=== PATIENT | female | born 1955 | race Caucasian/White ===

== ENCOUNTER 2020-02-14 17:59 | Emergency (ER) | payer OTHER, SELFPAY ==
[2020-02-14] VITALS (7 sets, daily range): BP systolic 170–199; BP diastolic 70–96; PULSE 60–77; RESP 12–18; TEMP 35.7; O2SAT 95–100; BMI 27.4
--- NOTE | 2020-02-14 18:49 | ECG_ITS ---
Test Reason : HIGH POTASSIUM Blood Pressure : / mmHG Vent. Rate : 070 BPM Atrial Rate : 070 BPM P-R Int : 146 ms QRS Dur : 086 ms QT Int : 434 ms P-R-T Axes : 053 008 047 degrees QTc Int : 468 ms Normal sinus rhythm Normal ECG when compared 05/09/19 no significant change Referred By: Alex Ramires Electronically Signed By:RIYA HOLCOMB MD
--- NOTE | 2020-02-14 18:49 | XR_ITS ---
EXAMINATION: XR CHEST CLINICAL INFORMATION: Chest pain COMPARISON: Chest x-ray 05/09/2019 TECHNIQUE: Frontal portable view of the chest was obtained. 6:55 PM FINDINGS: Vascular stent in the left subclavian region again noted. No change of the cardiomediastinal contours. The heart size is normal. There is no pulmonary vascular congestion. The lungs are clear. There is no pleural effusion or pneumothorax. Stable coarse calcified granuloma in the right midlung. XR/XR chest 1V IMPRESSION: No acute abnormality of the chest.
--- NOTE | 2020-02-14 18:50 | ED.GENADULT ---
HPI - General Adult General Chief complaint: General Medical Stated complaint: High blood pressure Time Seen by Provider: 02/14/20 18:41 Source: patient Mode of arrival: ambulatory Limitations: no limitations History of Present Illness HPI narrative: 64 years old female with history of end-stage renal failure on dialysis, hypertension, patient was recently hospitalized at [facility] for pulmonary edema require dialysis x2 patient was discharged from [facility] yesterday, patient felt fine all day today took a nap in the afternoon when she woke up felt foggy with lightheadedness and dizziness, felt also light chest pain patient checked her blood pressure found it to be 194 systolic. Patient decided to come to the emergency department, symptoms started 3 hours before arrival, described symptoms as mild, constant, this chest pain was not radiating to any other location, patient declined any relieving factor or worsening factor. Related Data Allergies Allergy/AdvReac Type Severity Reaction Status Date / Time ROXI Inhibitors Allergy Unknown UNKNOWN Unverified 12/23/19 17:19 [ROXI INHIBITORS] Review of Systems Review of Systems: ALL OTHER SYSTEMS ARE REVIEWED AND ARE NEGATIVE CONSTITUTIONAL: REPORTS PER HPI AND REPORTS NO ADDITIONAL CONSTITUTIONAL COMPLAINTS EYES: REPORTS PER HPI AND REPORTS NO ADDITIONAL EYE COMPLAINTS REPORTS SYSTEM REVIEWED AND NO ADDITIONAL COMPLAINTS, EXCEPT DOCUMENTED CARDIOVASCULAR: REPORTS PER HPI AND REPORTS NO ADDITIONAL CARDIOVASCULAR COMPLAINTS RESPIRATORY: REPORTS PER HPI AND REPORTS NO ADDITIONAL RESPIRATORY COMPLAINTS GASTROINTESTINAL: REPORTS PER HPI AND REPORTS NO ADDITIONAL GASTROINTESTINAL COMPLAINTS GENITOURINARY: REPORTS NO ADDITIONAL FEMALE GENITOURINARY COMPLAINTS MUSCULOSKELETAL: REPORTS NO ADDITIONAL MUSCULOSKELETAL COMPLAINTS SKIN/BREAST: REPORTS SYSTEM REVIEWED AND NO ADDITIONAL COMPLAINTS, EXCEPT DOCU PSYCHIATRIC: REPORTS NO ADDITIONAL PSYCHIATRIC COMPLAINTS ENDOCRINE: REPORTS NO ADDITIONAL ENDOCRINE COMPLAINTS HEMATOLOGIC/LYMPHATIC: REPORTS NO ADDITIONAL HEMATOLOGIC/LYMPHATIC COMPLAINTS ALLERGIC/IMMUNOLOGIC: REPORTS NO ADDITIONAL ALLERGIC/IMMUNOLOGIC COMPLAINTS REPORTS SYSTEM REVIEWED AND NO ADDITIONAL COMPLAINTS, EXCEPT DOCUMENTED AND REPORTS ABNORMAL SPEECH PRESENT [facility] Past Medical History Medical History Diabetes Hypertension Renal failure Sinus, maxillary, carcinoma Social History Social History Alcohol intake: never Smoked in Last 30 Days: No Use of substances other than those prescribed or required for medical reasons: No Advance Directives: No Advance Directives Information Provided: Yes Physical Exam Vital Signs: Vital Signs: Last Vital Signs Temp 96.3 F L 02/14/20 18:20 Pulse 67 02/14/20 21:02 Resp 16 02/14/20 21:02 BP 174/78 H 02/14/20 21:02 Pulse Ox 95 02/14/20 21:02 Body Mass Index 27.4 VITAL SIGNS HAVE BEEN REVIEWED NORMAL AND APPEARED TO BE CORRECT. BLOOD PRESSURE on high range. HEART RATE NORMAL. RESPIRATION RATE NORMAL. TEMPERATURE NORMAL. OXYGEN SATURATION NORMAL. Appearance: Alert. Oriented X3. No acute distress. Head: Normal external exam. Normocephalic. Atraumatic. No Buchanan signs noted. No raccoon eyes noted Eyes: PERRLA. EOMI. Conjunctiva and sclera normal. Eyelids normal. ENT: EAC normal. TM's Normal. Pharynx normal. Uvula midline. Moist mucous membranes. No trismus noted. No drooling noted. No muffled voice noted. Neck: Normal inspection. Neck supple. FROM. No adenopathy. Thyroid Normal. No meningeal signs. No neck mass noted. CVS: Normal heart rate and rhythm. Heart sound normal. No murmurs noted. Pulses normal throughout. Respiratory: No respiratory distress. Painless inspiration. Breath sounds normal. No wheezes/rales/rhonchi noted. Chest nontender. No accessory muscle usage noted or decreased air movement noted. Abdomen: Soft and nontender. Bowel sounds normal in all 4 quadrants. No distention noted. No organomegaly noted. No visible injury noted. Back: No CVA tenderness. Full range of motion noted. Skin: Skin warm and dry. Normal skin color. Normal skin turgor. No rashes/lesions/lacerations noted. Extremities: No lower extremity edema. Extremities exhibit normal range of motion. Extremities nontender. Neuro: Oriented X 3. No motor deficit. No sensory deficit. Reflexes normal. Medical Decision Making MDM Narrative Medical decision making narrative: Assessment and plan. 64-year-old female in stage renal disease on dialysis, also with history of hypertension, just had a recent hospitalization at [facility] required urgent dialysis as an inpatient, patient also scheduled for dialysis tomorrow at 06:00 patient is planning to keep that appointment for her dialysis, patient just had a recent change of her hypertension medication patient only taking spironolactone for blood pressure/diuresis. Patient complained of headache which improved shortly after. Unremarkable workup no indication for emergent dialysis at this point, patient had reasonably within normal labs for patient past medical history. Patient was urged to discuss with her assistant media buyer to add another antihypertensive medication tomorrow. At discharge patient feeling better blood pressure in the high range. Lab Data Result diagrams: 02/14/20 19:08 02/14/20 19:08 Labs: Lab Results 02/14/20 02/14/20 02/14/20 Range/Units 19:08 19:08 19:08 WBC 5.6 (4.8-10.8) X10*3/uL RBC 3.71 L (4.20-5.50) X10*6/uL Hgb 11.7 L (12.0-16.0) g/dl Hct 37.2 (37-47) % MCV 100.3 H (80-98) fL MCH 31.5 (27.0-33.0) pg MCHC 31.5 (31.0-35.0) g/dl RDW 15.4 (11.0-16.0) % Plt Count 157 L (160-400) X10*3/uL MPV 10.0 (9.4-12.3) fL Immature Gran % (Auto) 0.2 (0.0-0.4) % Neut % (Auto) 50.7 (45-73) % Lymph % (Auto) 23.3 (20-40) % [place] % (Auto) 13.7 H (2-11) % Eos % (Auto) 11.4 H (0-4) % Baso % (Auto) 0.7 (0-2) % Lymph # (Auto) 1.3 (1.2-4.9) X10*3/uL [place] # (Auto) 0.8 (0.1-1.2) X10*3/uL Eos # (Auto) 0.6 H (0.0-0.4) X10*3/uL Baso # (Auto) 0.0 (0.0-0.2) X10*3/uL Abs Immat Gran (auto) 0.01 (0.00-0.03) X10*3/uL Absolute Neuts (auto) 2.9 (2.0-8.3) X10*3/uL Absolute Nucleated RBC 0.000 (0.0-0.012) X10*3/uL Nucleated RBC % (auto) 0.0 (0.0-0.2) /100WBC Sodium 133 L (135-145) mmol/L Potassium 5.7 H (3.3-5.1) mmol/l Chloride 95 L (96-108) mmol/L Carbon Dioxide 22 (22-29) mmol/L Anion Gap 22 H (12-20) BUN 56 H (9-16) mg/dL Creatinine 9.42 H* (0.5-1.4) mg/dL Estim Creat Clear Calc 6.0 Estimated GFR 4 Random Glucose 168 H (60-115) mg/dL Calcium 8.3 L (8.4-10.2) mg/dL Total Bilirubin 0.5 (0.0-1.0) mg/dL Direct Bilirubin 0.2 (0.0-0.5) mg/dL AST 22 (5-31) U/L ALT 17 (0-31) U/L Alkaline Phosphatase 103 (39-117) U/L Troponin I High Sens 6.8 (<3.5-17.0) ng/L B-Natriuretic Peptide 402 H (<100) pg/mL Total Protein 7.2 (6.5-8.0) g/dL Albumin 3.8 (3.5-5.0) g/dL Lipase 153 H (8-78) U/L Imaging Data Chest x-ray: Radiologist's impression: No acute pathology ECG Data Interpretation: Normal sinus rhythm at 70 beats per minutes, normal intervals, no ST-T changes. Discharge Plan Discharge Clinical Impression: End stage kidney disease, Hyperkalemia Hypertension Qualifiers: Hypertension type: essential hypertension Qualified Code(s): I10 - Essential (primary) hypertension Patient Disposition: Home, Self-Care Instructions: Chronic Hypertension (ED) Additional Instructions: Keep your appointment for tomorrow dialysis tomorrow. Discuss with your assistant media buyer to add a new medicine for your hypertension. Referrals: Shelia Jung MD [Primary Care Provider] - 2 days
[2020-02-14 19:13] LABS: MANUAL DIFF FLAG NO
[2020-02-14 19:14] LABS: Basophils Percent Auto 0.7 % (0-2); Eosinophils Absolute Auto 0.6 X10*3/uL (0.0-0.4); Eosinophils Percent Auto 11.4 % (0-4); Hematocrit 37.2 % (37-47); Hemoglobin 11.7 g/dl (12.0-16.0); Imm Gran Abs Auto 0.01 X10*3/uL (0.00-0.03); Imm Gran Pct Auto 0.2 % (0.0-0.4); Lymphocytes Absolute Auto 1.3 X10*3/uL (1.2-4.9); Lymphocytes Percent Auto 23.3 % (20-40); Mean Corpuscular HGB Conc 31.5 g/dl (31.0-35.0); Mean Corpuscular Hemoglobin 31.5 pg (27.0-33.0); Mean Corpuscular Volume 100.3 fL (80-98); Monocytes Absolute Auto 0.8 X10*3/uL (0.1-1.2); Monocytes Percent Auto 13.7 % (2-11); Neutrophils Absolute Auto 2.9 X10*3/uL (2.0-8.3); Neutrophils Percent Auto 50.7 % (45-73); Platelet Count 157 X10*3/uL (160-400); Red Blood Count 3.71 X10*6/uL (4.20-5.50); Red Cell Distribution Width 15.4 % (11.0-16.0); White Blood Count 5.6 X10*3/uL (4.8-10.8)
[2020-02-14] MEDS: amLODIPine Besylate 5 MG TABLET PO (19:34)
--- NOTE | 2020-02-14 19:35 | PC.NURSE ---
[facility] HAD CP AROUND 5PM WITH DIZZINESS AT HOME. WAS HTN AND INSTRUCTED TO COME TO ED. PT RECENETLY TREATED FOR CHF. ARRIVED AT HOME YESTERDAY. NO PEDAL EDEMA. LS CTA. UNLABORED RESP. RECIEVED DIALYSIS SCHEDULED, LAST WAS FRIDAY.
[2020-02-14 19:38] LABS: B Type Natriuretic Peptide 402 pg/mL (<100); Troponin-I High Sensitivity 6.8 ng/L (<3.5-17.0)
[2020-02-14 19:42] LABS: Alanine Aminotransferase 17 U/L (0-31); Albumin Level 3.8 g/dL (3.5-5.0); Alkaline Phosphatase 103 U/L (39-117); Anion Gap 22 (12-20); Aspartate Amino Transferase 22 U/L (5-31); Bilirubin Direct 0.2 mg/dL (0.0-0.5); Bilirubin Total 0.5 mg/dL (0.0-1.0); Blood Urea Nitrogen 56 mg/dL (9-16); Calcium 8.3 mg/dL (8.4-10.2); Carbon Dioxide 22 mmol/L (22-29); Chloride 95 mmol/L (96-108); Estimated Glomerular Filt Rate 4; Glucose Random 168 mg/dL (60-115); Potassium 5.7 mmol/l (3.3-5.1); Sodium 133 mmol/L (135-145); Total Protein 7.2 g/dL (6.5-8.0)
[2020-02-14 19:56] LABS: Lipase 153 U/L (8-78)
--- NOTE | 2020-02-14 20:05 | PC.NURSE ---
bp improving. pt reports feeling better. skin pwd. nad. snr on monitor.
--- NOTE | 2020-02-14 20:31 | PC.NURSE ---
pt reporting a headache and nausea. then starts to doze off. easily aroused. made aware.
--- NOTE | 2020-02-14 21:02 | PC.NURSE ---
pt sleeping soundly. skin pwd.
== END 2020-02-14 22:13 | disposition home or self-care (01) ==
PROVIDERS: Emergency Provider Emergency Medicine; PCP Pediatrics
DX: I12.0 Hypertensive chronic kidney disease with stage 5 chronic kidney disease or end stage renal disease (principal); J81.1 Chronic pulmonary edema; E87.5 Hyperkalemia; Z79.899 Other long term (current) drug therapy
CPT/HCPCS: 36415; 71045; 80048; 80076; 83690; 83880; 84484; 85025; 93005; 99283; 99284

== ENCOUNTER 2020-04-11 11:23 | Outpatient (REF) | payer OTHER, SELFPAY ==
--- NOTE | 2020-04-11 11:30 | XR_ITS ---
EXAMINATION: XR LUMBOSACRAL SPINE CLINICAL INFORMATION: Low back pain COMPARISON: None TECHNIQUE: Three views of the lumbosacral spine. FINDINGS: There may be a transitional vertebral body segment or 6 lumbar-type vertebral bodies. For the purposes of this dictation, L1 is designated as the first nonrib-bearing vertebral body with the top of the iliac crest at the L4-L5 disc space level and the transitional segment designated inferiorly. There is rotatory scoliosis of the lower lumbar spine convex to the left and lumbar sacral region convex to the right. There is 1 cm anterior subluxation of L5 with the transitional segment. Bone alignment is otherwise normal. No fracture or dislocation is seen. There is degenerative disc disease at the L5 transitional segment and transitional segment and sacrum levels. There is lower lumbar spine facet arthritis. There is evidence of atherosclerotic disease. XR/XR lumbar spine 2-3V IMPRESSION: Probable transitional vertebral body segment. Rotatory scoliosis. Lower lumbar sacral spine degenerative disc disease and facet arthritis 1 cm anterior subluxation of L5 with respect to the transitional vertebral body segment.
== END 2020-04-11 11:24 | disposition home or self-care (01) ==
LOC: HO.XRAY 11:23
PROVIDERS: PCP Pediatrics; Visit Provider General Practice
DX: M54.5 Low back pain (principal)
CPT/HCPCS: 72100

== ENCOUNTER 2020-05-10 20:44 | Inpatient (IN) | payer OTHER, SELFPAY ==
--- NOTE | ~2020-05-10 | XR_ITS ---
EXAMINATION: XR CHEST CLINICAL INFORMATION: SOB and pleural effusion. COMPARISON: Chest 05/11/2020 TECHNIQUE: 2 views of the chest were obtained. FINDINGS: There is diffuse haziness right lung base for fusion underlying atelectasis. Rest of lungs are expanded. Minimal atelectatic changes are seen in the left lung base. Increase interstitial prominence both lungs have slightly improved. Heart size and pulmonary vascularity is normal. There is left subclavian venous stent. XR/XR chest 2V IMPRESSION: Small right pleural effusion with underlying atelectasis. Minimal left basilar atelectasis seen.
[2020-05-10 21:36] VITALS: BP 180/87; PULSE 87; RESP 18; TEMP 36.8; O2SAT 99; BMI 27.8
--- NOTE | 2020-05-11 00:03 | CT_ITS ---
EXAMINATION: CT ABDOMEN AND PELVIS WITHOUT CONTRAST CLINICAL INFORMATION: Vomiting. Abdominal pain. Distention. Concern for bowel obstruction. COMPARISON: None TECHNIQUE: Multidetector volumetric imaging was performed from the superior aspect of the liver through the pubic symphysis. Sagittal and coronal reformatted images were obtained on the technologist's workstation. This CT examination was performed using dose optimization techniques as appropriate, variously including the following: *Automated exposure control *Adjustment of mA and/or kV according to patient size (this includes techniques or standardized protocols for targeted exams where dose is matched to indication/reason for exam; i.e. extremities or head) *Use of iterative reconstruction technique DLP: 431 mGy-cm FINDINGS: LUNG BASES: There are bilateral pleural effusions. The effusion is moderate in volume on the right and small on the left. There is airspace consolidation at the right lung base. There are patchy airspace opacities also at the left lung base. There is a calcified granuloma in the right lower lobe. LIVER, GALLBLADDER, AND BILIARY TREE: The liver is normal in size, shape, and attenuation. No focal hepatic lesion or biliary ductal dilatation is present. Scattered calcified granuloma in the liver. The gallbladder is unremarkable with no evidence of radiopaque gallstones, gallbladder wall thickening, or obvious pericholecystic inflammatory changes. PANCREAS: Unremarkable. SPLEEN: Multiple small calcified granuloma in the spleen. Spleen is of normal size. No splenic mass. ADRENAL GLANDS: Unremarkable. KIDNEYS AND URETERS: The kidneys are markedly atrophic with thinning of the cortex. There is no hydronephrosis. There is a 4 mm stone in lower pole the right kidney. BLADDER: Unremarkable. GASTROINTESTINAL TRACT: There is no acute change of bowel. There is no bowel wall thickening /edema. There is no bowel obstruction. There is a moderate volume of stool in the colon. There is some oral contrast in the lumen of the cecum and right colon. The appendix is nonvisualized . The small bowel loops are unremarkable. The stomach is normal. There is no hiatal hernia. Mesentery: No free air. No inflammation or free fluid. ABDOMINAL WALL: No significant hernia is appreciated. LYMPH NODES: Normal. VASCULAR: There are vascular calcifications throughout the abdomen and the pelvis. There is no aneurysm of aorta. PELVIC VISCERA: Uterus is retroverted. There are multiple small vascular calcifications in the subserosa of the uterus. OSSEOUS STRUCTURES: Grade 1 anterolisthesis of L4 and L5.. Bilateral spondylolysis of the L4 pars interarticularis. The L4-L5 disc is narrowed with vacuum disc phenomenon, vertebral endplate osteosclerosis and cystic changes and large anterior endplate spurs. There is degenerative facet joint arthrosis at L5-S1. CT/CT abdomen pelvis wo con IMPRESSION: 1. Bilateral pleural effusions, right larger in volume than left. 2. Consolidation right lung base. 3. Cardiomegaly. 4. Atrophic kidneys. No hydronephrosis. Small right renal stone. 5. No acute change of the bowel.
--- NOTE | 2020-05-11 00:03 | XR_ITS ---
EXAMINATION: CHEST 1 VIEW CLINICAL INFORMATION: Shortness of breath. COMPARISON: 05/09/2019. TECHNIQUE: An AP view of the chest is provided. FINDINGS: The cardiac silhouette is stable. A vascular stent is in unchanged position. There is opacification within the lower right hemithorax, likely employer relations 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 of pleural and parenchymal disease. Superimposed upon this is interstitial prominence throughout both lungs. There is a stable nodular density within the right lower lung zone. The osseous structures are stable. XR/XR chest 1V IMPRESSION: Right lower lobe opacification likely employer relations 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 of a mixture of pleural and parenchymal disease. This is superimposed upon mild interstitial prominence throughout both lungs.
--- NOTE | 2020-05-11 00:03 | ECG_ITS ---
Test Reason : ABD PAIN Blood Pressure : / mmHG Vent. Rate : 095 BPM Atrial Rate : 095 BPM P-R Int : 148 ms QRS Dur : 084 ms QT Int : 390 ms P-R-T Axes : 047 019 054 degrees QTc Int : 490 ms Normal sinus rhythm Possible Left atrial enlargement Prolonged QT Abnormal ECG When compared with ECG of 14-FEB-2020 19:13, No significant change was found Referred By: Kilo Garner Electronically Signed By:ANAHI LOVE
--- NOTE | 2020-05-11 00:05 | ED_ITS ---
HPI - General Adult General Chief complaint: Weakness Stated complaint: Fatigue Time Seen by Provider: 05/10/20 23:13 Source: patient Mode of arrival: ambulatory Limitations: no limitations History of Present Illness HPI narrative: 64-year-old female who presents to the emergency department for evaluation of abdominal pain, nausea, vomiting, weakness and diarrhea. The patient has end-stage renal disease and is dialyzed on Friday, and Friday. She states that she had a full dialysis on Friday but she did have some hypertension during dialysis. She states that she was feeling weak today. This afternoon, she developed diarrhea. She states that initially the stool was soft and then became watery. She had 4-5 episodes of loose watery stool, with no blood in it. She developed mid epigastric pain which she describes as a intermittent, dull ache which is 6/10 at its worse. She had associated nausea with no vomiting. She states she was feeling very weak. She also felt short of breath this evening. She has had a cough which is nonproductive. She denied myalgias, arthralgias, loss of sense of taste or smell. Patient states that she was last tested for COVID 19, 1-2 weeks prior and she was negative. At the time of evaluation, she is complaining of abdominal pain which is 6/10. She did take Pepto-Bismol at home and believes that this has helped her diarrhea but not her abdominal pain. Related Data Home Medications Medication Instructions Recorded Confirmed acetaminophen 650 mg PO Q6H PRN 05/11/20 05/11/20 ammonium lactate 1 appl TOPICAL BID 05/11/20 05/11/20 atorvastatin 40 mg PO BEDTIME 05/11/20 05/11/20 gabapentin 100 mg PO DAILY 05/11/20 05/11/20 gabapentin 200 mg PO BEDTIME 05/11/20 05/11/20 lidocaine-prilocaine 1 appl TOPICAL DAILY PRN 05/11/20 05/11/20 loratadine 10 mg PO DAILY 05/11/20 05/11/20 lorazepam 1 mg PO 3XW 05/11/20 05/11/20 losartan 25 mg PO BEDTIME 05/11/20 05/11/20 nifedipine 60 mg PO DAILY 05/11/20 05/11/20 pioglitazone 30 mg PO DAILY 05/11/20 05/11/20 spironolactone 100 mg PO DAILY 05/11/20 05/11/20 sucroferric oxyhydroxide [Velphoro] 1,000 mg PO TID 05/11/20 05/11/20 venlafaxine 37.5 mg PO DAILY 05/11/20 05/11/20 zolpidem 10 mg PO BEDTIME PRN 05/11/20 05/11/20 Allergies Allergy/AdvReac Type Severity Reaction Status Date / Time ROXI Inhibitors Allergy Unknown UNKNOWN Verified 05/10/20 21:35 [ROXI INHIBITORS] Review of Systems Review of Systems: Yes all other systems are reviewed and are negative Neurologic: Reports Abnormal speech present [facility] Past Medical History [facility] Narrative: The patient denies tobacco, alcohol and drug use. Medical History Diabetes Hypertension Renal failure Sinus, maxillary, carcinoma Social History Social History Alcohol intake: never Smoked in Last 30 Days: No Use of substances other than those prescribed or required for medical reasons: No Advance Directives: No Advance Directives Information Provided: No Physical Exam Vital Signs: Vital Signs: Last Vital Signs Temp 98.9 F 05/11/20 02:00 Pulse 98 05/11/20 02:00 Resp 20 05/11/20 02:00 BP 217/96 H 05/11/20 02:00 Pulse Ox 82 L 05/11/20 02:00 Body Mass Index 27.8 Const: General: cooperative and acute distress mild (Secondary to abdominal pain) Orientation/consciousness: oriented to person and oriented to place Limitations: no limitations HENMT: Head: Yes normal to inspection, Yes normocephalic and Yes atraumatic Ears: external ears normal General nose exam: Normal external nose present Face and sinus: Yes other (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) Mouth: Normal oral and palatal mucosa present Throat: Yes posterior oropharynx normal Eyes: Periorbital: periorbital findings normal Eyelids: Yes eyelids normal Conjunctivae: conjunctivae normal Sclerae: sclerae normal Corneas: corneas normal Pupils: Equal, round and reactive pupils present Direct Ophthalmoscopy: normal light reflex Neck: Neck: Yes full ROM, Yes no lymphadenopathy, Yes no meningeal signs, Yes trachea midline and Yes supple Chest: Chest palpation & inspection: normal inspection of the chest and normal palpation of entire chest wall Resp: Effort & Inspection: normal respiratory effort and able to speak in complete sentences Auscultation: clear to auscultation bilaterally Cardio: Rate: regular rate Rhythm: regular rhythm Heart sounds: S1 normal heart sound present, S2 normal heart sound present and no murmurs GI: Inspection: Yes distended ([id number]) Palpation (GI): Soft to palpation, Tenderness to palpation present (GI) in the epigastrum (Moderate), no guarding, not rigid and No hepatosplenomegaly present Auscultation: High- pitched bowel sounds present : General: Yes no CVA tenderness Back/Spine/Pelvis: Back: no CVA tenderness Cervical Spine: normal cervical lordosis Thoracic/Lumbar Spine: thoracic and lumbar spine normal to inspection Skin: Lesions: no lesions Rashes: no rashes Wounds: no wounds Neuro: General: oriented to person, oriented to place and no meningeal signs Cranial nerves: Yes CN's II-XII intact bilaterally and Yes Equal, round and reactive pupils present Cognition (Neuro): normal cognition Speech: Abnormal speech present Motor exam (neuro): 5/5 motor strength present throughout Extrem: General: Yes normal to inspection and Yes full ROM Psych: Appearance: well kempt Mental Status: mental status grossly normal Speech and movement: Normal speech and movement present Affect: normal affect Attitude: cooperative Thought process: Normal thought process present Thought content: Normal thought content present Course Course Course Narrative: 64-year-old female with a history of end-stage renal disease, dialyzed on Friday, and Friday, who presents to the emergency department for evaluation of fatigue, abdominal pain with distention, nausea, diarrhea. Examination did reveal midepigastric tenderness with abdominal distension and high-pitched bowel sounds. Concerned the patient may have a bowel obstruction. Laboratory evaluation was ordered including CT scan of the abdomen pelvis without IV contrast. Patient was ordered to get normal saline 500 cc bolus, Zofran 4 mg IV for her nausea and morphine 4 mg IV for her pain. 0211: The patient's laboratory evaluation is consistent with chronic anemia and renal failure. Chest x-ray revealed a right lower lobe opacity. CT scan of the abdomen and pelvis confirmed the patient does have a right lower lung airspace consolidation and possible left lower lung airspace consolidation as well. Patient also has bilateral pleural effusions and possible ascites noted, there was no bowel obstruction. Given the patient's immunocompromised status due to having end-stage renal disease and being a dialysis patient, I do not think that this patient can managed at home and needs to be admitted for IV antibiotics. I did order blood cultures x2 and a lactic acid. The patient was ordered to get Zosyn 3.375 mg IV for possible aspiration pneumonia. Will monitor the patient for hypotension and give her IV fluid as appropriate. I will discuss the patient's presentation with the covering hospitalist. The patient states that she gets her dialysis through [facility] from Dr. Leon Asencio. We will need to consult our ton container shipper for dialysis today. 0225: I was informed by nursing that the patient's O2 saturation was 70% on room air, patient was placed on 4 L via nasal cannula with O2 saturation 96%. Given this finding, concerned the patient may have COVID pneumonia despite the negative COVID-19 test. I did order Decadron 10 mg IV. 0243: I did discuss the patient's presentation with the ton container shipper, Dr. Forman and with the covering hospitalist. The hospitalist was concerned that the patient is hypertensive and the patient was ordered to get her outpatient nifedipine 60 mg orally and lower start and 25 mg orally. Also, after my discussion with hospitalist, I added vancomycin 1 g IV to the patient's antibiotic regimen. The patient will be admitted for further management of her pneumonia and hypoxia. Medical Decision Making Lab Data Result diagrams: 05/11/20 01:15 05/11/20 01:15 Labs: Lab Results 05/11/20 05/11/20 05/11/20 Range/Units 01:15 01:15 01:15 WBC 5.8 (4.8-10.8) X10*3/uL RBC 2.90 L D (4.20-5.50) X10*6/uL Hgb 9.0 L D (12.0-16.0) g/dl Hct 29.2 L D (37-47) % MCV 100.7 H (80-98) fL MCH 31.0 (27.0-33.0) pg MCHC 30.8 L (31.0-35.0) g/dl RDW 15.5 (11.0-16.0) % Plt Count 207 D (160-400) X10*3/uL MPV 9.3 L (9.4-12.3) fL Immature Gran % (Auto) 0.2 (0.0-0.4) % Neut % (Auto) 66.0 (45-73) % Lymph % (Auto) 17.2 L (20-40) % [place] % (Auto) 10.9 (2-11) % Eos % (Auto) 5.0 H (0-4) % Baso % (Auto) 0.7 (0-2) % Lymph # (Auto) 1.0 L (1.2-4.9) X10*3/uL [place] # (Auto) 0.6 (0.1-1.2) X10*3/uL Eos # (Auto) 0.3 (0.0-0.4) X10*3/uL Baso # (Auto) 0.0 (0.0-0.2) X10*3/uL Abs Immat Gran (auto) 0.01 (0.00-0.03) X10*3/uL Absolute Neuts (auto) 3.8 (2.0-8.3) X10*3/uL Absolute Nucleated RBC 0.000 (0.0-0.012) X10*3/uL Nucleated RBC % (auto) 0.0 (0.0-0.2) /100WBC Sodium 137 (135-145) mmol/L Potassium 4.5 (3.3-5.1) mmol/L Chloride 98 (96-108) mmol/L Carbon Dioxide 24 (22-29) mmol/L Anion Gap 20 (12-20) BUN 35 H (9-16) mg/dL Creatinine 6.79 H* (0.5-1.4) mg/dL Estim Creat Clear Calc 8.4 Estimated GFR 6 Random Glucose 165 H (60-115) mg/dL Calcium 8.7 (8.4-10.2) mg/dL Total Bilirubin 0.4 (0.0-1.0) mg/dL AST 12 D (5-31) U/L ALT 7 (0-31) U/L Alkaline Phosphatase 94 (39-117) U/L Total Protein 6.7 (6.5-8.0) g/dL Albumin 3.4 L (3.5-5.0) g/dL Lipase 246 H (8-78) U/L COVID-19 (AJAY) Negative (Negative) COVID-19 Clin Com See Note ECG Data Attestation: I personally reviewed and interpreted this ECG as follows: Interpretation: 0126: Normal sinus rhythm with a rate of 95, [place] [address] milliseconds. Prolonged QTC interval of 490 milliseconds, no ST segment elevation, no ST segment depression, no old EKG for comparison. Critical Care Time Critical Care Time Critical Care Time: Yes Total Critical Care Time: 75 Attestation: Critical Care: The patient was critically ill with a high probability of imminent or life threatening deterioration. I spent greater than 30 minutes of discontinuous time evaluating the patient,delivering critical care at the bedside, discussing and evaluating pertinent data with consultants. Critical care time does not include time spent performing separately billable procedures or teaching. Total time spent performing critical care was 75 minutes. Discharge Plan Discharge Clinical Impression: Hypoxia Pneumonia Qualifiers: Pneumonia type: due to unspecified organism Laterality: bilateral Lung location: lower lobe of lung Qualified Code(s): J18.9 - Pneumonia, unspecified organism Abdominal pain Qualifiers: Abdominal location: epigastric Qualified Code(s): R10.13 - Epigastric pain Diarrhea Qualifiers: Diarrhea type: unspecified type Qualified Code(s): R19.7 - Diarrhea, unspecified Prescriptions: No Action atorvastatin 40 mg tablet 40 mg PO BEDTIME RF: 0 venlafaxine 37.5 mg capsule,extended release 24hr 37.5 mg PO DAILY RF: 0 ammonium lactate 12 % lotion 1 appl topical BID RF: 0 spironolactone 100 mg tablet 100 mg PO DAILY RF: 0 lidocaine-prilocaine 2.5-2.5 % cream 1 appl topical DAILY PRN (Reason: Pain) RF: 0 losartan 25 mg tablet 25 mg PO BEDTIME RF: 0 gabapentin 100 mg capsule 100 mg PO DAILY RF: 0 gabapentin 100 mg Capsule 200 mg PO BEDTIME RF: 0 lorazepam 1 mg tablet 1 mg PO 3XW RF: 0 zolpidem 10 mg tablet 10 mg PO BEDTIME PRN (Reason: insomnia) RF: 0 pioglitazone 30 mg tablet 30 mg PO DAILY RF: 0 nifedipine 60 mg tablet extended release 60 mg PO DAILY RF: 0 loratadine 10 mg tablet 10 mg PO DAILY RF: 0 Velphoro 500 mg tablet,chewable 1,000 mg PO TID RF: 0 acetaminophen 325 mg Tablet 650 mg PO Q6H PRN (Reason: Pain) RF: 0
[2020-05-11] MEDS: Morphine Sulfate 4 MG/ML CARTRIDGE IVPUSH (01:20)
[2020-05-11] MEDS: 0.9 % Sodium Chloride 500 ML IV (01:20)
[2020-05-11] MEDS: ondansetron HCL 4 MG/2 ML VIAL IVPUSH (01:20)
[2020-05-11 01:22] LABS: Basophils Percent Auto 0.7 % (0-2); Eosinophils Absolute Auto 0.3 X10*3/uL (0.0-0.4); Hematocrit 29.2 % (37-47); Imm Gran Abs Auto 0.01 X10*3/uL (0.00-0.03); Imm Gran Pct Auto 0.2 % (0.0-0.4); Lymphocytes Percent Auto 17.2 % (20-40); MANUAL DIFF FLAG NO; Mean Corpuscular HGB Conc 30.8 g/dl (31.0-35.0); Mean Corpuscular Volume 100.7 fL (80-98); Mean Platelet Volume 9.3 fL (9.4-12.3); Monocytes Absolute Auto 0.6 X10*3/uL (0.1-1.2); Monocytes Percent Auto 10.9 % (2-11); Neutrophils Absolute Auto 3.8 X10*3/uL (2.0-8.3); Platelet Count 207 X10*3/uL (160-400); Red Cell Distribution Width 15.5 % (11.0-16.0); White Blood Count 5.8 X10*3/uL (4.8-10.8)
[2020-05-11 01:35] LABS: COVID-19 Test Negative (Negative)
[2020-05-11 02:00] VITALS: BP 217/96; PULSE 98; RESP 20; TEMP 37.2; O2SAT 82
[2020-05-11 02:02] LABS: Alanine Aminotransferase 7 U/L (0-31); Albumin Level 3.4 g/dL (3.5-5.0); Alkaline Phosphatase 94 U/L (39-117); Anion Gap 20 (12-20); Aspartate Amino Transferase 12 U/L (5-31); Bilirubin Total 0.4 mg/dL (0.0-1.0); Blood Urea Nitrogen 35 mg/dL (9-16); Calcium 8.7 mg/dL (8.4-10.2); Carbon Dioxide 24 mmol/L (22-29); Chloride 98 mmol/L (96-108); Creatinine Clr Calc Pharmacy 8.4; Estimated Glomerular Filt Rate 6; Glucose Random 165 mg/dL (60-115); Potassium 4.5 mmol/L (3.3-5.1); Sodium 137 mmol/L (135-145); Total Protein 6.7 g/dL (6.5-8.0)
[2020-05-11 02:17] LABS: Lipase 246 U/L (8-78)
--- NOTE | 2020-05-11 02:21 | PC.NURSE ---
PATEINT 77% ON ROOM AIR. PLACED ON 4L 02 NC NOW 95%. DR WATSON AWARE.
--- NOTE | 2020-05-11 02:37 | PM.IMHP ---
History of Present Illness Date of Service: 05/11/20 Chief Complaint: shortness of breath/diarrhea 64-year-old female with a past medical history of hypertension, hyperlipidemia, diabetes, ESRD on hemodialysis on Friday, anxiety, depression presented to the hospital with a chief complaint of diarrhea. Patient reports that for the past 1 day she has been having abdominal discomfort/epigastric pain and had 4 episodes of loose watery stool. Also ordered to her shortness of breath and cough. Denies any fevers. Denies any nausea vomiting. Denies any urinary symptoms. Review of all other systems is negative except mentioned above ER course: Per ER physician patient exam noticed mild epigastric tenderness, home a CT scan showed no acute intra-abdominal pathology. But noticed bilateral pleural effusions as well as home pulmonary infiltrates concern for pneumonia-patient was given empirical vanc and Zosyn. As well as Decadron will for suspected PUI. ER physician mentioned that he also spoke to Nephrology Dr. kelley who mentioned no need for emergency dialysis and will be re-evaluated in the morning. EKG was nonischemic. For ER patient patient was briefly hypoxic to 75% subsequently placed on Asacol cannula 4 L improvement in saturations to 96%. Patient was not in respiratory distress. [facility] Medical History Diabetes Hypertension Renal failure Sinus, maxillary, carcinoma Social History Alcohol intake: never Smoked in Last 30 Days: No Use of substances other than those prescribed or required for medical reasons: No Advance Directives: No Advance Directives Information Provided: No Meds Allergies Allergy/AdvReac Type Severity Reaction Status Date / Time ROXI Inhibitors Allergy Unknown UNKNOWN Verified 05/10/20 21:35 [ROXI INHIBITORS] Home Medications Medication Instructions Recorded Confirmed Type acetaminophen 650 mg PO Q6H PRN 05/11/20 05/11/20 History ammonium lactate 1 appl TOPICAL BID 05/11/20 05/11/20 History atorvastatin 40 mg PO BEDTIME 05/11/20 05/11/20 History gabapentin 100 mg PO DAILY 05/11/20 05/11/20 History gabapentin 200 mg PO BEDTIME 05/11/20 05/11/20 History lidocaine-prilocaine 1 appl TOPICAL DAILY PRN 05/11/20 05/11/20 History loratadine 10 mg PO DAILY 05/11/20 05/11/20 History lorazepam 1 mg PO 3XW 05/11/20 05/11/20 History losartan 25 mg PO BEDTIME 05/11/20 05/11/20 History nifedipine 60 mg PO DAILY 05/11/20 05/11/20 History pioglitazone 30 mg PO DAILY 05/11/20 05/11/20 History spironolactone 100 mg PO DAILY 05/11/20 05/11/20 History sucroferric oxyhydroxide [Velphoro] 1,000 mg PO TID 05/11/20 05/11/20 History venlafaxine 37.5 mg PO DAILY 05/11/20 05/11/20 History zolpidem 10 mg PO BEDTIME PRN 05/11/20 05/11/20 History Physical Exam Vital Signs and Narrative: Vital Signs: Gen: Appears be in no acute distress HEENT: NCAT, Moist mucosa. Pulmonary: Diminished breath sounds CVS: Normal S1-S2 Abdomen: BS+, Soft, Nontender Extremities: Warm well perfused Neuro: Alert and awake. Last Vital Signs Temp 98.9 F 05/11/20 02:00 Pulse 98 05/11/20 02:00 Resp 20 05/11/20 02:00 BP 217/96 H 05/11/20 02:00 Pulse Ox 82 L 05/11/20 02:00 Body Mass Index 27.8 Results Labs CBC and Chem 7: 05/11/20 01:15 05/11/20 01:15 Labs: Laboratory Results - last 24 hr 05/11/20 05/11/20 05/11/20 01:15 01:15 01:15 MCV 100.7 H MCH 31.0 MCHC 30.8 L RDW 15.5 Plt Count 207 D MPV 9.3 L Immature Gran % (Auto) 0.2 Neut % (Auto) 66.0 Lymph % (Auto) 17.2 L [place] % (Auto) 10.9 Eos % (Auto) 5.0 H Baso % (Auto) 0.7 Lymph # (Auto) 1.0 L [place] # (Auto) 0.6 Eos # (Auto) 0.3 Baso # (Auto) 0.0 Abs Immat Gran (auto) 0.01 Absolute Neuts (auto) 3.8 Absolute Nucleated RBC 0.000 Nucleated RBC % (auto) 0.0 Anion Gap 20 Estim Creat Clear Calc 8.4 Estimated GFR 6 Random Glucose 165 H Calcium 8.7 Total Bilirubin 0.4 AST 12 D ALT 7 Alkaline Phosphatase 94 Total Protein 6.7 Albumin 3.4 L Lipase 246 H COVID-19 (AJAY) Negative COVID-19 Clin Com See Note Imaging Radiologist's Impressions: Impressions Abdomen/Pelvis CT 05/11/20 00:03 IMPRESSION: 1. Bilateral pleural effusions, right larger in volume than left. 2. Consolidation right lung base. 3. Cardiomegaly. 4. Atrophic kidneys. No hydronephrosis. Small right renal stone. 5. No acute change of the bowel. Chest X-Ray 05/11/20 00:03 IMPRESSION: Right lower lobe opacification likely logistics service 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 of a mixture of pleural and parenchymal disease. This is superimposed upon mild interstitial prominence throughout both lungs. Assessment and Plan (1) Pneumonia: Qualifiers: Laterality: bilateral Lung location: lower lobe of lung Pneumonia type: due to unspecified organism Qualified Code(s): J18.9 - Pneumonia, unspecified organism Status: Acute 64-year-old female with a past medical history of hypertension, hyperlipidemia, diabetes, ESRD on hemodialysis on Friday, anxiety, depression presented to the hospital with a chief complaint of epigastric discomfort/diarrhea/shortness of breath/cough; noted to have hypoxia, not in respiratory distress, CT scan consistent with pleural effusion/pneumonia. Admitted to the hospital for further management. Acute hypoxic respiratory failure: Likely in the setting of bilateral pleural effusion/pneumonia. Suspicious for COVID-19. Oxygen saturation improved on supplemental oxygen via nasal cannula at 4 L to 96%. Pneumonia: Rapid COVID test negative. But highly suspicious for COVID-will keep the patient on isolation. Id consult for further recommendation. Empirically continue Decadron Continue vanc and Zosyn. Bilateral pleural effusions: Likely in the setting of ESRD; minimally concern for parapneumonic effusions. Pulmonology consulted. ESRD: Patient's potassium and bicarb fairly within the normal limits. Nephrology consulted for dialysis. Hypertension: Poorly controlled. Continue home medications. Labetalol p.r.n. today Diabetes: Insulin sliding scale Continue home medications DVT prophylaxis: Subcu heparin Full code
[2020-05-11 02:55] VITALS: BP 192/95; PULSE 89; RESP 24; TEMP 37; O2SAT 98
[2020-05-11] MEDS: Piperacillin Sodium/Tazobactam 3.375 GM in 0.9 % Sodium Chloride 50 ML IV (03:16)
[2020-05-11 03:18] VITALS: BP 192/95; PULSE 89
[2020-05-11] MEDS: Losartan Potassium 25 MG TABLET PO ×2 (03:18→21:00)
[2020-05-11] MEDS: NIFEdipine ER 60 MG TAB.ER.24 PO (03:18)
[2020-05-11] MEDS: Heparin Sodium,Porcine 5,000 UNIT/ML VIAL 5000 UNIT SUBCUT (03:19)
[2020-05-11 03:22] LABS: Lactic Acid 0.7 mmol/L (0.5-2.0)
[2020-05-11] MEDS: vancomycin HCL 1,000 MG in 0.9 % Sodium Chloride 250 ML 270 MG IV (03:45)
[2020-05-11 04:01] VITALS: BP 174/99; PULSE 87; RESP 20; O2SAT 97
--- NOTE | 2020-05-11 06:47 | PC.NURSE ---
PATIENT REPORTED INCREASING PAIN. O2 SAT DOWN TO 90% ON 2L. INCREASED O2 TO 4L NC. PATIENT IMMEDIATELY REPORTED IMPROVEMENT IN PAIN. O2 SAT UP TO 94%.
[2020-05-11 07:58] LABS: Glucose, Whole Blood 222 mg/dL (60-115)
[2020-05-11] MEDS: Piperacillin Sodium/Tazobactam 2.25 GM in 0.9 % Sodium Chloride 50 ML IV ×2 (09:20→18:33)
[2020-05-11 09:21] VITALS: BP 148/78; PULSE 79
[2020-05-11] MEDS: Insulin Lispro 100 UNIT/ML 3 ML VIAL SUBCUT ×2 (09:21→22:18)
[2020-05-11] MEDS: Spironolactone 25 MG TABLET 100 MG PO (09:21)
[2020-05-11] MEDS: Gabapentin 100 MG CAPSULE PO (09:22)
[2020-05-11] MEDS: Venlafaxine HCl ER 37.5 MG CAP.ER.24H PO (09:22)
[2020-05-11] MEDS: dexAMETHasone 6 MG TABLET PO (09:22)
[2020-05-11] MEDS: Loratadine 10 MG TABLET PO (09:27)
[2020-05-11] MEDS: LORazepam 1 MG TABLET PO (11:07)
[2020-05-11 16:27] VITALS: BP 153/72; PULSE 75; RESP 16; TEMP 36.6; O2SAT 97
--- NOTE | 2020-05-11 17:33 | PM.CNNEP ---
History of Present Illness Reason for Consult Consult date: 05/11/20 Chief Complaint Chief complaint: SOB History of Present Illness Narrative: 64-year-old female with ESRD on hemodialysis on Friday among multiple other medical issues presented to the hospital with a chief complaint of diarrhea. Denies any fevers. Denies any nausea vomiting. Review of all other systems is negative except mentioned above. CT scan showed no acute intra-abdominal pathology but noticed bilateral pleural effusions as well as home pulmonary infiltrates concern for pneumonia-patient was given empirical vanc and Zosyn as well as Decadron. will for suspected PUI. Nephrology was consulted to assist in her clinical care. Review of Systems Review of Systems Yes all other systems are reviewed and are negative PMFSH Past Medical History Medical History Diabetes Hypertension Renal failure Sinus, maxillary, carcinoma Social History Social History Alcohol intake: never Smoked in Last 30 Days: No Use of substances other than those prescribed or required for medical reasons: No Advance Directives: No Advance Directives Information Provided: No Meds Allergies Allergy/AdvReac Type Severity Reaction Status Date / Time ROXI Inhibitors Allergy Unknown UNKNOWN Verified 05/10/20 21:35 [ROXI INHIBITORS] Home Medications Medication Instructions Recorded Confirmed Type acetaminophen 650 mg PO Q6H PRN 05/11/20 05/11/20 History ammonium lactate 1 appl TOPICAL BID 05/11/20 05/11/20 History atorvastatin 40 mg PO BEDTIME 05/11/20 05/11/20 History gabapentin 100 mg PO DAILY 05/11/20 05/11/20 History gabapentin 200 mg PO BEDTIME 05/11/20 05/11/20 History lidocaine-prilocaine 1 appl TOPICAL DAILY PRN 05/11/20 05/11/20 History loratadine 10 mg PO DAILY 05/11/20 05/11/20 History lorazepam 1 mg PO 3XW 05/11/20 05/11/20 History losartan 25 mg PO BEDTIME 05/11/20 05/11/20 History nifedipine 60 mg PO DAILY 05/11/20 05/11/20 History pioglitazone 30 mg PO DAILY 05/11/20 05/11/20 History spironolactone 100 mg PO DAILY 05/11/20 05/11/20 History sucroferric oxyhydroxide [Velphoro] 1,000 mg PO TID 05/11/20 05/11/20 History venlafaxine 37.5 mg PO DAILY 05/11/20 05/11/20 History zolpidem 10 mg PO BEDTIME PRN 05/11/20 05/11/20 History Physical Exam Vital Signs: Last Vital Signs Temp 97.9 F 05/11/20 16:27 Pulse 75 05/11/20 16:27 Resp 16 05/11/20 16:27 BP 153/72 H 05/11/20 16:27 Pulse Ox 97 05/11/20 16:27 Body Mass Index 27.8 Const General: cooperative Orientation/consciousness: patient oriented x3 Neck Neck: Yes supple Resp Auscultation: diminished lung sounds Cardio Rate: regular rate GI Palpation (GI): Soft to palpation Neuro General: patient oriented x3 Results Lab Results Result Diagrams: 05/11/20 01:15 05/11/20 01:15 Lab results: Chemistry 05/11/20 01:15 Sodium 137 Potassium 4.5 Carbon Dioxide 24 BUN 35 H Creatinine 6.79 H* Calcium 8.7 Hematology 05/11/20 01:15 WBC 5.8 Hgb 9.0 L D Plt Count 207 D Assessment and Plan (1) End stage renal disease on dialysis: Problem details: Usually gets HD on TTS Shall dialyze today Will continue to optimize volume status on HD Renal Diet( 2 Gram K/ 2 Gram Na, phos restricted with fluid restriction 1.5 L/24 hours) Phos binders with meals; All medications should be dosed for GFR; Vanco post HD Shall start Procrit to maintain Hd close to 11 Gm/dl Status: Acute
[2020-05-11 18:19] LABS: Glucose, Whole Blood 147 mg/dL (60-115)
--- NOTE | 2020-05-11 19:15 | PC.NURSE ---
ASSUMED CARE OF PT. PT SITTING UP IN STRETHCER IN NAD. PT EATING DINNER AND DENIES ANY COMPLAINTS. PT ALERT, RESPIRATIONS EASY, N/L. SKIN W/D. WILL CONTINUE TO MONITOR PT.
--- NOTE | 2020-05-11 19:26 | P.EN_ITS ---
Event Note Date of Service: 05/12/20 Event Note: Patient seen and examined ealier this morning by hospitalist team. Patient was seen and examined again: Did not complain much diarrhea today Says shortness of breath improving, also has cough. Physical exam: Cvs: rrr, [id number] , no murmur res: clear to auscultation ,no rhonchii or wheezing abd: no rebound or guarding ,nt, bs present. ext pulses present , no cyanosis neuro: axo3 , nonfocal. 64-year-old female with a past medical history of hypertension, hyp erlipidemia, diabetes, ESRD on hemodialysis on Friday, anxiety, depression presented to the hospital with a chief complaint of epigastric discomfort/diarrhea/shortness of breath/cough; noted to have hypoxia, not in respiratory distress, CT scan consistent with pleural effusion/pneumonia. Admitted to the hospital for further management. Acute hypoxic respiratory failure: Likely in the setting of bilateral pleural effusion/pneumonia. Suspicious for COVID-19. Oxygen saturation improved on supplemental oxygen via nasal cannula at 4 L to 96%. Taper oxygen Question Pneumonia: Rapid COVID test negative. Question of suspicion COVID-will keep the patient on isolation. Id consult for further recommendation. Empirically continue Decadron Continue vanc and Zosyn. Bilateral pleural effusions: Likely in the setting of ESRD; minimally concern for parapneumonic effusions. Pulmonology consulted. ESRD: Patient's potassium and bicarb fairly within the normal limits. Nep hrology consulted for dialysis. Patient going to go at dialysis Hypertension: Poorly controlled. Continue home medications. Labetalol p.r.n. today Diabetes: Insulin sliding scale
[2020-05-11 19:36] LABS: Vancomycin Random 12.3 mcg/mL (15-20)
[2020-05-11] MEDS: Atorvastatin Calcium 40 MG TABLET PO (21:00)
[2020-05-11] MEDS: Gabapentin 100 MG CAPSULE 200 MG PO (21:00)
--- NOTE | 2020-05-11 21:00 | PC.NURSE ---
PT DENIES ANY COMPLAINTS. PT ALERT, RESPIRATIONS EASY, N/L. PT MEDICATED PER EMAR.
--- NOTE | 2020-05-11 21:51 | MHC.CM.PN ---
CM met with pt. IMM reviewed and signed per protocol. Copy to pt. and in chart. Admitted with pneumonia. Pt c/o weakness. States has no services. Feels she needs help at home. Uses cane, shower chair. ESRD-dialysis estela irene, &Sat. [facility]. [employer] insurance. Referral placed to pt choice of [facility]. May need PT eval. prior to d/c. D/C home with [facility] services. Family to provide services. CM to follow for d/c needs.
[2020-05-11 22:24] LABS: Glucose, Whole Blood 188 mg/dL (60-115)
--- NOTE | 2020-05-11 22:31 | PC.NURSE ---
BS 188 PT COVERED WITH 2 UNITS OF INSULIN PER SLIDING SCALE. PT RESTING WAKES TO VERBAL STIMULI, RESPIRATIONS EASY, N/L. SKIN W/D. PT DENIES ANY PAIN AT THIS TIME. WILL CONTINUE TO MONITOR PT.
--- NOTE | 2020-05-11 23:30 | PC.NURSE ---
PT DENIES ANY COMPLAINTS AND WILL CONTINUE TO MONITOR PT.
[2020-05-12] VITALS (8 sets, daily range): BP systolic 133–149; BP diastolic 59–71; PULSE 75–91; RESP 14–21; TEMP 36.2–36.8; O2SAT 95–98
[2020-05-12] MEDS: 0.9 % Sodium Chloride Flush 3 ML SYRINGE IVFLUSH ×4 (00:39→23:49)
[2020-05-12] MEDS: Piperacillin Sodium/Tazobactam 2.25 GM in 0.9 % Sodium Chloride 50 ML IV ×3 (02:06→20:12)
[2020-05-12] MEDS: Heparin Sodium,Porcine 5,000 UNIT/ML VIAL 5000 UNIT SUBCUT ×2 (03:17→17:50)
--- NOTE | 2020-05-12 03:28 | PC.NURSE ---
PT SLEEPING, WAKES TO VERBAL STIMULI, RESPIRATIONS EASY, N/L. SKIN W/D. PT MEDICATED PER EMAR. WILL CONTINUE TO MONITOR PT.
--- NOTE | 2020-05-12 05:51 | PC.NURSE ---
pt wakes to voice, denies any complaints. vs obtained wnl. labs drawn to lab.
[2020-05-12 05:57] LABS: MANUAL DIFF FLAG NO
[2020-05-12 05:58] LABS: Basophils Percent Auto 0.2 % (0-2); Eosinophils Percent Auto 0.4 % (0-4); Hematocrit 28.2 % (37-47); Hemoglobin 8.8 g/dl (12.0-16.0); Imm Gran Abs Auto 0.03 X10*3/uL (0.00-0.03); Imm Gran Pct Auto 0.3 % (0.0-0.4); Lymphocytes Absolute Auto 1.1 X10*3/uL (1.2-4.9); Mean Corpuscular HGB Conc 31.2 g/dl (31.0-35.0); Mean Corpuscular Hemoglobin 31.2 pg (27.0-33.0); Mean Platelet Volume 8.8 fL (9.4-12.3); Monocytes Absolute Auto 1.1 X10*3/uL (0.1-1.2); Monocytes Percent Auto 11.8 % (2-11); Neutrophils Absolute Auto 6.8 X10*3/uL (2.0-8.3); Neutrophils Percent Auto 75.3 % (45-73); Platelet Count 207 X10*3/uL (160-400); Red Blood Count 2.82 X10*6/uL (4.20-5.50)
[2020-05-12 06:30] LABS: Anion Gap 18 (12-20); Blood Urea Nitrogen 29 mg/dL (9-16); Calcium 8.2 mg/dL (8.4-10.2); Carbon Dioxide 22 mmol/L (22-29); Chloride 99 mmol/L (96-108); Creatinine Clr Calc Pharmacy 12.8; Estimated Glomerular Filt Rate 10; Glucose Random 135 mg/dL (60-115); Potassium 4.3 mmol/L (3.3-5.1); Sodium 135 mmol/L (135-145)
--- NOTE | 2020-05-12 07:13 | PC.NURSE ---
report to KAUSHIK Bradford
[2020-05-12 08:12] LABS: Glucose, Whole Blood 141 mg/dL (60-115)
[2020-05-12] MEDS: Spironolactone 25 MG TABLET 100 MG PO (08:33)
[2020-05-12] MEDS: dexAMETHasone 6 MG TABLET PO (08:33)
[2020-05-12] MEDS: Gabapentin 100 MG CAPSULE PO (08:34)
[2020-05-12] MEDS: Loratadine 10 MG TABLET PO (08:34)
[2020-05-12] MEDS: Venlafaxine HCl ER 37.5 MG CAP.ER.24H PO (10:39)
--- NOTE | 2020-05-12 10:58 | P.PNNP_ITS ---
Subjective Subjective Date of Service: 05/12/20 Interval history: Events noted; All recent data reviewed. SUSANI. Had HD yesterday Physical Exam Vital Signs: Vital Signs: Last Vital Signs Temp 97.9 F 05/11/20 16:27 Pulse 81 05/12/20 08:33 Resp 16 05/12/20 05:51 BP 140/71 H 05/12/20 08:33 Pulse Ox 98 05/12/20 05:51 Body Mass Index 27.8 Const: General: no acute distress Orientation/consciousness: patient oriented x3 Neck: Neck: Yes supple Resp: Auscultation: diminished lung sounds Cardio: Rate: regular rate GI: Palpation (GI): Soft to palpation Neuro: General: patient oriented x3 and moves all extremities Objective Data Labs CBC & Chem 7: 05/12/20 05:43 05/12/20 05:43 Labs: Laboratory Results - last 24 hr 05/11/20 05/11/20 05/11/20 18:15 18:52 22:16 WBC RBC Hgb Hct MCV MCH MCHC RDW Plt Count MPV Immature Gran % (Auto) Neut % (Auto) Lymph % (Auto) [place] % (Auto) Eos % (Auto) Baso % (Auto) Lymph # (Auto) [place] # (Auto) Eos # (Auto) Baso # (Auto) Abs Immat Gran (auto) Absolute Neuts (auto) Absolute Nucleated RBC Nucleated RBC % (auto) Sodium Potassium Chloride Carbon Dioxide Anion Gap BUN Creatinine Estim Creat Clear Calc Estimated GFR POC Glucose 147 H 188 H Random Glucose Calcium Random Vancomycin 12.3 L 05/12/20 05/12/20 05/12/20 05:43 05:43 07:47 WBC 9.0 RBC 2.82 L Hgb 8.8 L Hct 28.2 L MCV 100.0 H MCH 31.2 MCHC 31.2 RDW 15.0 Plt Count 207 MPV 8.8 L Immature Gran % (Auto) 0.3 Neut % (Auto) 75.3 H Lymph % (Auto) 12.0 L [place] % (Auto) 11.8 H Eos % (Auto) 0.4 Baso % (Auto) 0.2 Lymph # (Auto) 1.1 L [place] # (Auto) 1.1 Eos # (Auto) 0.0 Baso # (Auto) 0.0 Abs Immat Gran (auto) 0.03 Absolute Neuts (auto) 6.8 Absolute Nucleated RBC 0.000 Nucleated RBC % (auto) 0.0 Sodium 135 Potassium 4.3 Chloride 99 Carbon Dioxide 22 Anion Gap 18 BUN 29 H Creatinine 4.45 H* Estim Creat Clear Calc 12.8 Estimated GFR 10 POC Glucose 141 H Random Glucose 135 H Calcium 8.2 L Random Vancomycin Microbiology Microbiology Results: Microbiology 05/11/20 02:54 Blood - Venous Blood Culture - Preliminary No growth after 24 hours. 05/11/20 02:54 Blood - Venous Blood Culture - Preliminary No growth after 24 hours. Assessment & Plan Assessment and plan (1) End stage renal disease on dialysis: Problem details: Usually gets HD on TTS Shall dialyze again tomorrow to keep her on schedule(ordered) Will continue to optimize volume status on HD Renal Diet( 2 Gram K/ 2 Gram Na, phos restricted with fluid restriction 1.5 L/24 hours) Phos binders with meals; All medications should be dosed for GFR; Vanco post HD Procrit ordered to maintain Hb close to 11 Gm/dl Status: Acute Time Spent With Patient Time: Total time spent is greater than 50% in coordination of care (as documented) at patient's floor/unit and/or counseling patient:
--- NOTE | 2020-05-12 11:12 | PM.EVENT ---
Event Note Date of Service: 05/12/20 Event Note: WHEN SEEN THIS MORNING FOR PULMONARY CONSULTATION. HISTORY IS REVIEWED. PATIENT EXAMINED THIS MORNING LAB AND IMAGING IS REVIEWED. COMPLETE NOTE DICTATED . A: RIGHT BASILAR ATELECTASIS , AND PLEURAL EFFUSION, OF MODERATE-SIZED, LEFT PLEURAL EFFUSION, SMALL. PLEURAL EFFUSIONS AND SECONDARY ATELECTASIS OF THE RIGHT LOWER LOBE PROBABLY RELATED TO FLUID OVERLOAD. I DO NOT THINK SHE HAS ACTIVE BACTERIAL PNEUMONIA, OR EMPYEMA. P: VENTILATION OVER THE BASILAR AREAS SEEMS TO HAVE IMPROVED AFTER THE DIALYSIS. REPEAT CHEST X-RAY AND IT SHOWED SHOW DECREASE IN THE SIZE OF PLEURAL EFFUSION. WEAN OF OXYGEN. ADVICE PATIENT TO DO DEEP BREATHING EXERCISES.
--- NOTE | 2020-05-12 11:50 | CONS_ITS ---
DATE OF SERVICE: 05/12/2020 HISTORY OF PRESENT ILLNESS: This is a 64-year-old female, admitted since yesterday mainly because of abdominal pain and discomfort mostly in the epigastric area and along with that she has had some watery stools. She also felt short of breath and had mild cough. She had no fever or chills and denied any chest pain and actually denied any wheezing or shortness of breath. REVIEW OF SYSTEMS: Essentially negative except for the abdominal discomfort and loose stools and mild cough with shortness of breath. PAST MEDICAL HISTORY: Includes hypertension, diabetes mellitus, chronic renal failure. She has had maxillary sinus carcinoma excised surgically many years ago. The patient also has a question of irritable bowel syndrome. Her chest x-ray showed no gross abnormality in suggesting infiltrate right lower lobe with effusion and also small effusion on the left side. The patient has had a dialysis yesterday. She is on oxygen supplement. She is not on any antibiotics and she is feeling better. As noted above, she does not have past history of any chronic lung disease and have never used oxygen at home. PHYSICAL EXAMINATION: GENERAL: Today, this 64-year-old female is sitting upright in the bed, very comfortable. VITAL SIGNS: Respiratory rate 14. No respiratory distress. EAR, NOSE, THROAT: Examination is normal. There is a scar tissue over the left nasomaxillary fold. Throat is clear. NECK: No JVD. Trachea midline. No lymphadenopathy. CHEST: There is slight dullness over the right base with decreased breath sounds, but no crepitations or wheezes are heard. CARDIAC: Sounds are normal. Rhythm regular. No murmurs. ABDOMEN: Today, abdomen is flat, soft, nontender. IMAGING: Chest x-ray on 05/11, is reviewed. It shows opacification of the right lower lobe with a moderate-sized pleural effusion and also small pleural effusion on the left side. Rest of the lungs are clear. LABORATORY DATA: On admission, white cell count 5.8, RBCs 2.9, hemoglobin 9.0. Today, white cell count is 9.0, hemoglobin 8.8. Serology negative for coronavirus. CLINICAL IMPRESSION: From pulmonary point of view, I think she has some fluid overload causing bilateral pleural effusions, moderate sized on the right side and small on the left side. In addition to pleural effusion, she has bibasilar atelectasis, more marked on the right side. I do not think she has active pneumonia. Hypoxemia secondary to above and it should improve as the effusion is small. RECOMMENDATION: I think with the dialysis performed yesterday, her lung volumes have improved and pulmonary mak she is doing better. The patient should be advised to do deep breathing exercises. Should be weaned off the oxygen before she is discharged home. Thank you very much for asking me to see this patient. Sincerely, MD SHOLA Kimble/SIMONA / [phone]
[2020-05-12 12:47] LABS: Glucose, Whole Blood 243 mg/dL (60-115)
[2020-05-12] MEDS: Insulin Lispro 100 UNIT/ML 3 ML VIAL SUBCUT ×3 (12:59→21:09)
--- NOTE | 2020-05-12 14:31 | MHC.CM.PN ---
Pt remains in ICU for [facility] overflow tx: Will receive HD per her outpt schedule. D/C plan is for a return to home with existing HD schedule and new [facility] referral.
--- NOTE | 2020-05-12 15:39 | P.PNIM_ITS ---
Subjective Subjective Date of Service: 05/12/20 Interval History: Acute hypoxemic respiratory failure probably related to fluid overload Review of Systems Patient still has short of breath, denies any cough or phlegm or nausea or vomiting or weakness numbness Physical Exam Vital Signs: Vital Signs: Last Vital Signs Temp 97.9 F 05/11/20 16:27 Pulse 80 05/12/20 12:00 Resp 17 05/12/20 12:00 BP 140/65 H 05/12/20 12:00 Pulse Ox 98 05/12/20 12:00 Body Mass Index 27.8 Physical exam: Constitutional: not in acute distress. Cvs: rrr, [id number] , no murmur res: clear to auscultation ,no rhonchii or wheezing abd: no rebound or guarding ,nt, bs present. ext pulses present , no cyanosis neuro: axo3 , nonfocal. Objective Data Current Medications Generic Name Dose Route Start Last Admin Trade Name Freq PRN Reason Stop Dose Admin Acetaminophen 650 mg 05/11/20 02:44 Acetaminophen Supp 650 Mg Supp.Rect UT Q6H PRN Pain, Mild (Pain Scale 1-3) Atorvastatin Calcium 40 mg 05/11/20 21:00 05/11/20 21:00 Atorvastatin Calcium 40 Mg Tablet PO 40 mg BEDTIME EVY Administration Dexamethasone 6 mg 05/11/20 09:00 05/12/20 08:33 Dexamethasone 6 Mg Tablet PO 6 mg DAILY EVY Administration Gabapentin 200 mg 05/11/20 21:00 05/11/20 21:00 Gabapentin 100 Mg Capsule PO 200 mg BEDTIME EVY Administration Gabapentin 100 mg 05/11/20 09:00 05/12/20 08:34 Gabapentin 100 Mg Capsule PO 100 mg DAILY EVY Administration Heparin Sodium (Porcine) 5,000 unit 05/11/20 03:00 05/12/20 03:17 Heparin Sodium,Porcine 5,000 Unit/Ml Vial SUBCUT 5,000 unit Q12H EVY Administration Piperacillin Sod/Tazobactam 50 mls @ 100 mls/hr 05/11/20 10:00 05/12/20 11:14 Sod 2.25 gm/ Sodium Chloride IV Infused Q8H [facility] Infusion Vancomycin HCl 750 mg/ Sodium 265 mls @ 265 mls/hr 05/13/20 16:45 Chloride IV TuThSa@1645 [facility] Insulin Human Lispro 0 unit 05/11/20 07:30 02/05/21 12:59 Insulin Lispro 100 Unit/Ml 3 Ml Vial SUBCUT 4 unit QIDACHS [facility] Administration Protocol Labetalol HCl 10 mg 05/11/20 02:58 Labetalol Hcl 100 Mg/20 Ml Vial IVPUSH Q6H PRN BP>180/90 Loratadine 10 mg 05/11/20 09:00 05/12/20 08:34 Loratadine 10 Mg Tablet PO 10 mg DAILY [facility]Y Administration Lorazepam 1 mg 05/11/20 09:00 05/11/20 11:07 Lorazepam 1 Mg Tablet PO 1 mg TuThSa@0900 [facility] Administration Losartan Potassium 25 mg 05/11/20 21:00 05/11/20 21:00 Losartan Potassium 25 Mg Tablet PO 25 mg BEDTIME EVY Administration Protocol Pharmacy Consult 1 each 05/11/20 02:45 Consult Rx Vancomycin Dosing MISCELLANE DAILY PRN Consult order Sodium Chloride 3 ml 05/11/20 08:00 05/12/20 07:35 0.9 % Sodium Chloride Flush 3 Ml Syringe IVFLUSH 3 ml QSHIFT [facility] Administration Spironolactone 100 mg 05/11/20 09:00 05/12/20 08:33 Spironolactone 25 Mg Tablet PO 100 mg DAILY [facility] Administration Protocol Venlafaxine HCl 37.5 mg 05/11/20 09:00 05/12/20 10:39 Venlafaxine Hcl Er 37.5 Mg Cap.Er.24h PO 37.5 mg DAILY [facility] Administration Zolpidem Tartrate 10 mg 05/11/20 02:48 Zolpidem Tartrate 5 Mg Tablet PO BEDTIME PRN insomnia Labs CBC & Chem 7: 05/12/20 05:43 05/12/20 05:43 Microbiology Microbiology Results: Microbiology 05/11/20 02:54 Blood - Venous Blood Culture - Preliminary No growth after 24 hours. 05/11/20 02:54 Blood - Venous Blood Culture - Preliminary No growth after 24 hours. Assessment and Plan (1) End stage renal disease on dialysis: Status: Acute (2) Hypoxia: Status: Acute Assessment and Plan: 64-year-old female with a past medical history of hypertension, hyperlipidemia, diabetes, ESRD on hemodialysis on Friday, anxiety, depression presented to the hospital with a chief complaint of epigastric discomfort/diarrhea/shortness of breath/cough; noted to have hypoxia, not in respiratory distress, CT scan consistent with pleural effusion/pneumonia. Admitted to the hospital for further management. Acute hypoxic respiratory failure: Likely in the setting of bilateral pleural effusion ,probably fluid overload might have contributed. Patient is status post hemodialysis-shortness of breath improving slowly, will try to taper oxygen Unclear if patient and pneumonia versus atelectasis Also the question of COVID even though the COVID rapid test is negative repeated cxr:Small right pleural effusion with underlying atelectasis. Minimal left basilar atelectasis seen seems repeated cxr better than before. Empirically continue Decadron Hold off vanc and Zosyn. Id evaluation Bilateral pleural effusions: Likely in the setting of ESRD; minimally concern for parapneumonic effusions. Pulmonology eval noted. ESRD: Patient's potassium and bicarb fairly within the normal limits. Nephrology consulted for dialysis. Patient going to go at dialysis Hypertension: Poorly controlled. Continue home medications-continue losaratn , added nifedipine for the morning. Diabetes: Insulin sliding scale: 140-200's range. insuling with sliding scale coverage.
--- NOTE | 2020-05-12 16:25 | W.PM.IDCN ---
History of Present Illness Data of Consult Service Date: 05/12/20 Requesting physician: Yogi Peter Primary Care Provider: Shelia Jung MD HPI Reason for consult: pneumonia,diarrhea Patient arrives with diarrhea,watery for 3 days Also three days cough COVID is negative There is RLL infiltrate Review of Systems Review of Systems: Yes all other systems are reviewed and are negative PMFSH Past Medical History Medical History Diabetes Hypertension Renal failure Sinus, maxillary, carcinoma Family History Family history: reviewed and not pertinent Social History Social History Alcohol intake: never Smoked in Last 30 Days: No Use of substances other than those prescribed or required for medical reasons: No Advance Directives: No Advance Directives Information Provided: No service: No Current occupational status: disabled Meds Allergies Allergy/AdvReac Type Severity Reaction Status Date / Time ROXI Inhibitors Allergy Unknown UNKNOWN Verified 05/10/20 21:35 [ROXI INHIBITORS] Home Medications Medication Instructions Recorded Confirmed Type acetaminophen 650 mg PO Q6H PRN 05/11/20 05/11/20 History ammonium lactate 1 appl TOPICAL BID 05/11/20 05/11/20 History atorvastatin 40 mg PO BEDTIME 05/11/20 05/11/20 History gabapentin 100 mg PO DAILY 05/11/20 05/11/20 History gabapentin 200 mg PO BEDTIME 05/11/20 05/11/20 History lidocaine-prilocaine 1 appl TOPICAL DAILY PRN 05/11/20 05/11/20 History loratadine 10 mg PO DAILY 05/11/20 05/11/20 History lorazepam 1 mg PO 3XW 05/11/20 05/11/20 History losartan 25 mg PO BEDTIME 05/11/20 05/11/20 History nifedipine 60 mg PO DAILY 05/11/20 05/11/20 History pioglitazone 30 mg PO DAILY 05/11/20 05/11/20 History spironolactone 100 mg PO DAILY 05/11/20 05/11/20 History sucroferric oxyhydroxide [Velphoro] 1,000 mg PO TID 05/11/20 05/11/20 History venlafaxine 37.5 mg PO DAILY 05/11/20 05/11/20 History zolpidem 10 mg PO BEDTIME PRN 05/11/20 05/11/20 History Physical Exam Vital Signs: Vital Signs: Last Vital Signs Temp 97.9 F 05/11/20 16:27 Pulse 80 05/12/20 12:00 Resp 17 05/12/20 12:00 BP 140/65 H 05/12/20 12:00 Pulse Ox 98 05/12/20 12:00 Body Mass Index 27.8 Const: General: cooperative HENMT: Head: Yes normal to inspection Mouth: Normal oral and palatal mucosa present Eyes: General: appearance normal, both eyes and all related structures Resp: Effort & Inspection: decreased respiratory effort Cardio: Rate: regular rate Rhythm: regular rhythm GI: Palpation (GI): Soft to palpation and nontender Skin: General skin exam: no rashes or lesions noted Extrem: General: Yes normal to inspection Assessment and Plan (1) End stage renal disease on dialysis: Status: Acute (2) Pneumonia: Qualifiers: Laterality: bilateral Lung location: lower lobe of lung Pneumonia type: due to unspecified organism Qualified Code(s): J18.9 - Pneumonia, unspecified organism Problem details: Concern over MRSA,gram negative Atypical like Legionnares Status: Acute Would add Doxycycline Continue Vancomycin and Zosyn Duration to be determined (3) Hypoxia: Status: Acute (4) Abdominal pain: Qualifiers: Abdominal location: epigastric Qualified Code(s): R10.13 - Epigastric pain Status: Acute Results Labs CBC & Chem 7: 05/12/20 05:43 05/12/20 05:43 Labs: Short CBC 05/12/20 Range/Units 05:43 WBC 9.0 (4.8-10.8) X10*3/uL Hgb 8.8 L (12.0-16.0) g/dl Hct 28.2 L (37-47) % Plt Count 207 (160-400) X10*3/uL BMP 05/12/20 05:43 Sodium 135 Potassium 4.3 Chloride 99 Carbon Dioxide 22 BUN 29 H Creatinine 4.45 H* Calcium 8.2 L Microbiology Microbiology Results: Microbiology 05/11/20 02:54 Blood - Venous Blood Culture - Preliminary No growth after 24 hours. 05/11/20 02:54 Blood - Venous Blood Culture - Preliminary No growth after 24 hours.
[2020-05-12] MEDS: Doxycycline Hyclate 100 MG in 0.9 % Sodium Chloride 250 ML 166.67 MG IV (17:30)
[2020-05-12 18:05] LABS: Glucose, Whole Blood 290 mg/dL (60-115)
[2020-05-12] MEDS: Atorvastatin Calcium 40 MG TABLET PO (20:15)
[2020-05-12] MEDS: Gabapentin 100 MG CAPSULE 200 MG PO (20:15)
[2020-05-12] MEDS: Losartan Potassium 25 MG TABLET PO (20:16)
[2020-05-12 21:08] LABS: Glucose, Whole Blood 230 mg/dL (60-115)
[2020-05-13] VITALS (8 sets, daily range): BP systolic 132–166; BP diastolic 61–108; PULSE 69–95; RESP 14–25; TEMP 36.3–36.7; O2SAT 95–99
[2020-05-13] MEDS: Heparin Sodium,Porcine 5,000 UNIT/ML VIAL 5000 UNIT SUBCUT ×2 (03:58→16:10)
[2020-05-13] MEDS: Piperacillin Sodium/Tazobactam 2.25 GM in 0.9 % Sodium Chloride 50 ML IV ×2 (03:58→14:10)
[2020-05-13] MEDS: Doxycycline Hyclate 100 MG in 0.9 % Sodium Chloride 250 ML 166.67 MG IV ×2 (04:43→16:20)
[2020-05-13 05:37] LABS: Hematocrit 26.1 % (37-47); Hemoglobin 8.2 g/dl (12.0-16.0)
[2020-05-13 06:11] LABS: Anion Gap 19 (12-20); Blood Urea Nitrogen 64 mg/dL (9-16); Carbon Dioxide 22 mmol/L (22-29); Chloride 99 mmol/L (96-108); Creatinine Clr Calc Pharmacy 8.3; Estimated Glomerular Filt Rate 6; Glucose Random 172 mg/dL (60-115); Potassium 4.3 mmol/L (3.3-5.1); Sodium 136 mmol/L (135-145)
[2020-05-13 07:36] LABS: Glucose, Whole Blood 126 mg/dL (60-115)
--- NOTE | 2020-05-13 08:59 | W.PM.DNNEP ---
Subjective Subjective This patient was seen during dialysis. Interval history: Acute hypoxemic respiratory failure probably related to fluid overload Physical Exam Vital Signs: Vital Signs: Last Vital Signs Temp 97.4 F 05/13/20 04:00 Pulse 77 05/13/20 04:00 Resp 16 05/13/20 04:00 BP 152/75 H 05/13/20 04:00 Pulse Ox 96 05/13/20 04:00 Body Mass Index 27.8 Const: General: no acute distress Eyes: Eyelids: Yes eyelids normal Neck: Neck: Yes supple Cardio: Palpation: no palpable S4 Heart sounds: no murmurs Neuro: Motor exam (neuro): No Asterixis during motor activity present Assessment & Plan Assessment and plan (1) End stage renal disease on dialysis: Problem details: Usually gets HD on TTS Will continue to optimize volume status on HD Renal Diet( 2 Gram K/ 2 Gram Na, phos restricted with fluid restriction 1.5 L/24 hours) Phos binders with meals; All medications should be dosed for GFR; Vanco post HD Procrit - maintain Hb close to 11 Gm/dl Status: Acute (2) Pneumonia: Problem details: Concern over MRSA,gram negative Atypical like Legionnares Status: Acute Time Spent With Patient Time: Total time spent is greater than 50% in coordination of care (as documented) at patient's floor/unit and/or counseling patient:
[2020-05-13 09:03] LABS: MRSA Nasal PCR NEGATIVE (Negative); SA Nasal PCR POSITIVE (Negative)
[2020-05-13 12:21] LABS: Glucose, Whole Blood 110 mg/dL (60-115)
[2020-05-13] MEDS: Gabapentin 100 MG CAPSULE PO (13:00)
[2020-05-13] MEDS: Venlafaxine HCl ER 37.5 MG CAP.ER.24H PO (13:00)
[2020-05-13] MEDS: dexAMETHasone 6 MG TABLET PO (13:00)
[2020-05-13] MEDS: Loratadine 10 MG TABLET PO (13:00)
[2020-05-13] MEDS: Spironolactone 25 MG TABLET 100 MG PO (13:00)
[2020-05-13] MEDS: 0.9 % Sodium Chloride Flush 3 ML SYRINGE IVFLUSH (13:00)
[2020-05-13 13:33] LABS: Vancomycin Random 7.8 mcg/mL (15-20)
--- NOTE | 2020-05-13 13:49 | HO.PM.IMPN ---
Subjective Subjective Date of Service: 05/13/20 Interval History: Acute hypoxemic respiratory failure secondary to fluid overload. Pneumonia. Review of Systems Patient says shortness of breath improving Denies any chest pain or abdominal pain or for fever or chills or nausea vomiting. Physical Exam Vital Signs: Vital Signs: Last Vital Signs Temp 97.4 F 05/13/20 04:00 Pulse 95 05/13/20 12:00 Resp 25 H 05/13/20 12:00 BP 158/108 H 05/13/20 12:00 Pulse Ox 97 05/13/20 12:00 Body Mass Index 27.8 Physical exam: Constitutional: not in acute distress. Cvs: rrr, [id number] , no murmur res: clear to auscultation ,no rhonchii or wheezing abd: no rebound or guarding ,nt, bs present. ext pulses present , no cyanosis neuro: axo3 , nonfocal. Objective Data Current Medications Generic Name Dose Route Start Last Admin Trade Name Freq PRN Reason Stop Dose Admin Acetaminophen 650 mg 05/11/20 02:44 Acetaminophen Supp 650 Mg Supp.Rect [place] Q6H PRN Pain, Mild (Pain Scale 1-3) Atorvastatin Calcium 40 mg 05/11/20 21:00 05/12/20 20:15 Atorvastatin Calcium 40 Mg Tablet PO 40 mg BEDTIME EVY Administration Dexamethasone 6 mg 05/11/20 09:00 05/12/20 08:33 Dexamethasone 6 Mg Tablet PO 6 mg DAILY [facility] Administration Gabapentin 200 mg 05/11/20 21:00 05/12/20 20:15 Gabapentin 100 Mg Capsule PO 200 mg BEDTIME [facility] Administration Gabapentin 100 mg 05/11/20 09:00 05/12/20 08:34 Gabapentin 100 Mg Capsule PO 100 mg DAILY [facility] Administration Heparin Sodium (Porcine) 5,000 unit 05/11/20 03:00 05/13/20 03:58 Heparin Sodium,Porcine 5,000 Unit/Ml Vial SUBCUT 5,000 unit Q12H [facility] Administration Vancomycin HCl 750 mg/ Sodium 265 mls @ 265 mls/hr 05/13/20 16:45 Chloride IV TuThSa@1645 [facility] Doxycycline Hyclate 100 mg/ 250 mls @ 166.67 mls/hr 05/12/20 16:30 05/13/20 06:46 Sodium Chloride IV Infused Q12H [facility] Infusion Piperacillin Sod/Tazobactam 50 mls @ 100 mls/hr 05/12/20 20:00 05/13/20 04:47 Sod 2.25 gm/ Sodium Chloride IV Infused Q8H [facility] Infusion Insulin Human Lispro 0 unit 05/11/20 07:30 05/12/20 21:09 Insulin Lispro 100 Unit/Ml 3 Ml Vial SUBCUT 4 unit QIDACHS [facility] Administration Protocol Loratadine 10 mg 05/11/20 09:00 05/12/20 08:34 Loratadine 10 Mg Tablet PO 10 mg DAILY EVY Administration Lorazepam 1 mg 05/11/20 09:00 05/11/20 11:07 Lorazepam 1 Mg Tablet PO 1 mg TuThSa@0900 [facility] Administration Losartan Potassium 25 mg 05/11/20 21:00 05/12/20 20:16 Losartan Potassium 25 Mg Tablet PO 25 mg BEDTIME EVY Administration Protocol Pharmacy Consult 1 each 05/11/20 02:45 Consult Rx Vancomycin Dosing MISCELLANE DAILY PRN Consult order Sodium Chloride 3 ml 05/11/20 08:00 05/12/20 23:49 0.9 % Sodium Chloride Flush 3 Ml Syringe IVFLUSH 3 ml QSHIFT [facility] Administration Spironolactone 100 mg 05/11/20 09:00 05/12/20 08:33 Spironolactone 25 Mg Tablet PO 100 mg DAILY [facility] Administration Protocol Venlafaxine HCl 37.5 mg 05/11/20 09:00 05/12/20 10:39 Venlafaxine Hcl Er 37.5 Mg Cap.Er.24h PO 37.5 mg DAILY [facility]Y Administration Zolpidem Tartrate 10 mg 05/11/20 02:48 Zolpidem Tartrate 5 Mg Tablet PO BEDTIME PRN insomnia Labs CBC & Chem 7: 05/13/20 04:58 05/13/20 04:58 Microbiology Microbiology Results: Microbiology 05/11/20 02:54 Blood - Venous Blood Culture - Preliminary No growth after 48 hours. 05/11/20 02:54 Blood - Venous Blood Culture - Preliminary No growth after 48 hours. Assessment and Plan (1) End stage renal disease on dialysis: Problem details: Usually gets HD on TTS Will continue to optimize volume status on HD Renal Diet( 2 Gram K/ 2 Gram Na, phos restricted with fluid restriction 1.5 L/24 hours) Phos binders with meals; All medications should be dosed for GFR; Vanco post HD Procrit - maintain Hb close to 11 Gm/dl Status: Acute (2) Pneumonia: Problem details: Concern over MRSA,gram negative Atypical like Legionnares Status: Acute (3) Hypoxia: Status: Acute Assessment and Plan: 64-year-old female with a past medical history of hypertension, hyperlipidemia, diabetes, ESRD on hemodialysis on Friday, anxiety, depression presented to the hospital with a chief complaint of epigastric discomfort/diarrhea/shortness of breath/cough; noted to have hypoxia, not in respiratory distress, CT scan consistent with pleural effusion/pneumonia. Admitted to the hospital for further management. 1.Acute hypoxic respiratory failure: Likely in the setting of bilateral pleural effusion ,probably fluid overload might have contributed. Patient is status post hemodialysis-shortness of breath improving slowly, will try to taper oxygen 2.probable pneumonia Also the question of COVID even though the COVID rapid test is negative repeated cxr:Small right pleural effusion with underlying atelectasis. Minimal left basilar atelectasis seen seems repeated cxr better than before. vanco trough Empirically continue Decadron , vanc and Zosyn. Id evaluation Bilateral pleural effusions: Likely in the setting of ESRD; minimally concern for parapneumonic effusions. Pulmonology eval noted. ESRD: Patient's potassium and bicarb fairly within the normal limits. Nephrology consulted for dialysis. Patient going to go at dialysis Hypertension: Poorly controlled. Continue home medications-continue losaratn , added nifedipine for the morning. Diabetes: controlled: insuling with sliding scale coverage.
[2020-05-13 14:50] LABS: CDIFF Ag Positive (Negative); CDIFF Internal ctrl Dots and bkg OK (V); CDiff Toxin Negative (Negative)
[2020-05-13 15:34] LABS: CDiff Gene PCR POSITIVE (Negative)
[2020-05-13] MEDS: vancomycin HCL 125 MG CAPSULE PO ×2 (16:19→21:46)
[2020-05-13 16:25] LABS: Glucose, Whole Blood 343 mg/dL (60-115)
[2020-05-13] MEDS: Insulin Lispro 100 UNIT/ML 3 ML VIAL SUBCUT ×2 (16:26→21:44)
--- NOTE | 2020-05-13 19:56 | PC.NURSE ---
dialysis today, and morning meds given after dialysis. positive for cdiff, drs. Peter and Da notified, new orders for po vanco, d/c iv flagyl, d/c iv zosyn, continue iv doxycycline. discussed probiotic tx or stool transplant options with md, and no new orders at this time. patient is afebrile, alert and oriented. denies pain. States that former surgical incision site to left nose side is to be cleansed with a saline flush and patted dry daily. Patient titrated to room air today per dr. peter. Patient ambulated short distance with a cane today. lung sounds still dim. incentive spirometry with volumes about 500 ccs.
[2020-05-13 21:41] LABS: Glucose, Whole Blood 333 mg/dL (60-115)
[2020-05-13] MEDS: Losartan Potassium 25 MG TABLET PO (21:45)
[2020-05-13] MEDS: Gabapentin 100 MG CAPSULE 200 MG PO (21:45)
[2020-05-13] MEDS: Atorvastatin Calcium 40 MG TABLET PO (21:46)
[2020-05-13] MEDS: Zolpidem Tartrate 5 MG TABLET 10 MG PO (21:55)
[2020-05-14] VITALS (7 sets, daily range): BP systolic 152–175; BP diastolic 58–86; PULSE 67–106; RESP 12–18; TEMP 36.2–36.9; O2SAT 92–97
[2020-05-14] MEDS: metroNIDAZOLE/NS 500 MG/100 ML PIGGYBACK 100 MG IV (01:27)
[2020-05-14] MEDS: 0.9 % Sodium Chloride Flush 3 ML SYRINGE IVFLUSH ×3 (01:28→17:08)
[2020-05-14] MEDS: Heparin Sodium,Porcine 5,000 UNIT/ML VIAL 5000 UNIT SUBCUT ×2 (02:14→16:00)
[2020-05-14] MEDS: vancomycin HCL 125 MG CAPSULE PO ×4 (04:18→21:57)
[2020-05-14] MEDS: Doxycycline Hyclate 100 MG in 0.9 % Sodium Chloride 250 ML 166.67 MG IV ×2 (04:18→16:45)
[2020-05-14 06:05] LABS: Anion Gap 15 (12-20); Blood Urea Nitrogen 38 mg/dL (9-16); Calcium 8.2 mg/dL (8.4-10.2); Carbon Dioxide 25 mmol/L (22-29); Chloride 100 mmol/L (96-108); Glucose Random 160 mg/dL (60-115); Potassium 3.9 mmol/L (3.3-5.1); Sodium 136 mmol/L (135-145)
[2020-05-14 06:07] LABS: Creatinine Clr Calc Pharmacy 11.4; Estimated Glomerular Filt Rate 9
[2020-05-14 07:37] LABS: Glucose, Whole Blood 151 mg/dL (60-115)
[2020-05-14 08:34] LABS: Hemoglobin 9.2 g/dl (12.0-16.0); Mean Corpuscular HGB Conc 31.7 g/dl (31.0-35.0); Mean Corpuscular Hemoglobin 31.1 pg (27.0-33.0); Mean Platelet Volume 9.4 fL (9.4-12.3); NRBC Pct Auto 0.3 /100WBC (0.0-0.2); Platelet Count 179 X10*3/uL (160-400); Red Blood Count 2.96 X10*6/uL (4.20-5.50); White Blood Count 7.6 X10*3/uL (4.8-10.8)
[2020-05-14] MEDS: Loratadine 10 MG TABLET PO (10:00)
[2020-05-14] MEDS: dexAMETHasone 6 MG TABLET PO (10:00)
[2020-05-14 10:59] LABS: Glucose, Whole Blood 273 mg/dL (60-115)
[2020-05-14] MEDS: Gabapentin 100 MG CAPSULE PO (11:10)
[2020-05-14] MEDS: Spironolactone 25 MG TABLET 100 MG PO (11:12)
[2020-05-14] MEDS: Venlafaxine HCl ER 37.5 MG CAP.ER.24H PO (11:15)
[2020-05-14] MEDS: Insulin Lispro 100 UNIT/ML 3 ML VIAL SUBCUT ×3 (11:16→21:58)
--- NOTE | 2020-05-14 14:42 | P.PNIM_ITS ---
Subjective Subjective Date of Service: 05/26/20 Interval History: C diff diarrhea Review of Systems Patient still says the have significant diarrhea, abdominal discomfort improving as per patient Denies any fever or chills or nausea or vomiting or cough or phlegm. Physical Exam Vital Signs: Vital Signs: Last Vital Signs Temp 97.5 F 05/14/20 11:58 Pulse 72 05/14/20 11:58 Resp 12 05/14/20 11:58 BP 168/72 H 05/14/20 11:58 Pulse Ox 97 05/14/20 11:58 Body Mass Index 27.8 Physical exam: Cvs: rrr, [id number] , no murmur res: clear to auscultation ,no rhonchii or wheezing abd: no rebound or guarding ,nt, bs present. ext pulses present , no cyanosis neuro: axo3 , nonfocal. Objective Data Current Medications Generic Name Dose Route Start Last Admin Trade Name Freq PRN Reason Stop Dose Admin Acetaminophen 650 mg 05/11/20 02:44 Acetaminophen Supp 650 Mg Supp.Rect NV Q6H PRN Pain, Mild (Pain Scale 1-3) Atorvastatin Calcium 40 mg 05/11/20 21:00 05/13/20 21:46 Atorvastatin Calcium 40 Mg Tablet PO 40 mg BEDTIME EVY Administration Dexamethasone 6 mg 05/11/20 09:00 05/14/20 10:00 Dexamethasone 6 Mg Tablet PO 6 mg DAILY EVY Administration Gabapentin 200 mg 05/11/20 21:00 05/13/20 21:45 Gabapentin 100 Mg Capsule PO 200 mg BEDTIME EVY Administration Gabapentin 100 mg 05/11/20 09:00 05/14/20 11:10 Gabapentin 100 Mg Capsule PO 100 mg DAILY EVY Administration Heparin Sodium (Porcine) 5,000 unit 05/11/20 03:00 05/14/20 02:14 Heparin Sodium,Porcine 5,000 Unit/Ml Vial SUBCUT 5,000 unit Q12H EVY Administration Doxycycline Hyclate 100 mg/ 250 mls @ 166.67 mls/hr 05/12/20 16:30 05/14/20 11:15 Sodium Chloride IV Infused Q12H EVY Infusion Insulin Human Lispro 0 unit 05/11/20 07:30 05/14/20 11:16 Insulin Lispro 100 Unit/Ml 3 Ml Vial SUBCUT 6 unit QIDACHS EVY Administration Protocol Loratadine 10 mg 05/11/20 09:00 05/14/20 10:00 Loratadine 10 Mg Tablet PO 10 mg DAILY EVY Administration Lorazepam 1 mg 05/11/20 09:00 05/13/20 14:06 Lorazepam 1 Mg Tablet PO Not Given [id number] EVY Losartan Potassium 25 mg 05/11/20 21:00 05/13/20 21:45 Losartan Potassium 25 Mg Tablet PO 25 mg BEDTIME EVY Administration Protocol Pharmacy Consult 1 each 05/11/20 02:45 Consult Rx Vancomycin Dosing MISCELLANE DAILY PRN Consult order Sodium Chloride 3 ml 05/11/20 08:00 05/14/20 11:15 0.9 % Sodium Chloride Flush 3 Ml Syringe IVFLUSH 3 ml QSHIFT [facility] Administration Spironolactone 100 mg 05/11/20 09:00 05/14/20 11:12 Spironolactone 25 Mg Tablet PO 100 mg DAILY EVY Administration Protocol Vancomycin HCl 125 mg 05/13/20 16:00 05/14/20 10:10 Vancomycin Hcl 125 Mg Capsule PO 125 mg Q6H EVY Administration Venlafaxine HCl 37.5 mg 05/11/20 09:00 05/14/20 11:15 Venlafaxine Hcl Er 37.5 Mg Cap.Er.24h PO 37.5 mg DAILY EVY Administration Zolpidem Tartrate 10 mg 05/11/20 02:48 05/13/20 21:55 Zolpidem Tartrate 5 Mg Tablet PO 10 mg BEDTIME PRN Administration insomnia Labs CBC & Chem 7: 05/14/20 08:10 05/14/20 04:57 Microbiology Microbiology Results: Microbiology 05/13/20 Unknown Stool Stool Culture - Preliminary Normal so far. 05/11/20 02:54 Blood - Venous Blood Culture - Preliminary No growth after 48 hours. 05/11/20 02:54 Blood - Venous Blood Culture - Preliminary No growth after 48 hours. Assessment and Plan (1) End stage renal disease on dialysis: Problem details: ON HD TIW No s/s of uremia Status: Acute (2) Pneumonia: Status: Acute (3) Hypoxia: Status: Acute Assessment and Plan: 64-year-old female with a past medical history of hypertension, hyperlipidemia, diabetes, ESRD on hemodialysis on Friday, anxiety, depression presented to the hospital with a chief complaint of epigastric discomfort/diarrhea/shortness of breath/cough; noted to have hypoxia, not in respiratory distress, CT scan consistent with pleural effusion/pneumonia. Admitted to the hospital for further management. 1.Acute hypoxic respiratory failure: Likely in the setting of bilateral pleural effusion ,probably fluid overload might have contributed. Patient is status post hemodialysis-shortness of breath improving slowly, will try to taper oxygen 2.probable pneumonia Also the question of COVID even though the COVID rapid test is negative repeated cxr:Small right pleural effusion with underlying atelectasis. Minimal left basilar atelectasis seen seems repeated cxr better than before. continue Decadron , off vanc and Zosyn continue doxycycline day2. started on po vanco. Id evaluation pendign Bilateral pleural effusions: Likely in the setting of ESRD; minimally concern for parapneumonic effusions. Pulmonology eval noted. ESRD: Patient's potassium and bicarb fairly within the normal limits. Nephrology consulted for dialysis. Patient going to go at dialysis Hypertension: Poorly controlled. Continue home medications-continue losaratn , added nifedipine for the morning. Diabetes: controlled: insuling with sliding scale coverage.
[2020-05-14 16:27] LABS: Glucose, Whole Blood 183 mg/dL (60-115)
--- NOTE | 2020-05-14 20:37 | PM.PNNEP ---
Subjective Subjective Date of Service: 05/14/20 Interval history: C diff diarrhea Physical Exam Vital Signs: Vital Signs: Last Vital Signs Temp 97.2 F 05/14/20 16:00 Pulse 67 05/14/20 16:00 Resp 17 05/14/20 16:00 BP 175/86 H 05/14/20 16:00 Pulse Ox 92 05/14/20 16:00 Body Mass Index 27.8 Const: General: no acute distress Eyes: Eyelids: Yes eyelids normal Neck: Neck: Yes supple Cardio: Palpation: no palpable S4 Heart sounds: no murmurs Neuro: Motor exam (neuro): No Asterixis during motor activity present Objective Data Labs CBC & Chem 7: 05/14/20 08:10 05/14/20 04:57 Labs: Laboratory Results - last 24 hr 05/13/20 05/14/20 05/14/20 21:37 04:57 07:26 WBC RBC Hgb Hct MCV MCH MCHC RDW Plt Count MPV Absolute Nucleated RBC Nucleated RBC % (auto) Sodium 136 Potassium 3.9 Chloride 100 Carbon Dioxide 25 Anion Gap 15 BUN 38 H Creatinine 5.00 H* Estim Creat Clear Calc 11.4 Estimated GFR 9 POC Glucose 333 H 151 H Random Glucose 160 H Calcium 8.2 L 05/14/20 05/14/20 05/14/20 08:10 10:53 16:21 WBC 7.6 RBC 2.96 L Hgb 9.2 L Hct 29.0 L MCV 98.0 MCH 31.1 MCHC 31.7 RDW 15.0 Plt Count 179 MPV 9.4 Absolute Nucleated RBC 0.020 H Nucleated RBC % (auto) 0.3 H Sodium Potassium Chloride Carbon Dioxide Anion Gap BUN Creatinine Estim Creat Clear Calc Estimated GFR POC Glucose 273 H 183 H Random Glucose Calcium Microbiology Microbiology Results: Microbiology 05/13/20 Unknown Stool Stool Culture - Preliminary Normal so far. 05/11/20 02:54 Blood - Venous Blood Culture - Preliminary No growth after 48 hours. 05/11/20 02:54 Blood - Venous Blood Culture - Preliminary No growth after 48 hours. Assessment & Plan Assessment and plan (1) End stage renal disease on dialysis: Problem details: ON HD TIW No s/s of uremia Status: Acute (2) Pneumonia: Problem details: Concern over MRSA,gram negative Atypical like Legionnares Status: Acute Time Spent With Patient Time: Total time spent is greater than 50% in coordination of care (as documented) at patient's floor/unit and/or counseling patient:
[2020-05-14 21:21] LABS: Glucose, Whole Blood 250 mg/dL (60-115)
[2020-05-14] MEDS: Gabapentin 100 MG CAPSULE 200 MG PO (21:57)
[2020-05-14] MEDS: Losartan Potassium 25 MG TABLET PO (21:57)
[2020-05-14] MEDS: Atorvastatin Calcium 40 MG TABLET PO (21:57)
[2020-05-15] VITALS: BP 177/83; PULSE 72; RESP 16; TEMP 36.7; O2SAT 96
[2020-05-15] MEDS: 0.9 % Sodium Chloride Flush 3 ML SYRINGE IVFLUSH ×2 (00:21→08:06)
[2020-05-15] MEDS: Doxycycline Hyclate 100 MG in 0.9 % Sodium Chloride 250 ML 166.67 MG IV (03:43)
[2020-05-15] MEDS: Heparin Sodium,Porcine 5,000 UNIT/ML VIAL 5000 UNIT SUBCUT (03:43)
[2020-05-15] MEDS: vancomycin HCL 125 MG CAPSULE PO ×2 (03:43→08:11)
[2020-05-15 04:00] VITALS: BP 186/93; PULSE 68; RESP 16; O2SAT 96
[2020-05-15 04:35] LABS: SARS COV2 IgG Negative (Negative)
[2020-05-15 07:51] LABS: Glucose, Whole Blood 172 mg/dL (60-115)
[2020-05-15 08:00] VITALS: BP 176/90; PULSE 80; RESP 16; TEMP 36.7; O2SAT 98
[2020-05-15] MEDS: Insulin Lispro 100 UNIT/ML 3 ML VIAL SUBCUT ×2 (08:06→11:44)
[2020-05-15 08:11] VITALS: BP 176/90; PULSE 91
[2020-05-15] MEDS: dexAMETHasone 6 MG TABLET PO (08:11)
[2020-05-15] MEDS: Venlafaxine HCl ER 37.5 MG CAP.ER.24H PO (08:11)
[2020-05-15] MEDS: Loratadine 10 MG TABLET PO (08:11)
[2020-05-15] MEDS: Gabapentin 100 MG CAPSULE PO (08:11)
[2020-05-15] MEDS: Spironolactone 25 MG TABLET 100 MG PO (08:11)
[2020-05-15] MEDS: amLODIPine Besylate 2.5 MG TABLET PO (09:33)
--- NOTE | 2020-05-15 10:15 | PM.PNNEP ---
Subjective Subjective Date of Service: 05/16/20 Interval history: Events noted Physical Exam Vital Signs: Vital Signs: Last Vital Signs Temp 98.0 F 05/15/20 08:00 Pulse 91 05/15/20 08:11 Resp 16 05/15/20 08:00 BP 176/90 H 05/15/20 08:11 Pulse Ox 98 05/15/20 08:00 Body Mass Index 27.8 Const: General: no acute distress Eyes: Eyelids: Yes eyelids normal Neck: Neck: Yes supple Cardio: Palpation: no palpable S4 Heart sounds: no murmurs Neuro: Motor exam (neuro): No Asterixis during motor activity present Objective Data Labs CBC & Chem 7: 05/14/20 08:10 05/14/20 04:57 Labs: Laboratory Results - last 24 hr 05/13/20 05/14/20 05/14/20 04:58 10:53 16:21 POC Glucose 273 H 183 H SARS-CoV-2 IgG Ab Negative 05/14/20 05/15/20 21:16 07:40 POC Glucose 250 H 172 H SARS-CoV-2 IgG Ab Microbiology Microbiology Results: Microbiology 05/13/20 Unknown Stool Stool Culture - Preliminary Normal so far. 05/11/20 02:54 Blood - Venous Blood Culture - Preliminary No growth after 48 hours. 05/11/20 02:54 Blood - Venous Blood Culture - Preliminary No growth after 48 hours. Assessment & Plan Assessment and plan (1) End stage renal disease on dialysis: Problem details: ON HD TIW No s/s of uremia Status: Acute (2) HTN (hypertension): Problem details: BP noted Can increase Losartan Will remove fluid with HD an dreassess Status: Acute Time Spent With Patient Time: Total time spent is greater than 50% in coordination of care (as documented) at patient's floor/unit and/or counseling patient:
[2020-05-15 11:24] LABS: Glucose, Whole Blood 248 mg/dL (60-115)
[2020-05-15 11:56] VITALS: BP 182/74; PULSE 82; RESP 14; TEMP 36.6; O2SAT 100
--- NOTE | 2020-05-15 12:57 | P.DS_ITS ---
DS: Providers Provider Date of Service: 05/15/20 Date of admission: 05/11/20 02:44 Primary care physician: Shelia Jung MD Consults: 05/11/20 02:39 Consult to Infectious Diseases Routine Consulting Provider: Meredith Roberson Reason for consultation: COVID PUI; rapid negative Consult to Nephrology Routine Consulting Provider: Ethan Forman Reason for consultation: ESRD Consult to Pulmonology Routine Consulting Provider: Dot Ross Reason for consultation: Pl effusions; ?ESRD vs parapneumonic 05/11/20 10:38 Consult to Infectious Diseases Routine Consulting Provider: Meredith Roberson Reason for consultation: pneumonia? covid Has provider been notified: No DS: Diagnosis Discharge Diagnosis (1) End stage renal disease on dialysis: Status: Acute Problem details: ON HD TIW No s/s of uremia (2) HTN (hypertension): Status: Acute Problem details: BP noted Can increase Losartan Will remove fluid with HD an dreassess DS: Medications Discharge Medications Home Medications: Home Medications Medication Instructions Recorded Confirmed acetaminophen 650 mg PO Q6H PRN 05/11/20 05/11/20 ammonium lactate 1 appl TOPICAL BID 05/11/20 05/11/20 atorvastatin 40 mg PO BEDTIME 05/11/20 05/11/20 gabapentin 100 mg PO DAILY 05/11/20 05/11/20 gabapentin 200 mg PO BEDTIME 05/11/20 05/11/20 lidocaine-prilocaine 1 appl TOPICAL DAILY PRN 05/11/20 05/11/20 loratadine 10 mg PO DAILY 05/11/20 05/11/20 lorazepam 1 mg PO 3XW 05/11/20 05/11/20 losartan 25 mg PO BEDTIME 05/11/20 05/11/20 nifedipine 60 mg PO DAILY 05/11/20 05/11/20 pioglitazone 30 mg PO DAILY 05/11/20 05/11/20 spironolactone 100 mg PO DAILY 05/11/20 05/11/20 sucroferric oxyhydroxide [Velphoro] 1,000 mg PO TID 05/11/20 05/11/20 venlafaxine 37.5 mg PO DAILY 05/11/20 05/11/20 zolpidem 10 mg PO BEDTIME PRN 05/11/20 05/11/20 DS: Summary Hospital Course Hospital Course: 64-year-old female with a past medical history of hypertension, hyperlipidemia, diabetes, ESRD on hemodialysis on Friday, anxiety, depression presented to the hospital with a chief complaint of diarrhea. Patient reports that for the past 1 day she has been having abdominal discomfort/epigastric pain and had 4 episodes of loose watery stool. Also ordered to her shortness of breath and cough. Denies any fevers. Denies any nausea vomiting. Denies any urinary symptoms. Review of all other systems is negative except mentioned above ER course: Per ER physician patient exam noticed mild epigastric tenderness, home a CT scan showed no acute intra-abdominal pathology. But noticed bilateral pleural effusions as well as home pulmonary infiltrates concern for pneumonia- patient was given empirical vanc and Zosyn. As well as Decadron will for suspected PUI. ER physician mentioned that he also spoke to Nephrology Dr. kelley who mentioned no need for emergency dialysis and will be re-evaluated in the morning. EKG was nonischemic. For ER patient patient was briefly hypoxic to 75% subsequently placed on Asacol cannula 4 L improvement in saturations to 96%. Patient was not in respiratory distress. Hospital course: Patient initially came with shortness of breath-thought to be multifactorial secondary to fluid overload withESRD , thought to be probably component of pneumonia-patient was started on IV antibiotic as well as received hemodialysis -subsequently patient improved shortness of breath mak but as per the patient she was having on and off diarrhea before even coming to hospital but got worse later on the course and had abdominal pain so found to have C diff infection for which patient was started on p.o. vancomycin she needs to complete the course for 10 days. Nephrology will arrange outpatient dialysis. Hypertension mak slightly suboptimal: But she was not taking nifedipine which is added back -further management outpatient as per PCP. Above management discussed with the patient in detail length she understand and in agreement with the above plan, time spent 50 minutes and 50% time spent on counseling. Significant findings: As above. Procedures performed: None. Treatment and response: As above. Complications: None. Time Spent with Patient Time attestation: Total time spent providing and/or coordinating discharge services: Discharge coordination time: Greater than 30 minutes Physical Exam Vital Signs: Vital Signs: Last Vital Signs Temp 97.8 F 05/15/20 11:56 Pulse 82 05/15/20 11:56 Resp 14 05/15/20 11:56 BP 182/74 H 05/15/20 11:56 Pulse Ox 100 05/15/20 11:56 Body Mass Index 27.8 DS: Data Data Completed and Pending Labs on day of discharge: Laboratory Tests 05/11/20 05/11/20 05/11/20 01:15 01:15 01:15 WBC 5.8 RBC 2.90 L D Hgb 9.0 L D Hct 29.2 L D MCV 100.7 H MCH 31.0 MCHC 30.8 L RDW 15.5 Plt Count 207 D MPV 9.3 L Immature Gran % (Auto) 0.2 Neut % (Auto) 66.0 Lymph % (Auto) 17.2 L [place] % (Auto) 10.9 Eos % (Auto) 5.0 H Baso % (Auto) 0.7 Lymph # (Auto) 1.0 L [place] # (Auto) 0.6 Eos # (Auto) 0.3 Baso # (Auto) 0.0 Abs Immat Gran (auto) 0.01 Absolute Neuts (auto) 3.8 Absolute Nucleated RBC 0.000 Nucleated RBC % (auto) 0.0 Sodium 137 Potassium 4.5 Chloride 98 Carbon Dioxide 24 Anion Gap 20 BUN 35 H Creatinine 6.79 H* Estim Creat Clear Calc 8.4 Estimated GFR 6 POC Glucose Random Glucose 165 H Lactic Acid Calcium 8.7 Total Bilirubin 0.4 AST 12 D ALT 7 Alkaline Phosphatase 94 Total Protein 6.7 Albumin 3.4 L Lipase 246 H Nasal Screen MRSA (PCR) Nasal S. aureus Screen Nasal MRSA/S.aureus Interp Random Vancomycin C. difficile Tox B Gene C. difficile Toxin A&B C. difficile Antigen C. difficile Interpret COVID-19 (AJAY) Negative COVID-19 Clin Com See Note SARS-CoV-2 IgG Ab 05/11/20 05/11/20 05/11/20 02:54 07:53 18:15 WBC RBC Hgb Hct MCV MCH MCHC RDW Plt Count MPV Immature Gran % (Auto) Neut % (Auto) Lymph % (Auto) [place] % (Auto) Eos % (Auto) Baso % (Auto) Lymph # (Auto) [place] # (Auto) Eos # (Auto) Baso # (Auto) Abs Immat Gran (auto) Absolute Neuts (auto) Absolute Nucleated RBC Nucleated RBC % (auto) Sodium Potassium Chloride Carbon Dioxide Anion Gap BUN Creatinine Estim Creat Clear Calc Estimated GFR POC Glucose 222 H 147 H Random Glucose Lactic Acid 0.7 Calcium Total Bilirubin AST ALT Alkaline Phosphatase Total Protein Albumin Lipase Nasal Screen MRSA (PCR) Nasal S. aureus Screen Nasal MRSA/S.aureus Interp Random Vancomycin C. difficile Tox B Gene C. difficile Toxin A&B C. difficile Antigen C. difficile Interpret COVID-19 (AJAY) COVID-19 Clin Com SARS-CoV-2 IgG Ab 05/11/20 05/11/20 05/12/20 18:52 22:16 05:43 WBC 9.0 RBC 2.82 L Hgb 8.8 L Hct 28.2 L MCV 100.0 H MCH 31.2 MCHC 31.2 RDW 15.0 Plt Count 207 MPV 8.8 L Immature Gran % (Auto) 0.3 Neut % (Auto) 75.3 H Lymph % (Auto) 12.0 L [place] % (Auto) 11.8 H Eos % (Auto) 0.4 Baso % (Auto) 0.2 Lymph # (Auto) 1.1 L [place] # (Auto) 1.1 Eos # (Auto) 0.0 Baso # (Auto) 0.0 Abs Immat Gran (auto) 0.03 Absolute Neuts (auto) 6.8 Absolute Nucleated RBC 0.000 Nucleated RBC % (auto) 0.0 Sodium Potassium Chloride Carbon Dioxide Anion Gap BUN Creatinine Estim Creat Clear Calc Estimated GFR POC Glucose 188 H Random Glucose Lactic Acid Calcium Total Bilirubin AST ALT Alkaline Phosphatase Total Protein Albumin Lipase Nasal Screen MRSA (PCR) Nasal S. aureus Screen Nasal MRSA/S.aureus Interp Random Vancomycin 12.3 L C. difficile Tox B Gene C. difficile Toxin A&B C. difficile Antigen C. difficile Interpret COVID-19 (AJAY) COVID-19 Clin Com SARS-CoV-2 IgG Ab 05/12/20 05/12/20 05/12/20 05:43 07:47 12:06 WBC RBC Hgb Hct MCV MCH MCHC RDW Plt Count MPV Immature Gran % (Auto) Neut % (Auto) Lymph % (Auto) [place] % (Auto) Eos % (Auto) Baso % (Auto) Lymph # (Auto) [place] # (Auto) Eos # (Auto) Baso # (Auto) Abs Immat Gran (auto) Absolute Neuts (auto) Absolute Nucleated RBC Nucleated RBC % (auto) Sodium 135 Potassium 4.3 Chloride 99 Carbon Dioxide 22 Anion Gap 18 BUN 29 H Creatinine 4.45 H* Estim Creat Clear Calc 12.8 Estimated GFR 10 POC Glucose 141 H 243 H Random Glucose 135 H Lactic Acid Calcium 8.2 L Total Bilirubin AST ALT Alkaline Phosphatase Total Protein Albumin Lipase Nasal Screen MRSA (PCR) Nasal S. aureus Screen Nasal MRSA/S.aureus Interp Random Vancomycin C. difficile Tox B Gene C. difficile Toxin A&B C. difficile Antigen C. difficile Interpret COVID-19 (AJAY) COVID-19 Clin Com SARS-CoV-2 IgG Ab 05/12/20 05/12/20 05/13/20 17:58 21:02 04:58 WBC RBC Hgb Hct MCV MCH MCHC RDW Plt Count MPV Immature Gran % (Auto) Neut % (Auto) Lymph % (Auto) [place] % (Auto) Eos % (Auto) Baso % (Auto) Lymph # (Auto) [place] # (Auto) Eos # (Auto) Baso # (Auto) Abs Immat Gran (auto) Absolute Neuts (auto) Absolute Nucleated RBC Nucleated RBC % (auto) Sodium Potassium Chloride Carbon Dioxide Anion Gap BUN Creatinine Estim Creat Clear Calc Estimated GFR POC Glucose 290 H 230 H Random Glucose Lactic Acid Calcium Total Bilirubin AST ALT Alkaline Phosphatase Total Protein Albumin Lipase Nasal Screen MRSA (PCR) Nasal S. aureus Screen Nasal MRSA/S.aureus Interp Random Vancomycin C. difficile Tox B Gene C. difficile Toxin A&B C. difficile Antigen C. difficile Interpret COVID-19 (AJAY) COVID-19 Clin Com SARS-CoV-2 IgG Ab Negative 05/13/20 05/13/20 05/13/20 04:58 04:58 07:32 WBC RBC Hgb 8.2 L Hct 26.1 L MCV MCH MCHC RDW Plt Count MPV Immature Gran % (Auto) Neut % (Auto) Lymph % (Auto) [place] % (Auto) Eos % (Auto) Baso % (Auto) Lymph # (Auto) [place] # (Auto) Eos # (Auto) Baso # (Auto) Abs Immat Gran (auto) Absolute Neuts (auto) Absolute Nucleated RBC Nucleated RBC % (auto) Sodium 136 Potassium 4.3 Chloride 99 Carbon Dioxide 22 Anion Gap 19 BUN 64 H D Creatinine 6.87 H* Estim Creat Clear Calc 8.3 Estimated GFR 6 POC Glucose 126 H Random Glucose 172 H Lactic Acid Calcium 8.0 L Total Bilirubin AST ALT Alkaline Phosphatase Total Protein Albumin Lipase Nasal Screen MRSA (PCR) Nasal S. aureus Screen Nasal MRSA/S.aureus Interp Random Vancomycin C. difficile Tox B Gene C. difficile Toxin A&B C. difficile Antigen C. difficile Interpret COVID-19 (AJAY) COVID-19 Clin Com SARS-CoV-2 IgG Ab 05/13/20 05/13/20 05/13/20 12:17 12:54 14:00 WBC RBC Hgb Hct MCV MCH MCHC RDW Plt Count MPV Immature Gran % (Auto) Neut % (Auto) Lymph % (Auto) [place] % (Auto) Eos % (Auto) Baso % (Auto) Lymph # (Auto) [place] # (Auto) Eos # (Auto) Baso # (Auto) Abs Immat Gran (auto) Absolute Neuts (auto) Absolute Nucleated RBC Nucleated RBC % (auto) Sodium Potassium Chloride Carbon Dioxide Anion Gap BUN Creatinine Estim Creat Clear Calc Estimated GFR POC Glucose 110 Random Glucose Lactic Acid Calcium Total Bilirubin AST ALT Alkaline Phosphatase Total Protein Albumin Lipase Nasal Screen MRSA (PCR) Nasal S. aureus Screen Nasal MRSA/S.aureus Interp Random Vancomycin 7.8 L C. difficile Tox B Gene POSITIVE A* C. difficile Toxin A&B Negative C. difficile Antigen Positive A C. difficile Interpret PCR to be performed COVID-19 (AJAY) COVID-19 Clin Com SARS-CoV-2 IgG Ab 05/13/20 05/13/20 05/13/20 16:19 21:37 Unknown WBC RBC Hgb Hct MCV MCH MCHC RDW Plt Count MPV Immature Gran % (Auto) Neut % (Auto) Lymph % (Auto) [place] % (Auto) Eos % (Auto) Baso % (Auto) Lymph # (Auto) [place] # (Auto) Eos # (Auto) Baso # (Auto) Abs Immat Gran (auto) Absolute Neuts (auto) Absolute Nucleated RBC Nucleated RBC % (auto) Sodium Potassium Chloride Carbon Dioxide Anion Gap BUN Creatinine Estim Creat Clear Calc Estimated GFR POC Glucose 343 H 333 H Random Glucose Lactic Acid Calcium Total Bilirubin AST ALT Alkaline Phosphatase Total Protein Albumin Lipase Nasal Screen MRSA (PCR) NEGATIVE Nasal S. aureus Screen POSITIVE A Nasal MRSA/S.aureus Interp SEE NOTE Random Vancomycin C. difficile Tox B Gene C. difficile Toxin A&B C. difficile Antigen C. difficile Interpret COVID-19 (AJAY) COVID-19 Clin Com SARS-CoV-2 IgG Ab 05/14/20 05/14/20 05/14/20 04:57 07:26 08:10 WBC 7.6 RBC 2.96 L Hgb 9.2 L Hct 29.0 L MCV 98.0 MCH 31.1 MCHC 31.7 RDW 15.0 Plt Count 179 MPV 9.4 Immature Gran % (Auto) Neut % (Auto) Lymph % (Auto) [place] % (Auto) Eos % (Auto) Baso % (Auto) Lymph # (Auto) [place] # (Auto) Eos # (Auto) Baso # (Auto) Abs Immat Gran (auto) Absolute Neuts (auto) Absolute Nucleated RBC 0.020 H Nucleated RBC % (auto) 0.3 H Sodium 136 Potassium 3.9 Chloride 100 Carbon Dioxide 25 Anion Gap 15 BUN 38 H Creatinine 5.00 H* Estim Creat Clear Calc 11.4 Estimated GFR 9 POC Glucose 151 H Random Glucose 160 H Lactic Acid Calcium 8.2 L Total Bilirubin AST ALT Alkaline Phosphatase Total Protein Albumin Lipase Nasal Screen MRSA (PCR) Nasal S. aureus Screen Nasal MRSA/S.aureus Interp Random Vancomycin C. difficile Tox B Gene C. difficile Toxin A&B C. difficile Antigen C. difficile Interpret COVID-19 (AJAY) COVID-19 Clin Com SARS-CoV-2 IgG Ab 05/14/20 05/14/20 05/14/20 10:53 16:21 21:16 WBC RBC Hgb Hct MCV MCH MCHC RDW Plt Count MPV Immature Gran % (Auto) Neut % (Auto) Lymph % (Auto) [place] % (Auto) Eos % (Auto) Baso % (Auto) Lymph # (Auto) [place] # (Auto) Eos # (Auto) Baso # (Auto) Abs Immat Gran (auto) Absolute Neuts (auto) Absolute Nucleated RBC Nucleated RBC % (auto) Sodium Potassium Chloride Carbon Dioxide Anion Gap BUN Creatinine Estim Creat Clear Calc Estimated GFR POC Glucose 273 H 183 H 250 H Random Glucose Lactic Acid Calcium Total Bilirubin AST ALT Alkaline Phosphatase Total Protein Albumin Lipase Nasal Screen MRSA (PCR) Nasal S. aureus Screen Nasal MRSA/S.aureus Interp Random Vancomycin C. difficile Tox B Gene C. difficile Toxin A&B C. difficile Antigen C. difficile Interpret COVID-19 (AJAY) COVID-19 Clin Com SARS-CoV-2 IgG Ab 05/15/20 05/15/20 07:40 11:16 WBC RBC Hgb Hct MCV MCH MCHC RDW Plt Count MPV Immature Gran % (Auto) Neut % (Auto) Lymph % (Auto) [place] % (Auto) Eos % (Auto) Baso % (Auto) Lymph # (Auto) [place] # (Auto) Eos # (Auto) Baso # (Auto) Abs Immat Gran (auto) Absolute Neuts (auto) Absolute Nucleated RBC Nucleated RBC % (auto) Sodium Potassium Chloride Carbon Dioxide Anion Gap BUN Creatinine Estim Creat Clear Calc Estimated GFR POC Glucose 172 H 248 H Random Glucose Lactic Acid Calcium Total Bilirubin AST ALT Alkaline Phosphatase Total Protein Albumin Lipase Nasal Screen MRSA (PCR) Nasal S. aureus Screen Nasal MRSA/S.aureus Interp Random Vancomycin C. difficile Tox B Gene C. difficile Toxin A&B C. difficile Antigen C. difficile Interpret COVID-19 (AJAY) COVID-19 Clin Com SARS-CoV-2 IgG Ab Preliminary micro results at discharge 05/13/20 Unknown Stool Culture - Preliminary Stool Normal so far. 05/11/20 02:54 Blood Culture - Preliminary Blood - Venous No growth after 48 hours. 05/11/20 02:54 Blood Culture - Preliminary Blood - Venous No growth after 48 hours. Discharge Plan Discharge Patient Disposition: Home, Self-Care Referrals: [facility] [Outside] Shelia Jung MD [Primary Care Provider] - Discharge Medications: New doxycycline hyclate 100 mg capsule 100 mg PO DAILY Qty: 14 RF: 0 vancomycin 125 mg Capsule 125 mg PO Q6H Qty: 36 RF: 0 Continued atorvastatin 40 mg tablet 40 mg PO BEDTIME RF: 0 venlafaxine 37.5 mg capsule,extended release 24hr 37.5 mg PO DAILY RF: 0 ammonium lactate 12 % lotion 1 appl topical BID RF: 0 spironolactone 100 mg tablet 100 mg PO DAILY RF: 0 lidocaine-prilocaine 2.5-2.5 % cream 1 appl topical DAILY PRN (Reason: Pain) RF: 0 losartan 25 mg tablet 25 mg PO BEDTIME RF: 0 gabapentin 100 mg capsule 100 mg PO DAILY RF: 0 gabapentin 100 mg Capsule 200 mg PO BEDTIME RF: 0 lorazepam 1 mg tablet 1 mg PO 3XW RF: 0 zolpidem 10 mg tablet 10 mg PO BEDTIME PRN (Reason: insomnia) RF: 0 pioglitazone 30 mg tablet 30 mg PO DAILY RF: 0 nifedipine 60 mg tablet extended release 60 mg PO DAILY RF: 0 loratadine 10 mg tablet 10 mg PO DAILY RF: 0 Velphoro 500 mg tablet,chewable 1,000 mg PO TID RF: 0 acetaminophen 325 mg Tablet 650 mg PO Q6H PRN (Reason: Pain) RF: 0 Discharge Orders: Discharge Order (Routine); Ordered 05/15/20 Ordered By: Yogi Peter Diet: advance to usual diet and diabetic diet Activity on Discharge: As tolerated Stand Alone Forms: Patient Portal Discharge page Visit Report Forms: Patient Portal Discharge page Care Plan Goals: Patient initially came with shortness of breath-thought to be multifactorial secondary to fluid overload withESRD , thought to be probably component of pneumonia-patient was started on IV antibiotic as well as received hemodialysis -subsequently patient improved shortness of breath mak but as per the patient s he was having on and off diarrhea before even coming to hospital but got worse later on the course and had abdominal pain so found to have C diff infection for which patient was started on p.o. vancomycin she needs to complete the course for 10 days. Above management discussed with the patient in detail. Health Concerns: As above. Plan of Treatment: As above. Discharge Date/Time: 05/15/20 14:43
[2020-05-15 13:20] VITALS: BP 182/74; PULSE 79
[2020-05-15] MEDS: NIFEdipine ER 60 MG TAB.ER.24 PO (13:20)
--- NOTE | 2020-05-15 14:04 | MHC.CM.PN ---
Pt is ready for d/c to home: Confirmed with nephrology that her outpt HD will not change in schedule or location Confirmed with MD that her elevated BP will not detour d/c today Call placed to dtr [place] who can transport pt to home today at 4:30pm Call placed to [facility] to inform of d/c time Call to [facility] to obtain auth for skilled RN [facility] services - informed [facility] of d/c for start of service.
[2020-05-17 17:08] LABS: Legionella Ag Urine Not Detected (Not Detected)
[2020-05-17 19:27] LABS: Strep Pneumo Ag urine Not Detected (Not Detected)
== END 2020-05-15 14:43 | disposition home or self-care (01) | DRG 193 ==
LOC: HO.ED 23:23 → HO.EDOVER 05-11 03:14 → HO.ICU 05-12 08:05
PROVIDERS: Internal Medicine; Admitting Provider Hospitalist; Emergency Provider Emergency Medicine Emergency Medical Services; PCP Pediatrics; Visit Provider Internal Medicine
DX: J18.9 Pneumonia, unspecified organism (principal); N18.6 End stage renal disease; J96.01 Acute respiratory failure with hypoxia; I12.0 Hypertensive chronic kidney disease with stage 5 chronic kidney disease or end stage renal disease; J91.8 Pleural effusion in other conditions classified elsewhere; A04.72 Enterocolitis due to Clostridium difficile, not specified as recurrent; E87.70 Fluid overload, unspecified; Z20.822 Contact with and (suspected) exposure to COVID-19; E11.22 Type 2 diabetes mellitus with diabetic chronic kidney disease; Z99.2 Dependence on renal dialysis; D63.1 Anemia in chronic kidney disease; Z79.899 Other long term (current) drug therapy; E78.5 Hyperlipidemia, unspecified
CPT/HCPCS: 36415; 71045; 71046; 74176; 80048; 80053; 80202; 82947; 83605; 83690; 85014; 85018; 85025; 85027; 86769; 87040; 87045; 87046; 87324; 87449; 87493; 87635; 87640; 87641; 87899; 90999; 93005; 96361; 96365; 96367; 96375; 96376; 99284; 99291; 99292; J0885; J1100; J2270; J2405; J2543; J3370; J8540

== ENCOUNTER 2020-06-26 08:34 | Outpatient (REF) | payer OTHER, SELFPAY ==
--- NOTE | ~2020-06-26 | MM_ITS ---
EXAMINATION: MM SCREENING DIGITAL BREAST TOMOSYNTHESIS, BILATERAL CLINICAL INFORMATION: Screening. Asymptomatic. The lifetime risk of breast cancer based on the Tyrer-Cuzick Model is 7%. COMPARISON: Mammography: 03/15/2019, 03/09/2018, 01/31/2017 TECHNIQUE: Digital breast tomosynthesis is performed in both the craniocaudal and mediolateral oblique views along with computer-aided detection (CAD). Synthesized 2D images are generated from the tomosynthesis. FINDINGS: There are scattered areas of fibroglandular density (ACR BI-RADS breast composition Category b). There are no significant masses, abnormal calcifications, or other abnormalities. There are scattered shifting fibroglandular densities related to positioning from year to year. No developing density. There are bilateral vascular calcifications. Prominent draining vein again noted upper left breast. No skin thickening or coarsening of the Luis's ligaments. No significant changes. MM/MM tomosynthesis screening BI IMPRESSION: No significant changes from prior studies. ASSESSMENT: BI-RADS 2: Benign RECOMMENDATION: Routine annual mammography screening. This patient's information was entered into a reminder system with a target due date for their next mammogram.
== END 2020-06-26 08:35 | disposition home or self-care (01) ==
LOC: HO.MAMMO 08:34
PROVIDERS: Visit Provider Pediatrics
DX: Z12.31 Encounter for screening mammogram for malignant neoplasm of breast (principal)
CPT/HCPCS: 77063; 77067

== ENCOUNTER 2020-07-18 19:38 | Inpatient (IN) | payer OTHER, SELFPAY ==
[2020-07-18] VITALS (10 sets, daily range): BP systolic 160–207; BP diastolic 76–118; PULSE 85–119; RESP 20–33; TEMP 36.5; O2SAT 93–100; BMI 27.4
--- NOTE | 2020-07-18 | ECG_ITS ---
Test Reason : CP Blood Pressure : / mmHG Vent. Rate : 083 BPM Atrial Rate : 083 BPM P-R Int : 154 ms QRS Dur : 092 ms QT Int : 392 ms P-R-T Axes : 034 006 051 degrees QTc Int : 460 ms Normal sinus rhythm Normal ECG When compared with ECG of 11-MAY-2020 01:26, No significant change was found Referred By: Lorna Garcia Electronically Signed By:Mohan Manuel
--- NOTE | ~2020-07-18 | XR_ITS ---
EXAMINATION: XR CHEST CLINICAL INFORMATION: Chest pain and shortness of breath COMPARISON: Chest x-ray 05/12/2020 TECHNIQUE: Frontal view of the chest was obtained. FINDINGS: Cardiac silhouette is stable. Central vascular stent is unchanged in orientation. Small right-sided pleural effusion is again noted. Mild bibasilar atelectasis again appreciated. Interstitial markings within the left upper mid lung are slightly more prominent than prior imaging. XR/XR chest 1V IMPRESSION: -Findings suggest pulmonary vascular congestion with a small right pleural effusion. Viral infiltrate is also within the differential. Clinical correlation recommended.
[2020-07-18] MEDS: Nitroglycerin 2 % Oint 1 GM Packet 0.5 INCH TRANSDERMA (20:56)
--- NOTE | 2020-07-18 21:00 | ED.CHESTPAIN ---
HPI - Chest Pain General Chief Complaint: Chest Pain Stated Complaint: CP,SOB,MISSED DIALYSIS Time Seen by Provider: 07/18/20 20:59 Source: patient Mode of arrival: EMS History of Present Illness HPI narrative: 64-year-old female with multiple medical comorbidities presents via EMS with chest pain that started of 1600 today, rating into left arm, patient states that she missed her dialysis this morning and does not wear oxygen at home. Patient states that last night she began having multiple episodes of watery diarrhea without nausea or vomiting and denies any fevers, chills, back pain. Patient endorses that she still makes urine and as per EMS she was noted to be 89% O2 sat oxygen saturation with a point of care of 131. She has been given aspirin. Related Data Home Medications Medication Instructions Recorded Confirmed Velphoro 1,000 mg PO TID 05/11/20 05/11/20 acetaminophen 650 mg PO Q6H PRN 05/11/20 05/11/20 ammonium lactate 1 appl TOPICAL BID 05/11/20 05/11/20 atorvastatin 40 mg PO BEDTIME 05/11/20 05/11/20 gabapentin 100 mg PO DAILY 05/11/20 05/11/20 gabapentin 200 mg PO BEDTIME 05/11/20 05/11/20 lidocaine-prilocaine 1 appl TOPICAL DAILY PRN 05/11/20 05/11/20 loratadine 10 mg PO DAILY 05/11/20 05/11/20 lorazepam 1 mg PO 3XW 05/11/20 05/11/20 losartan 25 mg PO BEDTIME 05/11/20 05/11/20 nifedipine 60 mg PO DAILY 05/11/20 05/11/20 pioglitazone 30 mg PO DAILY 05/11/20 05/11/20 spironolactone 100 mg PO DAILY 05/11/20 05/11/20 venlafaxine 37.5 mg PO DAILY 05/11/20 05/11/20 zolpidem 10 mg PO BEDTIME PRN 05/11/20 05/11/20 Previous Rx's Medication Instructions Recorded doxycycline hyclate 100 mg PO DAILY #14 cap 05/15/20 vancomycin 125 mg PO Q6H #36 cap 05/15/20 Allergies Allergy/AdvReac Type Severity Reaction Status Date / Time ROXI Inhibitors Allergy Unknown UNKNOWN Verified 05/10/20 21:35 [ROXI INHIBITORS] Review of Systems Review of Systems: Pertinent positives and negatives as stated in HPI 10 point review of systems is otherwise negative. [facility] Past Medical History Source: nursing notes reviewed Medical History Diabetes Hypertension Renal failure Sinus, maxillary, carcinoma Social History Social History Household Members: None Alcohol intake: never Smoking Status: Never smoker Second Hand Smoke Exposure: No Use of substances other than those prescribed or required for medical reasons: No Advance Directives: No Advance Directives Information Provided: Yes service: No Current occupational status: disabled Physical Exam Vital Signs: Vital Signs: Last Vital Signs Temp 97.7 F 07/18/20 19:45 Pulse 85 07/18/20 23:46 Resp 22 H 07/18/20 23:46 BP 165/85 H 07/18/20 23:46 Pulse Ox 95 07/18/20 22:26 Body Mass Index 27.4 VITAL SIGNS: Reviewed. GENERAL: Well developed, well nourished, in no acute distress. HEAD: Normocephalic/atraumatic, EYES: PERRLA, EOMI NOSE: Nares patent bilateral, there is noted exposure the left lateral nostril that is chronic without erythema, induration, drainage NECK: Supple, no adenopathy LUNGS: No expiratory wheezing, coarse rhonchi noted throughout bilaterally. SpO2<100> on supplemental nasal cannula CARDIOVASCULAR: Regular rate and rhythm without noted murmurs ABDOMEN: Obese, Soft, non-tender, non-distended with bowel sounds. LUE: Fistula with positive thrill/positive bruit NEUROLOGIC: Alert and oriented x 4. Strength and sensation to light touch were grossly intact x 4. Course Course Course Narrative: 64-year-old female with history and clinical presentation consistent with hypertensive crisis induced respiratory failure. Patient received 0.5 in nitropaste in combination with supplemental oxygen via nasal cannula and 0.5 mg of morphine. Review of all investigations demonstrates findings consistent with missed dialysis, but patient is otherwise asymptomatic regarding the potassium level and EKG does not show acute findings. Electrolytes are reflective patient's bout with watery diarrhea and she will receive 500 mL of normal saline. Patient was placed on BiPAP for additional respiratory support as chest x-ray corroborates pulmonary edema. Initial troponin and BNP are felt to be reflective of hypertensive crisis as EKG is without acute findings. We will repeat troponin. On re-evaluation patient is feeling better, this case was discussed with inpatient hospitalist team who is agreeable for admission as well as discussed with nephrology will be dialyzing the patient in the next few hours. Patient able to be titrated off of BiPAP but were continues to require supplemental oxygen via nasal cannula. Due to patient's bouts with diarrhea, Lasix is being held at this time. Reevaluation(s) Reevaluation #1: I discussed with Dr. Shah, Nephrology, and they will come in and dialyze her within the next few hours. Time: 23:57 MDM - Chest Pain Lab Data Result diagrams: 07/18/20 21:05 07/18/20 21:52 Labs: Lab Results 07/18/20 07/18/20 07/18/20 Range/Units 21:05 21:05 21:52 WBC 8.9 (4.8-10.8) X10*3/uL RBC 4.37 D (4.20-5.50) X10*6/uL Hgb 12.7 D (12.0-16.0) g/dl Hct 41.6 D (37-47) % MCV 95.2 (80-98) fL MCH 29.1 (27.0-33.0) pg MCHC 30.5 L (31.0-35.0) g/dl RDW 15.9 (11.0-16.0) % Plt Count 245 D (160-400) X10*3/uL MPV 9.7 (9.4-12.3) fL Immature Gran % (Auto) 0.2 (0.0-0.4) % Neut % (Auto) 64.8 (45-73) % Lymph % (Auto) 12.4 L (20-40) % [place] % (Auto) 9.2 (2-11) % Eos % (Auto) 12.6 H (0-4) % Baso % (Auto) 0.8 (0-2) % Lymph # (Auto) 1.1 L (1.2-4.9) X10*3/uL [place] # (Auto) 0.8 (0.1-1.2) X10*3/uL Eos # (Auto) 1.1 H (0.0-0.4) X10*3/uL Baso # (Auto) 0.1 (0.0-0.2) X10*3/uL Abs Immat Gran (auto) 0.02 (0.00-0.03) X10*3/uL Absolute Neuts (auto) 5.8 (2.0-8.3) X10*3/uL Absolute Nucleated RBC 0.000 (0.0-0.012) X10*3/uL Nucleated RBC % (auto) 0.0 (0.0-0.2) /100WBC PT 11.9 (10.8-13.0) SEC INR 1.0 (0.9-1.1) APTT 42.9 H (24.1-38.0) SEC Sodium (135-145) mmol/L Potassium (3.3-5.1) mmol/L Chloride (96-108) mmol/L Carbon Dioxide (22-29) mmol/L Anion Gap (12-20) BUN (9-16) mg/dL Creatinine (0.5-1.4) mg/dL Estim Creat Clear Calc Estimated GFR Random Glucose (60-115) mg/dL Lactic Acid (0.5-2.0) mmol/L Calcium (8.4-10.2) mg/dL Total Bilirubin (0.0-1.0) mg/dL AST (5-31) U/L ALT (0-31) U/L Alkaline Phosphatase (39-117) U/L Troponin I High Sens 17.3 H D (<3.5-17.0) ng/L B-Natriuretic Peptide 1564 H (<100) pg/mL Total Protein (6.5-8.0) g/dL Albumin (3.5-5.0) g/dL COVID-19 (AJAY) (Negative) COVID-19 Clin Com 07/18/20 07/18/20 07/18/20 Range/Units 21:52 21:52 21:52 WBC (4.8-10.8) X10*3/uL RBC (4.20-5.50) X10*6/uL Hgb (12.0-16.0) g/dl Hct (37-47) % MCV (80-98) fL MCH (27.0-33.0) pg MCHC (31.0-35.0) g/dl RDW (11.0-16.0) % Plt Count (160-400) X10*3/uL MPV (9.4-12.3) fL Immature Gran % (Auto) (0.0-0.4) % Neut % (Auto) (45-73) % Lymph % (Auto) (20-40) % [place] % (Auto) (2-11) % Eos % (Auto) (0-4) % Baso % (Auto) (0-2) % Lymph # (Auto) (1.2-4.9) X10*3/uL [place] # (Auto) (0.1-1.2) X10*3/uL Eos # (Auto) (0.0-0.4) X10*3/uL Baso # (Auto) (0.0-0.2) X10*3/uL Abs Immat Gran (auto) (0.00-0.03) X10*3/uL Absolute Neuts (auto) (2.0-8.3) X10*3/uL Absolute Nucleated RBC (0.0-0.012) X10*3/uL Nucleated RBC % (auto) (0.0-0.2) /100WBC PT (10.8-13.0) SEC INR (0.9-1.1) APTT (24.1-38.0) SEC Sodium 132 L (135-145) mmol/L Potassium 6.8 H* D (3.3-5.1) mmol/L Chloride 94 L (96-108) mmol/L Carbon Dioxide 19 L (22-29) mmol/L Anion Gap 26 H (12-20) BUN 96 H* D (9-16) mg/dL Creatinine 10.84 H* (0.5-1.4) mg/dL Estim Creat Clear Calc 5.2 Estimated GFR 4 Random Glucose 156 H (60-115) mg/dL Lactic Acid 1.0 (0.5-2.0) mmol/L Calcium 9.0 D (8.4-10.2) mg/dL Total Bilirubin 0.7 (0.0-1.0) mg/dL AST 11 (5-31) U/L ALT 10 (0-31) U/L Alkaline Phosphatase 95 (39-117) U/L Troponin I High Sens (<3.5-17.0) ng/L B-Natriuretic Peptide (<100) pg/mL Total Protein 7.3 (6.5-8.0) g/dL Albumin 3.7 (3.5-5.0) g/dL COVID-19 (AJAY) Negative (Negative) COVID-19 Clin Com See Note ECG Data ECG #1: Attestation: I personally reviewed and interpreted this ECG as follows: Prior ECG tracings: available for review (05/11/2020 no acute changes on comparison) Interpretation: Normal sinus rhythm, HR-83, no evidence of acute ischemia, AL/QRS/QTC are within normal limits. Critical Care Time Critical Care Time Critical Care Time: Yes Total Critical Care Time: 45 Attestation: I personally attest to this time spent taking care of the patient. Discharge Plan Discharge Clinical Impression: Hypertensive emergency, Flash pulmonary edema, Acute respiratory failure Patient Disposition: Admitted As Inpatient
[2020-07-18 21:10] LABS: MANUAL DIFF FLAG NO
[2020-07-18 21:12] LABS: Basophils Absolute Auto 0.1 X10*3/uL (0.0-0.2); Basophils Percent Auto 0.8 % (0-2); Eosinophils Absolute Auto 1.1 X10*3/uL (0.0-0.4); Eosinophils Percent Auto 12.6 % (0-4); Hematocrit 41.6 % (37-47); Hemoglobin 12.7 g/dl (12.0-16.0); Imm Gran Abs Auto 0.02 X10*3/uL (0.00-0.03); Imm Gran Pct Auto 0.2 % (0.0-0.4); Lymphocytes Absolute Auto 1.1 X10*3/uL (1.2-4.9); Lymphocytes Percent Auto 12.4 % (20-40); Mean Corpuscular HGB Conc 30.5 g/dl (31.0-35.0); Mean Corpuscular Hemoglobin 29.1 pg (27.0-33.0); Mean Corpuscular Volume 95.2 fL (80-98); Mean Platelet Volume 9.7 fL (9.4-12.3); Monocytes Absolute Auto 0.8 X10*3/uL (0.1-1.2); Monocytes Percent Auto 9.2 % (2-11); Neutrophils Absolute Auto 5.8 X10*3/uL (2.0-8.3); Neutrophils Percent Auto 64.8 % (45-73); Platelet Count 245 X10*3/uL (160-400); Red Blood Count 4.37 X10*6/uL (4.20-5.50); Red Cell Distribution Width 15.9 % (11.0-16.0); White Blood Count 8.9 X10*3/uL (4.8-10.8)
--- NOTE | 2020-07-18 21:13 | PC.NURSE ---
Pt reports improvement in nausea, l chest pain, and sob since nitro.
[2020-07-18] MEDS: Morphine Sulfate 2 MG/ML CARTRIDGE 0.5 MG IVPUSH (21:39)
[2020-07-18] MEDS: 0.9 % Sodium Chloride 500 ML 999 ML IV (21:40)
[2020-07-18] MEDS: ondansetron HCL 4 MG/2 ML VIAL IVPUSH (21:40)
[2020-07-18 21:45] LABS: B Type Natriuretic Peptide 1564 pg/mL (<100); Troponin-I High Sensitivity 17.3 ng/L (<3.5-17.0)
[2020-07-18 22:15] LABS: COVID-19 Test Negative (Negative)
[2020-07-18 22:18] LABS: Prothrombin Time 11.9 SEC (10.8-13.0)
[2020-07-18 22:22] LABS: Partial Thromboplastin Time 42.9 SEC (24.1-38.0)
--- NOTE | 2020-07-18 22:47 | PC.NURSE ---
resp present and pt being placed on bipap 10/5. pt has a nonprod cough, sitting upright in bed.
[2020-07-18 23:09] LABS: Alanine Aminotransferase 10 U/L (0-31); Albumin Level 3.7 g/dL (3.5-5.0); Alkaline Phosphatase 95 U/L (39-117); Anion Gap 26 (12-20); Aspartate Amino Transferase 11 U/L (5-31); Bilirubin Total 0.7 mg/dL (0.0-1.0); Blood Urea Nitrogen 96 mg/dL (9-16); Carbon Dioxide 19 mmol/L (22-29); Chloride 94 mmol/L (96-108); Creatinine Clr Calc Pharmacy 5.2; Estimated Glomerular Filt Rate 4; Glucose Random 156 mg/dL (60-115); Potassium 6.8 mmol/L (3.3-5.1); Sodium 132 mmol/L (135-145); Total Protein 7.3 g/dL (6.5-8.0)
[2020-07-19] VITALS (13 sets, daily range): BP systolic 116–178; BP diastolic 61–93; PULSE 72–103; RESP 16–27; TEMP 36.5–37.2; O2SAT 93–100
--- NOTE | 2020-07-19 | ECG_ITS ---
Test Reason : REPEAT Blood Pressure : / mmHG Vent. Rate : 084 BPM Atrial Rate : 084 BPM P-R Int : 146 ms QRS Dur : 084 ms QT Int : 378 ms P-R-T Axes : 031 020 027 degrees QTc Int : 446 ms Normal sinus rhythm Normal ECG When compared with ECG of 19-JUL-2020 03:29, QRS duration has decreased Referred By: Lorna Garcia Electronically Signed By:ANAHI LOVE
--- NOTE | 2020-07-19 | ECG_ITS ---
Test Reason : HIGH BP Blood Pressure : / mmHG Vent. Rate : 073 BPM Atrial Rate : 073 BPM P-R Int : 146 ms QRS Dur : 090 ms QT Int : 454 ms P-R-T Axes : 045 009 037 degrees QTc Int : 500 ms Normal sinus rhythm Possible Left atrial enlargement T wave abnormality, consider anterior ischemia Prolonged QT Abnormal ECG When compared with ECG of 19-JUL-2020 04:43, T wave inversion now evident in Anterior leads QT has lengthened Referred By: Lorna Garcia Electronically Signed By:Mohan Manuel
--- NOTE | 2020-07-19 | ECG_ITS ---
Test Reason : REPEAT Blood Pressure : / mmHG Vent. Rate : 089 BPM Atrial Rate : 089 BPM P-R Int : 124 ms QRS Dur : 102 ms QT Int : 406 ms P-R-T Axes : 005 -06 059 degrees QTc Int : 493 ms Sinus rhythm with occasional , and consecutive Premature ventricular complexes Possible Left atrial enlargement Left ventricular hypertrophy Prolonged QT Abnormal ECG When compared with ECG of 18-JUL-2020 19:57, Premature ventricular complexes are now Present Referred By: Lorna Garcia Electronically Signed By:Mohan Manuel
[2020-07-19 01:17] LABS: Troponin-I High Sensitivity 27.5 ng/L (<3.5-17.0)
[2020-07-19] MEDS: Heparin Sodium,Porcine 5,000 UNIT/ML VIAL 5000 UNIT SUBCUT ×2 (01:39→18:32)
[2020-07-19] MEDS: Furosemide 100 MG/10 ML VIAL 60 MG IVPUSH (01:39)
--- NOTE | 2020-07-19 01:41 | PM.IMHP ---
History of Present Illness Date of Service: 07/19/20 Chief Complaint: Shortness of breath 64-year-old female with a past medical history of hypertension, hyperlipidemia, diabetes, anxiety, depression, ESRD on hemodialysis Friday; history of C diff infection, history of MRSA infection presented to the hospital with a chief complaint of shortness of breath. Patient reports that over the past couple days she has been having multiple episodes of loose watery stools denies any blood in the stool. Denies being on antibiotics recently. Mentioned that she missed her hemodialysis today. In the evening she noticed chest pain associated with shortness of breath. Denies any associated lightheadedness dizziness or diaphoresis. Denies any fever chills cough. Denies any chest pain at the time of my interview. Review of all other systems is negative except mentioned above ER course: Per ER team patient noted to be having condition on the lung exam, chest x-ray showed pulmonary vascular condition. Patient noted to be 89% on room air subsequently placed on supplemental oxygen. Patient was also briefly placed on BiPAP. ER team also mentioned that patient would pressure was elevated on presentation and subsequently improved with atorvastatin. ER team mentioned the patient labs noted to have hyperkalemia of 6.8. EKG showed no acute changes. Troponins indeterminate. Patient denied chest pain. Patient was given insulin plus dextrose. Discussed with nephrology -> who mention no need for emergency dialysis; recommended admission to Medicine Service to be evaluated in the morning for hemodialysis. [facility] Medical History Diabetes Hypertension Renal failure Sinus, maxillary, carcinoma Social History Household Members: None Housing: Apartment Alcohol intake: never Smoking Status: Never smoker Second Hand Smoke Exposure: No service: No Current occupational status: disabled Meds Allergies Allergy/AdvReac Type Severity Reaction Status Date / Time ROXI Inhibitors Allergy Unknown UNKNOWN Verified 05/10/20 21:35 [ROXI INHIBITORS] Active Medications: Current Medications Generic Name Dose Route Start Last Admin Trade Name Freq PRN Reason Stop Dose Admin Acetaminophen 650 mg 07/19/20 01:07 Acetaminophen 325 Mg Tablet PO Q6H PRN Pain, Mild (Pain Scale 1-3) Docusate Sodium 100 mg 07/19/20 01:07 Docusate Sodium 100 Mg Capsule PO DAILY PRN Constipation Heparin Sodium (Porcine) 5,000 unit 07/19/20 01:15 07/19/20 01:39 Heparin Sodium,Porcine 5,000 Unit/Ml Vial SUBCUT 5,000 unit Q8H [facility] Administration Sodium Chloride 3 ml 07/19/20 08:00 0.9 % Sodium Chloride Flush 3 Ml Syringe IVFLUSH QSHIFT [facility] Home Medications Medication Instructions Recorded Confirmed Last Taken Type Velphoro 1,000 mg PO TIDWM 05/11/20 07/19/20 05/10/20 History acetaminophen 650 mg PO Q6H PRN 05/11/20 07/19/20 05/06/20 History t-2 ammonium lactate 1 appl TOPICAL BID 05/11/20 07/19/20 05/09/20 History atorvastatin 40 mg PO BEDTIME 05/11/20 07/19/20 05/09/20 History gabapentin 100 mg PO DAILY 05/11/20 07/19/20 05/10/20 History gabapentin 200 mg PO BEDTIME 05/11/20 07/19/20 05/09/20 History loratadine 10 mg PO DAILY 05/11/20 07/19/20 05/10/20 History lorazepam 1 mg PO 3XW 05/11/20 07/19/20 05/09/20 History losartan 25 mg PO BEDTIME 05/11/20 07/19/20 05/09/20 History pioglitazone 30 mg PO DAILY 05/11/20 07/19/20 05/10/20 History venlafaxine 37.5 mg PO DAILY 05/11/20 07/19/20 05/10/20 History zolpidem 10 mg PO BEDTIME PRN 05/11/20 07/19/20 Unknown History lorazepam 0.5 mg PO 3XW PRN 07/19/20 07/19/20 Unknown History Physical Exam Vital Signs and Narrative: Vital Signs: Last Vital Signs Temp 97.7 F 07/18/20 19:45 Pulse 96 07/19/20 01:07 Resp 24 H 07/19/20 01:07 BP 172/93 H 07/19/20 01:07 Pulse Ox 97 07/19/20 01:07 Body Mass Index 27.4 Results Labs CBC and Chem 7: 07/20/20 05:15 07/20/20 05:15 Labs: Laboratory Results - last 24 hr 07/18/20 07/18/20 07/18/20 21:05 21:05 21:52 MCV 95.2 MCH 29.1 MCHC 30.5 L RDW 15.9 Plt Count 245 D MPV 9.7 Immature Gran % (Auto) 0.2 Neut % (Auto) 64.8 Lymph % (Auto) 12.4 L [place] % (Auto) 9.2 Eos % (Auto) 12.6 H Baso % (Auto) 0.8 Lymph # (Auto) 1.1 L [place] # (Auto) 0.8 Eos # (Auto) 1.1 H Baso # (Auto) 0.1 Abs Immat Gran (auto) 0.02 Absolute Neuts (auto) 5.8 Absolute Nucleated RBC 0.000 Nucleated RBC % (auto) 0.0 PT 11.9 INR 1.0 APTT 42.9 H Anion Gap Estim Creat Clear Calc Estimated GFR Random Glucose Lactic Acid Calcium Total Bilirubin AST ALT Alkaline Phosphatase Troponin I High Sens 17.3 H D B-Natriuretic Peptide 1564 H Total Protein Albumin COVID-19 (AJAY) COVID-Olo 07/18/20 07/18/20 07/18/20 21:52 21:52 21:52 MCV MCH MCHC RDW Plt Count MPV Immature Gran % (Auto) Neut % (Auto) Lymph % (Auto) [place] % (Auto) Eos % (Auto) Baso % (Auto) Lymph # (Auto) [place] # (Auto) Eos # (Auto) Baso # (Auto) Abs Immat Gran (auto) Absolute Neuts (auto) Absolute Nucleated RBC Nucleated RBC % (auto) PT INR APTT Anion Gap 26 H Estim Creat Clear Calc 5.2 Estimated GFR 4 Random Glucose 156 H Lactic Acid 1.0 Calcium 9.0 D Total Bilirubin 0.7 AST 11 ALT 10 Alkaline Phosphatase 95 Troponin I High Sens B-Natriuretic Peptide Total Protein 7.3 Albumin 3.7 COVID-19 (AJAY) Negative COVID-19 Clin Com See Note 07/19/20 00:28 MCV MCH MCHC RDW Plt Count MPV Immature Gran % (Auto) Neut % (Auto) Lymph % (Auto) [place] % (Auto) Eos % (Auto) Baso % (Auto) Lymph # (Auto) [place] # (Auto) Eos # (Auto) Baso # (Auto) Abs Immat Gran (auto) Absolute Neuts (auto) Absolute Nucleated RBC Nucleated RBC % (auto) PT INR APTT Anion Gap Estim Creat Clear Calc Estimated GFR Random Glucose Lactic Acid Calcium Total Bilirubin AST ALT Alkaline Phosphatase Troponin I High Sens 27.5 H D B-Natriuretic Peptide Total Protein Albumin COVID-19 (AJAY) COVID-19 Clin Com Imaging Radiologist's Impressions: Impressions Chest X-Ray 07/18/20 22:05 IMPRESSION: -Findings suggest pulmonary vascular congestion with a small right pleural effusion. Viral infiltrate is also within the differential. Clinical correlation recommended. Assessment and Plan (1) Hyperkalemia: Status: Resolved 64-year-old female with a past medical history of hypertension, hyperlipidemia, diabetes, anxiety, depression, ESRD on hemodialysis, history of C diff infection, history of MRSA infection presented to the hospital with a chief complaint diarrhea/shortness of breath. Diarrhea: Abdominal exam benign. Patient has history of C diff infection. Stool studies were sent. Acute hypoxic respiratory failure: Will in the setting of fluid overload from missed hemodialysis. Chest x-ray showed pulmonary congestion. Patient was briefly on the BiPAP. Currently not in distress. Speaks in full sentences. On supplemental oxygen. Will continue to monitor. Notified Nephrology who mention now defer emergent hemodialysis. ESRD: Patient missed hemodialysis. Low-potassium diet. Nephrology consulted for hemodialysis in the morning. Hyperkalemia: No acute changes on EKG. Received insulin plus dextrose in the ER. Will repeat stat BMP. Diabetes: Insulin sliding scale Hypertensive urgency: Patient received nitroglycerin in the ER. Blood pressure improving. Patient denies any headaches or blurred visions. Will continue to monitor. Continue home medications. DVT prophylaxis: Subcu heparin Code status: Full code
[2020-07-19 02:46] LABS: Anion Gap 24 (12-20); Blood Urea Nitrogen 98 mg/dL (9-16); Calcium 8.7 mg/dL (8.4-10.2); Carbon Dioxide 16 mmol/L (22-29); Chloride 100 mmol/L (96-108); Creatinine Clr Calc Pharmacy 5.3; Estimated Glomerular Filt Rate 4; Glucose Random 154 mg/dL (60-115); Potassium 7.6 mmol/L (3.3-5.1); Sodium 132 mmol/L (135-145)
--- NOTE | 2020-07-19 03:16 | PC.NURSE ---
pt has not had a bm yet .
[2020-07-19] MEDS: Calcium Gluconate/NaCl,Iso-Osm 1 GM/50 ML PLAST..BAG IV (03:26)
[2020-07-19] MEDS: Sodium Bicarbonate 650 MG TABLET PO (03:26)
[2020-07-19] MEDS: Insulin Regular, Human 100 UNIT/ML 3 ML VIAL 10 UNIT IVPUSH (03:27)
[2020-07-19] MEDS: Sodium Polystyrene Sulfon/Sorb 15 GM/60 ML ORAL.SUSP 30 GM PO (03:45)
--- NOTE | 2020-07-19 03:59 | PM.EVENT ---
Event Note Date of Service: 07/19/20 Event Note: Hyperkalemia: Patient on presentation had elevated potassium levels of 6.8. Given insulin and dextrose. A follow-up potassium levels went up to 7.6. Repeat EKG showed peaked Ts in lateral leads; Patient denies any chest pain palpitations or abdominal pain. Abdominal exam was benign. Patient was given Kayexalate, albuterol nebulizer, calcium gluconate, insulin plus dextrose. I spoke to the weekday babysitter on-call Dr Conner, who suggested to start the patient on insulin drip at a low rate; and he will arranged for hemodialysis.
--- NOTE | 2020-07-19 04:12 | PC.NURSE ---
hospitalist at bedside orders reviewed and made aware pt has limited iv access and is a dialysis pt so no iv to the left arm. after calcium gluconate infuses the repeat ekg and labs. then start insulin drip.
[2020-07-19] MEDS: Albuterol Sulfate (0.083%) 2.5 MG/3 ML VIAL.NEB INHALE (04:53)
[2020-07-19 05:18] LABS: Glucose, Whole Blood 79 mg/dL (60-115)
--- NOTE | 2020-07-19 05:21 | PC.NURSE ---
hospitalist called and hold the insulin drip, draw the labs and reassess after the labs result.
[2020-07-19 06:14] LABS: Glucose, Whole Blood 161 mg/dL (60-115)
[2020-07-19 07:01] LABS: MANUAL DIFF FLAG NO
[2020-07-19 07:06] LABS: Basophils Absolute Auto 0.1 X10*3/uL (0.0-0.2); Basophils Percent Auto 0.7 % (0-2); Eosinophils Absolute Auto 0.7 X10*3/uL (0.0-0.4); Eosinophils Percent Auto 10.4 % (0-4); Hematocrit 37.3 % (37-47); Hemoglobin 11.1 g/dl (12.0-16.0); Imm Gran Abs Auto 0.02 X10*3/uL (0.00-0.03); Imm Gran Pct Auto 0.3 % (0.0-0.4); Lymphocytes Absolute Auto 0.7 X10*3/uL (1.2-4.9); Lymphocytes Percent Auto 10.6 % (20-40); Mean Corpuscular HGB Conc 29.8 g/dl (31.0-35.0); Mean Corpuscular Hemoglobin 28.9 pg (27.0-33.0); Mean Corpuscular Volume 97.1 fL (80-98); Mean Platelet Volume 9.7 fL (9.4-12.3); Monocytes Absolute Auto 0.9 X10*3/uL (0.1-1.2); Neutrophils Absolute Auto 4.5 X10*3/uL (2.0-8.3); Platelet Count 175 X10*3/uL (160-400); Red Blood Count 3.84 X10*6/uL (4.20-5.50); Red Cell Distribution Width 15.9 % (11.0-16.0)
--- NOTE | 2020-07-19 07:14 | PC.NURSE ---
pt resting in the stretcher, alert and oriented, skin appropriate for ethnicity, respirations even and unlabored, currently on high flow at 40% and sating well at 96%, ls very diminished in the bases. pt reports having lower back pain 8/10, repositioned in bed for comfort. pt still has not voided since the Lasix. ns on the monitor. pt awating room assignment.
[2020-07-19] MEDS: 0.9 % Sodium Chloride Flush 3 ML SYRINGE IVFLUSH ×3 (07:19→22:58)
[2020-07-19 07:21] LABS: Glucose, Whole Blood 140 mg/dL (60-115)
[2020-07-19 07:41] LABS: Anion Gap 24 (12-20); Blood Urea Nitrogen 101 mg/dL (9-16); Calcium 8.8 mg/dL (8.4-10.2); Carbon Dioxide 17 mmol/L (22-29); Chloride 100 mmol/L (96-108); Estimated Glomerular Filt Rate 3; Glucose Random 161 mg/dL (60-115); Potassium 6.9 mmol/L (3.3-5.1); Sodium 134 mmol/L (135-145)
--- NOTE | 2020-07-19 08:09 | PC.NURSE ---
respiratory at bedside trialling pt of the high flow, put on nasal cannual at 5l, sating at 97% at this time
[2020-07-19 08:54] LABS: Glucose, Whole Blood 126 mg/dL (60-115)
--- NOTE | 2020-07-19 08:58 | PC.NURSE ---
pt transported to dialysis
[2020-07-19 10:58] LABS: Anion Gap 19 (12-20); Blood Urea Nitrogen 48 mg/dL (9-16); Calcium 9.2 mg/dL (8.4-10.2); Carbon Dioxide 20 mmol/L (22-29); Chloride 98 mmol/L (96-108); Creatinine Clr Calc Pharmacy 9.9; Estimated Glomerular Filt Rate 8; Glucose Random 120 mg/dL (60-115); Potassium 3.8 mmol/L (3.3-5.1); Sodium 133 mmol/L (135-145)
--- NOTE | 2020-07-19 10:59 | P.PNIM_ITS ---
Subjective Subjective Date of Service: 07/19/20 <Savannah Milton NP - Last Filed: 07/19/20 16:03> 07/19/20 <Travis Howe MD - Last Filed: 07/19/20 17:34> Interval History: Follow up fluid overload, lab abnormalities <Savannah Milton NP - Last Filed: 07/19/20 16:03> Physical Exam Vital Signs: Vital Signs: Last Vital Signs Temp 97.7 F 07/19/20 07:35 Pulse 92 07/19/20 07:35 Resp 16 07/19/20 07:35 BP 116/61 07/19/20 07:35 Pulse Ox 99 07/19/20 07:35 Body Mass Index 27.4 <Savannah Milton NP - Last Filed: 07/19/20 16:03> Appearing in no acute distress lung sounds are clear to auscultation heart regular rate rhythm, clear S1, S2 positive bowel sounds, abdomen is soft, nontender neuro patient is alert x3, no focal deficits <Savannah Milton NP - Last Filed: 07/19/20 16:03> Objective Data Current Medications Generic Name Dose Route Start Last Admin Trade Name Freq PRN Reason Stop Dose Admin Acetaminophen 650 mg 07/19/20 01:07 Acetaminophen 325 Mg Tablet PO Q6H PRN Pain, Mild (Pain Scale 1-3) Docusate Sodium 100 mg 07/19/20 01:07 Docusate Sodium 100 Mg Capsule PO DAILY PRN Constipation Heparin Sodium (Porcine) 5,000 unit 07/19/20 01:15 07/19/20 01:39 Heparin Sodium,Porcine 5,000 Unit/Ml Vial SUBCUT 5,000 unit Q8H [facility] Administration Dextrose 1,000 mls @ 30 mls/hr 07/19/20 04:00 07/19/20 06:45 D10 IVCONT Not Given .Q24H [facility] Insulin Human Lispro 0 unit 07/19/20 07:30 07/19/20 07:18 Insulin Lispro 100 Unit/Ml 3 Ml Vial SUBCUT Not Given QIDACHS [facility] Protocol Pharmacy Consult 1 each 07/19/20 08:21 Consult Rx Perform Med Rec MISCELLANE ONCE PRN Consult order Sodium Chloride 3 ml 07/19/20 08:00 07/19/20 07:19 0.9 % Sodium Chloride Flush 3 Ml Syringe IVFLUSH 3 ml QSHIFT [facility] Administration <Savannah Milton NP - Last Filed: 07/19/20 16:03> Labs CBC & Chem 7: : 07/19/20 06:46 07/19/20 10:08 <Savannah Milton NP - Last Filed: 07/19/20 16:03> Assessment and Plan (1) Hyperkalemia: Status: Acute <Savannah Milton NP - Last Filed: 07/19/20 16:03> Assessment and Plan: 64-year-old female with a past medical history of hypertension, hyperlipidemia, diabetes, anxiety, depression, ESRD on hemodialysis, history of C diff infection, history of MRSA infection presented to the hospital with a ief complaint diarrhea/shortness of breath. Acute hypoxic respiratory failure In the setting of fluid overload. Hemodialysis patient. No hypoxia. Brief course of bipap in the ED. off bipap now. Supplemental oxygen as needed. ESRD. Dialysis today. nephrology following. Hyperkalemia. Secondary to ESRD. No acute changes on EKG. -Insulin, calcium gluconate and D50 in the ED. Diarrhea. Abdominal exam benign. -Stool studies and cdiff pending Diabetes Insulin sliding scale Hypertensive urgency. Nitroglycerin in the ER. Blood pressure improving. -Continue home medications. Attending: Dr. Howe <Savannah Milton NP - Last Filed: 07/19/20 16:03> (2) Hypertensive emergency: Status: Acute <Savannah Milton NP - Last Filed: 07/19/20 16:03> Assessment and Plan: Attending Attestation: Patient seen and examined independently and I was present during aceves portion of E/M service. Agree with Georgiana Milton NP's history, physical, assessment, and plan. Seen and examined this AM during dialysis. Feels significantly improved as fluid is being removed. Reported diarrhea [facility] the [facility]. Possible repeat dialysis tomorrow -- decision per nephrology. Restart home antihypertensives with the exception of losartan and aldactone due to hyperK -- will d/w nephrology regarding these upon discharge. Respiratory failure resolved post dialysis. <Travis Howe MD - Last Filed: 07/19/20 17:34>
--- NOTE | 2020-07-19 14:34 | PC.NURSE ---
patient returned from dialysis, engine monitor nsr 70s, vss, no c/o pain or discomfort, poc 114-will speak with provider to d/c q1h accuchecks, pt sleeping, will contiue to monitor
[2020-07-19 14:42] LABS: Glucose, Whole Blood 114 mg/dL (60-115)
--- NOTE | 2020-07-19 16:15 | PC.NURSE ---
patients relatives called and stated the patient was in tears as she has not eaten all day, pt was in dialysis earlier and sleeping when she returned, pt was just offered something to eat and drink an declined stating she wasnt hungry and didnt want anything. pt was asked what she would like for dinner and stated I dont want anything- this nurse will order a standard low salt tray. pt assisted to bedside commode, will continue to monigot
[2020-07-19 16:56] LABS: Glucose, Whole Blood 100 mg/dL (60-115)
[2020-07-19] MEDS: NIFEdipine ER 30 MG TAB.ER.24 PO (18:32)
--- NOTE | 2020-07-19 18:45 | PC.NURSE ---
called floor to give report, will call us back
--- NOTE | 2020-07-19 19:08 | PC.NURSE ---
patient refused dinner tray, pt requested turkey sandwich- pt given sandwich per her request
--- NOTE | 2020-07-19 19:17 | P.CONNP_ITS ---
History of Present Illness Reason for Consult Consult date: 07/19/20 Reason for consult: esrd, hyperk Chief Complaint Chief complaint: Sob History of Present Illness Narrative: ESRD nl TTS but missed RX on d/t diarrhea and too weak and presented to ER with hyperK ( 7.6) and svere HTNand SOB req Bipap. Seen in ER and then I saw her again on HD. Overall doing better now. Breathing better. Review of Systems Review of Systems Pertinent positives and negatives as stated in HPI 10 point review of systems is otherwise negative. [facility] Past Medical History Medical History Diabetes Hypertension Renal failure Sinus, maxillary, carcinoma Social History Social History Household Members: None Alcohol intake: never Smoking Status: Never smoker Second Hand Smoke Exposure: No Use of substances other than those prescribed or required for medical reasons: No Advance Directives: No Advance Directives Information Provided: Yes service: No Current occupational status: disabled Meds Allergies Allergy/AdvReac Type Severity Reaction Status Date / Time ROXI Inhibitors Allergy Unknown UNKNOWN Verified 05/10/20 21:35 [ROXI INHIBITORS] Active Medications: Current Medications Generic Name Dose Route Start Last Admin Trade Name Freq PRN Reason Stop Dose Admin Acetaminophen 650 mg 07/19/20 01:07 Acetaminophen 325 Mg Tablet PO Q6H PRN Pain, Mild (Pain Scale 1-3) Atorvastatin Calcium 40 mg 07/19/20 21:00 Atorvastatin Calcium 40 Mg Tablet PO BEDTIME EVY Docusate Sodium 100 mg 07/19/20 01:07 Docusate Sodium 100 Mg Capsule PO DAILY PRN Constipation Gabapentin 100 mg 07/20/20 09:00 Gabapentin 100 Mg Capsule PO DAILY EVY Gabapentin 200 mg 07/19/20 21:00 Gabapentin 100 Mg Capsule PO BEDTIME EVY Heparin Sodium (Porcine) 5,000 unit 07/19/20 01:15 07/19/20 18:32 Heparin Sodium,Porcine 5,000 Unit/Ml Vial SUBCUT 5,000 unit Q8H EVY Administration Dextrose 1,000 mls @ 30 mls/hr 07/19/20 04:00 07/19/20 06:45 D10 IVCONT Not Given .Q24H EVY Insulin Human Lispro 0 unit 07/19/20 07:30 07/19/20 16:55 Insulin Lispro 100 Unit/Ml 3 Ml Vial SUBCUT Not Given QIDACHS [facility] Protocol Loratadine 10 mg 07/20/20 09:00 Loratadine 10 Mg Tablet PO DAILY [facility] Lorazepam 0.5 mg 07/19/20 17:30 Lorazepam 0.5 Mg Tablet PO TuThSa PRN DURING DIALYSIS Nifedipine 30 mg 07/20/20 09:00 Nifedipine Er 30 Mg Tab.Er.24 PO DAILY [facility] Protocol Pharmacy Consult 1 each 07/19/20 08:21 Consult Rx Perform Med Rec MISCELLANE ONCE PRN Consult order Sodium Chloride 3 ml 07/19/20 08:00 07/19/20 16:48 0.9 % Sodium Chloride Flush 3 Ml Syringe IVFLUSH 3 ml QSHIFT [facility] Administration Home Medications Medication Instructions Recorded Confirmed Last Taken Type Velphoro 1,000 mg PO TIDWM 05/11/20 07/19/20 05/10/20 History acetaminophen 650 mg PO Q6H PRN 05/11/20 07/19/20 05/06/20 History t-2 ammonium lactate 1 appl TOPICAL BID 05/11/20 07/19/20 05/09/20 History atorvastatin 40 mg PO BEDTIME 05/11/20 07/19/20 05/09/20 History gabapentin 100 mg PO DAILY 05/11/20 07/19/20 05/10/20 History gabapentin 200 mg PO BEDTIME 05/11/20 07/19/20 05/09/20 History loratadine 10 mg PO DAILY 05/11/20 07/19/20 05/10/20 History lorazepam 1 mg PO 3XW 05/11/20 07/19/20 05/09/20 History losartan 25 mg PO BEDTIME 05/11/20 07/19/20 05/09/20 History pioglitazone 30 mg PO DAILY 05/11/20 07/19/20 05/10/20 History spironolactone 100 mg PO DAILY 05/11/20 07/19/20 05/10/20 History venlafaxine 37.5 mg PO DAILY 05/11/20 07/19/20 05/10/20 History zolpidem 10 mg PO BEDTIME PRN 05/11/20 07/19/20 Unknown History lorazepam 0.5 mg PO 3XW PRN 07/19/20 07/19/20 Unknown History nifedipine 1 tab PO DAILY 07/19/20 07/19/20 Unknown History Physical Exam Vital Signs: Last Vital Signs Temp 98.9 F 07/19/20 14:34 Pulse 95 07/19/20 18:32 Resp 18 07/19/20 14:34 BP 178/87 H 07/19/20 18:32 Pulse Ox 100 07/19/20 14:34 Body Mass Index 27.4 Results Lab Results Result Diagrams: 07/19/20 06:46 07/19/20 10:08 Lab results: Chemistry 07/18/20 07/19/20 07/19/20 21:52 01:35 06:46 Sodium 132 L 132 L 134 L Potassium 6.8 H* D 7.6 H* 6.9 H* Carbon Dioxide 19 L 16 L 17 L BUN 96 H* D 98 H* 101 H* Creatinine 10.84 H* 10.68 H* 11.22 H* Calcium 9.0 D 8.7 8.8 07/19/20 10:08 Sodium 133 L Potassium 3.8 D Carbon Dioxide 20 L BUN 48 H D Creatinine 5.72 H* Calcium 9.2 Hematology 07/18/20 07/19/20 21:05 06:46 WBC 8.9 7.0 Hgb 12.7 D 11.1 L Plt Count 245 D 175 D Assessment and Plan (1) Hypertensive emergency: Status: Acute ESRD: HD today and then again tomorrow to keep on TTS schedule 2. Diarrhea/abd pain: seems to be resolveing 3. Severe HyperK: will likely need K binding resin on non-HD days 4. HTN: beter now 5. SOB: improing with control of BP and HD/UF REC: repeat HD in am; recehck K to watch for rebound as may need lokelma tonight
--- NOTE | 2020-07-19 20:51 | MHC.CM.PN ---
CM met with pt. IMM reviewed and signed per protocol 07/19/20 at 1815. A&Ox3. Able to speak in complete sentences. Lives alone. Has family help. Daughter is [employer]. Pt unsure of hours and agency. Thinks it's 3 1/2 hours, unsure if it's per day or week. Is just starting. Pt uses van transport provided by [facility] for dialysis. Has dialysis Friday, and Friday. [facility], [place]. Pt states she had [facility] services until last week. If she needs [facility] services again, she would like [facility]. Referral placed in allscripts to follow. HCP/daughter Geneva Broderick ([phone]) No HCP on file. Pt states she usually goes to [facility]. PCP is Dr. Shelia Jung. D/C home with possible [facility]NA services. Transportation by family. CM to follow for d/c needs.
--- NOTE | 2020-07-19 20:57 | PC.NURSE ---
report given, rn stated room is not clean
[2020-07-19 21:16] LABS: Glucose, Whole Blood 159 mg/dL (60-115)
[2020-07-19] MEDS: Gabapentin 100 MG CAPSULE 200 MG PO (21:16)
[2020-07-19] MEDS: Atorvastatin Calcium 40 MG TABLET PO (21:16)
[2020-07-19] MEDS: Insulin Lispro 100 UNIT/ML 3 ML VIAL SUBCUT (21:17)
[2020-07-19 22:14] LABS: Anion Gap 20 (12-20); Carbon Dioxide 21 mmol/L (22-29); Chloride 99 mmol/L (96-108); Potassium 6.2 mmol/L (3.3-5.1); Sodium 134 mmol/L (135-145)
[2020-07-19] MEDS: Insulin Regular, Human 100 UNIT/ML 3 ML VIAL IVPUSH (23:01)
[2020-07-20] MEDS: Heparin Sodium,Porcine 5,000 UNIT/ML VIAL 5000 UNIT SUBCUT ×3 (00:38→16:19)
[2020-07-20] MEDS: Zolpidem Tartrate 5 MG TABLET PO (00:39)
[2020-07-20 00:43] LABS: Anion Gap 24 (12-20); Blood Urea Nitrogen 61 mg/dL (9-16); Calcium 8.6 mg/dL (8.4-10.2); Carbon Dioxide 17 mmol/L (22-29); Chloride 100 mmol/L (96-108); Creatinine Clr Calc Pharmacy 7.1; Estimated Glomerular Filt Rate 5; Glucose Random 163 mg/dL (60-115); Potassium 5.9 mmol/L (3.3-5.1); Sodium 135 mmol/L (135-145)
[2020-07-20 04:00] VITALS: BP 167/65; PULSE 72; RESP 20; TEMP 36.6; O2SAT 96
[2020-07-20 06:26] LABS: Basophils Absolute Auto 0.1 X10*3/uL (0.0-0.2); Basophils Percent Auto 0.7 % (0-2); Eosinophils Absolute Auto 0.6 X10*3/uL (0.0-0.4); Eosinophils Percent Auto 9.1 % (0-4); Hematocrit 36.7 % (37-47); Hemoglobin 11.1 g/dl (12.0-16.0); Imm Gran Abs Auto 0.02 X10*3/uL (0.00-0.03); Imm Gran Pct Auto 0.3 % (0.0-0.4); Lymphocytes Absolute Auto 0.8 X10*3/uL (1.2-4.9); MANUAL DIFF FLAG NO; Mean Corpuscular HGB Conc 30.2 g/dl (31.0-35.0); Mean Corpuscular Hemoglobin 29.1 pg (27.0-33.0); Mean Corpuscular Volume 96.3 fL (80-98); Monocytes Absolute Auto 1.1 X10*3/uL (0.1-1.2); Monocytes Percent Auto 15.3 % (2-11); Neutrophils Absolute Auto 4.3 X10*3/uL (2.0-8.3); Neutrophils Percent Auto 62.6 % (45-73); Platelet Count 188 X10*3/uL (160-400); Red Blood Count 3.81 X10*6/uL (4.20-5.50); Red Cell Distribution Width 16.1 % (11.0-16.0); White Blood Count 6.9 X10*3/uL (4.8-10.8)
[2020-07-20 07:11] LABS: Anion Gap 24 (12-20); Blood Urea Nitrogen 65 mg/dL (9-16); Calcium 8.4 mg/dL (8.4-10.2); Carbon Dioxide 17 mmol/L (22-29); Chloride 100 mmol/L (96-108); Creatinine Clr Calc Pharmacy 6.6; Estimated Glomerular Filt Rate 5; Glucose Random 63 mg/dL (60-115); Potassium 5.8 mmol/L (3.3-5.1); Sodium 135 mmol/L (135-145)
[2020-07-20 07:27] LABS: Glucose, Whole Blood 80 mg/dL (60-115)
[2020-07-20 07:28] VITALS: BP 165/79; PULSE 83; RESP 20; TEMP 36.3; O2SAT 94
[2020-07-20] MEDS: 0.9 % Sodium Chloride Flush 3 ML SYRINGE IVFLUSH (09:01)
[2020-07-20 09:02] VITALS: BP 165/79; PULSE 83
[2020-07-20] MEDS: Gabapentin 100 MG CAPSULE PO (09:02)
[2020-07-20] MEDS: Loratadine 10 MG TABLET PO (09:02)
[2020-07-20] MEDS: NIFEdipine ER 30 MG TAB.ER.24 PO (09:02)
[2020-07-20 09:17] LABS: Glucose Urine UA 250 MG/DL (NEG); Leukocyte Esterase Urine NEG (NEG); Nitrite Urine NEG (NEG); Specific Gravity - Urine 1.015 (1.005-1.025); Urine Blood 2+ (NEG); Urine Ketones NEG (NEG); Urine Protein 2+ MG/DL (NEG-TRACE)
[2020-07-20 09:19] LABS: Appearance Urine HAZY; Color Urine STRAW
[2020-07-20 09:26] LABS: WBC Urine 0-2 /HPF (0-4)
[2020-07-20 09:27] LABS: Bacteria Urine 1+ /LPF; Squamous Epithelial Cell Urine 2+ /LPF
[2020-07-20 11:41] LABS: Glucose, Whole Blood 205 mg/dL (60-115)
[2020-07-20 11:47] VITALS: BP 175/80; PULSE 74; RESP 20; TEMP 36.4; O2SAT 96
--- NOTE | 2020-07-20 13:59 | P.DS_ITS ---
DS: Providers Provider Date of Service: 07/20/20 <SHE Sol - Last Filed: 07/20/20 15:32> 07/20/20 <Travis Howe MD - Last Filed: 07/21/20 13:32> Date of admission: 07/19/20 01:09 <SHE Sol - Last Filed: 07/20/20 15:32> Primary care physician: Unknown Physician <SHE Sol - Last Filed: 07/20/20 15:32> Consults: 07/19/20 03:11 Consult to Nephrology Stat Consulting Provider: Quincy Teixeira Reason for consultation: hyperkalemia; ESRD <SHE Sol - Last Filed: 07/20/20 15:32> DS: Diagnosis Discharge Diagnosis (1) Hypertensive emergency: Status: Acute <SHE Sol - Last Filed: 07/20/20 15:32> (2) Hyperkalemia: Status: Acute <SHE Sol - Last Filed: 07/20/20 15:32> (3) Acute respiratory failure: Status: Acute <SHE Sol - Last Filed: 07/20/20 15:32> DS: Medications Discharge Medications Home Medications: Home Medications Medication Instructions Recorded Confirmed Velphoro 1,000 mg PO TIDWM 05/11/20 07/19/20 acetaminophen 650 mg PO Q6H PRN 05/11/20 07/19/20 ammonium lactate 1 appl TOPICAL BID 05/11/20 07/19/20 atorvastatin 40 mg PO BEDTIME 05/11/20 07/19/20 gabapentin 100 mg PO DAILY 05/11/20 07/19/20 gabapentin 200 mg PO BEDTIME 05/11/20 07/19/20 loratadine 10 mg PO DAILY 05/11/20 07/19/20 lorazepam 1 mg PO 3XW 05/11/20 07/19/20 losartan 25 mg PO BEDTIME 05/11/20 07/19/20 pioglitazone 30 mg PO DAILY 05/11/20 07/19/20 spironolactone 100 mg PO DAILY 05/11/20 07/19/20 venlafaxine 37.5 mg PO DAILY 05/11/20 07/19/20 zolpidem 10 mg PO BEDTIME PRN 05/11/20 07/19/20 lorazepam 0.5 mg PO 3XW PRN 07/19/20 07/19/20 nifedipine 1 tab PO DAILY 07/19/20 07/19/20 <SHE Sol - Last Filed: 07/20/20 15:32> DS: Summary Hospital Course Hospital Course: 64-year-old female with a past medical history of hypertension, hyperlipidemia, diabetes, anxiety, depression, ESRD on hemodialysis Friday; history of C diff infection, history of MRSA infection presented to the hospital with a chief complaint of shortness of breath. Patient reports that over the past couple days she has been having multiple episodes of loose watery stools denies any blood in the stool. Denies being on antibiotics recently. Mentioned that she missed her hemodialysis today. In the evening she noticed chest pain associated with shortness of breath. Denies any associated lightheadedness dizziness or diaphoresis. Denies any fever chills cough. Denies any chest pain at the time of my interview. Review of all other systems is negative except mentioned above ER course: Per ER team patient noted to be having condition on the lung exam, chest x-ray showed pulmonary vascular condition. Patient noted to be 89% on room air subsequently placed on supplemental oxygen. Patient was also briefly placed on BiPAP. ER team also mentioned that patient would pressure was elevated on presentation and subsequently improved with atorvastatin. ER team mentioned the patient labs noted to have hyperkalemia of 6.8. EKG showed no acute changes. Troponins indeterminate. Patient denied chest pain. Patient was given insulin plus dextrose. Discussed with nephrology -> who mention no need for emergency dialysis; recommended admission to Medicine Service to be evaluated in the morning for hemodialysis. Acute hypoxic respiratory failure. Related to fluid overload from missed dialysis. Required BiPAP briefly in the ED. Respiratory status improved with dialysis and she is now on room air. She had dialysis on day of discharge and should resume normal dialysis schedule. Hyperkalemia. Related to missed dialysis as well as use of losartan, Aldactone. Hyperkalemia improved following dialysis Aldactone will be discontinued on discharge. Kayexalate has been add on off dialysis days. Uncontrolled HTN. Related to missed dialysis. Aldactone will be discontinued on discharge. Dose of nifedipine be increased from 30-60 mg daily. Should follow up with pcp for blood pressure monitoring. abdominal pain/diarrhea resolved. Attending Attestation: Patient seen and examined independently and I was present during aceves portion of E/M service. Agree with SHE Yin's history, physical, assessment, and plan. <SHE Sol - Last Filed: 07/20/20 15:32> Time Spent with Patient Time attestation: Total time spent providing and/or coordinating discharge services: <SHE Sol Last Filed: 07/20/20 15:32> Discharge coordination time: Greater than 30 minutes <SHE Sol Last Filed: 07/20/20 15:32> Physical Exam Vital Signs: Vital Signs: Last Vital Signs Temp 97.6 F 07/20/20 11:47 Pulse 74 07/20/20 11:47 Resp 20 07/20/20 11:47 BP 175/80 H 07/20/20 11:47 Pulse Ox 96 07/20/20 11:47 Body Mass Index 27.4 <SHE Sol Last Filed: 07/20/20 15:32> Const: Nutritional Appearance: well nourished <SHE Sol Last Filed: 07/20/20 15:32> Orientation/consciousness: patient oriented x3 <SHE Sol - Last Filed: 07/20/20 15:32> HENMT: Head: Yes normocephalic and Yes atraumatic <SHE Sol Last Filed: 07/20/20 15:32> Eyes: Sclerae: sclerae normal <SHE Sol Last Filed: 07/20/20 15:32> Chest: Chest palpation & inspection: normal inspection of the chest <SHE Sol Last Filed: 07/20/20 15:32> Resp: Effort & Inspection: normal respiratory effort and no respiratory distress <SHE Sol Last Filed: 07/20/20 15:32> Cardio: Rate: regular rate <SHE Sol Last Filed: 07/20/20 15:32> Rhythm: regular rhythm <SHE Sol - Last Filed: 07/20/20 15:32> GI: Palpation (GI): Soft to palpation and nontender <SHE Sol - Last Filed: 07/20/20 15:32> Neuro: General: patient oriented x3 <SHE Sol - Last Filed: 07/20/20 15:32> Cranial nerves: Yes CN's II-XII intact bilaterally and Yes Bilaterally intact EOM present <SHE Sol - Last Filed: 07/20/20 15:32> DS: Data Data Completed and Pending Completed studies during hospitalization [Text1]: Procedures Performance of Urinary Filtration, Intermittent, Less than 6 Hours Per Day (05/11/20) <SHE Sol - Last Filed: 07/20/20 15:32> Labs on day of discharge: Laboratory Results - last 24 hr 07/19/20 07/19/20 07/19/20 14:33 16:51 21:09 WBC RBC Hgb Hct MCV MCH MCHC RDW Plt Count MPV Immature Gran % (Auto) Neut % (Auto) Lymph % (Auto) Dillon % (Auto) Eos % (Auto) Baso % (Auto) Lymph # (Auto) Dillon # (Auto) Eos # (Auto) Baso # (Auto) Abs Immat Gran (auto) Absolute Neuts (auto) Absolute Nucleated RBC Nucleated RBC % (auto) Sodium Potassium Chloride Carbon Dioxide Anion Gap BUN Creatinine Estim Creat Clear Calc Estimated GFR POC Glucose 114 100 159 H Random Glucose Calcium Urine Color Urine Appearance Urine pH Ur Specific [place] Urine Protein Urine Glucose (UA) Urine Ketones Urine Blood Urine Nitrite Ur Leukocyte Esterase Urine RBC Urine WBC Ur Squamous Epith Cells Urine Bacteria 07/19/20 07/19/20 07/20/20 21:22 23:35 05:15 WBC 6.9 RBC 3.81 L Hgb 11.1 L Hct 36.7 L MCV 96.3 MCH 29.1 MCHC 30.2 L RDW 16.1 H Plt Count 188 MPV 10.0 Immature Gran % (Auto) 0.3 Neut % (Auto) 62.6 Lymph % (Auto) 12.0 L Dillon % (Auto) 15.3 H Eos % (Auto) 9.1 H Baso % (Auto) 0.7 Lymph # (Auto) 0.8 L Dillon # (Auto) 1.1 Eos # (Auto) 0.6 H Baso # (Auto) 0.1 Abs Immat Gran (auto) 0.02 Absolute Neuts (auto) 4.3 Absolute Nucleated RBC 0.000 Nucleated RBC % (auto) 0.0 Sodium 134 L 135 Potassium 6.2 H* D 5.9 H Chloride 99 100 Carbon Dioxide 21 L 17 L Anion Gap 20 24 H BUN 61 H Creatinine 8.03 H* Estim Creat Clear Calc 7.1 Estimated GFR 5 POC Glucose Random Glucose 163 H D Calcium 8.6 D Urine Color Urine Appearance Urine pH Ur Specific [place] Urine Protein Urine Glucose (UA) Urine Ketones Urine Blood Urine Nitrite Ur Leukocyte Esterase Urine RBC Urine WBC Ur Squamous Epith Cells Urine Bacteria 07/20/20 07/20/20 07/20/20 05:15 07:19 08:57 WBC RBC Hgb Hct MCV MCH MCHC RDW Plt Count MPV Immature Gran % (Auto) Neut % (Auto) Lymph % (Auto) Dillon % (Auto) Eos % (Auto) Baso % (Auto) Lymph # (Auto) Dillon # (Auto) Eos # (Auto) Baso # (Auto) Abs Immat Gran (auto) Absolute Neuts (auto) Absolute Nucleated RBC Nucleated RBC % (auto) Sodium 135 Potassium 5.8 H Chloride 100 Carbon Dioxide 17 L Anion Gap 24 H BUN 65 H Creatinine 8.49 H* Estim Creat Clear Calc 6.6 Estimated GFR 5 POC Glucose 80 Random Glucose 63 D Calcium 8.4 Urine Color STRAW Urine Appearance HAZY Urine pH 7.0 Ur Specific [place] 1.015 Urine Protein 2+ H Urine Glucose (UA) 250 H Urine Ketones NEG Urine Blood 2+ H Urine Nitrite NEG Ur Leukocyte Esterase NEG Urine RBC 10-14 H Urine WBC 0-2 Ur Squamous Epith Cells 2+ Urine Bacteria 1+ 07/20/20 11:35 WBC RBC Hgb Hct MCV MCH MCHC RDW Plt Count MPV Immature Gran % (Auto) Neut % (Auto) Lymph % (Auto) Dillon % (Auto) Eos % (Auto) Baso % (Auto) Lymph # (Auto) Dillon # (Auto) Eos # (Auto) Baso # (Auto) Abs Immat Gran (auto) Absolute Neuts (auto) Absolute Nucleated RBC Nucleated RBC % (auto) Sodium Potassium Chloride Carbon Dioxide Anion Gap BUN Creatinine Estim Creat Clear Calc Estimated GFR POC Glucose 205 H Random Glucose Calcium Urine Color Urine Appearance Urine pH Ur Specific [place] Urine Protein Urine Glucose (UA) Urine Ketones Urine Blood Urine Nitrite Ur Leukocyte Esterase Urine RBC Urine WBC Ur Squamous Epith Cells Urine Bacteria Preliminary micro results at discharge 07/18/20 21:52 Blood Culture - Preliminary Blood - Venous No growth after 24 hours. 07/18/20 21:52 Blood Culture - Preliminary Blood - Venous No growth after 24 hours. <SHE Sol - Last Filed: 07/20/20 15:32> Discharge Plan Discharge Patient Disposition: Home, Self-Care <SHE Sol - Last Filed: 07/20/20 15:32> Discharge Diagnosis: Acute respiratory failure, ESRD on HD <SHE Sol - Last Filed: 07/20/20 15:32> Acute respiratory failure, ESRD on HD <Travis Howe MD - Last Filed: 07/21/20 13:32> Referrals: Physician,Unknown [Primary Care Provider] - 1 Week <SHE Sol - Last Filed: 07/20/20 15:32> Discharge Medications: New sodium polystyrene sulfonate 15 gram/60 mL suspension 15 g PO .MWF 30 Days Qty: 473 RF: 0 Continued atorvastatin 40 mg tablet 40 mg PO BEDTIME RF: 0 venlafaxine 37.5 mg capsule,extended release 24hr 37.5 mg PO DAILY RF: 0 ammonium lactate 12 % lotion 1 appl topical BID RF: 0 losartan 25 mg tablet 25 mg PO BEDTIME RF: 0 gabapentin 100 mg capsule 100 mg PO DAILY RF: 0 gabapentin 100 mg Capsule 200 mg PO BEDTIME RF: 0 lorazepam 1 mg tablet 1 mg PO 3XW RF: 0 zolpidem 10 mg tablet 10 mg PO BEDTIME PRN (Reason: insomnia) RF: 0 pioglitazone 30 mg tablet 30 mg PO DAILY RF: 0 loratadine 10 mg tablet 10 mg PO DAILY RF: 0 Velphoro 500 mg tablet,chewable 1,000 mg PO TIDWM RF: 0 acetaminophen 325 mg Tablet 650 mg PO Q6H PRN (Reason: Pain) RF: 0 lorazepam 1 mg tablet 0.5 mg PO 3XW PRN (Reason: DURING DIALYSIS) RF: 0 Changed nifedipine 30 mg tablet extended release 24hr 60 mg PO DAILY 30 Days Qty: 60 RF: 0 Discontinued spironolactone 100 mg tablet 100 mg PO DAILY RF: 0 <SHE Sol - Last Filed: 07/20/20 15:32> Discharge Orders: Discharge Order (Routine); Ordered 07/20/20 Ordered By: Radha Best <SHE Sol - Last Filed: 07/20/20 15:32> Activity on Discharge: As tolerated <SHE Sol - Last Filed: 07/20/20 15:32> As tolerated <Travis Howe MD - Last Filed: 07/21/20 13:32> Stand Alone Forms: Patient Portal Discharge page <SHE Sol - Last Filed: 07/20/20 15:32> Care Plan Goals: See below <SHE Sol - Last Filed: 07/20/20 15:32> Health Concerns: Uncontrolled blood pressure Elevated potassium level Respiratory failure - resolved. <SHE Sol - Last Filed: 07/20/20 15:32> Plan of Treatment: Uncontrolled blood pressure- nifedipine dose has been increased, aldactone has been stopped. Call PCP to schedule follow-up appointment Elevated potassium level - improved with medication adjustment, dialysis. Aldactone has been discontinued. Kayexalate has been started. Follow up with plug assembler for outpatient lab work and blood pressure monitoring. <SHE Sol - Last Filed: 07/20/20 15:32> Assessment: See discharge summary <SHE Sol - Last Filed: 07/20/20 15:32> Discharge Date/Time: 07/20/20 17:45 <SHE Sol - Last Filed: 07/20/20 15:32>
[2020-07-20] MEDS: Insulin Lispro 100 UNIT/ML 3 ML VIAL SUBCUT ×2 (14:43→16:19)
[2020-07-20] MEDS: Acetaminophen 325 MG TABLET 650 MG PO (14:43)
--- NOTE | 2020-07-20 14:55 | MHC.CM.PN ---
Patient has been medically cleared for dc to home today, no services. IMM addressed yesterday.
[2020-07-20 16:00] VITALS: BP 126/68; PULSE 79; RESP 19; TEMP 36.7; O2SAT 98
[2020-07-20 16:24] LABS: Glucose, Whole Blood 155 mg/dL (60-115)
== END 2020-07-20 17:45 | disposition home or self-care (01) | DRG 682 ==
LOC: HO.ED 07-19 00:21 → HO.EDOVER 07-19 01:20 → HO.IMC 07-19 18:21
PROVIDERS: Internal Medicine Nephrology; Nurse Practitioner Acute Care; Admitting Provider Hospitalist; Emergency Provider Student in an Organized Health Care Education/Training Program; PCP Pediatrics; Visit Provider Family Medicine
DX: I12.0 Hypertensive chronic kidney disease with stage 5 chronic kidney disease or end stage renal disease (principal); N18.6 End stage renal disease; J96.01 Acute respiratory failure with hypoxia; E87.70 Fluid overload, unspecified; E87.5 Hyperkalemia; E78.5 Hyperlipidemia, unspecified; I16.0 Hypertensive urgency; F41.9 Anxiety disorder, unspecified; F32.9 Major depressive disorder, single episode, unspecified; E11.22 Type 2 diabetes mellitus with diabetic chronic kidney disease; Z91.15 Patient's noncompliance with renal dialysis; Z99.2 Dependence on renal dialysis; Z20.822 Contact with and (suspected) exposure to COVID-19; Z79.899 Other long term (current) drug therapy
CPT/HCPCS: 36415; 71045; 80048; 80051; 80053; 81001; 82947; 83605; 83880; 84484; 85025; 85610; 85730; 87040; 87635; 90999; 93005; 94640; 94660; 96374; 96375; 99285; 99291; J0610; J1940; J2270; J2405

== ENCOUNTER 2020-08-15 17:59 | Emergency (ER) | payer OTHER, SELFPAY ==
--- NOTE | ~2020-08-15 | CT_ITS ---
EXAMINATION: CT ABDOMEN AND PELVIS WITHOUT CONTRAST CLINICAL INFORMATION: 65-year-old female with left-sided flank pain and history of kidney stones. Patient currently on hemodialysis. COMPARISON: CT abdomen pelvis 05/11/2020 TECHNIQUE: Multidetector volumetric imaging was performed from the superior aspect of the liver through the pubic symphysis. Sagittal and coronal reformatted images were obtained on the technologist's workstation. This CT examination was performed using dose optimization techniques as appropriate, variously including the following: *Automated exposure control *Adjustment of mA and/or kV according to patient size (this includes techniques or standardized protocols for targeted exams where dose is matched to indication/reason for exam; i.e. extremities or head) *Use of iterative reconstruction technique DLP: 464 mGy-cm FINDINGS: Visualized lung bases again demonstrate a small right and trace left-sided pleural effusion. Consolidation is again appreciated within the posterior right lung base. There is interval improvement in aeration of the left lung base. A few small calcified granulomas are noted. The liver demonstrates normal size, contour and attenuation. A few small calcified granulomas are present within the liver. The gallbladder is normal in appearance. The pancreas is normal in appearance. Calcified granulomas are present throughout the spleen. The adrenal glands are unremarkable. Both kidneys are severely atrophic. There is no hydronephrosis of either kidney. Again noted is an approximately 5 mm stone within the lower pole of the right kidney. Normal caliber loops of small and large bowel. There is a mild stool burden throughout the colon. Normal appendix. Normal caliber abdominal aorta which demonstrates moderate atherosclerotic disease. No retroperitoneal lymphadenopathy. The bladder is normal in appearance. Prominent periuterine calcified vessels are noted. No gross free pelvic fluid. No inguinal lymphadenopathy. Mild to moderate degenerative changes of the spine. There is mild to moderate anterolisthesis of L4 on L5 secondary to bilateral L5 pars defects. CT/CT abdomen pelvis wo con IMPRESSION: 1. Stable 5 mm nonobstructing right renal calculus. No left-sided renal stone. No hydronephrosis of either atrophic kidney. 2. Bilateral pleural effusions with consolidation of the right lower lobe is stable.
[2020-08-15 18:53] VITALS: BP 156/75; PULSE 80; RESP 16; TEMP 36.6; O2SAT 98; BMI 26.4
[2020-08-15 20:00] VITALS: BP 170/83; PULSE 79; RESP 16; TEMP 36.7; O2SAT 98
--- NOTE | 2020-08-15 20:21 | ED_ITS ---
HPI - Abdominal Pain General Chief Complaint: Abdominal Pain Stated Complaint: kidney stone? Time Seen by Provider: 08/15/20 20:17 Source: patient Mode of arrival: ambulatory Limitations: no limitations History of Present Illness HPI narrative: Patient with history of kidney stone the right side had ultrasound done 2 weeks which showed some right-sided comes here for the pain for the last 2days on the left side patient is on dialysis patient denies any urinary complaints urinated 2 to 3 times a day patient had dialysis today no nausea no vomiting no diarrhea no fever or chills no hematuria Related Data Home Medications Medication Instructions Recorded Confirmed Velphoro 1,000 mg PO TIDWM 05/11/20 07/19/20 acetaminophen 650 mg PO Q6H PRN 05/11/20 07/19/20 ammonium lactate 1 appl TOPICAL BID 05/11/20 07/19/20 atorvastatin 40 mg PO BEDTIME 05/11/20 07/19/20 gabapentin 100 mg PO DAILY 05/11/20 07/19/20 gabapentin 200 mg PO BEDTIME 05/11/20 07/19/20 loratadine 10 mg PO DAILY 05/11/20 07/19/20 lorazepam 1 mg PO 3XW 05/11/20 07/19/20 losartan 25 mg PO BEDTIME 05/11/20 07/19/20 pioglitazone 30 mg PO DAILY 05/11/20 07/19/20 venlafaxine 37.5 mg PO DAILY 05/11/20 07/19/20 zolpidem 10 mg PO BEDTIME PRN 05/11/20 07/19/20 lorazepam 0.5 mg PO 3XW PRN 07/19/20 07/19/20 Previous Rx's Medication Instructions Recorded nifedipine 60 mg PO DAILY 30 Days #60 tab 07/20/20 sodium polystyrene sulfonate 15 g PO .MWF 30 Days #473 ml 07/20/20 oxycodone 5 mg PO Q6H PRN #20 tab 08/15/20 Allergies Allergy/AdvReac Type Severity Reaction Status Date / Time ROXI Inhibitors Allergy Unknown UNKNOWN Verified 05/10/20 21:35 [ROXI INHIBITORS] Review of Systems Review of Systems Constitutional : No Weight loss, No Fever, No Chills ENT/Mouth : No sore throat, No Rhinorrhea Eyes: No Eye Pain, No Swelling Cardiovascular : No Chest Pain, no palpitations Respiratory : No Cough, No Sputum, no shortness of breath Gastrointestinal : + Nausea, No Vomiting, No Diarrhea, No abdominal Pain, no black stools Genitourinary : No Dysuria, No Urinary Frequency Musculoskeletal : No joint pain, No Myalgias, No Joint Swelling Skin : No Skin Lesions, No rash Neuro : No Weakness, No Numbness, No Dizziness, No Headache Psych : No Anxiety/Panic, No Depression Heme/Lymph: No Bruising, No Lymphadenopathy Endocrine : No Polyuria, No Polydipsia All other systems reviewed and are negative Physical Exam Vital Signs: Vital Signs: Last Vital Signs Temp 98.1 F 08/15/20 20:00 Pulse 84 08/15/20 22:00 Resp 18 08/15/20 22:00 BP 178/81 H 08/15/20 22:00 Pulse Ox 97 08/15/20 22:00 Body Mass Index 26.4 Appearance: Alert. Oriented X3. No acute distress. Eyes: PERRLA, No Nystagmus ENT: Pharynx normal. Oral Mucosa moist Neck: Normal inspection. Neck supple. CVS: Normal heart rate and rhythm. Pulses normal. Respiratory: No respiratory distress. Equal air entry bilateral, no wheezing/rales/rhonchi Abdomen: Soft and nontender. Bowel sounds are present, no mass palpable, mild left CVA tenderness Skin: Skin warm and dry. Normal skin color. Normal skin turgor. Extremities: No lower extremity edema. No calf tenderness, av fistula left forearm Neuro: Oriented X 3. No motor deficit. No sensory deficit. MDM - Abdominal Pain MDM Narrative Medical decision making narrative: Patient with left flank pain with right non obstructive renal stone no pathology in the left side likely cause of pain is muscular patient able to give urine sample no signs of infection white counts normal afebrile will discharge patient home on oxycodone for muscular pain Medical Records Attestation: I reviewed the patient's medical records. Lab Data Attestation: I reviewed the patient's lab results. Result diagrams: 08/15/20 21:47 08/15/20 21:47 Labs: Lab Results 08/15/20 08/15/20 08/15/20 Range/Units 21:47 21:47 21:47 WBC 4.9 (4.8-10.8) X10*3/uL RBC 3.25 L (4.20-5.50) X10*6/uL Hgb 9.4 L (12.0-16.0) g/dl Hct 30.7 L (37-47) % MCV 94.5 (80-98) fL MCH 28.9 (27.0-33.0) pg MCHC 30.6 L (31.0-35.0) g/dl RDW 15.8 (11.0-16.0) % Plt Count 161 (160-400) X10*3/uL MPV 9.3 L (9.4-12.3) fL Immature Gran % (Auto) 0.2 (0.0-0.4) % Neut % (Auto) 63.2 (45-73) % Lymph % (Auto) 16.4 L (20-40) % [place] % (Auto) 9.3 (2-11) % Eos % (Auto) 10.5 H (0-4) % Baso % (Auto) 0.4 (0-2) % Lymph # (Auto) 0.8 L (1.2-4.9) X10*3/uL [place] # (Auto) 0.5 (0.1-1.2) X10*3/uL Eos # (Auto) 0.5 H (0.0-0.4) X10*3/uL Baso # (Auto) 0.0 (0.0-0.2) X10*3/uL Abs Immat Gran (auto) 0.01 (0.00-0.03) X10*3/uL Absolute Neuts (auto) 3.1 (2.0-8.3) X10*3/uL Absolute Nucleated RBC 0.000 (0.0-0.012) X10*3/uL Nucleated RBC % (auto) 0.0 (0.0-0.2) /100WBC Hold Blue Top SEE NOTE Sodium 139 (135-145) mmol/L Potassium 4.5 D (3.3-5.1) mmol/L Chloride 96 (96-108) mmol/L Carbon Dioxide 30 H (22-29) mmol/L Anion Gap 18 (12-20) BUN 23 H D (9-16) mg/dL Creatinine 4.91 H* (0.5-1.4) mg/dL Estim Creat Clear Calc 11.2 Estimated GFR 9 Random Glucose 127 H D (60-115) mg/dL Calcium 8.4 (8.4-10.2) mg/dL Total Bilirubin 0.4 (0.0-1.0) mg/dL Direct Bilirubin 0.2 (0.0-0.5) mg/dL AST 19 D (5-31) U/L ALT 24 (0-31) U/L Alkaline Phosphatase 113 (39-117) U/L Total Protein 7.0 (6.5-8.0) g/dL Albumin 3.6 (3.5-5.0) g/dL Lipase (8-78) U/L 08/15/20 Range/Units 21:47 WBC (4.8-10.8) X10*3/uL RBC (4.20-5.50) X10*6/uL Hgb (12.0-16.0) g/dl Hct (37-47) % MCV (80-98) fL MCH (27.0-33.0) pg MCHC (31.0-35.0) g/dl RDW (11.0-16.0) % Plt Count (160-400) X10*3/uL MPV (9.4-12.3) fL Immature Gran % (Auto) (0.0-0.4) % Neut % (Auto) (45-73) % Lymph % (Auto) (20-40) % [place] % (Auto) (2-11) % Eos % (Auto) (0-4) % Baso % (Auto) (0-2) % Lymph # (Auto) (1.2-4.9) X10*3/uL [place] # (Auto) (0.1-1.2) X10*3/uL Eos # (Auto) (0.0-0.4) X10*3/uL Baso # (Auto) (0.0-0.2) X10*3/uL Abs Immat Gran (auto) (0.00-0.03) X10*3/uL Absolute Neuts (auto) (2.0-8.3) X10*3/uL Absolute Nucleated RBC (0.0-0.012) X10*3/uL Nucleated RBC % (auto) (0.0-0.2) /100WBC Hold Blue Top Sodium (135-145) mmol/L Potassium (3.3-5.1) mmol/L Chloride (96-108) mmol/L Carbon Dioxide (22-29) mmol/L Anion Gap (12-20) BUN (9-16) mg/dL Creatinine (0.5-1.4) mg/dL Estim Creat Clear Calc Estimated GFR Random Glucose (60-115) mg/dL Calcium (8.4-10.2) mg/dL Total Bilirubin (0.0-1.0) mg/dL Direct Bilirubin (0.0-0.5) mg/dL AST (5-31) U/L ALT (0-31) U/L Alkaline Phosphatase (39-117) U/L Total Protein (6.5-8.0) g/dL Albumin (3.5-5.0) g/dL Lipase 23 (8-78) U/L Discharge Plan Discharge Clinical Impression: Renal colic on left side Patient Disposition: Home, Self-Care Instructions: Renal Colic (ED) Additional Instructions: Cause of left flank pain is not very clear no kidney stone seen on the left side. Pain likely is muscular Take pain medication as prescribed and follow up with PCP Prescriptions: New oxycodone 5 mg tablet 5 mg PO Q6H PRN (Reason: pain) Qty: 20 RF: 0 No Action atorvastatin 40 mg tablet 40 mg PO BEDTIME RF: 0 venlafaxine 37.5 mg capsule,extended release 24hr 37.5 mg PO DAILY RF: 0 ammonium lactate 12 % lotion 1 appl topical BID RF: 0 losartan 25 mg tablet 25 mg PO BEDTIME RF: 0 gabapentin 100 mg capsule 100 mg PO DAILY RF: 0 gabapentin 100 mg Capsule 200 mg PO BEDTIME RF: 0 lorazepam 1 mg tablet 1 mg PO 3XW RF: 0 zolpidem 10 mg tablet 10 mg PO BEDTIME PRN (Reason: insomnia) RF: 0 pioglitazone 30 mg tablet 30 mg PO DAILY RF: 0 loratadine 10 mg tablet 10 mg PO DAILY RF: 0 Velphoro 500 mg tablet,chewable 1,000 mg PO TIDWM RF: 0 acetaminophen 325 mg Tablet 650 mg PO Q6H PRN (Reason: Pain) RF: 0 lorazepam 1 mg tablet 0.5 mg PO 3XW PRN (Reason: DURING DIALYSIS) RF: 0 sodium polystyrene sulfonate 15 gram/60 mL suspension 15 g PO .MWF 30 Days Qty: 473 RF: 0 nifedipine 30 mg tablet extended release 24hr 60 mg PO DAILY 30 Days Qty: 60 RF: 0 Interventions: ED Discharge Assessment Last Done: 08/15/20 23:13 Discharge Date/Time: 08/15/20 23:13 PMFSH Past Medical History Medical History Diabetes Hypertension Renal failure Sinus, maxillary, carcinoma Social History Social History Household Members: None Household Members Other:: patient lives alone, 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
[2020-08-15] MEDS: oxyCODONE HCl Immed Release 5 MG TABLET 10 MG PO (20:43)
[2020-08-15 21:02] VITALS: BP 191/93; PULSE 85; RESP 18; O2SAT 98
[2020-08-15 21:05] VITALS: BP 177/81
[2020-08-15 21:53] LABS: MANUAL DIFF FLAG NO
[2020-08-15 21:54] LABS: Basophils Percent Auto 0.4 % (0-2); Eosinophils Absolute Auto 0.5 X10*3/uL (0.0-0.4); Eosinophils Percent Auto 10.5 % (0-4); Hematocrit 30.7 % (37-47); Hemoglobin 9.4 g/dl (12.0-16.0); Imm Gran Abs Auto 0.01 X10*3/uL (0.00-0.03); Imm Gran Pct Auto 0.2 % (0.0-0.4); Lymphocytes Absolute Auto 0.8 X10*3/uL (1.2-4.9); Lymphocytes Percent Auto 16.4 % (20-40); Mean Corpuscular HGB Conc 30.6 g/dl (31.0-35.0); Mean Corpuscular Hemoglobin 28.9 pg (27.0-33.0); Mean Corpuscular Volume 94.5 fL (80-98); Mean Platelet Volume 9.3 fL (9.4-12.3); Monocytes Absolute Auto 0.5 X10*3/uL (0.1-1.2); Monocytes Percent Auto 9.3 % (2-11); Neutrophils Absolute Auto 3.1 X10*3/uL (2.0-8.3); Neutrophils Percent Auto 63.2 % (45-73); Platelet Count 161 X10*3/uL (160-400); Red Blood Count 3.25 X10*6/uL (4.20-5.50); Red Cell Distribution Width 15.8 % (11.0-16.0); White Blood Count 4.9 X10*3/uL (4.8-10.8)
[2020-08-15 22:00] VITALS: BP 178/81; PULSE 84; RESP 18; O2SAT 97
[2020-08-15 22:20] LABS: Lipase 23 U/L (8-78)
[2020-08-15 22:28] LABS: Alanine Aminotransferase 24 U/L (0-31); Albumin Level 3.6 g/dL (3.5-5.0); Alkaline Phosphatase 113 U/L (39-117); Anion Gap 18 (12-20); Aspartate Amino Transferase 19 U/L (5-31); Bilirubin Direct 0.2 mg/dL (0.0-0.5); Bilirubin Total 0.4 mg/dL (0.0-1.0); Blood Urea Nitrogen 23 mg/dL (9-16); Calcium 8.4 mg/dL (8.4-10.2); Carbon Dioxide 30 mmol/L (22-29); Chloride 96 mmol/L (96-108); Glucose Random 127 mg/dL (60-115); Potassium 4.5 mmol/L (3.3-5.1); Sodium 139 mmol/L (135-145)
[2020-08-15 22:31] LABS: Creatinine Clr Calc Pharmacy 11.2; Estimated Glomerular Filt Rate 9
== END 2020-08-15 23:13 | disposition home or self-care (01) ==
PROVIDERS: Nurse Practitioner Family; Emergency Provider Internal Medicine; PCP Pediatrics
DX: N20.0 Calculus of kidney (principal); E11.22 Type 2 diabetes mellitus with diabetic chronic kidney disease; I12.0 Hypertensive chronic kidney disease with stage 5 chronic kidney disease or end stage renal disease; N18.6 End stage renal disease; Z99.2 Dependence on renal dialysis
CPT/HCPCS: 36415; 74176; 80048; 80076; 83690; 85025; 99284

== ENCOUNTER 2020-09-08 23:44 | Emergency (ER) | payer OTHER, SELFPAY ==
[2020-09-09 00:14] VITALS: BP 157/79; PULSE 76; RESP 16; TEMP 36.8; O2SAT 96; BMI 26.4
== END 2020-09-09 01:53 | disposition left against medical advice (07) ==
PROVIDERS: Emergency Provider Emergency Medicine; PCP Pediatrics
DX: R04.0 Epistaxis (principal)
CPT/HCPCS: 99282

== ENCOUNTER 2021-02-08 04:39 | Inpatient (IN) | payer OTHER, SELFPAY ==
[2021-02-08] VITALS (14 sets, daily range): BP systolic 143–219; BP diastolic 84–108; PULSE 77–88; RESP 16–25; TEMP 36.6–36.8; O2SAT 90–99; BMI 25.7; BMI 26.4
--- NOTE | ~2021-02-08 | XR_ITS ---
EXAMINATION: XR CHEST CLINICAL INFORMATION: Decreased breath sounds in the right lower lobe. COMPARISON: CT dated 08/15/2020 and chest radiograph dated 07/18/2020. TECHNIQUE: Frontal view of the chest was obtained. FINDINGS: A vascular stent is evident in the region of the left subclavian and brachiocephalic veins. There is a small right pleural effusion. Probable trace left pleural effusion. Associated atelectasis is present in the lower lobes, right greater than left. Pulmonary venous congestion with minimal interstitial edema.. Cardiac silhouette is within normal limits in size. No pneumothorax. XR/XR chest 1V IMPRESSION: Small right and trace left pleural effusions. Bibasilar atelectasis. Superimposed bibasilar consolidation cannot be excluded. Pulmonary venous congestion and mild interstitial edema.
--- NOTE | 2021-02-08 05:06 | ECG_ITS ---
Test Reason : CHEST PAIN Blood Pressure : / mmHG Vent. Rate : 083 BPM Atrial Rate : 083 BPM P-R Int : 156 ms QRS Dur : 088 ms QT Int : 406 ms P-R-T Axes : 037 014 042 degrees QTc Int : 477 ms Normal sinus rhythm RSR' or QR pattern in V1 suggests right ventricular conduction delay Possible Left atrial enlargement Borderline ECG When compared with ECG of 19-JUL-2020 13:50, T wave inversion no longer evident in Anterior leads Referred By: Generic ED Physician Electronically Signed By:RIYA HOLCOMB MD
--- NOTE | 2021-02-08 05:07 | PC.NURSE ---
pt a&O, report having chest pain this evening. 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 pt placed on bed side awake overnight monitor. Iv place from EMS. Nol blood draw or blood pressure to left arm. Pt goes to dialysis. pt had a hand wound that is red and tender. pt is being treat with antibiotic. pt does have an open area to left side of her nose lateral . pt reports that is an area that she had cancer. no drainage noted at this time.
--- NOTE | 2021-02-08 06:14 | ED.CHESTPAIN ---
HPI - Chest Pain General Chief Complaint: Chest Pain Stated Complaint: mid-substernal chest pain Time Seen by Provider: 02/08/21 05:54 Source: patient and EMS Mode of arrival: EMS Limitations: no limitations History of Present Illness HPI narrative: Patient comes to emergency room complaining of chest pain. Patient states at 3 in the morning patient woke up to go to the bathroom, she started developing chest pain. Patient checked her blood pressure and states it was above 200 systolic. Patient called EMS, they gave the patient nitroglycerin x2 and full-dose aspirin. Patient states that now the pain is completely resolved, patient is has shortness of breath which denoted at 3 in the morning as well. Patient states that she is due for dialysis today, patient states that she is very compliant with her appointments. Related Data Home Medications Medication Instructions Recorded Confirmed acetaminophen 325 mg tablet 650 mg PO Q6H PRN 05/11/20 07/19/20 ammonium lactate 12 % lotion 1 appl TOPICAL BID 05/11/20 07/19/20 atorvastatin 40 mg tablet 40 mg PO BEDTIME 05/11/20 07/19/20 gabapentin 100 mg capsule 100 mg PO DAILY 05/11/20 07/19/20 gabapentin 100 mg capsule 200 mg PO BEDTIME 05/11/20 07/19/20 loratadine 10 mg tablet 10 mg PO DAILY 05/11/20 07/19/20 lorazepam 1 mg tablet 1 mg PO 3XW 05/11/20 07/19/20 losartan 25 mg tablet 25 mg PO BEDTIME 05/11/20 07/19/20 pioglitazone 30 mg tablet 30 mg PO DAILY 05/11/20 07/19/20 sucroferric oxyhydroxide 500 mg 1,000 mg PO TIDWM 05/11/20 07/19/20 chewable tablet (Velphoro) venlafaxine 37.5 mg 37.5 mg PO DAILY 05/11/20 07/19/20 capsule,extended release 24 hr zolpidem 10 mg tablet 10 mg PO BEDTIME PRN 05/11/20 07/19/20 lorazepam 1 mg tablet 0.5 mg PO 3XW PRN 07/19/20 07/19/20 Previous Rx's Medication Instructions Recorded nifedipine 30 mg tablet,extended 60 mg PO DAILY 30 Days #60 tab 07/20/20 release 24 hr sodium polystyrene sulfonate 15 15 g (60 mL) PO .MWF 30 Days #473 07/20/20 gram/60 mL oral suspension ml oxycodone 5 mg tablet 5 mg PO Q6H PRN #20 tab 08/15/20 Allergies Allergy/AdvReac Type Severity Reaction Status Date / Time ROXI Inhibitors Allergy Unknown UNKNOWN Verified 05/10/20 21:35 [ROXI INHIBITORS] Review of Systems Review of Systems: Constitutional : No Weight loss, No Fever, No Chills, No Night Sweats, No Fatigue, No Malaise ENT/Mouth : No Hearing loss, No Ear Pain, No Nasal Congestion, No Sinus Pain, No Hoarseness, No sore throat, No Rhinorrhea, No Swallowing Difficulty Eyes: No Eye Pain, No Swelling, No Redness, No Foreign Body, No Discharge, No Vision Changes Cardiovascular : Complaining of chest pain which resolved, shortness of breath which is still present but very mild. Respiratory : No Cough, No Sputum, No Wheezing, No Smoke Exposure, No Dyspnea Gastrointestinal : No Nausea, No Vomiting, No Diarrhea, No Constipation, No abdominal Pain, No Hematochezia, No Melena Genitourinary : no irregular bleeding, No Dysuria, No Urinary Frequency, No Hematuria, No Urinary Incontinence, No Urgency, No Flank Pain, No Urinary Flow Changes, No Hesitancy Musculoskeletal : No joint pain, No Myalgias, No Joint Swelling Skin : No Skin Lesions, No rash Neuro : No Weakness, No Numbness, No Paresthesias, No Loss of Consciousness, No Dizziness, No Headache Psych : No Anxiety/Panic, No Depression, No SI/HI/AH/VH, No Social Issues, Heme/Lymph: No Bruising, No Bleeding,No Lymphadenopathy Endocrine : No Polyuria, No Polydipsia, No Temperature Intolerance [facility] Past Medical History Medical History Diabetes Hypertension Renal failure Sinus, maxillary, carcinoma Social History Social History Household Members: None Household Members Other:: patient lives alone, 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 Oriented X3. No acute distress. Eyes: Pupils equal, round and reactive to light. ENT: Left Lateral aspect of the nose is open (status post maxillary sinus tumor removal), healing, no signs of infection Neck: Normal inspection. Neck supple. No lymph nodes noted. No crepitus CVS: Normal heart rate and rhythm. Pulses normal. Normal S1 and S2 Respiratory: No respiratory distress. Patient has markedly decreased breath sounds in the right lower lobe Abdomen: Soft and nontender. No rigidity. No distention. Skin: Skin warm and dry. Normal skin color. Normal skin turgor. Extremities: No lower extremity edema. No lower extremity edema. No Lacerations. No Rash Neuro: Oriented X 3. No motor deficit. No sensory deficit. Moving all extermities. No slurred speech. Course Course Course Narrative: EMS gave the patient 2 nitroglycerines and full-dose aspirin, on arrival to the emergency room when I evaluated the patient, patient's blood pressure is 206 systolic. At this time, patient has no chest pain, only shortness of breath. Nitroglycerin 2% ointment apply transdermal. All of patient's labs are pending, patient likely has a moderate to large pleural effusion in the right side, x-ray pending Sign-out given to Dr. Ramires [facility] - Chest Pain Lab Data Result diagrams: 02/08/21 06:15 02/08/21 06:15 ECG Data ECG #1: Attestation: I personally reviewed and interpreted this ECG as follows: (Phenylephrine, heart rate 83, nonspecific ST segment elevation in V2 less than 1 mm. QTC 477 ) Discharge Plan Discharge Clinical Impression: Chest pain, Acute dyspnea, Hypertension Prescriptions: No Action atorvastatin 40 mg tablet 40 mg PO BEDTIME RF: 0 venlafaxine 37.5 mg capsule,extended release 24hr 37.5 mg PO DAILY RF: 0 ammonium lactate 12 % lotion 1 appl topical BID RF: 0 losartan 25 mg tablet 25 mg PO BEDTIME RF: 0 gabapentin 100 mg capsule 100 mg PO DAILY RF: 0 gabapentin 100 mg Capsule 200 mg PO BEDTIME RF: 0 lorazepam 1 mg tablet 1 mg PO 3XW RF: 0 zolpidem 10 mg tablet 10 mg PO BEDTIME PRN (Reason: insomnia) RF: 0 pioglitazone 30 mg tablet 30 mg PO DAILY RF: 0 loratadine 10 mg tablet 10 mg PO DAILY RF: 0 Velphoro 500 mg tablet,chewable 1,000 mg PO TIDWM RF: 0 acetaminophen 325 mg Tablet 650 mg PO Q6H PRN (Reason: Pain) RF: 0 lorazepam 1 mg tablet 0.5 mg PO 3XW PRN (Reason: DURING DIALYSIS) RF: 0 sodium polystyrene sulfonate 15 gram/60 mL suspension 15 g PO .MWF 30 Days Qty: 473 RF: 0 nifedipine 30 mg tablet extended release 24hr 60 mg PO DAILY 30 Days Qty: 60 RF: 0 oxycodone 5 mg tablet 5 mg PO Q6H PRN (Reason: pain) Qty: 20 RF: 0
[2021-02-08 06:21] LABS: MANUAL DIFF FLAG NO
[2021-02-08 06:37] LABS: Basophils Percent Auto 0.7 % (0-2); Eosinophils Absolute Auto 0.6 X10*3/uL (0.0-0.4); Eosinophils Percent Auto 10.4 % (0-4); Hematocrit 29.9 % (37.0-47.0); Hemoglobin 9.3 g/dl (12.0-16.0); Imm Gran Abs Auto 0.03 X10*3/uL (0.00-0.03); Imm Gran Pct Auto 0.5 % (0.0-0.4); Lymphocytes Absolute Auto 1.3 X10*3/uL (1.2-4.9); Mean Corpuscular HGB Conc 31.1 g/dl (31.0-35.0); Mean Corpuscular Hemoglobin 30.2 pg (27.0-33.0); Mean Corpuscular Volume 97.1 fL (80.0-98.0); Monocytes Absolute Auto 0.7 X10*3/uL (0.1-1.2); Monocytes Percent Auto 12.6 % (2-11); Neutrophils Absolute Auto 3.06 x10*3/uL (2.0-8.3); Neutrophils Percent Auto 52.8 % (45-73); Platelet Count 148 X10*3/uL (160-400); Red Blood Count 3.08 X10*6/uL (4.20-5.50); Red Cell Distribution Width 17.2 % (11.0-16.0); White Blood Count 5.8 X10*3/uL (4.8-10.8)
[2021-02-08 06:40] LABS: Troponin-I High Sensitivity 9.5 ng/L (<3.5-17.0)
[2021-02-08 06:46] LABS: Alanine Aminotransferase 22 U/L (0-31); Albumin Level 3.4 g/dL (3.5-5.0); Alkaline Phosphatase 134 U/L (39-117); Anion Gap 19 (12-20); Aspartate Amino Transferase 22 U/L (5-31); Bilirubin Total 0.3 mg/dL (0.0-1.0); Blood Urea Nitrogen 52 mg/dL (9-16); Calcium 8.8 mg/dL (8.4-10.2); Carbon Dioxide 26 mmol/L (22-29); Chloride 99 mmol/L (96-108); Creatinine Clr Calc Pharmacy 6.9; Estimated Glomerular Filt Rate 5; Glucose Random 160 mg/dL (60-115); Potassium 4.6 mmol/L (3.3-5.1); Sodium 139 mmol/L (135-145); Total Protein 6.6 g/dL (6.5-8.0)
[2021-02-08] MEDS: Nitroglycerin 2 % Oint 1 GM Packet 1 INCH TRANSDERMA (06:47)
--- NOTE | 2021-02-08 07:05 | PC.NURSE ---
Assumed care of patient. Pt is resting comfortably at this time and has nitro paste applied to anterior chest. pt noted to have spo2 of 88% on room air. Pt repositioned and it only improved to 90%. Pt placed on oxygen via NC at 2lpm with noted improvement. Pt does state she uses oxygen at dialysis when she is feeling fluid overloaded and sob like she does today.
[2021-02-08 09:23] LABS: Troponin-I High Sensitivity 9.8 ng/L (<3.5-17.0)
--- NOTE | 2021-02-08 10:29 | PC.NURSE ---
Attempted to discharge the patient, but she missed her 5am dialysis appointment. Pt family member called the center and they stated there were no spots available for the rest of the day. MD notified who called and is waiting for a call back from the dialysis MD.
--- NOTE | 2021-02-08 13:24 | PHA.MEDREC ---
Pharmacy Consult ? Medication Reconciliation Pharmacy has completed the medication reconciliation. Milagro ScruggsD
--- NOTE | 2021-02-08 13:30 | PM.IMHP ---
History of Present Illness Date of Service: 02/08/21 <SHE Sol - Last Filed: 02/08/21 13:54> Attending physician on admission: Donald Pizarro <SHE Sol - Last Filed: 02/08/21 13:54> Chief Complaint: chest pain <SHE Sol - Last Filed: 02/08/21 13:54> This is a 65-year-old female with history of end-stage renal disease on hemodialysis who presents to the emergency department with chest pain. Patient woke up this morning around 230 the COVID about. At that time she noticed central chest pressure with associated shortness of breath. She checked her blood pressure and noted that it was elevated over 200. She repeated her blood pressure again to make sure it was accurate and continued to be over 200. She called 911 and was brought to the emergency department for evaluation. EN route to the hospital she received 2 doses of sublingual nitro with resolution of her chest pain after the 2nd dose. On arrival in the emergency department was initially 185/88 but trended back up to 207/101 and she received a dose of nitropaste. Her chest pain has not returned but she continues to complain of shortness of breath. She denies any associated cough, fever, chills. Chest x-ray showed small right and trace left pleural effusions. Pulmonary venous congestion and mild interstitial edema. She had full dialysis on Friday but did not present to dialysis today as she was in the emergency room. She will be admitted for further management of uncontrolled hypertension. Her case was discussed with the truck sales 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 who will schedule her for dialysis today. <SHE Sol - Last Filed: 02/08/21 13:54> Review of Systems Review of Systems: Yes all other systems are reviewed and are negative <SHE Sol Last Filed: 02/08/21 13:54> Constitutional: Constitutional: Denies chills and Denies fever(s) <SHE Sol Last Filed: 02/08/21 13:54> Cardiovascular: Cardiovascular: Reports chest pain and Reports dyspnea <SHE Sol Last Filed: 02/08/21 13:54> Respiratory: Respiratory: Denies cough and Reports dyspnea <SHE Sol - Last Filed: 02/08/21 13:54> Gastrointestinal: Gastrointestinal: Denies abdominal pain <SHE Sol - Last Filed: 02/08/21 13:54> FORMERLY [facility], [facility] Medical History: Medical History Diabetes Hypertension Renal failure Sinus, maxillary, carcinoma <SHE Sol - Last Filed: 02/08/21 13:54> Functional capacity: independent ambulation <SHE Sol - Last Filed: 02/08/21 13:54> Pertinent family history: mom - CKD dad - <SHE Sol - Last Filed: 02/08/21 13:54> Social History: Social History Household Members: None Household Members Other:: patient lives alone, 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 If so, by whom?: No Do you feel safe in your current relationship?: No Current Relationship Is there a partner from a previous relationship who is making you feel unsafe now?: No Are you made to feel afraid or neglected: No Advance Directives: No Do you have thoughts of harming others: None Do you have a plan to hurt others: No Plan Recently lost weight without trying: No Nutrition Risks: No Nutritional Risk service: No Current occupational status: disabled <SHE Sol - Last Filed: 02/08/21 13:54> Meds Allergies/Adverse reactions: Allergies Allergy/AdvReac Type Severity Reaction Status Date / Time ROXI Inhibitors Allergy Unknown UNKNOWN Verified 05/10/20 21:35 [ROXI INHIBITORS] <SHE Sol - Last Filed: 02/08/21 13:54> Active Medications: Current Medications Acetaminophen (Acetaminophen 325 Mg Tablet) 650 mg PO Q6H PRN PRN Reason: Pain, Mild (Pain Scale 1-3) Docusate Sodium (Docusate Sodium 100 Mg Capsule) 100 mg PO DAILY PRN PRN Reason: Constipation Heparin Sodium (Porcine) (Heparin Sodium,Porcine 5,000 Unit/Ml Vial) 5,000 unit SUBCUT Q12H EVY Ondansetron HCl (Ondansetron Hcl 4 Mg/2 Ml Vial) 4 mg IVPUSH Q8H PRN PRN Reason: Nausea and Vomiting Pharmacy Consult (Consult Rx Perform Med Rec) 1 each MISCELLANE ONCE PRN PRN Reason: Consult order Sodium Chloride (0.9 % Sodium Chloride Flush 3 Ml Syringe) [address] [facility] <SHE Sol - Last Filed: 02/08/21 13:54> Home medications: Home Medications Medication Instructions Recorded Confirmed Last Taken Type acetaminophen 325 mg tablet 650 mg PO Q6H PRN 05/11/20 02/08/21 05/06/20 History t-2 ammonium lactate 12 % lotion 1 appl TOPICAL BID 05/11/20 02/08/21 05/09/20 History atorvastatin 40 mg tablet 40 mg PO BEDTIME 05/11/20 02/08/21 02/07/21 History gabapentin 100 mg capsule 100 mg PO DAILY 05/11/20 02/08/21 02/07/21 History gabapentin 100 mg capsule 200 mg PO BEDTIME 05/11/20 02/08/21 02/07/21 History loratadine 10 mg tablet 10 mg PO DAILY 05/11/20 02/08/21 02/07/21 History lorazepam 1 mg tablet 1 mg PO 3XW 05/11/20 02/08/21 05/09/20 History sucroferric oxyhydroxide 500 mg 500 mg PO BID@0700,1200 05/11/20 02/08/21 02/07/21 History chewable tablet (Velphoro) venlafaxine 37.5 mg 37.5 mg PO DAILY 05/11/20 02/08/21 02/07/21 History capsule,extended release 24 hr zolpidem 10 mg tablet 10 mg PO BEDTIME PRN 05/11/20 02/08/21 Unknown History cephalexin 500 mg capsule 1 cap PO BID 02/08/21 02/08/21 02/07/21 History losartan 100 mg tablet 1 tab PO DAILY 02/08/21 02/08/21 02/07/21 History nifedipine 60 mg tablet,extended 60 mg PO BID 02/08/21 02/08/21 02/07/21 History release pioglitazone 45 mg tablet 1 tab PO DAILY 02/08/21 02/08/21 02/07/21 History sucroferric oxyhydroxide 500 mg 1,000 mg PO DAILY@1700 02/08/21 02/08/21 02/07/21 History chewable tablet (Velphoro) <SHE Sol - Last Filed: 02/08/21 13:54> Physical Exam Vital Signs and Narrative: Vital Signs: Last Vital Signs Temp 98.3 F 02/08/21 05:23 Pulse 88 02/08/21 12:32 Resp 20 02/08/21 12:32 BP 178/95 H 02/08/21 12:32 Pulse Ox 96 02/08/21 12:32 Body Mass Index 25.7 <SHE Sol - Last Filed: 02/08/21 13:54> Const: General: healthy appearing, comfortable, no acute distress, alert and awake <SHE Sol - Last Filed: 02/08/21 13:54> Nutritional Appearance: well nourished <SHE Sol - Last Filed: 02/08/21 13:54> Orientation/consciousness: patient oriented x3 <SHE Sol - Last Filed: 02/08/21 13:54> HENMT: Head: Yes normocephalic and Yes atraumatic <SHE Sol - Last Filed: 02/08/21 13:54> Eyes: Sclerae: sclerae normal <SHE Sol Last Filed: 02/08/21 13:54> Resp: Effort & Inspection: no respiratory distress and tachypneic <SHE Sol Last Filed: 02/08/21 13:54> Auscultation: diminished lung sounds <SHE Sol Last Filed: 02/08/21 13:54> Cardio: Rate: regular rate <SHE Sol - Last Filed: 02/08/21 13:54> Rhythm: regular rhythm <SHE Sol - Last Filed: 02/08/21 13:54> Heart sounds: Murmur heart sound present systolic <SHE Sol - Last Filed: 02/08/21 13:54> GI: Palpation (GI): Soft to palpation and nontender <SHE Sol - Last Filed: 02/08/21 13:54> Neuro: General: patient oriented x3 <SHE Sol - Last Filed: 02/08/21 13:54> Cranial nerves: Yes CN's II-XII intact bilaterally and Yes Bilaterally intact EOM present <SHE Sol - Last Filed: 02/08/21 13:54> Results Labs CBC and Chem 7: : 02/09/21 05:51 02/09/21 05:51 <SHE Sol - Last Filed: 02/08/21 13:54> Labs: Laboratory Results - last 24 hr 02/08/21 02/08/21 02/08/21 06:15 06:15 06:15 MCV 97.1 MCH 30.2 MCHC 31.1 RDW 17.2 H Plt Count 148 L MPV 9.0 L Immature Gran % (Auto) 0.5 H Neut % (Auto) 52.8 Lymph % (Auto) 23.0 [place] % (Auto) 12.6 H Eos % (Auto) 10.4 H Baso % (Auto) 0.7 Lymph # (Auto) 1.3 [place] # (Auto) 0.7 Eos # (Auto) 0.6 H Baso # (Auto) 0.0 Abs Immat Gran (auto) 0.03 Absolute Neuts (auto) 3.06 Absolute Nucleated RBC 0.000 Nucleated RBC % (auto) 0.0 Anion Gap 19 Estim Creat Clear Calc 6.9 Estimated GFR 5 Random Glucose 160 H Calcium 8.8 Total Bilirubin 0.3 AST 22 ALT 22 Alkaline Phosphatase 134 H Troponin I High Sens 9.5 Total Protein 6.6 Albumin 3.4 L 02/08/21 08:59 MCV MCH MCHC RDW Plt Count MPV Immature Gran % (Auto) Neut % (Auto) Lymph % (Auto) [place] % (Auto) Eos % (Auto) Baso % (Auto) Lymph # (Auto) [place] # (Auto) Eos # (Auto) Baso # (Auto) Abs Immat Gran (auto) Absolute Neuts (auto) Absolute Nucleated RBC Nucleated RBC % (auto) Anion Gap Estim Creat Clear Calc Estimated GFR Random Glucose Calcium Total Bilirubin AST ALT Alkaline Phosphatase Troponin I High Sens 9.8 Total Protein Albumin <SHE Sol - Last Filed: 02/08/21 13:54> Imaging Radiologist's Impressions: Impressions Chest X-Ray 02/08/21 06:17 IMPRESSION: Small right and trace left pleural effusions. Bibasilar atelectasis. Superimposed bibasilar consolidation cannot be excluded. Pulmonary venous congestion and mild interstitial edema. <SHE Sol - Last Filed: 02/08/21 13:54> Assessment and Plan (1) Chest pain: Status: Acute <SHE Sol - Last Filed: 02/08/21 13:54> (2) Hypertension: Status: Acute <SHE Sol - Last Filed: 02/08/21 13:54> This is a 65-year-old female with history of end-stage renal disease on hemodialysis, diabetes, hypertension, dyslipidemia who presents to the emergency department with chest pain found to have uncontrolled hypertension Uncontrolled hypertension Reports compliance with medications Will give now dose home medications as she has not taken them yet today She is scheduled for dialysis upon admission which should improve her blood pressure Close blood pressure monitoring Chest pain Resolved at this time. Likely secondary to uncontrolled hypertension EKG no acute ischemic changes, trops flat ESRD Attends hemodialysis Friday, , Friday Missed hemodialysis today, plan for inpatient urgent hemodialysis for hypertension and dyspnea Hyperlipidemia Continue statin Diabetes Hold oral meds -SSI, POCs, ADA diet Mood Continue Effexor, Ativan Presumed peripheral neuropathy Continue gabapentin DVT prophylaxis-heparin Code status-full code attending: dr. pizarro <SHE Sol - Last Filed: 02/08/21 13:54> This is a 65-year-old female with history of end-stage renal disease on hemodialysis, diabetes, hypertension, dyslipidemia who presents to the emergency department with chest pain found to have uncontrolled hypertension Uncontrolled hypertension Reports compliance with medications Will give now dose home medications as she has not taken them yet today She is scheduled for dialysis upon admission which should improve her blood pressure Close blood pressure monitoring Chest pain Resolved at this time. Likely secondary to uncontrolled hypertension EKG no acute ischemic changes, trops flat ESRD Attends hemodialysis Friday, , Friday Missed hemodialysis today, plan for inpatient urgent hemodialysis for hypertension and dyspnea Hyperlipidemia Continue statin Diabetes Hold oral meds -SSI, POCs, ADA diet Mood Continue Effexor, Ativan Presumed peripheral neuropathy Continue gabapentin DVT prophylaxis-heparin Code status-full code attending: dr. pizarro I saw and examined and participate in aceves portion of E/M service, I agree with a/p, findings as documented by midlevel provider <Donald Pizarro MD - Last Filed: 02/09/21 11:07> Quality Stroke Does the patient have a stroke diagnosis?: No <SHE Sol - Last Filed: 02/08/21 13:54> VTE Prior VTE?: No <SHE Sol - Last Filed: 02/08/21 13:54> VTE Risk Level:: Medical - moderate - high <SHE Sol - Last Filed: 02/08/21 13:54> VTE Device Contraindication: N/A - Device Ordered <SHE Sol - Last Filed: 02/08/21 13:54> VTE Drug Contraindication: N/A - Med Ordered <SHE Sol - Last Filed: 02/08/21 13:54>
[2021-02-08] MEDS: Losartan Potassium 50 MG TABLET 100 MG PO (13:55)
[2021-02-08] MEDS: Heparin Sodium,Porcine 5,000 UNIT/ML VIAL 5000 UNIT SUBCUT (13:56)
[2021-02-08] MEDS: hydrALAZINE HCl 20 MG/ML VIAL 5 MG IVPUSH (15:13)
--- NOTE | 2021-02-08 16:26 | PM.CNNEP ---
History of Present Illness Reason for Consult Consult date: 02/08/21 Reason for consult: Uncontrolled hypertension in ESRD Chief Complaint Chief complaint: uncontrolled HTN History of Present Illness Narrative: Kerri is a 65-year-old female with history of end-stage renal disease on hemodialysis who presents to the emergency department with chest pain. central chest pressure with associated shortness of breath.? She checked her blood pressure and noted that it was elevated over 200. She called 911 and was brought to the emergency department for evaluation.? EN route to the hospital she received 2 doses of sublingual nitro with resolution of her chest pain after the 2nd dose.? On arrival in the emergency department was initially 185/88 but trended back up to 207/101 and she received a dose of nitropaste. Her chest pain has not returned but she continues to complain of shortness of breath.? She denies any associated cough, fever, chills.? Chest x-ray showed small right and trace left pleural effusions, pulmonary venous congestion and mild interstitial edema.? She had full dialysis on Friday but did not present to dialysis today as she was in the emergency room.? 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 Housing: Apartment Do you presently have visiting nurse or other home services: Yes (home health aid) Alcohol intake: never Patient Tobacco Use Status: Never used Tobacco Second Hand Smoke Exposure: No Use of substances other than those prescribed or required for medical reasons: No Advance Directives: No service: No Current occupational status: disabled Meds Allergies Allergy/AdvReac Type Severity Reaction Status Date / Time ROXI Inhibitors Allergy Unknown UNKNOWN Verified 05/10/20 21:35 [ROXI INHIBITORS] Active Medications: Current Medications Acetaminophen (Acetaminophen 325 Mg Tablet) 650 mg PO Q6H PRN PRN Reason: Pain, Mild (Pain Scale 1-3) Atorvastatin Calcium (Atorvastatin Calcium 40 Mg Tablet) 40 mg PO BEDTIME [facility] Dextrose (Dextrose 50 % 25 Gm/50 Ml Vial) 25 gm IVPUSH Q15M PRN; Protocol PRN Reason: per Hypoglycemia Standing Ord. Docusate Sodium (Docusate Sodium 100 Mg Capsule) 100 mg PO DAILY PRN PRN Reason: Constipation Gabapentin (Gabapentin 100 Mg Capsule) 100 mg PO DAILY EVY Gabapentin (Gabapentin 100 Mg Capsule) 200 mg PO BEDTIME EVY Glucose (Glucose Gel 15 Gm Gel..Gram.) 15 gm PO Q15M PRN; Protocol PRN Reason: per Hypoglycemia Standing Ord. Heparin Sodium (Porcine) (Heparin Sodium,Porcine 5,000 Unit/Ml Vial) 5,000 unit SUBCUT Q12H [facility] Last Admin: 02/08/21 13:56 Dose: 5,000 unit Documented by: Hydralazine HCl (Hydralazine Hcl 20 Mg/Ml Vial) 5 mg IVPUSH Q6H PRN; Protocol PRN Reason: SBP >180 Last Admin: 02/08/21 15:13 Dose: 5 mg Documented by: Insulin Human Lispro (Insulin Lispro 100 Unit/Ml 3 Ml Vial) 0 unit SUBCUT QIDACHS [facility]; Protocol Lactic Acid (Ammonium Lactate 12 % Lotion 226 Gm Bottle) 1 appl TOPICAL BID [facility]; Protocol Loratadine (Loratadine 10 Mg Tablet) 10 mg PO DAILY [facility] Lorazepam (Lorazepam 1 Mg Tablet) 1 mg PO DAILY PRN PRN Reason: Anxiety Losartan Potassium (Losartan Potassium 50 Mg Tablet) 100 mg PO DAILY [facility]; Protocol Last Admin: 02/08/21 13:55 Dose: 100 mg Documented by: Nifedipine (Nifedipine Er 60 Mg Tab.Er.24) 60 mg PO BID [facility] Non-Formulary Medication (Sucroferric Oxyhydroxide [Velphoro]) 500 mg PO BID@0700,1200 [facility] Non-Formulary Medication (Sucroferric Oxyhydroxide [Velphoro]) 1,000 mg PO DAILY@1700 [facility] Ondansetron HCl (Ondansetron Hcl 4 Mg/2 Ml Vial) 4 mg IVPUSH Q8H PRN PRN Reason: Nausea and Vomiting Pharmacy Consult (Consult Rx Perform Med Rec) 1 each MISCELLANE ONCE PRN PRN Reason: Consult order Sodium Chloride (0.9 % Sodium Chloride Flush 3 Ml Syringe) 3 ml IVFLUSH QSHIFT [facility] Last Admin: 02/08/21 14:53 Dose: Not Given Documented by: Venlafaxine HCl (Venlafaxine Hcl Er 37.5 Mg Cap.Er.24h) 37.5 mg PO DAILY [facility] Zolpidem Tartrate (Zolpidem Tartrate 5 Mg Tablet) 10 mg PO BEDTIME PRN PRN Reason: insomnia Home Medications Medication Instructions Recorded Confirmed Last Taken Type acetaminophen 325 mg tablet 650 mg PO Q6H PRN 05/11/20 02/08/21 05/06/20 History t-2 ammonium lactate 12 % lotion 1 appl TOPICAL BID 05/11/20 02/08/21 05/09/20 History atorvastatin 40 mg tablet 40 mg PO BEDTIME 05/11/20 02/08/21 02/07/21 History gabapentin 100 mg capsule 100 mg PO DAILY 05/11/20 02/08/21 02/07/21 History gabapentin 100 mg capsule 200 mg PO BEDTIME 05/11/20 02/08/21 02/07/21 History loratadine 10 mg tablet 10 mg PO DAILY 05/11/20 02/08/21 02/07/21 History lorazepam 1 mg tablet 1 mg PO 3XW 05/11/20 02/08/21 05/09/20 History sucroferric oxyhydroxide 500 mg 500 mg PO BID@0700,1200 05/11/20 02/08/21 02/07/21 History chewable tablet (Velphoro) venlafaxine 37.5 mg 37.5 mg PO DAILY 05/11/20 02/08/21 02/07/21 History capsule,extended release 24 hr zolpidem 10 mg tablet 10 mg PO BEDTIME PRN 05/11/20 02/08/21 Unknown History cephalexin 500 mg capsule 1 cap PO BID 02/08/21 02/08/21 02/07/21 History losartan 100 mg tablet 1 tab PO DAILY 02/08/21 02/08/21 02/07/21 History nifedipine 60 mg tablet,extended 60 mg PO BID 02/08/21 02/08/21 02/07/21 History release pioglitazone 45 mg tablet 1 tab PO DAILY 02/08/21 02/08/21 02/07/21 History sucroferric oxyhydroxide 500 mg 1,000 mg PO DAILY@1700 02/08/21 02/08/21 02/07/21 History chewable tablet (Velphoro) Physical Exam Vital Signs: Last Vital Signs Temp 98.3 F 02/08/21 05:23 Pulse 77 02/08/21 15:13 Resp 25 H 02/08/21 15:13 BP 219/103 H 02/08/21 15:13 Pulse Ox 99 02/08/21 15:13 Body Mass Index 25.7 Const General: no acute distress Orientation/consciousness: patient oriented x3 Eyes EOM: EOMs intact bilaterally Neck Neck: Yes supple Resp Auscultation: diminished lung sounds Cardio Rate: regular rate Rhythm: regular rhythm GI Palpation (GI): Soft to palpation Neuro General: patient oriented x3 and moves all extremities Results Lab Results Result Diagrams: 02/08/21 06:15 02/08/21 06:15 Lab results: Chemistry 02/08/21 06:15 Sodium 139 Potassium 4.6 Carbon Dioxide 26 BUN 52 H D Creatinine 7.85 H* Calcium 8.8 Hematology 02/08/21 06:15 WBC 5.8 Hgb 9.3 L Plt Count 148 L Assessment and Plan (1) End stage renal disease on dialysis: Status: Acute Usually gets HD on TTS Shall dialyze today Renal Diet; Phos binders with meals Volume optimization on HD Could add Metoprolol 25 mg bid Continue Nifedipine and losartan Shall give Procrit when BP is better constrolled May have to reduce dry weight further Shall closely follow up Procedures Date of Service Date of Service: 02/08/21
[2021-02-08 17:46] LABS: Glucose, Whole Blood 143 mg/dL (60-115)
[2021-02-08] MEDS: LORazepam 1 MG TABLET PO (19:12)
[2021-02-08] MEDS: Acetaminophen 325 MG TABLET 650 MG PO (20:30)
[2021-02-08 21:25] LABS: Glucose, Whole Blood 104 mg/dL (60-115)
[2021-02-08] MEDS: NIFEdipine ER 60 MG TAB.ER.24 PO (23:07)
[2021-02-08] MEDS: Atorvastatin Calcium 40 MG TABLET PO (23:07)
[2021-02-08] MEDS: Gabapentin 100 MG CAPSULE 200 MG PO (23:07)
[2021-02-08] MEDS: Zolpidem Tartrate 5 MG TABLET 10 MG PO (23:13)
[2021-02-08] MEDS: 0.9 % Sodium Chloride Flush 3 ML SYRINGE IVFLUSH (23:13)
[2021-02-09] VITALS (9 sets, daily range): BP systolic 146–207; BP diastolic 70–108; PULSE 76–80; RESP 18–19; TEMP 36.5–37.1; O2SAT 92–98
[2021-02-09] MEDS: Heparin Sodium,Porcine 5,000 UNIT/ML VIAL 5000 UNIT SUBCUT ×2 (02:43→13:45)
[2021-02-09] MEDS: Acetaminophen 325 MG TABLET 650 MG PO ×3 (02:44→13:45)
[2021-02-09] MEDS: hydrALAZINE HCl 20 MG/ML VIAL 5 MG IVPUSH (02:50)
[2021-02-09] MEDS: oxyCODONE HCl Immed Release 5 MG TABLET PO (04:31)
[2021-02-09 06:21] LABS: MANUAL DIFF FLAG NO
[2021-02-09 06:45] LABS: Basophils Percent Auto 0.6 % (0-2); Eosinophils Absolute Auto 0.7 X10*3/uL (0.0-0.4); Eosinophils Percent Auto 9.7 % (0-4); Hematocrit 32.3 % (37.0-47.0); Hemoglobin 10.1 g/dl (12.0-16.0); Imm Gran Abs Auto 0.04 X10*3/uL (0.00-0.03); Imm Gran Pct Auto 0.6 % (0.0-0.4); Lymphocytes Percent Auto 15.5 % (20-40); Mean Corpuscular HGB Conc 31.3 g/dl (31.0-35.0); Mean Corpuscular Hemoglobin 29.7 pg (27.0-33.0); Monocytes Absolute Auto 0.8 X10*3/uL (0.1-1.2); Monocytes Percent Auto 11.3 % (2-11); Neutrophils Absolute Auto 4.2 x10*3/uL (2.0-8.3); Neutrophils Percent Auto 62.3 % (45-73); Platelet Count 163 X10*3/uL (160-400); White Blood Count 6.7 X10*3/uL (4.8-10.8)
[2021-02-09 06:50] LABS: Anion Gap 15 (12-20); Blood Urea Nitrogen 24 mg/dL (9-16); Calcium 8.2 mg/dL (8.4-10.2); Carbon Dioxide 23 mmol/L (22-29); Chloride 99 mmol/L (96-108); Glucose Random 161 mg/dL (60-115); Potassium 4.1 mmol/L (3.3-5.1); Sodium 133 mmol/L (135-145)
[2021-02-09 07:18] LABS: Glucose, Whole Blood 163 mg/dL (60-115)
[2021-02-09 07:20] LABS: Creatinine Clr Calc Pharmacy 11.1; Estimated Glomerular Filt Rate 9
[2021-02-09] MEDS: Insulin Lispro 100 UNIT/ML 3 ML VIAL SUBCUT ×2 (07:56→17:43)
[2021-02-09] MEDS: 0.9 % Sodium Chloride Flush 3 ML SYRINGE IVFLUSH (07:57)
[2021-02-09] MEDS: Venlafaxine HCl ER 37.5 MG CAP.ER.24H PO (07:58)
[2021-02-09] MEDS: Gabapentin 100 MG CAPSULE PO (07:58)
[2021-02-09] MEDS: Loratadine 10 MG TABLET PO (07:58)
[2021-02-09] MEDS: NIFEdipine ER 60 MG TAB.ER.24 PO (07:58)
[2021-02-09] MEDS: Losartan Potassium 50 MG TABLET 100 MG PO (07:58)
--- NOTE | 2021-02-09 09:28 | MHC.CM.PN ---
Addendum entered by Lashell Chilel 02/09/21 13:56: PT CLEARED TO DC HOME TODAY WITH NO SERVICES. FAMILY TO TRANSPORT Original Note: PT REPORTS SHE LIVES ALONE BUT HER DAUGHTERS LIVE VERY CLOSE BY PT REPORTS SHE HAS NO FORMAL SERVICES BUT HER DAUGHTERS ASSIST DAILY PT REPORTS SHE GOES TO [facility] IN [place] FOR HD (T,,) PT CONFIRMS THE HCP AND PCP ON FILE ACCURATE. IMM DELIVERED CURRENT DC PLAN IS HOME WITH RESUMPTION OF FAMILY SUPPORT PT REPORTS IF [facility] IS RECOMMENDED, SHE WOULD LIKE A REFERRAL TO [facility]. DAUGHTER TO TRANSPORT HCP: DEBBIE DEMPSEY [phone] PCP: GAURI SERRANO
--- NOTE | 2021-02-09 10:07 | MHC.CDI.CONC ---
CDI Concurrent Query Documentation Clarification: PHYSICIAN'S DOCUMENTATION REQUEST Date of Query: 02/09/21 1008 Patient Name: Bhavna Milton Admit Date: 02/08/21 Dear Doctor, A review of the medical record indicates additional documentation may be needed. Please review below and update the documentation accordingly. Risk Factors/Clinical Indicators/Treatments ESRD CR: 4.91 7.85 H BUN 52 GFR 5 Missed dialysis, urgent hemodialysis. untrolled HTN. Please clarify which of the following most accurately represents the patient's renal status: Acute kidney injury with ESRD ESRD Other (please specify) Unable to determine Criteria for COLLEEN* Stages of Chronic Kidney Disease* 1. Increase in serum creatinine by ? 0.3 mg/dL Level Description GFR (?26.5 micromol/L) within 48 hours, or G1 Normal or High > 90 2. Increase in serum creatinine to ?1.5 times baseline, G2 Mildly decreased 60 ? 89 which is known or presumed to have occurred within 7 days, or G3a Mildly to moderately decreased 45 ? 59 3. Urine volume <0.5 mL/kg/hour for six hours G3b Moderately to severely decreased 30 - 44 G4 Severely decreased 15 ? 29 G5 Kidney failure < 15 *Source: Kidney Disease: Improving Global Outcomes (KDIGO) 2012 Use of terms such as suspected, likely, concern for, or probable (associated with a specific diagnosis that is being evaluated, monitored, or treated as if it exists) are acceptable and can be coded in the inpatient setting, when documented at the time of discharge. Thank you, Fiona Cordova [facility], CDIS Extension: [phone] Please use your independent medical judgment in providing your response. THIS QUERY IS PART OF THE PERMANENT MEDICAL RECORD Provider Response: Other Other Diagnosis: ESRD on dialysis
[2021-02-09] MEDS: hydrALAZINE HCl 10 MG TABLET 20 MG PO (11:10)
[2021-02-09 11:38] LABS: Glucose, Whole Blood 142 mg/dL (60-115)
--- NOTE | 2021-02-09 11:49 | P.PNNP_ITS ---
Subjective Subjective Date of Service: 02/09/21 Interval history: Seen AM. Feels better. Wondering when she can go home Physical Exam Vital Signs: Vital Signs: Last Vital Signs Temp 98.4 F 02/09/21 07:07 Pulse 78 02/09/21 11:10 Resp 18 02/09/21 07:07 BP 153/70 H 02/09/21 11:10 Pulse Ox 92 02/09/21 07:07 Body Mass Index 26.4 Const: General: no acute distress Orientation/consciousness: patient oriented x3 HENMT: Head: Yes normocephalic Eyes: EOM: EOMs intact bilaterally Neck: Neck: Yes supple Resp: Auscultation: diminished lung sounds Cardio: Jugular venous distension: no JVD GI: Palpation (GI): Soft to palpation Neuro: General: patient oriented x3 and moves all extremities Objective Data Labs CBC & Chem 7: 02/09/21 05:51 02/09/21 05:51 Labs: Laboratory Results - last 24 hr 02/08/21 02/08/21 02/09/21 17:39 21:20 05:51 WBC 6.7 RBC 3.40 L Hgb 10.1 L Hct 32.3 L MCV 95.0 MCH 29.7 MCHC 31.3 RDW 17.0 H Plt Count 163 MPV 9.0 L Immature Gran % (Auto) 0.6 H Neut % (Auto) 62.3 Lymph % (Auto) 15.5 L [place] % (Auto) 11.3 H Eos % (Auto) 9.7 H Baso % (Auto) 0.6 Lymph # (Auto) 1.0 L [place] # (Auto) 0.8 Eos # (Auto) 0.7 H Baso # (Auto) 0.0 Abs Immat Gran (auto) 0.04 H Absolute Neuts (auto) 4.2 Absolute Nucleated RBC 0.000 Nucleated RBC % (auto) 0.0 Sodium Potassium Chloride Carbon Dioxide Anion Gap BUN Creatinine Estim Creat Clear Calc Estimated GFR POC Glucose 143 H 104 Random Glucose Calcium 02/09/21 02/09/21 02/09/21 05:51 07:06 11:34 WBC RBC Hgb Hct MCV MCH MCHC RDW Plt Count MPV Immature Gran % (Auto) Neut % (Auto) Lymph % (Auto) [place] % (Auto) Eos % (Auto) Baso % (Auto) Lymph # (Auto) [place] # (Auto) Eos # (Auto) Baso # (Auto) Abs Immat Gran (auto) Absolute Neuts (auto) Absolute Nucleated RBC Nucleated RBC % (auto) Sodium 133 L Potassium 4.1 Chloride 99 Carbon Dioxide 23 Anion Gap 15 BUN 24 H D Creatinine 4.93 H* Estim Creat Clear Calc 11.1 Estimated GFR 9 POC Glucose 163 H 142 H Random Glucose 161 H Calcium 8.2 L D Procedures Date of Service Date of Service: 02/09/21 Assessment & Plan Assessment and plan (1) End stage renal disease on dialysis: Status: Acute Assessment and Plan: Usually gets HD on TTS Due HD tomorrow Renal Diet; Phos binders with meals Volume optimization on HD Could add Metoprolol 25 mg bid(& D/C hydralazine) Continue Nifedipine and losartan May have to reduce dry weight further COuld be D/Darren from a renal perspective Shall arrange HD in hospital tomorrow if she is staying Time Spent With Patient Time: Total time spent is greater than 50% in coordination of care (as documented) at patient's floor/unit and/or counseling patient: Progress Note: Quality Stroke Does the patient have a stroke diagnosis?: No
--- NOTE | 2021-02-09 13:50 | PM.DS ---
DS: Providers Provider Date of Service: 02/09/21 <SHE Sol - Last Filed: 02/09/21 14:03> Date of admission: 02/08/21 13:17 <SHE Sol - Last Filed: 02/09/21 14:03> Date of discharge: 02/09/21 <SHE Sol - Last Filed: 02/09/21 14:03> Primary care physician: Shelia Jung MD <SHE Sol - Last Filed: 02/09/21 14:03> Consults: 02/08/21 13:21 Consult to Nephrology Routine Consulting Provider: Tim Mckeon Reason for consultation: esrd on hd; missed HD; uncontrolled HTN <SHE Sol - Last Filed: 02/09/21 14:03> Attending physician on discharge: Donald Pizarro <SHE Sol - Last Filed: 02/09/21 14:03> Discharging clinician: Radha Best <SHE Sol - Last Filed: 02/09/21 14:03> DS: Diagnosis Discharge Diagnosis (1) End stage renal disease on dialysis: (2) Uncontrolled hypertension: Status: Acute <SHE Sol - Last Filed: 02/09/21 14:03> (3) Chest pain: Status: Resolved <SHE Sol - Last Filed: 02/09/21 14:03> DS: Summary Hospital Course Hospital Course: From H&P on day of admission This is a 65-year-old female with history of end-stage renal disease on hemodialysis who presents to the emergency department with chest pain.? Patient woke up this morning around 230 the COVID about.? At that time she noticed central chest pressure with associated shortness of breath.? She checked her blood pressure and noted that it was elevated over 200. She repeated her blood pressure again to make sure it was accurate and continued to be over 200. She called 911 and was brought to the emergency department for evaluation.? EN route to the hospital she received 2 doses of sublingual nitro with resolution of her chest pain after the 2nd dose.? On arrival in the emergency department was initially 185/88 but trended back up to 207/101 and she received a dose of nitropaste. Her chest pain has not returned but she continues to complain of shortness of breath.? She denies any associated cough, fever, chills.? Chest x-ray showed small right and trace left pleural effusions.? Pulmonary venous congestion and mild interstitial edema.? She had full dialysis on Friday but did not present to dialysis today as she was in the emergency room.? She will be admitted for further management of uncontrolled hypertension.? Her case was discussed with the breaking machine operator who will schedule her for dialysis today. Chest pain Likely secondary to missing dialysis/uncontrolled hypertension. Cardiac enzymes were checked and were flat. EKG showed no acute ischemic changes. Chest pain had resolved by admission and has not returned. Uncontrolled hypertension Blood pressure on arrival was 185/88 and increased to 207/101. She was initially treated with nitro paste. She had not taken her home blood pressure medications, so her home dose of nifedipine and losartan were resumed. Her blood pressure continued to be elevated and metoprolol 25 mg b.i.d. will be added to her regimen. ESRD Patient missed her regularly scheduled dialysis session due to being in the emergency department. She underwent dialysis yesterday. Upon discharge she should resume her regular dialysis schedule. <SHE Sol - Last Filed: 02/09/21 14:03> Time Spent with Patient Time attestation: Total time spent providing and/or coordinating discharge services: <SHE Sol - Last Filed: 02/09/21 14:03> Discharge coordination time: Greater than 30 minutes <SHE Sol - Last Filed: 02/09/21 14:03> Quality: Stroke Does the patient have a stroke diagnosis?: No <SHE Sol - Last Filed: 02/09/21 14:03> Physical Exam Vital Signs: Vital Signs: Last Vital Signs Temp 97.8 F 02/09/21 11:54 Pulse 77 02/09/21 11:54 Resp 18 02/09/21 11:54 BP 146/70 H 02/09/21 11:54 Pulse Ox 95 02/09/21 11:54 Body Mass Index 26.4 <SHE Sol - Last Filed: 02/09/21 14:03> Const: General: healthy appearing, comfortable, no acute distress, alert and awake <SHE Sol - Last Filed: 02/09/21 14:03> Nutritional Appearance: well nourished <SHE Sol - Last Filed: 02/09/21 14:03> Orientation/consciousness: patient oriented x3 <SHE Sol - Last Filed: 02/09/21 14:03> HENMT: Head: Yes normocephalic and Yes atraumatic <SHE Sol - Last Filed: 02/09/21 14:03> Eyes: Sclerae: sclerae normal <SHE Sol - Last Filed: 02/09/21 14:03> Resp: Effort & Inspection: no respiratory distress and tachypneic <SHE Sol - Last Filed: 02/09/21 14:03> Auscultation: diminished lung sounds <SHE Sol - Last Filed: 02/09/21 14:03> Cardio: Rate: regular rate <SHE Sol - Last Filed: 02/09/21 14:03> Rhythm: regular rhythm <SHE Sol - Last Filed: 02/09/21 14:03> Heart sounds: Murmur heart sound present systolic <SHE Sol - Last Filed: 02/09/21 14:03> GI: Palpation (GI): Soft to palpation and nontender <SHE Sol - Last Filed: 02/09/21 14:03> Neuro: General: patient oriented x3 <SHE Sol - Last Filed: 02/09/21 14:03> Cranial nerves: Yes CN's II-XII intact bilaterally and Yes Bilaterally intact EOM present <SHE Sol - Last Filed: 02/09/21 14:03> DS: Data Data Completed and Pending Completed studies during hospitalization [Text1]: Procedures Performance of Urinary Filtration, Intermittent, Less than 6 Hours Per Day (07/19/20) <SHE Sol - Last Filed: 02/09/21 14:03> Labs on day of discharge: Laboratory Results - last 24 hr 02/08/21 02/08/21 02/09/21 17:39 21:20 05:51 WBC 6.7 RBC 3.40 L Hgb 10.1 L Hct 32.3 L MCV 95.0 MCH 29.7 MCHC 31.3 RDW 17.0 H Plt Count 163 MPV 9.0 L Immature Gran % (Auto) 0.6 H Neut % (Auto) 62.3 Lymph % (Auto) 15.5 L [place] % (Auto) 11.3 H Eos % (Auto) 9.7 H Baso % (Auto) 0.6 Lymph # (Auto) 1.0 L [place] # (Auto) 0.8 Eos # (Auto) 0.7 H Baso # (Auto) 0.0 Abs Immat Gran (auto) 0.04 H Absolute Neuts (auto) 4.2 Absolute Nucleated RBC 0.000 Nucleated RBC % (auto) 0.0 Sodium Potassium Chloride Carbon Dioxide Anion Gap BUN Creatinine Estim Creat Clear Calc Estimated GFR POC Glucose 143 H 104 Random Glucose Calcium 02/09/21 02/09/21 02/09/21 05:51 07:06 11:34 WBC RBC Hgb Hct MCV MCH MCHC RDW Plt Count MPV Immature Gran % (Auto) Neut % (Auto) Lymph % (Auto) [place] % (Auto) Eos % (Auto) Baso % (Auto) Lymph # (Auto) [place] # (Auto) Eos # (Auto) Baso # (Auto) Abs Immat Gran (auto) Absolute Neuts (auto) Absolute Nucleated RBC Nucleated RBC % (auto) Sodium 133 L Potassium 4.1 Chloride 99 Carbon Dioxide 23 Anion Gap 15 BUN 24 H D Creatinine 4.93 H* Estim Creat Clear Calc 11.1 Estimated GFR 9 POC Glucose 163 H 142 H Random Glucose 161 H Calcium 8.2 L D <SHE Sol - Last Filed: 02/09/21 14:03> Discharge Plan Discharge Patient Disposition: Home, Self-Care <SHE Sol - Last Filed: 02/09/21 14:03> Discharge Diagnosis: Uncontrolled hypertension Chest pain <SHE Sol - Last Filed: 02/09/21 14:03> Uncontrolled hypertension Chest pain <Donald Pizarro MD - Last Filed: 03/03/21 16:22> Referrals: Shelia Jung MD [Primary Care Provider] - 2 days <SHE Sol - Last Filed: 02/09/21 14:03> Discharge Medications: New metoprolol tartrate 25 mg tablet 25 mg PO BID 30 Days Qty: 60 RF: 0 Continued atorvastatin 40 mg tablet 40 mg PO BEDTIME RF: 0 venlafaxine 37.5 mg capsule,extended release 24hr 37.5 mg PO DAILY RF: 0 ammonium lactate 12 % lotion 1 appl topical BID RF: 0 gabapentin 100 mg capsule 100 mg PO DAILY RF: 0 gabapentin 100 mg Capsule 200 mg PO BEDTIME RF: 0 lorazepam 1 mg tablet 1 mg PO 3XW RF: 0 zolpidem 10 mg tablet 10 mg PO BEDTIME PRN (Reason: insomnia) RF: 0 loratadine 10 mg tablet 10 mg PO DAILY RF: 0 Velphoro 500 mg tablet,chewable 500 mg PO BID@0700,1200 RF: 0 pioglitazone 45 mg tablet 1 tab PO DAILY RF: 0 cephalexin 500 mg capsule 1 cap PO BID RF: 0 nifedipine 60 mg tablet extended release 60 mg PO BID RF: 0 losartan 100 mg tablet 1 tab PO DAILY RF: 0 Velphoro 500 mg tablet,chewable 1,000 mg PO DAILY@1700 RF: 0 Discontinued acetaminophen 325 mg Tablet 650 mg PO Q6H PRN (Reason: Pain) RF: 0 <SHE Sol - Last Filed: 02/09/21 14:03> Discharge Orders: Discharge Order (Routine); Ordered 02/09/21 Ordered By: Radha Best <SHE Sol - Last Filed: 02/09/21 14:03> Activity on Discharge: As tolerated <SHE Sol - Last Filed: 02/09/21 14:03> As tolerated <Donald Pizarro MD - Last Filed: 03/03/21 16:22> Stand Alone Forms: Patient Portal Discharge page <SHE Sol - Last Filed: 02/09/21 14:03> Care Plan Goals: See below <SHE Sol - Last Filed: 02/09/21 14:03> Health Concerns: Uncontrolled hypertension Chest pain <SHE Sol - Last Filed: 02/09/21 14:03> Plan of Treatment: A new medication called metoprolol has been added to help control your blood pressure. Please take as prescribed Continue dialysis as scheduled Call to schedule a follow-up appointment with your PCP for close blood pressure monitoring <SHE Sol - Last Filed: 02/09/21 14:03> Assessment: See discharge summary I saw patient and discussed finding with midlevel provider and i agree with the above <SHE Sol - Last Filed: 02/09/21 14:03> Patient Instructions: End Stage Kidney Disease (ED) <SHE Sol - Last Filed: 02/09/21 14:03> Discharge Date/Time: 02/09/21 17:57 <SHE Sol - Last Filed: 02/09/21 14:03>
[2021-02-09 16:12] LABS: Glucose, Whole Blood 172 mg/dL (60-115)
== END 2021-02-09 17:57 | disposition home or self-care (01) | DRG 682 ==
LOC: HO.ED 11:43 → HO.EDOVER 13:31 → HO.IMC 18:55
PROVIDERS: Admitting Provider Physician Assistant Medical; Emergency Provider Emergency Medicine; PCP Pediatrics; Visit Provider Physician Assistant Medical
DX: I12.0 Hypertensive chronic kidney disease with stage 5 chronic kidney disease or end stage renal disease (principal); N18.6 End stage renal disease; E11.22 Type 2 diabetes mellitus with diabetic chronic kidney disease; E78.5 Hyperlipidemia, unspecified; E11.42 Type 2 diabetes mellitus with diabetic polyneuropathy; F39 Unspecified mood [affective] disorder; Z91.15 Patient's noncompliance with renal dialysis; Z99.2 Dependence on renal dialysis; Z79.899 Other long term (current) drug therapy
CPT/HCPCS: 36415; 71045; 80048; 80053; 82947; 84484; 85025; 90999; 93005; 99285

== ENCOUNTER 2021-04-08 08:13 | Inpatient (IN) | payer OTHER, SELFPAY ==
--- NOTE | ~2021-04-08 | XR_ITS ---
EXAMINATION: XR CHEST CLINICAL INFORMATION: Cough COMPARISON: Multiple prior examinations including recent chest x-ray 02/08/2021 TECHNIQUE: Frontal view of the chest was obtained. FINDINGS: Vascular stents noted in the region of the left subclavian and brachiocephalic veins unchanged. Lungs and pleural spaces: Bibasilar opacities unchanged. Concomitant small right pleural effusion unchanged. Concomitant mild increased interstitial markings bilaterally unchanged The cardiomediastinal silhouette normal. XR/XR chest 1V IMPRESSION: Stable appearance of the lungs with bibasilar opacities and right pleural effusions unchanged compared with x-ray 02/08/2021. Possible pneumonia Mild increased interstitial markings raise the question mild edema
[2021-04-08 08:18] VITALS: BP 194/79; PULSE 91; RESP 28; TEMP 36.9; O2SAT 96; BMI 25.7
--- NOTE | 2021-04-08 08:29 | ECG_ITS ---
Test Reason : UPPER RESP Blood Pressure : / mmHG Vent. Rate : 087 BPM Atrial Rate : 087 BPM P-R Int : 158 ms QRS Dur : 094 ms QT Int : 390 ms P-R-T Axes : 046 018 052 degrees QTc Int : 469 ms Normal sinus rhythm Possible Left atrial enlargement Borderline ECG When compared with ECG of 08-FEB-2021 04:57, No significant change was found Referred By: Generic ED Physician Electronically Signed By:CHRISTIN CAMPBELL MD
--- NOTE | 2021-04-08 08:57 | ED_ITS ---
HPI - SOB/Dyspnea General Chief Complaint: Upper Respiratory Symptoms Stated Complaint: ? COVID, SOB W/EXER,COUGH W/CP,FULL VACC PER EMS Time Seen by Provider: 04/08/21 08:54 Source: patient Mode of arrival: EMS Limitations: no limitations History of Present Illness HPI Narrative: This is 65 years old the female with history of chronic renal failure on peritoneal dialysis presented to the emergency department complaining of shortness of breath since last night, he was found hypoxic by the extrusion former a pleasant on O2 she was also was experiences chest pain MD elicited complaint: shortness of breath Pertinent past history: other (Chronic renal failure) Onset (ago): day(s) (1) Timing: constant Severity: moderate Exacerbating factors: nothing Relieving factors: nothing Associated symptoms: denies other symptoms Related Data Home Medications Medication Instructions Recorded Confirmed atorvastatin 40 mg tablet 40 mg PO BEDTIME 05/11/20 04/08/21 gabapentin 100 mg capsule 100 mg PO DAILY 05/11/20 04/08/21 gabapentin 100 mg capsule 200 mg PO BEDTIME 05/11/20 04/08/21 loratadine 10 mg tablet 10 mg PO DAILY 05/11/20 04/08/21 sucroferric oxyhydroxide 500 mg 500 mg PO BID@0700,1200 05/11/20 04/08/21 chewable tablet (Velphoro) venlafaxine 37.5 mg 37.5 mg PO DAILY 05/11/20 04/08/21 capsule,extended release 24 hr zolpidem 10 mg tablet 10 mg PO BEDTIME PRN 05/11/20 04/08/21 nifedipine 60 mg tablet,extended 60 mg PO BID 02/08/21 04/08/21 release pioglitazone 45 mg tablet 1 tab PO DAILY 02/08/21 04/08/21 sucroferric oxyhydroxide 500 mg 1,000 mg PO DAILY@1700 02/08/21 04/08/21 chewable tablet (Velphoro) lorazepam 1 mg tablet 1 tab PO DAILY PRN 04/08/21 04/08/21 losartan 25 mg tablet 1 tab PO DAILY 04/08/21 04/08/21 Previous Rx's Medication Instructions Recorded metoprolol tartrate 25 mg tablet 25 mg PO BID 30 Days #60 tab 02/09/21 Allergies Allergy/AdvReac Type Severity Reaction Status Date / Time ROXI Inhibitors Allergy Unknown UNKNOWN Verified 05/10/20 21:35 [ROXI INHIBITORS] Review of Systems Review of Systems: Yes all other systems are reviewed and are negative Cardiovascular: Cardiovascular: Reports dyspnea Respiratory: Respiratory: Reports dyspnea Endocrine: Endocrine: Reports no additional endocrine complaints [facility] Past Medical History Medical History Diabetes End stage renal disease on dialysis Hypertension Renal failure Sinus, maxillary, carcinoma Social History Social History Household Members: None Household Members Other:: patient lives alone, recently lost brand 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 services provided by daughter Housing: Apartment Do you presently have visiting nurse or other home services: No (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) Alcohol intake: never Patient Tobacco Use Status: Never used Tobacco Second Hand Smoke Exposure: No Advance Directives: No Advance Directives Information Provided: No Patient : No service: No Current occupational status: disabled Physical Exam Vital Signs: Vital Signs: Last Vital Signs Temp 98.4 F 04/08/21 08:18 Pulse 79 04/08/21 10:46 Resp 20 04/08/21 10:46 BP 206/94 H 04/08/21 10:46 Pulse Ox 97 04/08/21 10:46 Oxygen Flow Rate 2 04/08/21 08:18 BMI result Body Mass Index 25.7 Const: General: cooperative Nutritional Appearance: average body habitus Orientation/consciousness: patient oriented x3 Limitations: no limitations HENMT: Head: Yes normal to inspection Ears: TM's normal bilaterally Face and sinus: Yes normal facial exam Mouth: Normal oral and palatal mucosa present Neck: Neck: Yes normal visual inspection and Yes full ROM Thyroid: Thyroid normal Carotids: normal carotid upstroke Chest: Chest palpation & inspection: normal inspection of the chest Resp: Effort & Inspection: normal respiratory effort Auscultation: rhonchi Cardio: Rate: regular rate Rhythm: regular rhythm GI: Inspection: Yes normal to inspection Palpation (GI): Soft to palpation, not firm and nontender : General: Yes no CVA tenderness Back/Spine/Pelvis: Back: no CVA tenderness Skin: General skin exam: no rashes or lesions noted and elasticity normal Rashes: no rashes Neuro: General: patient oriented x3 Course Course Course Narrative: K noted given dextrose and insulin,spoke with renal they will do dyalisis now Reevaluation(s) Reevaluation #1: pt will be dyalized this AM MDM - SOB/Dyspnea Lab Data Result diagrams: 04/08/21 09:22 04/08/21 10:57 Labs: Lab Results 04/08/21 04/08/21 04/08/21 Range/Units 09:14 09:22 09:22 WBC 8.2 (4.8-10.8) X10*3/uL RBC 2.71 L D (4.20-5.50) X10*6/uL Hgb 8.7 L (12.0-16.0) g/dl Hct 27.4 L (37.0-47.0) % MCV 101.1 H (80.0-98.0) fL MCH 32.1 (27.0-33.0) pg MCHC 31.8 (31.0-35.0) g/dl RDW 18.3 H (11.0-16.0) % Plt Count 156 L (160-400) X10*3/uL MPV 9.5 (9.4-12.3) fL Immature Gran % (Auto) 0.6 H (0.0-0.4) % Neut % (Auto) 68.6 (45-73) % Lymph % (Auto) 11.4 L (20-40) % [place] % (Auto) 10.8 (2-11) % Eos % (Auto) 8.1 H (0-4) % Baso % (Auto) 0.5 (0-2) % Lymph # (Auto) 0.9 L (1.2-4.9) X10*3/uL [place] # (Auto) 0.9 (0.1-1.2) X10*3/uL Eos # (Auto) 0.7 H (0.0-0.4) X10*3/uL Baso # (Auto) 0.0 (0.0-0.2) X10*3/uL Abs Immat Gran (auto) 0.05 H (0.00-0.03) X10*3/uL Absolute Neuts (auto) 5.6 (2.0-8.3) x10*3/uL Absolute Nucleated RBC 0.000 (0.0-0.012) X10*3/uL Nucleated RBC % (auto) 0.0 (0.0-0.2) /100WBC PT (9.9-13.0) SEC INR (0.9-1.1) Sodium 134 L (135-145) mmol/L Potassium 6.9 H* D (3.3-5.1) mmol/L Chloride 94 L (96-108) mmol/L Carbon Dioxide 24 (22-29) mmol/L Anion Gap 23 H (12-20) BUN 106 H (9-16) mg/dL Creatinine 12.20 H* (0.5-1.4) mg/dL Estim Creat Clear Calc 4.4 Estimated GFR 3 POC Glucose (60-115) mg/dL Random Glucose 157 H (60-115) mg/dL Calcium 8.9 D (8.4-10.2) mg/dL Total Bilirubin 0.7 (0.0-1.0) mg/dL AST 27 (5-31) U/L ALT 14 (0-31) U/L Alkaline Phosphatase 140 H (39-117) U/L Troponin I High Sens (<3.5-17.0) ng/L B-Natriuretic Peptide (<100) pg/mL Total Protein 7.3 (6.5-8.0) g/dL Albumin 3.5 (3.5-5.0) g/dL COVID-19 (AJAY) Negative (Negative) COVID-19 Clin Com See Note 04/08/21 04/08/21 04/08/21 Range/Units 09:22 09:22 09:22 WBC (4.8-10.8) X10*3/uL RBC (4.20-5.50) X10*6/uL Hgb (12.0-16.0) g/dl Hct (37.0-47.0) % MCV (80.0-98.0) fL MCH (27.0-33.0) pg MCHC (31.0-35.0) g/dl RDW (11.0-16.0) % Plt Count (160-400) X10*3/uL MPV (9.4-12.3) fL Immature Gran % (Auto) (0.0-0.4) % Neut % (Auto) (45-73) % Lymph % (Auto) (20-40) % [place] % (Auto) (2-11) % Eos % (Auto) (0-4) % Baso % (Auto) (0-2) % Lymph # (Auto) (1.2-4.9) X10*3/uL [place] # (Auto) (0.1-1.2) X10*3/uL Eos # (Auto) (0.0-0.4) X10*3/uL Baso # (Auto) (0.0-0.2) X10*3/uL Abs Immat Gran (auto) (0.00-0.03) X10*3/uL Absolute Neuts (auto) (2.0-8.3) x10*3/uL Absolute Nucleated RBC (0.0-0.012) X10*3/uL Nucleated RBC % (auto) (0.0-0.2) /100WBC PT 11.6 (9.9-13.0) SEC INR 1.0 (0.9-1.1) Sodium (135-145) mmol/L Potassium (3.3-5.1) mmol/L Chloride (96-108) mmol/L Carbon Dioxide (22-29) mmol/L Anion Gap (12-20) BUN (9-16) mg/dL Creatinine (0.5-1.4) mg/dL Estim Creat Clear Calc Estimated GFR POC Glucose (60-115) mg/dL Random Glucose (60-115) mg/dL Calcium (8.4-10.2) mg/dL Total Bilirubin (0.0-1.0) mg/dL AST (5-31) U/L ALT (0-31) U/L Alkaline Phosphatase (39-117) U/L Troponin I High Sens 10.5 (<3.5-17.0) ng/L B-Natriuretic Peptide 1499 H Cancelled (<100) pg/mL Total Protein (6.5-8.0) g/dL Albumin (3.5-5.0) g/dL COVID-19 (AJAY) (Negative) COVID-19 Clin Com 04/08/21 04/08/21 Range/Units 10:51 10:57 WBC (4.8-10.8) X10*3/uL RBC (4.20-5.50) X10*6/uL Hgb (12.0-16.0) g/dl Hct (37.0-47.0) % MCV (80.0-98.0) fL MCH (27.0-33.0) pg MCHC (31.0-35.0) g/dl RDW (11.0-16.0) % Plt Count (160-400) X10*3/uL MPV (9.4-12.3) fL Immature Gran % (Auto) (0.0-0.4) % Neut % (Auto) (45-73) % Lymph % (Auto) (20-40) % [place] % (Auto) (2-11) % Eos % (Auto) (0-4) % Baso % (Auto) (0-2) % Lymph # (Auto) (1.2-4.9) X10*3/uL [place] # (Auto) (0.1-1.2) X10*3/uL Eos # (Auto) (0.0-0.4) X10*3/uL Baso # (Auto) (0.0-0.2) X10*3/uL Abs Immat Gran (auto) (0.00-0.03) X10*3/uL Absolute Neuts (auto) (2.0-8.3) x10*3/uL Absolute Nucleated RBC (0.0-0.012) X10*3/uL Nucleated RBC % (auto) (0.0-0.2) /100WBC PT (9.9-13.0) SEC INR (0.9-1.1) Sodium (135-145) mmol/L Potassium 5.9 H (3.3-5.1) mmol/L Chloride (96-108) mmol/L Carbon Dioxide (22-29) mmol/L Anion Gap (12-20) BUN (9-16) mg/dL Creatinine (0.5-1.4) mg/dL Estim Creat Clear Calc Estimated GFR POC Glucose 173 H (60-115) mg/dL Random Glucose (60-115) mg/dL Calcium (8.4-10.2) mg/dL Total Bilirubin (0.0-1.0) mg/dL AST (5-31) U/L ALT (0-31) U/L Alkaline Phosphatase (39-117) U/L Troponin I High Sens (<3.5-17.0) ng/L B-Natriuretic Peptide (<100) pg/mL Total Protein (6.5-8.0) g/dL Albumin (3.5-5.0) g/dL COVID-19 (AJAY) (Negative) COVID-19 Clin Com Imaging Data Chest x-ray: Radiologist's impression: ed. FINDINGS: Vascular stents noted in the region of the left subclavian and brachiocephalic veins unchanged. Lungs and pleural spaces: Bibasilar opacities unchanged. Concomitant small right pleural effusion unchanged. Concomitant mild increased interstitial markings bilaterally unchanged The cardiomediastinal silhouette normal. XR/XR chest 1V IMPRESSION: Stable appearance of the lungs with bibasilar opacities and right pleural effusions unchanged compared with x-ray 02/08/2021. Possible pneumonia ? Mild increased interstitial markings raise the question mild edema ? Dictated By: ABDIRIZAK GRACE MD Signed By: <Electronically signed by ABDIRIZAK GRACE MD in OV> 04/08/21 0932 ECG Data Attestation: I personally reviewed and interpreted this ECG as follows: ECG interpretation date: 04/08/21 Pacemaker model: Normal sinus rhythm a rate 87 ST-T segment isoelectric Critical Care Time Critical Care Time Critical Care Time: Yes Total Critical Care Time: 30 Attestation: elevated K ,given IV dextrose/insulin Discharge Plan Discharge Clinical Impression: Acute dyspnea, Acute hyperkalemia, Renal failure (ARF), acute on chronic Patient Disposition: Admitted As Inpatient
[2021-04-08 09:27] LABS: MANUAL DIFF FLAG NO
[2021-04-08 09:33] LABS: Basophils Percent Auto 0.5 % (0-2); Eosinophils Absolute Auto 0.7 X10*3/uL (0.0-0.4); Eosinophils Percent Auto 8.1 % (0-4); Hematocrit 27.4 % (37.0-47.0); Hemoglobin 8.7 g/dl (12.0-16.0); Imm Gran Abs Auto 0.05 X10*3/uL (0.00-0.03); Imm Gran Pct Auto 0.6 % (0.0-0.4); Lymphocytes Absolute Auto 0.9 X10*3/uL (1.2-4.9); Lymphocytes Percent Auto 11.4 % (20-40); Mean Corpuscular HGB Conc 31.8 g/dl (31.0-35.0); Mean Corpuscular Hemoglobin 32.1 pg (27.0-33.0); Mean Corpuscular Volume 101.1 fL (80.0-98.0); Mean Platelet Volume 9.5 fL (9.4-12.3); Monocytes Absolute Auto 0.9 X10*3/uL (0.1-1.2); Monocytes Percent Auto 10.8 % (2-11); Neutrophils Absolute Auto 5.6 x10*3/uL (2.0-8.3); Neutrophils Percent Auto 68.6 % (45-73); Platelet Count 156 X10*3/uL (160-400); Red Blood Count 2.71 X10*6/uL (4.20-5.50); Red Cell Distribution Width 18.3 % (11.0-16.0); White Blood Count 8.2 X10*3/uL (4.8-10.8)
[2021-04-08 09:35] LABS: Prothrombin Time 11.6 SEC (9.9-13.0)
[2021-04-08 09:45] LABS: COVID-19 Test Negative (Negative)
[2021-04-08 09:49] LABS: B Type Natriuretic Peptide 1499 pg/mL (<100); Troponin-I High Sensitivity 10.5 ng/L (<3.5-17.0)
[2021-04-08 10:00] LABS: Alanine Aminotransferase 14 U/L (0-31); Albumin Level 3.5 g/dL (3.5-5.0); Alkaline Phosphatase 140 U/L (39-117); Anion Gap 23 (12-20); Aspartate Amino Transferase 27 U/L (5-31); Bilirubin Total 0.7 mg/dL (0.0-1.0); Blood Urea Nitrogen 106 mg/dL (9-16); Calcium 8.9 mg/dL (8.4-10.2); Carbon Dioxide 24 mmol/L (22-29); Chloride 94 mmol/L (96-108); Creatinine Clr Calc Pharmacy 4.4; Estimated Glomerular Filt Rate 3; Glucose Random 157 mg/dL (60-115); Potassium 6.9 mmol/L (3.3-5.1); Sodium 134 mmol/L (135-145); Total Protein 7.3 g/dL (6.5-8.0)
[2021-04-08] MEDS: Sodium Polystyrene Sulfon/Sorb 15 GM/60 ML ORAL.SUSP 30 GM PO (10:08)
[2021-04-08] MEDS: Insulin Regular, Human 100 UNIT/ML 3 ML VIAL 10 UNIT IVPUSH (10:18)
[2021-04-08] MEDS: Nitroglycerin 2 % Oint 1 GM Packet 1 INCH TRANSDERMA (10:45)
[2021-04-08 10:46] VITALS: BP 206/94; PULSE 79; RESP 20; O2SAT 97
[2021-04-08] MEDS: Furosemide 40 MG/4 ML VIAL IVPUSH (10:46)
[2021-04-08 10:55] LABS: Glucose, Whole Blood 173 mg/dL (60-115)
[2021-04-08 11:28] LABS: Potassium 5.9 mmol/L (3.3-5.1)
--- NOTE | 2021-04-08 12:07 | P.CONNP_ITS ---
History of Present Illness Reason for Consult Consult date: 04/08/21 Chief Complaint Chief complaint: sob,chest pain History of Present Illness Narrative: 65 years old the female with history of chronic renal failure on peritoneal dialysis presented to the emergency department complaining of shortness of breath since last night, he was found hypoxic by the site interpreter a pleasant on O2 she was also was experiences chest pain She undergoes PD at home.Used to be on HD via AVF On admission, she had hyperkalemia CXR shows mild fludi overload Review of Systems Constitutional: Denies anorexia and Reports fever(s) Cardiovascular: Denies Abdominal Distension and Denies chest pain Respiratory: Reports cough and Denies hemoptysis Gastrointestinal: Denies bloating and Denies change in bowel habits Genitourinary: Denies hematuria Musculoskeletal: Denies arthralgias Denies confusion and Denies focal weakness Psychiatric: Denies confusion PMFSH Past Medical History Medical History Diabetes End stage renal disease on dialysis Hypertension Renal failure Sinus, maxillary, carcinoma Social History Social History Household Members: None Household Members Other:: patient lives alone, 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 services provided by daughter Housing: Apartment Do you presently have visiting nurse or other home services: No Alcohol intake: never Patient Tobacco Use Status: Never used Tobacco Second Hand Smoke Exposure: No service: No Current occupational status: disabled Meds Allergies Allergy/AdvReac Type Severity Reaction Status Date / Time ROXI Inhibitors Allergy Unknown UNKNOWN Verified 05/10/20 21:35 [ROXI INHIBITORS] Active Medications: Current Medications Pharmacy Consult (Consult Rx Perform Med Rec) 1 each MISCELLANE ONCE PRN PRN Reason: Consult order Home Medications Medication Instructions Recorded Confirmed Last Taken Type atorvastatin 40 mg tablet 40 mg PO BEDTIME 05/11/20 04/08/21 04/07/21 History gabapentin 100 mg capsule 100 mg PO DAILY 05/11/20 04/08/21 04/07/21 History gabapentin 100 mg capsule 200 mg PO BEDTIME 05/11/20 04/08/21 04/07/21 History loratadine 10 mg tablet 10 mg PO DAILY 05/11/20 04/08/21 04/07/21 History sucroferric oxyhydroxide 500 mg 500 mg PO BID@0700,1200 05/11/20 04/08/21 04/07/21 History chewable tablet (Velphoro) venlafaxine 37.5 mg 37.5 mg PO DAILY 05/11/20 04/08/21 04/07/21 History capsule,extended release 24 hr zolpidem 10 mg tablet 10 mg PO BEDTIME PRN 05/11/20 04/08/21 04/07/21 History nifedipine 60 mg tablet,extended 60 mg PO BID 02/08/21 04/08/21 04/07/21 History release pioglitazone 45 mg tablet 1 tab PO DAILY 02/08/21 04/08/21 04/07/21 History sucroferric oxyhydroxide 500 mg 1,000 mg PO DAILY@1700 02/08/21 04/08/21 04/07/21 History chewable tablet (Velphoro) lorazepam 1 mg tablet 1 tab PO DAILY PRN 04/08/21 04/08/21 Unknown History losartan 25 mg tablet 1 tab PO DAILY 04/08/21 04/08/21 04/07/21 History Physical Exam Vital Signs: Last Vital Signs Temp 98.4 F 04/08/21 08:18 Pulse 79 04/08/21 10:46 Resp 20 04/08/21 10:46 BP 206/94 H 04/08/21 10:46 Pulse Ox 97 04/08/21 10:46 Oxygen Flow Rate 2 04/08/21 08:18 BMI result Body Mass Index 25.7 Const General: No confusion Orientation/consciousness: oriented to person and No confusion Eyes General: appearance normal, both eyes and all related structures Chest Chest palpation & inspection: normal inspection of the chest Resp Effort & Inspection: normal respiratory effort Auscultation: crackles and rhonchi Cardio Jugular venous distension: no JVD Palpation: no palpable S3 Heart sounds: no rubs GI Inspection: Yes normal to inspection Palpation (GI): Soft to palpation and nontender Skin General skin exam: no rashes or lesions noted Neuro General: oriented to person, no focal motor deficits and No confusion Motor exam (neuro): no asterixis Results Lab Results Result Diagrams: 04/09/21 06:10 04/09/21 06:10 Lab results: Chemistry 04/08/21 04/08/21 09:22 10:57 Sodium 134 L Potassium 6.9 H* D 5.9 H Carbon Dioxide 24 BUN 106 H Creatinine 12.20 H* Calcium 8.9 D Hematology 04/08/21 09:22 WBC 8.2 Hgb 8.7 L Plt Count 156 L Assessment and Plan (1) Acute hyperkalemia: Status: Acute 65 yr old woman with ESRD with hyperkalemia and fluid overload Will arrange for hemodialysis to correct hyperkalemia Furtherwork up per medical team Shall follow along Procedures Date of Service Date of Service: 04/08/21
--- NOTE | 2021-04-08 13:12 | PM.IMHP ---
History of Present Illness Date of Service: 04/08/21 Chief Complaint: shortness of breath and chest pain This is a 65 yo F with a PMH of ESRD previously on HD on TTHS who is being transitioned to peritoneal dialysis, DM, HTN who presents to the hospital with complaints of shortness of breath and chest pain which began suddenly on the evening prior to arrival. Patient reports that she previously used to get hemodialysis on Tuesdays and Saturdays but began her 1st day of peritoneal dialysis at home on the day prior to arrival. She reports that she was doing fairly well with this during her to daytime sessions but she was unable to complete her nighttime session due to her chest pain and shortness of breath. She reports compliance with her antihypertensives. She reports being in her usual state of health prior to this. Upon arrival to the emergency room she was noted to have significantly elevated blood pressure over 200 systolic. She was in respiratory distress with rates in the 30s and saturations dropping to 85 on minimal movement. She was started on supplemental oxygen, IV Lasix and nitro paste with improvement in blood pressure and resolution of her chest pain. Her chemistry showed hyperkalemia for which she received Kayexalate and D50/IV insulin. Nephrology was consulted and she is starting emergent dialysis. The patient is seen examined upstairs on the dialysis unit. She reports feeling much better. She denies any chest pain or shortness of breath at this time. She is undergoing dialysis. 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) Alcohol intake: never Patient Tobacco Use Status: Never used Tobacco Second Hand Smoke Exposure: No Advance Directives: No Advance Directives Information Provided: No Patient : No service: No Current occupational status: disabled Meds Allergies Allergy/AdvReac Type Severity Reaction Status Date / Time ROXI Inhibitors Allergy Unknown UNKNOWN Verified 05/10/20 21:35 [ROXI INHIBITORS] Active Medications: Current Medications Acetaminophen (Acetaminophen 325 Mg Tablet) 650 mg PO Q6H PRN PRN Reason: Pain, Mild (Pain Scale 1-3) Heparin Sodium (Porcine) (Heparin Sodium,Porcine 5,000 Unit/Ml Vial) 5,000 unit SUBCUT Q12H [facility] Insulin Human Lispro (Insulin Lispro 100 Unit/Ml 3 Ml Vial) 0 unit SUBCUT QIDACHS [facility]; Protocol Ondansetron HCl (Ondansetron Hcl 4 Mg/2 Ml Vial) 4 mg IVPUSH Q8H PRN PRN Reason: Nausea and Vomiting Pharmacy Consult (Consult Rx Perform Med Rec) 1 each MISCELLANE ONCE PRN PRN Reason: Consult order Sodium Chloride (0.9 % Sodium Chloride Flush 3 Ml Syringe) 3 ml IVFLUSH [facility] Home Medications Medication Instructions Recorded Confirmed Last Taken Type ammonium lactate 12 % lotion 1 appl TOPICAL BID 05/11/20 02/08/21 05/09/20 History atorvastatin 40 mg tablet 40 mg PO BEDTIME 05/11/20 02/08/21 02/07/21 History gabapentin 100 mg capsule 100 mg PO DAILY 05/11/20 02/08/21 02/07/21 History gabapentin 100 mg capsule 200 mg PO BEDTIME 05/11/20 02/08/21 02/07/21 History loratadine 10 mg tablet 10 mg PO DAILY 05/11/20 02/08/21 02/07/21 History lorazepam 1 mg tablet 1 mg PO 3XW 05/11/20 02/08/21 05/09/20 History sucroferric oxyhydroxide 500 mg 500 mg PO BID@0700,1200 05/11/20 02/08/21 02/07/21 History chewable tablet (Velphoro) venlafaxine 37.5 mg 37.5 mg PO DAILY 05/11/20 02/08/21 02/07/21 History capsule,extended release 24 hr zolpidem 10 mg tablet 10 mg PO BEDTIME PRN 05/11/20 02/08/21 Unknown History nifedipine 60 mg tablet,extended 60 mg PO BID 02/08/21 02/08/21 02/07/21 History release pioglitazone 45 mg tablet 1 tab PO DAILY 02/08/21 02/08/21 02/07/21 History sucroferric oxyhydroxide 500 mg 1,000 mg PO DAILY@1700 02/08/21 02/08/21 02/07/21 History chewable tablet (Velphoro) losartan 25 mg tablet 1 tab PO DAILY 04/08/21 Unknown History Physical Exam Vital Signs and Narrative: Vital Signs: Last Vital Signs Temp 98.4 F 04/08/21 08:18 Pulse 79 04/08/21 10:46 Resp 20 04/08/21 10:46 BP 206/94 H 04/08/21 10:46 Pulse Ox 97 04/08/21 10:46 Oxygen Flow Rate 2 04/08/21 08:18 BMI result Body Mass Index 25.7 Const: Other: Constitutional - Awake and Alert, No apparent distress Eyes - PERRLA, EOMI Cardiovascular - S1S2, RRR, No edema Respiratory - Diminished sounds Gastrointestinal - NT / ND; +BS; No rebound or guarding - No CVA tenderness Extremities - no calf tenderness bilaterally, no swelling Musculoskeletal - Normal inspection, normal ROM Skin - Warm/Dry Neurological - Alert & oriented x3, No focal deficit Psychological - Appropriate affect Results Labs CBC and Chem 7: 04/08/21 09:22 04/08/21 10:57 Labs: Laboratory Results - last 24 hr 04/08/21 04/08/21 04/08/21 09:14 09:22 09:22 MCV 101.1 H MCH 32.1 MCHC 31.8 RDW 18.3 H Plt Count 156 L MPV 9.5 Immature Gran % (Auto) 0.6 H Neut % (Auto) 68.6 Lymph % (Auto) 11.4 L [place] % (Auto) 10.8 Eos % (Auto) 8.1 H Baso % (Auto) 0.5 Lymph # (Auto) 0.9 L [place] # (Auto) 0.9 Eos # (Auto) 0.7 H Baso # (Auto) 0.0 Abs Immat Gran (auto) 0.05 H Absolute Neuts (auto) 5.6 Absolute Nucleated RBC 0.000 Nucleated RBC % (auto) 0.0 PT INR Anion Gap 23 H Estim Creat Clear Calc 4.4 Estimated GFR 3 POC Glucose Random Glucose 157 H Calcium 8.9 D Total Bilirubin 0.7 AST 27 ALT 14 Alkaline Phosphatase 140 H Troponin I High Sens B-Natriuretic Peptide Total Protein 7.3 Albumin 3.5 COVID-19 (AJAY) Negative COVID-19 Clin Com See Note 04/08/21 04/08/21 04/08/21 09:22 09:22 09:22 MCV MCH MCHC RDW Plt Count MPV Immature Gran % (Auto) Neut % (Auto) Lymph % (Auto) [place] % (Auto) Eos % (Auto) Baso % (Auto) Lymph # (Auto) [place] # (Auto) Eos # (Auto) Baso # (Auto) Abs Immat Gran (auto) Absolute Neuts (auto) Absolute Nucleated RBC Nucleated RBC % (auto) PT 11.6 INR 1.0 Anion Gap Estim Creat Clear Calc Estimated GFR POC Glucose Random Glucose Calcium Total Bilirubin AST ALT Alkaline Phosphatase Troponin I High Sens 10.5 B-Natriuretic Peptide 1499 H Cancelled Total Protein Albumin COVID-19 (AJAY) COVID-19 Clin Com 04/08/21 10:51 MCV MCH MCHC RDW Plt Count MPV Immature Gran % (Auto) Neut % (Auto) Lymph % (Auto) [place] % (Auto) Eos % (Auto) Baso % (Auto) Lymph # (Auto) [place] # (Auto) Eos # (Auto) Baso # (Auto) Abs Immat Gran (auto) Absolute Neuts (auto) Absolute Nucleated RBC Nucleated RBC % (auto) PT INR Anion Gap Estim Creat Clear Calc Estimated GFR POC Glucose 173 H Random Glucose Calcium Total Bilirubin AST ALT Alkaline Phosphatase Troponin I High Sens B-Natriuretic Peptide Total Protein Albumin COVID-19 (AJAY) COVID-19 Clin Com Imaging Radiologist's Impressions: Impressions Chest X-Ray 04/08/21 09:05 IMPRESSION: Stable appearance of the lungs with bibasilar opacities and right pleural effusions unchanged compared with x-ray 02/08/2021. Possible pneumonia Mild increased interstitial markings raise the question mild edema Assessment and Plan (1) Hypertensive emergency: Status: Acute This is an 65 yo F with a PMH of ESRD on HD (TTHS previously) being transitioned to peritoneal dialysis at home who presents to the ED with sudden onset chest pain and shortness of breath. 1. Hypertensive Emergency BP in the 200s/100s Likely secondary to fluid overload from ESRD Receiving Emergent Dialysis at this time Will monitor blood pressure post fluid removal For now, continue her baseline antihpyertensives 2. ESRD with HyperK Dialysis as above nephrology consulted 3. Acute Respiratory failure with hypoxia Rates int he 30s and sats 85% on RA Due to pulmonary edema from the above 2 conditions 4. DM hold oral meds use sliding scale 5. Chest pain Resolved, likely from HTN HS trop-I 10.5 EKG without changes. Continue her baseline medications once med rec completed Full Code DVT pptx, subcut. heparin Quality Stroke Does the patient have a stroke diagnosis?: No VTE Prior VTE?: No VTE Risk Level:: Medical - moderate - high VTE Device Contraindication: Treatment Not Indicated VTE Drug Contraindication: N/A - Med Ordered
--- NOTE | 2021-04-08 14:12 | PHA.MEDREC ---
Pharmacy Consult ? Medication Reconciliation Pharmacy has completed the medication reconciliation.
[2021-04-08 16:22] VITALS: BP 186/87; PULSE 71; RESP 14; TEMP 36.4; O2SAT 100
[2021-04-08] MEDS: Heparin Sodium,Porcine 5,000 UNIT/ML VIAL 5000 UNIT SUBCUT (16:37)
[2021-04-08] MEDS: 0.9 % Sodium Chloride Flush 3 ML SYRINGE IVFLUSH ×2 (16:37→21:12)
[2021-04-08 18:12] LABS: Glucose, Whole Blood 102 mg/dL (60-115)
[2021-04-08 20:00] VITALS: BP 202/90; PULSE 72; RESP 17; TEMP 36.7; O2SAT 100
[2021-04-08 21:08] VITALS: BP 202/90; PULSE 72
[2021-04-08] MEDS: Atorvastatin Calcium 40 MG TABLET PO (21:08)
[2021-04-08] MEDS: Metoprolol Tartrate 25 MG TABLET PO (21:08)
[2021-04-08] MEDS: NIFEdipine ER 60 MG TAB.ER.24 PO (21:08)
[2021-04-08] MEDS: Gabapentin 100 MG CAPSULE 200 MG PO (21:08)
[2021-04-08] MEDS: ondansetron HCL 4 MG/2 ML VIAL IVPUSH (21:12)
[2021-04-08 21:13] LABS: Glucose, Whole Blood 104 mg/dL (60-115)
[2021-04-09] VITALS: BP 178/79; PULSE 72; RESP 17; TEMP 36.5; O2SAT 95
[2021-04-09] MEDS: Heparin Sodium,Porcine 5,000 UNIT/ML VIAL 5000 UNIT SUBCUT ×2 (00:20→12:37)
[2021-04-09 04:00] VITALS: BP 171/77; PULSE 68; RESP 17; TEMP 36.6; O2SAT 96
[2021-04-09 06:43] LABS: MANUAL DIFF FLAG NO
[2021-04-09 06:47] LABS: Basophils Percent Auto 0.5 % (0-2); Eosinophils Absolute Auto 0.5 X10*3/uL (0.0-0.4); Eosinophils Percent Auto 9.7 % (0-4); Hemoglobin 8.1 g/dl (12.0-16.0); Imm Gran Abs Auto 0.03 X10*3/uL (0.00-0.03); Imm Gran Pct Auto 0.5 % (0.0-0.4); Lymphocytes Absolute Auto 0.9 X10*3/uL (1.2-4.9); Lymphocytes Percent Auto 16.1 % (20-40); Mean Corpuscular HGB Conc 31.2 g/dl (31.0-35.0); Mean Corpuscular Hemoglobin 31.9 pg (27.0-33.0); Mean Corpuscular Volume 102.4 fL (80.0-98.0); Mean Platelet Volume 9.7 fL (9.4-12.3); Monocytes Absolute Auto 0.7 X10*3/uL (0.1-1.2); Monocytes Percent Auto 13.4 % (2-11); Neutrophils Absolute Auto 3.3 x10*3/uL (2.0-8.3); Neutrophils Percent Auto 59.8 % (45-73); Platelet Count 151 X10*3/uL (160-400); Red Blood Count 2.54 X10*6/uL (4.20-5.50); Red Cell Distribution Width 17.5 % (11.0-16.0); White Blood Count 5.5 X10*3/uL (4.8-10.8)
[2021-04-09 07:13] LABS: Anion Gap 15 (12-20); Blood Urea Nitrogen 40 mg/dL (9-16); Calcium 8.3 mg/dL (8.4-10.2); Carbon Dioxide 28 mmol/L (22-29); Chloride 96 mmol/L (96-108); Creatinine Clr Calc Pharmacy 8.1; Estimated Glomerular Filt Rate 6; Glucose Random 106 mg/dL (60-115); Potassium 4.7 mmol/L (3.3-5.1); Sodium 134 mmol/L (135-145)
[2021-04-09 08:00] VITALS: BP 166/75; PULSE 73; RESP 17; TEMP 36.4; O2SAT 90
[2021-04-09] MEDS: 0.9 % Sodium Chloride Flush 3 ML SYRINGE IVFLUSH (09:17)
[2021-04-09 09:18] VITALS: BP 166/75; PULSE 73
[2021-04-09] MEDS: NIFEdipine ER 60 MG TAB.ER.24 PO (09:18)
[2021-04-09] MEDS: Venlafaxine HCl ER 37.5 MG CAP.ER.24H PO (09:18)
[2021-04-09] MEDS: Metoprolol Tartrate 25 MG TABLET PO (09:19)
[2021-04-09] MEDS: Gabapentin 100 MG CAPSULE PO (09:19)
[2021-04-09] MEDS: Losartan Potassium 25 MG TABLET PO (09:19)
--- NOTE | 2021-04-09 11:11 | P.PNIM_ITS ---
Subjective Subjective Date of Service: 04/09/21 Review of Systems Follow up acute respiratory failure secondary to over lobe from ESRD Feeling much better respiratory mak Just feels tired today Physical Exam Vital Signs: Vital Signs: Last Vital Signs Temp 97.5 F 04/09/21 08:00 Pulse 73 04/09/21 09:18 Resp 17 04/09/21 08:00 BP 166/75 H 04/09/21 09:18 Pulse Ox 90 L 04/09/21 08:00 Oxygen Flow Rate 2 04/08/21 08:18 BMI result Body Mass Index 25.7 Appearing in no acute distress lung sounds are clear to auscultation heart regular rate rhythm, clear S1, S2 positive bowel sounds, abdomen is soft, nontender neuro patient is alert x3, no focal deficits Objective Data Active Medications Acetaminophen (Acetaminophen 325 Mg Tablet) 650 mg PO Q6H PRN PRN Reason: Pain, Mild (Pain Scale 1-3) Atorvastatin Calcium (Atorvastatin Calcium 40 Mg Tablet) 40 mg PO BEDTIME [facility] Last Admin: 04/08/21 21:08 Dose: 40 mg Documented by: WYATT Gabapentin (Gabapentin 100 Mg Capsule) 200 mg PO BEDTIME [facility] Last Admin: 04/08/21 21:08 Dose: 200 mg Documented by: WYATT Gabapentin (Gabapentin 100 Mg Capsule) 100 mg PO DAILY [facility] Last Admin: 04/09/21 09:19 Dose: 100 mg Documented by: NORMAN Heparin Sodium (Porcine) (Heparin Sodium,Porcine 5,000 Unit/Ml Vial) 5,000 unit SUBCUT Q12H [facility] Last Admin: 04/09/21 00:20 Dose: 5,000 unit Documented by: ADENIKE Insulin Human Lispro (Insulin Lispro 100 Unit/Ml 3 Ml Vial) 0 unit SUBCUT QIDACHS [facility]; Protocol Last Admin: 04/09/21 07:48 Dose: Not Given Documented by: NORMAN Non-Admin Reason: No Insulin Coverage Lorazepam (Lorazepam 1 Mg Tablet) 1 mg PO DAILY PRN PRN Reason: Anxiety Losartan Potassium (Losartan Potassium 25 Mg Tablet) 25 mg PO DAILY [facility]; Protocol Last Admin: 04/09/21 09:19 Dose: 25 mg Documented by: NORMAN Metoprolol Tartrate (Metoprolol Tartrate 25 Mg Tablet) 25 mg PO BID [facility]; Protocol Last Admin: 04/09/21 09:19 Dose: 25 mg Documented by: NORMAN Nifedipine (Nifedipine Er 60 Mg Tab.Er.24) 60 mg PO BID [facility] Last Admin: 04/09/21 09:18 Dose: 60 mg Documented by: NORMAN Ondansetron HCl (Ondansetron Hcl 4 Mg/2 Ml Vial) 4 mg IVPUSH Q8H PRN PRN Reason: Nausea and Vomiting Last Admin: 04/08/21 21:12 Dose: 4 mg Documented by: WYATT Pharmacy Consult (Consult Rx Perform Med Rec) 1 each MISCELLANE ONCE PRN PRN Reason: Consult order Sodium Chloride (0.9 % Sodium Chloride Flush 3 Ml Syringe) 3 ml IVFLUSH QSHIFT [facility] Last Admin: 04/09/21 09:17 Dose: 3 ml Documented by: NORMAN Venlafaxine HCl (Venlafaxine Hcl Er 37.5 Mg Cap.Er.24h) 37.5 mg PO DAILY [facility] Last Admin: 04/09/21 09:18 Dose: 37.5 mg Documented by: NORMAN Zolpidem Tartrate (Zolpidem Tartrate 5 Mg Tablet) 10 mg PO BEDTIME PRN PRN Reason: insomnia Labs CBC & Chem 7: 04/09/21 06:10 04/09/21 06:10 Labs: Laboratory Results - last 24 hr 04/08/21 04/08/21 04/09/21 18:08 21:06 06:10 MCV 102.4 H MCH 31.9 MCHC 31.2 RDW 17.5 H Plt Count 151 L MPV 9.7 Immature Gran % (Auto) 0.5 H Neut % (Auto) 59.8 Lymph % (Auto) 16.1 L [place] % (Auto) 13.4 H Eos % (Auto) 9.7 H Baso % (Auto) 0.5 Lymph # (Auto) 0.9 L [place] # (Auto) 0.7 Eos # (Auto) 0.5 H Baso # (Auto) 0.0 Abs Immat Gran (auto) 0.03 Absolute Neuts (auto) 3.3 Absolute Nucleated RBC 0.000 Nucleated RBC % (auto) 0.0 Anion Gap Estim Creat Clear Calc Estimated GFR POC Glucose 102 104 Random Glucose Calcium 04/09/21 06:10 MCV MCH MCHC RDW Plt Count MPV Immature Gran % (Auto) Neut % (Auto) Lymph % (Auto) [place] % (Auto) Eos % (Auto) Baso % (Auto) Lymph # (Auto) [place] # (Auto) Eos # (Auto) Baso # (Auto) Abs Immat Gran (auto) Absolute Neuts (auto) Absolute Nucleated RBC Nucleated RBC % (auto) Anion Gap 15 Estim Creat Clear Calc 8.1 Estimated GFR 6 POC Glucose Random Glucose 106 Calcium 8.3 L D Assessment and Plan Assessment and Plan: This is an? 65 yo F with a PMH of ESRD on HD (TTHS previously) being transitioned to peritoneal dialysis at home who presents to the ED with sudden onset chest pain and shortness of breath. Hypertensive Emergency. Improving BP in the 200s/100s initially Likely secondary to fluid overload from ESRD Received Emergent Dialysis Will monitor blood pressure post fluid removal For now, continue her baseline antihypertensives ESRD Received Emergent Dialysis at this time Plan to send back to dialysis center for completion of PD training HyperK Dialysis as above nephrology consulted Acute Respiratory failure with hypoxia. Resolved Rates int he 30s and sats 85% on RA Due to pulmonary edema from the above 2 conditions DM hold oral meds use sliding scale Chest pain Resolved, likely from HTN HS trop-I 10.5 EKG without changes. Continue her baseline medications once med rec completed Full Code DVT pptx, subcut. heparin Attending Dr. Howe Quality Stroke Does the patient have a stroke diagnosis?: No VTE Prior VTE?: No VTE Risk Level:: Medical - moderate - high VTE Device Contraindication: Treatment Not Indicated VTE Drug Contraindication: N/A - Med Ordered
--- NOTE | 2021-04-09 11:29 | PM.DS ---
DS: Providers Provider Date of Service: 04/09/21 Date of admission: 04/08/21 13:03 Primary care physician: [facility] Consults: 04/08/21 13:07 Consult to Nephrology Routine Consulting Provider: Mohan Barber Reason for consultation: ESRD, overloaded, hyperK Attending physician on discharge: Travis Howe Discharging clinician: Savannah Milton DS: Diagnosis Discharge Diagnosis (1) Hypertensive emergency: Status: Acute (2) ESRD (end stage renal disease): Status: Acute DS: Summary Hospital Course Hospital Course: HP as per admitting provider This is a 65 yo F with a PMH of ESRD previously on HD on TTHS who is being transitioned to peritoneal dialysis, DM, HTN who presents to the hospital with complaints of shortness of breath and chest pain which began suddenly on the evening prior to arrival.? Patient reports that she previously used to get hemodialysis on Tuesdays and Saturdays but began her 1st day of peritoneal dialysis at home on the day prior to arrival.? She reports that she was doing fairly well with this during her to daytime sessions but she was unable to complete her nighttime session due to her chest pain and shortness of breath.? She reports compliance with her antihypertensives.? She reports being in her usual state of health prior to this.? Upon arrival to the emergency room she was noted to have significantly elevated blood pressure over 200 systolic. She was in respiratory distress with rates in the 30s and saturations dropping to 85 on minimal movement. She was started on supplemental oxygen, IV Lasix and nitro paste with improvement in blood pressure and resolution of her chest pain.? Her chemistry showed hyperkalemia for which she received Kayexalate and D50/IV insulin.? Nephrology was consulted and she is starting emergent dialysis. Hypertensive Emergency. Resolved BP in the 200s/100s initially Likely secondary to fluid overload from ESRD Received Emergent Dialysis Continued on baseline antihypertensive medications ESRD Received Emergent Dialysis Plan to send back to dialysis center for completion of PD training HyperK. Resolved Dialysis as above nephrology followed with no further recommendations Acute Respiratory failure with hypoxia. Resolved Chest pain Resolved, likely from HTN HS trop-I 10.5 EKG without ischemic changes. Time Spent with Patient Time attestation: Total time spent providing and/or coordinating discharge services: Discharge coordination time: Greater than 30 minutes Quality: Stroke Does the patient have a stroke diagnosis?: No Physical Exam Vital Signs: Vital Signs: Last Vital Signs Temp 97.5 F 04/09/21 08:00 Pulse 73 04/09/21 09:18 Resp 17 04/09/21 08:00 BP 166/75 H 04/09/21 09:18 Pulse Ox 90 L 04/09/21 08:00 Oxygen Flow Rate 2 04/08/21 08:18 BMI result Body Mass Index 25.7 Appearing in no acute distress head is normocephalic atraumatic eyes pupils are PERRLA sclera is anicteric mouth throat mucous membranes are intact and moist neck is supple no lymphadenopathy, no JVD noted lung sounds are clear to auscultation heart regular rate rhythm, clear S1, S2 positive bowel sounds, abdomen is soft, nontender neuro patient is alert x3, no focal deficits DS: Data Data Completed and Pending Completed studies during hospitalization [Text1]: Procedures Performance of Urinary Filtration, Intermittent, Less than 6 Hours Per Day (02/08/21) Labs on day of discharge: Laboratory Results - last 24 hr 04/08/21 04/08/21 04/09/21 18:08 21:06 06:10 WBC 5.5 RBC 2.54 L Hgb 8.1 L Hct 26.0 L MCV 102.4 H MCH 31.9 MCHC 31.2 RDW 17.5 H Plt Count 151 L MPV 9.7 Immature Gran % (Auto) 0.5 H Neut % (Auto) 59.8 Lymph % (Auto) 16.1 L [place] % (Auto) 13.4 H Eos % (Auto) 9.7 H Baso % (Auto) 0.5 Lymph # (Auto) 0.9 L [place] # (Auto) 0.7 Eos # (Auto) 0.5 H Baso # (Auto) 0.0 Abs Immat Gran (auto) 0.03 Absolute Neuts (auto) 3.3 Absolute Nucleated RBC 0.000 Nucleated RBC % (auto) 0.0 Sodium Potassium Chloride Carbon Dioxide Anion Gap BUN Creatinine Estim Creat Clear Calc Estimated GFR POC Glucose 102 104 Random Glucose Calcium 04/09/21 06:10 WBC RBC Hgb Hct MCV MCH MCHC RDW Plt Count MPV Immature Gran % (Auto) Neut % (Auto) Lymph % (Auto) [place] % (Auto) Eos % (Auto) Baso % (Auto) Lymph # (Auto) [place] # (Auto) Eos # (Auto) Baso # (Auto) Abs Immat Gran (auto) Absolute Neuts (auto) Absolute Nucleated RBC Nucleated RBC % (auto) Sodium 134 L Potassium 4.7 D Chloride 96 Carbon Dioxide 28 Anion Gap 15 BUN 40 H D Creatinine 6.75 H* Estim Creat Clear Calc 8.1 Estimated GFR 6 POC Glucose Random Glucose 106 Calcium 8.3 L D Discharge Plan Discharge Anticipated Discharge Date/Time: 04/09/21 11:20 Patient Disposition: Home, Self-Care Discharge Diagnosis: ESRD Hypertensive emergency Referrals: Center,[facility] [Primary Care Provider] - 1 Week Discharge Medications: Continued atorvastatin 40 mg tablet 40 mg PO BEDTIME RF: 0 venlafaxine 37.5 mg capsule,extended release 24hr 37.5 mg PO DAILY RF: 0 gabapentin 100 mg capsule 100 mg PO DAILY RF: 0 gabapentin 100 mg Capsule 200 mg PO BEDTIME RF: 0 zolpidem 10 mg tablet 10 mg PO BEDTIME PRN (Reason: insomnia) RF: 0 loratadine 10 mg tablet 10 mg PO DAILY RF: 0 Velphoro 500 mg tablet,chewable 500 mg PO BID@0700,1200 RF: 0 pioglitazone 45 mg tablet 1 tab PO DAILY RF: 0 nifedipine 60 mg tablet extended release 60 mg PO BID RF: 0 Velphoro 500 mg tablet,chewable 1,000 mg PO DAILY@1700 RF: 0 metoprolol tartrate 25 mg tablet 25 mg PO BID 30 Days Qty: 60 RF: 0 losartan 25 mg tablet 1 tab PO DAILY RF: 0 lorazepam 1 mg tablet 1 tab PO DAILY PRN (Reason: Anxiety) RF: 0 Discharge Orders: Discharge Order (Routine); Ordered 04/09/21 Ordered By: Savannah Milton Diet: advance to usual diet Activity on Discharge: As tolerated Stand Alone Forms: Patient Portal Discharge page Care Plan Goals: No further episodes of volume overload Continue with dialysis as planned Health Concerns: End-stage renal disease Hypertensive emergency Plan of Treatment: Follow-up with your regular dialysis schedule for your continued peritoneal dialysis training Assessment: see discharge summary
--- NOTE | 2021-04-09 11:34 | P.PNNP_ITS ---
Subjective Subjective Date of Service: 04/10/21 Interval history: Events noted Feels better today Physical Exam Vital Signs: Vital Signs: Last Vital Signs Temp 97.5 F 04/09/21 08:00 Pulse 73 04/09/21 09:18 Resp 17 04/09/21 08:00 BP 166/75 H 04/09/21 09:18 Pulse Ox 90 L 04/09/21 08:00 Oxygen Flow Rate 2 04/08/21 08:18 BMI result Body Mass Index 25.7 Const: General: No confusion Orientation/consciousness: oriented to person and No confusion Eyes: General: appearance normal, both eyes and all related structures Chest: Chest palpation & inspection: normal inspection of the chest Resp: Effort & Inspection: normal respiratory effort Auscultation: crackles and rhonchi Cardio: Jugular venous distension: no JVD Palpation: no palpable S3 Heart sounds: no rubs GI: Inspection: Yes normal to inspection Palpation (GI): Soft to palpation and nontender Skin: General skin exam: no rashes or lesions noted Neuro: General: oriented to person, no focal motor deficits and No confusion Motor exam (neuro): no asterixis Objective Data Labs CBC & Chem 7: 04/09/21 06:10 04/09/21 06:10 Labs: Laboratory Results - last 24 hr 04/08/21 04/08/21 04/09/21 18:08 21:06 06:10 WBC 5.5 RBC 2.54 L Hgb 8.1 L Hct 26.0 L MCV 102.4 H MCH 31.9 MCHC 31.2 RDW 17.5 H Plt Count 151 L MPV 9.7 Immature Gran % (Auto) 0.5 H Neut % (Auto) 59.8 Lymph % (Auto) 16.1 L [place] % (Auto) 13.4 H Eos % (Auto) 9.7 H Baso % (Auto) 0.5 Lymph # (Auto) 0.9 L [place] # (Auto) 0.7 Eos # (Auto) 0.5 H Baso # (Auto) 0.0 Abs Immat Gran (auto) 0.03 Absolute Neuts (auto) 3.3 Absolute Nucleated RBC 0.000 Nucleated RBC % (auto) 0.0 Sodium Potassium Chloride Carbon Dioxide Anion Gap BUN Creatinine Estim Creat Clear Calc Estimated GFR POC Glucose 102 104 Random Glucose Calcium 04/09/21 06:10 WBC RBC Hgb Hct MCV MCH MCHC RDW Plt Count MPV Immature Gran % (Auto) Neut % (Auto) Lymph % (Auto) [place] % (Auto) Eos % (Auto) Baso % (Auto) Lymph # (Auto) [place] # (Auto) Eos # (Auto) Baso # (Auto) Abs Immat Gran (auto) Absolute Neuts (auto) Absolute Nucleated RBC Nucleated RBC % (auto) Sodium 134 L Potassium 4.7 D Chloride 96 Carbon Dioxide 28 Anion Gap 15 BUN 40 H D Creatinine 6.75 H* Estim Creat Clear Calc 8.1 Estimated GFR 6 POC Glucose Random Glucose 106 Calcium 8.3 L D Procedures Date of Service Date of Service: 04/09/21 Assessment & Plan Assessment and plan (1) Acute hyperkalemia: Status: Acute Assessment and Plan: 65 yr old woman with ESRD with hyperkalemia and fluid overload Hyperkalemia corrected No s/s of uremia OK to DC and continue PD as out pt Time Spent With Patient Time: Total time spent is greater than 50% in coordination of care (as documented) at patient's floor/unit and/or counseling patient: Time with patient: 15 - 24 minutes Progress Note: Quality Stroke Does the patient have a stroke diagnosis?: No
[2021-04-09 11:58] LABS: Glucose, Whole Blood 215 mg/dL (60-115)
[2021-04-09 12:00] VITALS: BP 178/77; PULSE 64; RESP 18; TEMP 36.8; O2SAT 94
[2021-04-09] MEDS: Insulin Lispro 100 UNIT/ML 3 ML VIAL SUBCUT (12:07)
--- NOTE | 2021-04-09 15:12 | MHC.CLN ---
NUTRITION DIET CHANGED TO DIABETIC 1800 KCAL, 2 GRAM SODIUM, LOW PHOSPHORUS, LOW POTASSIUM. PATIENT WITH DX DM AND ESRD. HAD BEEN RECEIVING HEMODIALYSIS BUT TRANSITIONING TO HOME PERITONEAL DIALYSIS.
[2021-04-09 15:17] VITALS: BP 126/59; PULSE 79; RESP 20; TEMP 36.7; O2SAT 95
--- NOTE | 2021-04-09 15:47 | MHC.CM.PN ---
IMM 04/09/20, EMR REVIEWED, PT ADMITTED W/SOB AND CHEST PAIN, CM MET W/PT WHO IS A&OX4, PT REPORTS SHE LIVES ALONE, HAS A CANE AND NO OTHER DME AND NO HOME SERVICES, PT REPORTS HER DTR WAS HER GEOSPATIAL PROGRAM MANAGEMENT OFFICER HOWEVER [facility] TOOK HER GEOSPATIAL PROGRAM MANAGEMENT OFFICER HRS AWAY, PT IS OPEN TO [facility] SERVICES IF RECOMMENDED UPON D/C, PT WILL HAVE PT EVAL TO DETERMINE NEEDS, PT VERIFIES PCP IS GAURI SERRANO AND HCP IS ON FILE FROM PREVIOUS VISIT. PT REPORTS SHE USES [facility] [place] FOR HD AND HAS BEEN BEING TRAINED ON PERITONEAL DIALYSIS WHILE AT [facility], PT REPORTS SHE WAS SUPPOSED TO HAVE START PD AT HOME ON FRIDAY BUT D/T BEING IN HOSPITAL HAS MISSED 1-2 APPTS. CM SPOKE W/TEVIN AT [facility] AND SHE REPORTS THEY WILL EXTEDN PT 2 MORE DAYS SO SHE WILL RECEIVE HER FULL TRAINING ON PD. D/C PLAN: HOME W/[facility] OF [facility] [place] FOR HD, PT WILL CALL SON FOR TRANSPORT
--- NOTE | 2021-04-09 16:13 | MHC.CM.PN ---
PT DISCHARGED HOME TODAY W/HOME PT, CM HAS LEFT A MESSAGE W/[facility] AT 4:13PM W/REQUEST FOR HOME PT, FAMILY FOR TRANSPORT.
--- NOTE | 2021-04-11 13:54 | MHC.CM.PN ---
PT'S INSURQANCE CONTACTED CM AND REPORTED THEY CANNOT COVER PT'S HOME PT, CM UNABLE TO SEND REFERRAL POST D/C, CM CONTACTED PT'S PCP GAURI SERRANO 1:45PM [phone] TO REQUEST THEY DO A DIRECT REFERRAL FOR HOME PT, CM CONTACTED PT AT 1:55PM AT NUMBER ON FILE TO LET HER KNOW ABOUT DELAY IN SERVICE.
== END 2021-04-09 17:28 | disposition home or self-care (01) | DRG 682 ==
LOC: HO.ED 11:43 → HO.EDOVER 13:14 → HO.S3 18:49
PROVIDERS: Admitting Provider Family Medicine; Emergency Provider Emergency Medicine; PCP Pediatrics; Visit Provider Nurse Practitioner Acute Care
DX: I12.0 Hypertensive chronic kidney disease with stage 5 chronic kidney disease or end stage renal disease (principal); N18.6 End stage renal disease; J96.01 Acute respiratory failure with hypoxia; I16.1 Hypertensive emergency; N17.9 Acute kidney failure, unspecified; E87.70 Fluid overload, unspecified; E87.5 Hyperkalemia; E11.22 Type 2 diabetes mellitus with diabetic chronic kidney disease; Z20.822 Contact with and (suspected) exposure to COVID-19; Z99.2 Dependence on renal dialysis; Z79.899 Other long term (current) drug therapy
CPT/HCPCS: 36415; 71045; 80048; 80053; 82947; 83880; 84132; 84484; 85025; 85610; 87635; 90999; 93005; 96374; 96375; 97161; 99285; J1940; J2405

== ENCOUNTER 2021-04-30 21:16 | Inpatient (IN) | payer OTHER, SELFPAY ==
--- NOTE | ~2021-04-30 | XR_ITS ---
EXAMINATION: XR CHEST CLINICAL INFORMATION: Shortness of breath COMPARISON: 04/08/2021 TECHNIQUE: Frontal view of the chest was obtained. FINDINGS: There is mild cardiac enlargement. Increased interstitial markings appear about the same as stated prior. Bibasilar atelectasis is seen. A small right effusion is present. Stents extending from the subclavian through the innominate into the SVC are present. XR/XR chest 1V IMPRESSION: Findings are suggestive of pulmonary vascular congestion/fluid overload with interstitial/alveolar edema. Superimposed infectious infiltrates cannot be excluded at the lung bases.
--- NOTE | ~2021-04-30 | NM_ITS ---
EXAMINATION: NM LUNG IMAGE PERFUSION CLINICAL INFORMATION: Chest pain. Question pulmonary embolism. COMPARISON: Chest x-ray 05/02/2021 TECHNIQUE: Following intravenous administration of 4 mCi of 90 9M technetium and a 8, imaging of both lungs were obtained multiple projections. Ventilation study was not performed. FINDINGS: There is normal perfusion to all segments of both lungs. No segmental, subsegmental or nonsegmental defects seen. Ventilation study was not performed. NM/SC pul perfusion IMPRESSION: Normal perfusion scan. No evidence to suspect any PE.
--- NOTE | ~2021-04-30 | XR_ITS ---
EXAMINATION: XR CHEST CLINICAL INFORMATION: Retention of fluid COMPARISON: May 01, 2021 and September 06, 2021 TECHNIQUE: AP portable view of the chest was obtained. FINDINGS: There is bibasilar disease present consistent with atelectasis or pneumonitis. There appears to be a moderate size right pleural effusion. The cardiopericardial silhouette is mildly enlarged. No significant bronchial wall thickening is appreciated and no Vick B lines are seen. There are vascular stents seen within the left subclavian and innominate veins. Appearance is unchanged. Calcified granuloma present in the right lower lung. XR/XR chest 1V IMPRESSION: No significant change from previous study. Moderate right pleural effusion. Bibasilar disease which may be related to atelectasis or pneumonitis or residual of pulmonary edema.
--- NOTE | 2021-04-30 21:24 | ECG_ITS ---
Test Reason : CHEST PAIN Blood Pressure : / mmHG Vent. Rate : 079 BPM Atrial Rate : 079 BPM P-R Int : 152 ms QRS Dur : 088 ms QT Int : 422 ms P-R-T Axes : 051 015 037 degrees QTc Int : 483 ms Normal sinus rhythm Minimal voltage criteria for LVH, may be normal variant ( [place] product ) Borderline ECG When compared with ECG of 08-APR-2021 08:33, No significant change was found Referred By: Lorna Garcia Electronically Signed By:CHRISTIN CAMPBELL MD
[2021-04-30 21:25] VITALS: BP 140/90; PULSE 80; O2SAT 98; BMI 27.4
[2021-04-30 21:26] VITALS: BP 143/61; PULSE 84; RESP 18; TEMP 37.1; O2SAT 99; BMI 27.6
[2021-04-30 21:32] VITALS: PULSE 78; RESP 16; O2SAT 100
--- NOTE | 2021-04-30 21:36 | ED_ITS ---
HPI - Chest Pain General Chief Complaint: Chest Pain Stated Complaint: cp/sob Time Seen by Provider: 04/30/21 21:23 Source: patient Mode of arrival: EMS History of Present Illness HPI narrative: 65-year-old female with significant history of ESRD on nightly dialysis that she administers to herself, hypertension and presents via EMS this evening for onset of chest pressure that started approximately 1900 hours associated with shortness of breath that patient states started at 8/10, and route EMS provided aspirin as well as sublingual nitro x1 and patient states that her pain decreased to 6/10. The pain worsens with deep inspiration, does not radiate, and history is significant for starting iron pills this past week. Otherwise, patient denies any fever, chills, abdominal discomfort. Related Data Home Medications Medication Instructions Recorded Confirmed atorvastatin 40 mg tablet 40 mg PO BEDTIME 05/11/20 04/08/21 gabapentin 100 mg capsule 100 mg PO DAILY 05/11/20 04/08/21 gabapentin 100 mg capsule 200 mg PO BEDTIME 05/11/20 04/08/21 loratadine 10 mg tablet 10 mg PO DAILY 05/11/20 04/08/21 sucroferric oxyhydroxide 500 mg 500 mg PO BID@0700,1200 05/11/20 04/08/21 chewable tablet (Velphoro) venlafaxine 37.5 mg 37.5 mg PO DAILY 05/11/20 04/08/21 capsule,extended release 24 hr zolpidem 10 mg tablet 10 mg PO BEDTIME PRN 05/11/20 04/08/21 nifedipine 60 mg tablet,extended 60 mg PO BID 02/08/21 04/08/21 release pioglitazone 45 mg tablet 1 tab PO DAILY 02/08/21 04/08/21 sucroferric oxyhydroxide 500 mg 1,000 mg PO DAILY@1700 02/08/21 04/08/21 chewable tablet (Velphoro) lorazepam 1 mg tablet 1 tab PO DAILY PRN 04/08/21 04/08/21 losartan 25 mg tablet 1 tab PO DAILY 04/08/21 04/08/21 Previous Rx's Medication Instructions Recorded metoprolol tartrate 25 mg tablet 25 mg PO BID 30 Days #60 tab 02/09/21 Allergies Allergy/AdvReac Type Severity Reaction Status Date / Time ROXI Inhibitors Allergy Unknown UNKNOWN Verified 05/10/20 21:35 [ROXI INHIBITORS] Review of Systems Review of Systems: Pertinent positives and negatives as stated in HPI 10 point review of systems is otherwise negative. [facility] Past Medical History Source: nursing notes reviewed Medical History Diabetes End stage renal disease on dialysis Hypertension Renal failure Sinus, maxillary, carcinoma Social History Social History Household Members: None Household Members Other:: patient lives alone, recently lost osteopathic neurologist services prov ided by daughter Housing: Apartment Do you presently have visiting nurse or other home services: No Alcohol intake: never Patient Tobacco Use Status: Never used Tobacco Second Hand Smoke Exposure: No Advance Directives: No Advance Directives Information Provided: No Patient : No service: No Current occupational status: disabled Physical Exam Vital Signs: Vital Signs: Last Vital Signs Temp 98.7 F 04/30/21 21:26 Pulse 78 04/30/21 21:32 Resp 16 04/30/21 21:32 BP 143/61 H 04/30/21 21:26 Pulse Ox 100 04/30/21 21:32 BMI result Body Mass Index 27.6 VITAL SIGNS: Reviewed. GENERAL: Well developed, well nourished, in no acute distress. HEAD: Normocephalic/atraumatic, EYES: PERRLA, EOMI OROPHARYNX: no oral lesions noted, posterior pharynx clear LUNGS: Good inspiratory effort with bibasilar rale goals and noted discomfort with deep inspiration, patient is not tachypneic. SpO2<100> CARDIOVASCULAR: Regular rate and rhythm without noted murmurs, no JVD or lower extremity edema ABDOMEN: Soft, non-tender, non-distended with bowel sounds. No rigidity. No guarding. No palpable masses or hernias noted SKIN: Inspection of the skin reveals no rashes NEUROLOGIC: Alert and oriented x 4. Strength and sensation to light touch were grossly intact x 4. Course Course Course Narrative: 65-year-old female with history and clinical presentation most consistent with iron induced esophagitis, pain does not change with position but does with deep inspiration and on review of EKG there are no acute findings when compared to prior, patient is not hypertensive and although she does have clinically bilateral rales she is breathing well without hypoxia. Review of all laboratory investigations demonstrates a significant worsening in renal function which poses a possibility of uremic related chest discomfort as well as the possibility of pill esophagitis. Although troponin is noted to be elevated BUN/creatinine are almost double the values as previously and patient typically noted to have detectable troponin levels of 6.8-27.5. Will repeat troponin as well as EKG. I discussed this case with the inpatient hospitalist who accepts admission. We discussed treatment for the hyperkalemia and will proceed with calcium gluconate, but at this time will not administer D50/insulin. Patient is otherwise hemodynamically stable. Repeat EKG is without acute changes. MDM - Chest Pain Lab Data Result diagrams: 04/30/21 22:17 04/30/21 22:16 Labs: Lab Results 04/30/21 04/30/21 04/30/21 Range/Units 22:15 22:16 22:17 WBC 9.8 (4.8-10.8) X10*3/uL RBC 2.30 L (4.20-5.50) X10*6/uL Hgb 7.6 L (12.0-16.0) g/dl Hct 23.4 L (37.0-47.0) % MCV 101.7 H (80.0-98.0) fL MCH 33.0 (27.0-33.0) pg MCHC 32.5 (31.0-35.0) g/dl RDW 15.1 (11.0-16.0) % Plt Count 134 L (160-400) X10*3/uL MPV 9.5 (9.4-12.3) fL Immature Gran % (Auto) 0.4 (0.0-0.4) % Neut % (Auto) 78.6 H (45-73) % Lymph % (Auto) 7.5 L (20-40) % [place] % (Auto) 9.0 (2-11) % Eos % (Auto) 4.2 H (0-4) % Baso % (Auto) 0.3 (0-2) % Lymph # (Auto) 0.7 L (1.2-4.9) X10*3/uL [place] # (Auto) 0.9 (0.1-1.2) X10*3/uL Eos # (Auto) 0.4 (0.0-0.4) X10*3/uL Baso # (Auto) 0.0 (0.0-0.2) X10*3/uL Abs Immat Gran (auto) 0.04 H (0.00-0.03) X10*3/uL Absolute Neuts (auto) 7.7 (2.0-8.3) x10*3/uL Absolute Nucleated RBC 0.000 (0.0-0.012) X10*3/uL Nucleated RBC % (auto) 0.0 (0.0-0.2) /100WBC PT 13.0 (9.9-13.0) SEC INR 1.1 (0.9-1.1) VBG pH (7.32-7.43) VBG pCO2 mmHg VBG pO2 mmHg VBG HCO3 (22-26) mmol/L VBG O2 Saturation % VBG Base Excess mmol/L Sodium 138 (135-145) mmol/L Potassium 5.7 H D (3.3-5.1) mmol/L Chloride 95 L (96-108) mmol/L Carbon Dioxide 21 L (22-29) mmol/L Anion Gap 28 H (12-20) BUN 79 H D (9-16) mg/dL Creatinine 14.49 H* (0.5-1.4) mg/dL Estim Creat Clear Calc 3.8 Estimated GFR 3 Random Glucose 194 H (60-115) mg/dL Lactic Acid (0.5-2.0) mmol/L Calcium 7.5 L D (8.4-10.2) mg/dL Magnesium 2.8 H (1.6-2.6) mg/dL Total Bilirubin 0.4 (0.0-1.0) mg/dL AST 17 (5-31) U/L ALT 11 (0-31) U/L Alkaline Phosphatase 112 (39-117) U/L Troponin I High Sens (<3.5-17.0) ng/L B-Natriuretic Peptide (<100) pg/mL Total Protein 6.8 (6.5-8.0) g/dL Albumin 3.1 L (3.5-5.0) g/dL COVID-19 (AJAY) (Negative) COVID-19 Clin Com 04/30/21 04/30/21 04/30/21 Range/Units 22:17 22:17 22:18 WBC (4.8-10.8) X10*3/uL RBC (4.20-5.50) X10*6/uL Hgb (12.0-16.0) g/dl Hct (37.0-47.0) % MCV (80.0-98.0) fL MCH (27.0-33.0) pg MCHC (31.0-35.0) g/dl RDW (11.0-16.0) % Plt Count (160-400) X10*3/uL MPV (9.4-12.3) fL Immature Gran % (Auto) (0.0-0.4) % Neut % (Auto) (45-73) % Lymph % (Auto) (20-40) % [place] % (Auto) (2-11) % Eos % (Auto) (0-4) % Baso % (Auto) (0-2) % Lymph # (Auto) (1.2-4.9) X10*3/uL [place] # (Auto) (0.1-1.2) X10*3/uL Eos # (Auto) (0.0-0.4) X10*3/uL Baso # (Auto) (0.0-0.2) X10*3/uL Abs Immat Gran (auto) (0.00-0.03) X10*3/uL Absolute Neuts (auto) (2.0-8.3) x10*3/uL Absolute Nucleated RBC (0.0-0.012) X10*3/uL Nucleated RBC % (auto) (0.0-0.2) /100WBC PT (9.9-13.0) SEC INR (0.9-1.1) VBG pH (7.32-7.43) VBG pCO2 mmHg VBG pO2 mmHg VBG HCO3 (22-26) mmol/L VBG O2 Saturation % VBG Base Excess mmol/L Sodium (135-145) mmol/L Potassium (3.3-5.1) mmol/L Chloride (96-108) mmol/L Carbon Dioxide (22-29) mmol/L Anion Gap (12-20) BUN (9-16) mg/dL Creatinine (0.5-1.4) mg/dL Estim Creat Clear Calc Estimated GFR Random Glucose (60-115) mg/dL Lactic Acid 1.1 (0.5-2.0) mmol/L Calcium (8.4-10.2) mg/dL Magnesium (1.6-2.6) mg/dL Total Bilirubin (0.0-1.0) mg/dL AST (5-31) U/L ALT (0-31) U/L Alkaline Phosphatase (39-117) U/L Troponin I High Sens 70.0 H* D (<3.5-17.0) ng/L B-Natriuretic Peptide 1381 H (<100) pg/mL Total Protein (6.5-8.0) g/dL Albumin (3.5-5.0) g/dL COVID-19 (AJAY) (Negative) COVID-19 Clin Com 04/30/21 04/30/21 Range/Units 22:18 22:30 WBC (4.8-10.8) X10*3/uL RBC (4.20-5.50) X10*6/uL Hgb (12.0-16.0) g/dl Hct (37.0-47.0) % MCV (80.0-98.0) fL MCH (27.0-33.0) pg MCHC (31.0-35.0) g/dl RDW (11.0-16.0) % Plt Count (160-400) X10*3/uL MPV (9.4-12.3) fL Immature Gran % (Auto) (0.0-0.4) % Neut % (Auto) (45-73) % Lymph % (Auto) (20-40) % [place] % (Auto) (2-11) % Eos % (Auto) (0-4) % Baso % (Auto) (0-2) % Lymph # (Auto) (1.2-4.9) X10*3/uL [place] # (Auto) (0.1-1.2) X10*3/uL Eos # (Auto) (0.0-0.4) X10*3/uL Baso # (Auto) (0.0-0.2) X10*3/uL Abs Immat Gran (auto) (0.00-0.03) X10*3/uL Absolute Neuts (auto) (2.0-8.3) x10*3/uL Absolute Nucleated RBC (0.0-0.012) X10*3/uL Nucleated RBC % (auto) (0.0-0.2) /100WBC PT (9.9-13.0) SEC INR (0.9-1.1) VBG pH 7.47 H (7.32-7.43) VBG pCO2 29 mmHg VBG pO2 82 mmHg VBG HCO3 21 L (22-26) mmol/L VBG O2 Saturation 95.0 % VBG Base Excess -0.8 mmol/L Sodium (135-145) mmol/L Potassium (3.3-5.1) mmol/L Chloride (96-108) mmol/L Carbon Dioxide (22-29) mmol/L Anion Gap (12-20) BUN (9-16) mg/dL Creatinine (0.5-1.4) mg/dL Estim Creat Clear Calc Estimated GFR Random Glucose (60-115) mg/dL Lactic Acid (0.5-2.0) mmol/L Calcium (8.4-10.2) mg/dL Magnesium (1.6-2.6) mg/dL Total Bilirubin (0.0-1.0) mg/dL AST (5-31) U/L ALT (0-31) U/L Alkaline Phosphatase (39-117) U/L Troponin I High Sens (<3.5-17.0) ng/L B-Natriuretic Peptide (<100) pg/mL Total Protein (6.5-8.0) g/dL Albumin (3.5-5.0) g/dL COVID-19 (AJAY) Negative (Negative) COVID-19 Clin Com See Note ECG Data ECG #1: Attestation: I personally reviewed and interpreted this ECG as follows: Prior ECG tracings: available for review (04/08/2021 no acute changes on comparison) Interpretation: NSR, HR-79, no STEMI, ID/QRS/QTC are within normal limits. Discharge Plan Discharge Clinical Impression: Chest pain, Acute on chronic renal failure, ESRD on dialysis, Lab test negative for COVID-19 virus Patient Disposition: Admitted As Inpatient
[2021-04-30 21:39] VITALS: PULSE 75
[2021-04-30 22:24] LABS: MANUAL DIFF FLAG NO
[2021-04-30 22:26] LABS: Basophils Percent Auto 0.3 % (0-2); Eosinophils Absolute Auto 0.4 X10*3/uL (0.0-0.4); Eosinophils Percent Auto 4.2 % (0-4); Hematocrit 23.4 % (37.0-47.0); Hemoglobin 7.6 g/dl (12.0-16.0); Imm Gran Abs Auto 0.04 X10*3/uL (0.00-0.03); Imm Gran Pct Auto 0.4 % (0.0-0.4); Lymphocytes Absolute Auto 0.7 X10*3/uL (1.2-4.9); Lymphocytes Percent Auto 7.5 % (20-40); Mean Corpuscular HGB Conc 32.5 g/dl (31.0-35.0); Mean Corpuscular Volume 101.7 fL (80.0-98.0); Mean Platelet Volume 9.5 fL (9.4-12.3); Monocytes Absolute Auto 0.9 X10*3/uL (0.1-1.2); Neutrophils Absolute Auto 7.7 x10*3/uL (2.0-8.3); Neutrophils Percent Auto 78.6 % (45-73); Platelet Count 134 X10*3/uL (160-400); Red Cell Distribution Width 15.1 % (11.0-16.0); White Blood Count 9.8 X10*3/uL (4.8-10.8)
[2021-04-30 22:32] LABS: INTERNATIONAL NORM RATIO 1.1 (0.9-1.1)
[2021-04-30 22:35] LABS: Lactic Acid 1.1 mmol/L (0.5-2.0)
[2021-04-30 22:36] LABS: Venous Blood Gas Refer to POC result
[2021-04-30 22:37] LABS: VBG Base Excess -0.8 mmol/L; VBG HCO3 21 mmol/L (22-26); VBG pCO2 29 mmHg; VBG pH 7.47 (7.32-7.43); VBG pO2 82 mmHg
[2021-04-30 22:50] LABS: Alanine Aminotransferase 11 U/L (0-31); Albumin Level 3.1 g/dL (3.5-5.0); Alkaline Phosphatase 112 U/L (39-117); Anion Gap 28 (12-20); Aspartate Amino Transferase 17 U/L (5-31); Bilirubin Total 0.4 mg/dL (0.0-1.0); Blood Urea Nitrogen 79 mg/dL (9-16); Calcium 7.5 mg/dL (8.4-10.2); Carbon Dioxide 21 mmol/L (22-29); Chloride 95 mmol/L (96-108); Creatinine Clr Calc Pharmacy 3.8; Estimated Glomerular Filt Rate 3; Glucose Random 194 mg/dL (60-115); Magnesium 2.8 mg/dL (1.6-2.6); Potassium 5.7 mmol/L (3.3-5.1); Sodium 138 mmol/L (135-145); Total Protein 6.8 g/dL (6.5-8.0)
[2021-04-30 22:59] LABS: COVID-19 Test Negative (Negative); IDNOW Serial# 9DD0AD1C
[2021-04-30] MEDS: Lidocaine HCl Viscous 2 % 15 ML SOLUTION 10 ML MUCOUS MEM (23:06)
[2021-04-30] MEDS: Magnesium Hydrox/Alum Hydrox 30 ML ORAL.SUSP PO (23:06)
--- NOTE | 2021-04-30 23:08 | ECG_ITS ---
Test Reason : CHEST PAIN Blood Pressure : / mmHG Vent. Rate : 080 BPM Atrial Rate : 080 BPM P-R Int : 164 ms QRS Dur : 088 ms QT Int : 420 ms P-R-T Axes : 058 014 042 degrees QTc Int : 484 ms Normal sinus rhythm Normal ECG When compared with ECG of 30-APR-2021 21:29, No significant change was found Referred By: Lorna Garcia Electronically Signed By:CHRISTIN CAMPBELL MD
[2021-04-30] MEDS: Calcium Gluconate/NaCl,Iso-Osm 2 GM/100 ML PLAST..BAG IV (23:17)
[2021-04-30 23:42] LABS: B Type Natriuretic Peptide 1381 pg/mL (<100)
[2021-05-01] VITALS (7 sets, daily range): BP systolic 142–181; BP diastolic 65–87; PULSE 81–86; RESP 17–24; TEMP 36.9–37.3; O2SAT 90–99
--- NOTE | 2021-05-01 | ECG_ITS ---
Test Reason : cp Blood Pressure : / mmHG Vent. Rate : 081 BPM Atrial Rate : 081 BPM P-R Int : 152 ms QRS Dur : 092 ms QT Int : 402 ms P-R-T Axes : 048 024 051 degrees QTc Int : 466 ms Normal sinus rhythm Normal ECG When compared with ECG of 30-APR-2021 23:28, No significant change was found Referred By: Yogi Peter Electronically Signed By:CHRISTIN CAMPBELL MD
--- NOTE | 2021-05-01 00:01 | P.HPHOSP_ITS ---
History of Present Illness Date of Service: 05/01/21 Chief Complaint: chest pain 65-year-old female with past medical history of ESRD on home dialysis daily per patient, hypertension, depression who presents to the hospital with compaints of chest pain. she reports chest pain started this afternoon, constant, non- radiating, worst with inspiration and talking, 6/10, no relieving factors. reports previous similar episodes. denies any sob, no cough, no palpitations, no headache or change in vision, no abd pain. reports compliance with her daily HD but did not do her dialysis today due to the pain. denies any fever or chills, no n/v, no constipation. still produces some urine with any symptoms On arrival to the ED patient hemodynamically stable with no significant abnormal vitals Labs are significant for hemoglobin of 7.6, which is chronically low, pH of 7.47, potassium 5.7, bicarb of 29, creatinine of 14.49 which was 6.75 on 04/09, a shoulder high sensitivity troponin of 70 decreased to 66.5 on repeat, COVID-19 negative, chest x-ray shows no significant abnormality. EKG shows no EKG changes suggestive of hyperkalemia Patient will be admitted for further management Review of Systems Review of Systems: Yes all other systems are reviewed and are negative [facility] Medical History AV fistula Diabetes End stage renal disease on dialysis Hypertension Renal failure Sinus, maxillary, carcinoma Pertinent family history: Denies any family history of coronary artery disease Surgical History No pertinent past surgical history Social History Household Members: None Household Members Other:: patient lives alone, recently lost special needs teacher services provided by daughter Housing: Apartment Do you presently have visiting nurse or other home services: No Alcohol intake: never Patient Tobacco Use Status: Never used Tobacco Second Hand Smoke Exposure: No Advance Directives: No Advance Directives Information Provided: No Patient : No service: No Current occupational status: disabled Meds Allergies Allergy/AdvReac Type Severity Reaction Status Date / Time ROXI Inhibitors Allergy Unknown UNKNOWN Verified 05/10/20 21:35 [ROXI INHIBITORS] Active Medications: Current Medications Calcium Gluconate (Calcium Gluconate) 2 gm in 100 mls @ 50 mls/hr IV ONCE ONE Stop: 05/01/21 01:02 Last Admin: 04/30/21 23:17 Dose: 50 mls/hr Documented by: Home Medications Medication Instructions Recorded Confirmed Last Taken Type atorvastatin 40 mg tablet 40 mg PO BEDTIME 05/11/20 05/01/21 04/07/21 History gabapentin 100 mg capsule 100 mg PO DAILY 05/11/20 05/01/21 04/07/21 History gabapentin 100 mg capsule 200 mg PO BEDTIME 05/11/20 05/01/21 04/07/21 History loratadine 10 mg tablet 10 mg PO DAILY 05/11/20 05/01/21 04/07/21 History sucroferric oxyhydroxide 500 mg 500 mg PO BID@0700,1200 05/11/20 05/01/21 04/07/21 History chewable tablet (Velphoro) venlafaxine 37.5 mg 37.5 mg PO DAILY 05/11/20 05/01/21 04/07/21 History capsule,extended release 24 hr zolpidem 10 mg tablet 10 mg PO BEDTIME PRN 05/11/20 05/01/21 04/07/21 History nifedipine 60 mg tablet,extended 60 mg PO BID 02/08/21 05/01/21 04/07/21 History release pioglitazone 45 mg tablet 1 tab PO DAILY 02/08/21 05/01/21 04/07/21 History sucroferric oxyhydroxide 500 mg 1,000 mg PO DAILY@1700 02/08/21 05/01/21 04/07/21 History chewable tablet (Velphoro) losartan 100 mg tablet 1 tab PO DAILY 05/01/21 05/01/21 Unknown History Physical Exam Vital Signs and Narrative: Vital Signs: Last Vital Signs Temp 98.7 F 04/30/21 21:26 Pulse 81 05/01/21 00:00 Resp 17 05/01/21 00:00 BP 142/87 H 05/01/21 00:00 Pulse Ox 99 05/01/21 00:00 BMI result Body Mass Index 27.6 Const: General: cooperative and no acute distress Orientation/consciousness: patient oriented x3 HENMT: Head images: 1. surgical screws? in place Eyes: Pupils: Equal, round and reactive pupils present Resp: Effort & Inspection: normal respiratory effort Auscultation: clear to auscultation bilaterally Cardio: Rate: regular rate Rhythm: regular rhythm GI: Other: Dialysis cath in place, no erythema, no tenderness, no warmth around it Palpation (GI): Soft to palpation Auscultation: normal bowel sounds Skin: General skin exam: no rashes or lesions noted Neuro: General: patient oriented x3 Cranial nerves: Yes Equal, round and reactive pupils present Cognition (Neuro): normal cognition Extrem: Other: Left forearm AV fistula, bruit and thrill present General: Yes normal to inspection and Yes no pedal edema Results Labs CBC and Chem 7: 04/30/21 22:17 04/30/21 22:16 Labs: Laboratory Results - last 24 hr 04/30/21 04/30/21 04/30/21 22:15 22:16 22:17 MCV 101.7 H MCH 33.0 MCHC 32.5 RDW 15.1 Plt Count 134 L MPV 9.5 Immature Gran % (Auto) 0.4 Neut % (Auto) 78.6 H Lymph % (Auto) 7.5 L [place] % (Auto) 9.0 Eos % (Auto) 4.2 H Baso % (Auto) 0.3 Lymph # (Auto) 0.7 L [place] # (Auto) 0.9 Eos # (Auto) 0.4 Baso # (Auto) 0.0 Abs Immat Gran (auto) 0.04 H Absolute Neuts (auto) 7.7 Absolute Nucleated RBC 0.000 Nucleated RBC % (auto) 0.0 PT 13.0 INR 1.1 VBG pH VBG pCO2 VBG pO2 VBG HCO3 VBG O2 Saturation VBG Base Excess Anion Gap 28 H Estim Creat Clear Calc 3.8 Estimated GFR 3 Random Glucose 194 H Lactic Acid Calcium 7.5 L D Magnesium 2.8 H Total Bilirubin 0.4 AST 17 ALT 11 Alkaline Phosphatase 112 Troponin I High Sens B-Natriuretic Peptide Total Protein 6.8 Albumin 3.1 L COVID-19 (AJAY) COVID-19 Clin Com 04/30/21 04/30/21 04/30/21 22:17 22:17 22:18 MCV MCH MCHC RDW Plt Count MPV Immature Gran % (Auto) Neut % (Auto) Lymph % (Auto) [place] % (Auto) Eos % (Auto) Baso % (Auto) Lymph # (Auto) [place] # (Auto) Eos # (Auto) Baso # (Auto) Abs Immat Gran (auto) Absolute Neuts (auto) Absolute Nucleated RBC Nucleated RBC % (auto) PT INR VBG pH VBG pCO2 VBG pO2 VBG HCO3 VBG O2 Saturation VBG Base Excess Anion Gap Estim Creat Clear Calc Estimated GFR Random Glucose Lactic Acid 1.1 Calcium Magnesium Total Bilirubin AST ALT Alkaline Phosphatase Troponin I High Sens 70.0 H* D B-Natriuretic Peptide 1381 H Total Protein Albumin COVID-19 (AJAY) COVID-19 Clin Com 04/30/21 04/30/21 22:18 22:30 MCV MCH MCHC RDW Plt Count MPV Immature Gran % (Auto) Neut % (Auto) Lymph % (Auto) [place] % (Auto) Eos % (Auto) Baso % (Auto) Lymph # (Auto) [place] # (Auto) Eos # (Auto) Baso # (Auto) Abs Immat Gran (auto) Absolute Neuts (auto) Absolute Nucleated RBC Nucleated RBC % (auto) PT INR VBG pH 7.47 H VBG pCO2 29 VBG pO2 82 VBG HCO3 21 L VBG O2 Saturation 95.0 VBG Base Excess -0.8 Anion Gap Estim Creat Clear Calc Estimated GFR Random Glucose Lactic Acid Calcium Magnesium Total Bilirubin AST ALT Alkaline Phosphatase Troponin I High Sens B-Natriuretic Peptide Total Protein Albumin COVID-19 (AJAY) Negative COVID-19 Clin Com See Note Assessment and Plan (1) Chest pain: Status: Acute (2) Acute on chronic renal failure: Status: Acute (3) ESRD on dialysis: Status: Acute (4) Hyperkalemia: Status: Acute 65-year-old female with past medical history of ESRD on home dialysis presents to the hospital with complaints of chest pain. Found to have worsening kidney function as well as hyperkalemia to the chest pain # chest pain - less likely to be CAD, likely to be esophageal spasm versus pleuritic chest pain secondary to uremic pericarditis - troponin initially 70 but no delta, elevation possibly secondary to kidney failure - EKG showed no evidence of S. AD, no ST T-wave changes - will obtain echocardiogram - monitor - if continues to have pleuritic chest pain consider V/Q scan although patient has no hypoxia, no tachycardia, and no tachypnea suggestive of PE # ESRD on home dialysis - patient reports compliance but her kidney function appears to be significantly worse with hyperkalemia - reports missed dialysis today due the chest pain - AV fistula on left forearm present, good bruit and thrill - nephrology consulted # hyperkalemia - no significant EKG changes - looking my given for hyperkalemia - follow BMP - dialysis in a.m. # hyperlipidemia - continue statin # hypertension - stable - hold losartan in the setting of worsening kidney function, resume nifedipine and metoprolol # diabetes - hold oral antihyperglycemics -will start on low-dose sliding scale insulin, diabetic diet DVT prophylaxis: Heparin subQ Quality Stroke Does the patient have a stroke diagnosis?: No VTE Prior VTE?: No VTE Risk Level:: Medical - moderate - high VTE Device Contraindication: Treatment Not Indicated VTE Drug Contraindication: N/A - Med Ordered
[2021-05-01] MEDS: Sodium Zirconium Cyclosilicate 10 GM POWD.PACK PO ×2 (00:59→09:34)
[2021-05-01] MEDS: Acetaminophen 325 MG TABLET 650 MG PO (01:00)
[2021-05-01] MEDS: Heparin Sodium,Porcine 5,000 UNIT/ML VIAL 5000 UNIT SUBCUT ×2 (01:00→16:04)
[2021-05-01 07:10] LABS: MANUAL DIFF FLAG NO
[2021-05-01 07:13] LABS: Basophils Percent Auto 0.3 % (0-2); Eosinophils Absolute Auto 0.2 X10*3/uL (0.0-0.4); Eosinophils Percent Auto 2.3 % (0-4); Hematocrit 25.7 % (37.0-47.0); Hemoglobin 7.8 g/dl (12.0-16.0); Imm Gran Abs Auto 0.04 X10*3/uL (0.00-0.03); Imm Gran Pct Auto 0.4 % (0.0-0.4); Lymphocytes Absolute Auto 0.8 X10*3/uL (1.2-4.9); Lymphocytes Percent Auto 7.8 % (20-40); Mean Corpuscular HGB Conc 30.4 g/dl (31.0-35.0); Mean Corpuscular Hemoglobin 31.3 pg (27.0-33.0); Mean Corpuscular Volume 103.2 fL (80.0-98.0); Mean Platelet Volume 10.1 fL (9.4-12.3); Monocytes Absolute Auto 0.9 X10*3/uL (0.1-1.2); Monocytes Percent Auto 9.2 % (2-11); Neutrophils Absolute Auto 7.8 x10*3/uL (2.0-8.3); Platelet Count 140 X10*3/uL (160-400); Red Blood Count 2.49 X10*6/uL (4.20-5.50); White Blood Count 9.8 X10*3/uL (4.8-10.8)
[2021-05-01 07:40] LABS: Glucose, Whole Blood 134 mg/dL (60-115)
--- NOTE | 2021-05-01 07:48 | PC.NURSE ---
Pt received from night shift manager: Pt AOX4 and c/o reproducible mid CP that is worse with deep breaths. NSR noted with lungs diminished. N/C in tact on 2L. Pt abd soft and non-tender. Pt able to tolerate breakfast with no issues. Pt states she has home dialysis daily.
[2021-05-01 07:52] LABS: Anion Gap 29 (12-20); Blood Urea Nitrogen 86 mg/dL (9-16); Calcium 7.7 mg/dL (8.4-10.2); Carbon Dioxide 22 mmol/L (22-29); Chloride 94 mmol/L (96-108); Creatinine Clr Calc Pharmacy 3.8; Estimated Glomerular Filt Rate 3; Glucose Random 153 mg/dL (60-115); Potassium 6.7 mmol/L (3.3-5.1); Sodium 138 mmol/L (135-145)
--- NOTE | 2021-05-01 08:30 | CA_ITS ---
Transthoracic Echocardiogram Patient (Last, First, Middle): Bhavna Milton, Gender: Female Date of : 1955 Age: 65 Procedure Date: 05/01/2021 Procedure Type: Transthoracic Echocardiogram Location: [facility] [place] Height: 162.56 cm Weight: 72.58 kg BSA: 1.78 m2 Heart Rate: bpm BP: 171 / 78 mmHg Golf Ball Inspector: Referring MD: Stacy Urbina MD Terrazzo Installer: Aleksandr Petit MD Symptoms: chest pain in ESRD pt Study Quality: Fair ECG Rhythm: Sinus Conclusions: - 1. Mildly reduced LV systolic function with mild LVH with grade 2 diastolic dysfunction 2. Moderately dilated left atrium 3. Moderate aortic stenosis 4. Normal RV systolic pressure 5. Trivial pericardial effusion Findings Left Ventricle Normal left ventricular cavity size. There is mildly increased left ventricular wall thickness. The left ventricular systolic function is mildly decreased. The visually estimated ejection fraction is between 45-50%. Spectral Doppler is indicative of a pseudonormal filling pattern. E/E prime ratio is >15, consistent with elevated filling pressures. Evidence suggests grade II (moderate) diastolic dysfunction. Right Ventricle Normal right ventricular cavity size and systolic function. Atria The left atrium is moderately dilated. There is no evidence of interatrial shunt. The right atrium is normal in size. Aortic Valve The aortic valve was not well visualized. There is moderate aortic valve stenosis. The peak aortic gradient is 37 mmHg.The mean gradient is 21 mmHg. There is no aortic valve regurgitation. Mitral Valve There is mild anterior and moderate posterior mitral leaflet thickening. There is moderate mitral annular calcification. There is trace mitral valve regurgitation. There is no mitral valve stenosis. Pulmonic Valve The pulmonic valve was not well visualized. Tricuspid Valve The right ventricular systolic pressure is normal. The right ventricular systolic pressure is 29 mmHg. There is no evidence of pulmonary hypertension. Great Vessels All visible segments of the aorta are normal in size. The pulmonary artery was not well visualized. Venous The inferior vena cava is normal in size and collapses greater than 50% with inspiration. Pericardium/Pleural There is a trivial pericardial effusion. Prior Study Comparison No prior study available for comparison. Measurements 2D Linear Measurements IVSd: 1.33 0.6-0.9/0.6-1.0 cm LVIDd: 4.59 3.9-5.3/4.2-5.9 cm LVIDd Index: 2.58 2.4-3.2/2.2-3.1 cm/m2 LVIDs: 3.10 2.0-3.6 cm LVPWd: 1.25 0.7-1.1 cm Ao Root: 2.90 2.1-3.5 cm LA Diam: 3.40 2.7-3.8/3.0-4.0 cm LAIDs Index: 1.91 1.5-2.3 cm/m2 LV Mass: 282.78 67-162/88-224 g LV Mass Index: 158.86 43-95/49-115 g/m2 LVOT Diam: 2.00 3.0+(-)1.3 cm 2D Systolic Function EF 4C: 44.00 >55% EF 2C: 56.60 >55% EF BiP: 47.80 >55% Mitral Valve MV VTI: 0.55 MV Pk Devan: 1.82 MV Mn Devan: 1.10 MV Pk Grad: 13.00 MV Mn Grad: 6.00 MV Pk E: 1.48 MV PK A: 1.46 MV Decel Time: 206.00 E/A: 1.00 E'Lateral: 3.26 E'Medial: 4.13 E/E' Med: 35.80 E/E' Lat: 45.40 PHT: 60.00 MVA PHT: 3.67 MVA Continuity: 1.22 Decel Centre: 7.19 Aortic Valve AoV Pk Devan: 3.04 AoV Mn Devan: 2.15 AoV VTI: 0.69 AoV Pk Grad: 37.00 Aov Mn Grad: 21.00 ROMAINE Cont.VTI: 1.26 LVOT LVOT Pk Devan: 0.95 LVOT Mn Devan: 0.67 LVOT VTI: 0.22 LVOT Pk Grad: 4.00 LVOT Mn Grad: 2.00 LVOT Diam: 2.00 LVOT Area: 3.14 Diastolic Function MV Pk E: 1.48 MV Pk A: 1.46 E/A: 1.00 E'Medial: 4.13 E/E' Med: 35.80 E' Laterial: 3.26 E/E' Lat: 45.40 Tricuspid Valve TR Pk Devan: 2.53 TR Pk Grad: 26.00 RA Press: 3.00 RVSP: 29.00 Great Vessels Aorta Ao Root-2D: 2.90 2.0-3.7 cm Ao Asc: 2.70 2.1-3.4 cm Pulmonary Valve PV Pk Devan: 0.83 Peak PV Grad: 3.00 Updated in Other Vendor System with Status of Final Aleksandr Petit MD electronically signed on 05/01/2021 3:50:07 PM with status of Final
--- NOTE | 2021-05-01 08:53 | HO.PM.IMPN ---
Subjective Subjective Date of Service: 05/01/21 Interval History: hyperkalemia, esrd on hd Review of Systems Denies any new complaint of chest pain or shortness of breath or abdominal pain or fever or chills or nausea or vomiting Denies any cough Denies any weakness or numbness. Physical Exam Vital Signs: Vital Signs: Last Vital Signs Temp 99.1 F 05/01/21 07:48 Pulse 83 05/01/21 07:48 Resp 24 H 05/01/21 07:48 BP 176/76 H 05/01/21 07:48 Pulse Ox 99 05/01/21 07:48 BMI result Body Mass Index 27.6 Appearance: Alert.? Oriented X3.? not in distress.? ENT: Pharynx normal.? Moist mucous membranes. cvs: rrr, [id number] , no murmur res: clear to auscultation ,no rhonchii or wheezing abd: no rebound or guarding ,nt, bs present. ext pulses present , no cyanosis. neuro: axo3 , nonfocal. Objective Data Active Medications Acetaminophen (Acetaminophen 325 Mg Tablet) 650 mg PO Q6H PRN PRN Reason: Pain, Mild (Pain Scale 1-3) Last Admin: 05/01/21 01:00 Dose: 650 mg Documented by: YANNA Atorvastatin Calcium (Atorvastatin Calcium 40 Mg Tablet) 40 mg PO BEDTIME EVY Dextrose (Dextrose 50 % 25 Gm/50 Ml Syringe) 25 gm IVPUSH Q15M PRN; Protocol PRN Reason: per Hypoglycemia Standing Ord. Gabapentin (Gabapentin 100 Mg Capsule) 200 mg PO BEDTIME EVY Gabapentin (Gabapentin 100 Mg Capsule) 100 mg PO DAILY EVY Glucose (Glucose Gel 15 Gm Gel..Gram.) 15 gm PO Q15M PRN; Protocol PRN Reason: per Hypoglycemia Standing Ord. Heparin Sodium (Porcine) (Heparin Sodium,Porcine 5,000 Unit/Ml Vial) 5,000 unit SUBCUT Q12H [facility] Last Admin: 05/01/21 01:00 Dose: 5,000 unit Documented by: YANNA Calcium Gluconate (Calcium Gluconate) 1 gm in 50 mls @ 50 mls/hr IV ONCE ONE Stop: 05/01/21 09:48 Insulin Human Lispro (Insulin Lispro 100 Unit/Ml 3 Ml Vial) 0 unit SUBCUT QIDACHS EVY; Protocol Last Admin: 05/01/21 07:43 Dose: Not Given Documented by: EZRA Non-Admin Reason: No Insulin Coverage Comments: B/S 134 Loratadine (Loratadine 10 Mg Tablet) 10 mg PO DAILY [facility] Metoprolol Tartrate (Metoprolol Tartrate 25 Mg Tablet) 25 mg PO BID EVY; Protocol Non-Formulary Medication (Nifedipine) 60 mg PO BID [facility] Non-Formulary Medication (Sucroferric Oxyhydroxide [Velphoro]) 500 mg PO BID@0700,1200 EVY Non-Formulary Medication (Sucroferric Oxyhydroxide [Velphoro]) 1,000 mg PO DAILY@1700 [facility] Ondansetron HCl (Ondansetron Hcl 4 Mg/2 Ml Vial) 4 mg IVPUSH Q8H PRN PRN Reason: Nausea and Vomiting Sodium Chloride (0.9 % Sodium Chloride Flush 3 Ml Syringe) 3 ml IVFLUSH QSHIFT EVY Last Admin: 05/01/21 07:43 Dose: Not Given Documented by: EZRA Non-Admin Reason: Med Not Available Sodium Zirconium Cyclosilicate (Sodium Zirconium Cyclosilicate 10 Gm Powd.Pack) 10 gm PO ONCE ONE Stop: 05/01/21 08:50 Venlafaxine HCl (Venlafaxine Hcl Er 37.5 Mg Cap.Er.24h) 37.5 mg PO DAILY [facility] Zolpidem Tartrate (Zolpidem Tartrate 5 Mg Tablet) 10 mg PO BEDTIME PRN PRN Reason: insomnia Labs CBC & Chem 7: 05/01/21 06:49 05/01/21 06:49 Labs: Laboratory Results - last 24 hr 04/30/21 04/30/21 04/30/21 22:15 22:16 22:17 MCV 101.7 H MCH 33.0 MCHC 32.5 RDW 15.1 Plt Count 134 L MPV 9.5 Immature Gran % (Auto) 0.4 Neut % (Auto) 78.6 H Lymph % (Auto) 7.5 L [place] % (Auto) 9.0 Eos % (Auto) 4.2 H Baso % (Auto) 0.3 Lymph # (Auto) 0.7 L [place] # (Auto) 0.9 Eos # (Auto) 0.4 Baso # (Auto) 0.0 Abs Immat Gran (auto) 0.04 H Absolute Neuts (auto) 7.7 Absolute Nucleated RBC 0.000 Nucleated RBC % (auto) 0.0 PT 13.0 INR 1.1 VBG pH VBG pCO2 VBG pO2 VBG HCO3 VBG O2 Saturation VBG Base Excess Anion Gap 28 H Estim Creat Clear Calc 3.8 Estimated GFR 3 POC Glucose Random Glucose 194 H Lactic Acid Calcium 7.5 L D Magnesium 2.8 H Total Bilirubin 0.4 AST 17 ALT 11 Alkaline Phosphatase 112 Troponin I High Sens B-Natriuretic Peptide Total Protein 6.8 Albumin 3.1 L COVID-19 (AJAY) COVID-19 Clin Com 04/30/21 04/30/21 04/30/21 22:17 22:17 22:18 MCV MCH MCHC RDW Plt Count MPV Immature Gran % (Auto) Neut % (Auto) Lymph % (Auto) [place] % (Auto) Eos % (Auto) Baso % (Auto) Lymph # (Auto) [place] # (Auto) Eos # (Auto) Baso # (Auto) Abs Immat Gran (auto) Absolute Neuts (auto) Absolute Nucleated RBC Nucleated RBC % (auto) PT INR VBG pH VBG pCO2 VBG pO2 VBG HCO3 VBG O2 Saturation VBG Base Excess Anion Gap Estim Creat Clear Calc Estimated GFR POC Glucose Random Glucose Lactic Acid 1.1 Calcium Magnesium Total Bilirubin AST ALT Alkaline Phosphatase Troponin I High Sens 70.0 H* D B-Natriuretic Peptide 1381 H Total Protein Albumin COVID-19 (AJAY) COVID-19 Clin Com 04/30/21 04/30/21 05/01/21 22:18 22:30 00:31 MCV MCH MCHC RDW Plt Count MPV Immature Gran % (Auto) Neut % (Auto) Lymph % (Auto) [place] % (Auto) Eos % (Auto) Baso % (Auto) Lymph # (Auto) [place] # (Auto) Eos # (Auto) Baso # (Auto) Abs Immat Gran (auto) Absolute Neuts (auto) Absolute Nucleated RBC Nucleated RBC % (auto) PT INR VBG pH 7.47 H VBG pCO2 29 VBG pO2 82 VBG HCO3 21 L VBG O2 Saturation 95.0 VBG Base Excess -0.8 Anion Gap Estim Creat Clear Calc Estimated GFR POC Glucose Random Glucose Lactic Acid Calcium Magnesium Total Bilirubin AST ALT Alkaline Phosphatase Troponin I High Sens 66.5 H* B-Natriuretic Peptide Total Protein Albumin COVID-19 (AJAY) Negative COVID-19 Clin Com See Note 05/01/21 05/01/21 05/01/21 06:49 06:49 07:32 MCV 103.2 H MCH 31.3 MCHC 30.4 L RDW 15.0 Plt Count 140 L MPV 10.1 Immature Gran % (Auto) 0.4 Neut % (Auto) 80.0 H Lymph % (Auto) 7.8 L [place] % (Auto) 9.2 Eos % (Auto) 2.3 Baso % (Auto) 0.3 Lymph # (Auto) 0.8 L [place] # (Auto) 0.9 Eos # (Auto) 0.2 Baso # (Auto) 0.0 Abs Immat Gran (auto) 0.04 H Absolute Neuts (auto) 7.8 Absolute Nucleated RBC 0.000 Nucleated RBC % (auto) 0.0 PT INR VBG pH VBG pCO2 VBG pO2 VBG HCO3 VBG O2 Saturation VBG Base Excess Anion Gap 29 H Estim Creat Clear Calc 3.8 Estimated GFR 3 POC Glucose 134 H Random Glucose 153 H Lactic Acid Calcium 7.7 L Magnesium Total Bilirubin AST ALT Alkaline Phosphatase Troponin I High Sens B-Natriuretic Peptide Total Protein Albumin COVID-19 (AJAY) COVID-19 Clin Com Assessment and Plan (1) ESRD on dialysis: Status: Acute (2) ESRD (end stage renal disease): Status: Acute Assessment and Plan: 65-year-old female with past medical history of ESRD on home dialysis presents to the hospital with complaints of chest pain.? Found to have worsening kidney function as well as hyperkalemia to the chest pain 1. chest pain- less likely to be CAD, likely to be esophageal spasm versus pleuritic chest pain secondary to uremic pericarditis chest pain seems to be improved . - troponin initially 70 but no delta, elevation possibly secondary to kidney failure - EKG showed no evidence of S. AD, no ST T-wave changes, ekg similar to previous echocardiogram . 2.ESRD on home dialysis patient reports compliance but her kidney function appears to be significantly worse with hyperkalemia reports missed dialysis today due the chest pain - AV fistula on left forearm present, good bruit and thrill - nephrology consulted-HD today 3.?hyperkalemia- no significant EKG changes - looking my given for hyperkalemia given dextrose/insulin , lokelma, ca gluconate. 4.hyperlipidemia - continue statin 5.hypertension - stable - hold losartan in the setting of worsening kidney function, resume nifedipine and metoprolol 6. diabetes: fs 100-160 - hold oral antihyperglycemics -will start on low-dose sliding scale insulin, diabetic diet DVT prophylaxis:? Heparin subQ Quality Stroke Does the patient have a stroke diagnosis?: No VTE Prior VTE?: No VTE Risk Level:: Medical - moderate - high VTE Device Contraindication: Treatment Not Indicated VTE Drug Contraindication: N/A - Med Ordered
--- NOTE | 2021-05-01 09:05 | PHA.MEDREC ---
Pharmacy Consult ? Medication Reconciliation Pharmacy has completed the medication reconciliation. No remarkable issues. Edie Portillo, KaelD
[2021-05-01] MEDS: Insulin Lispro 100 UNIT/ML 3 ML VIAL SUBCUT (09:24)
[2021-05-01] MEDS: Dextrose 50 % 25 GM/50 ML SYRINGE IVPUSH ×2 (09:24→17:58)
[2021-05-01] MEDS: Calcium Gluconate/NaCl,Iso-Osm 1 GM/50 ML PLAST..BAG IV (09:24)
[2021-05-01] MEDS: Gabapentin 100 MG CAPSULE PO (09:34)
[2021-05-01] MEDS: Loratadine 10 MG TABLET PO (09:35)
[2021-05-01] MEDS: Metoprolol Tartrate 25 MG TABLET PO ×2 (09:35→22:05)
--- NOTE | 2021-05-01 09:36 | PC.NURSE ---
Morning K+ of 6.7. MD Peter aware and orders received for SQ insulin, IV dex and IV fabian glu. STAT EKG completed at this time. Pending dialysis for 1000 this morning. Pt c/o gen pain and scheduled gabapentin given. 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
--- NOTE | 2021-05-01 09:57 | MHC.CM.PN ---
CM MET WITH PT WHO REPORTS SHE LIVES ALONE AND HAS NO SERVICES IN THE HOME PT REPORTS SHE DOES HER OWN PERITONEAL HD IN THE HOME AND HAS NO OTHER DME PT CONFIRMS SHE HAS HCP ON FILE AND GAURI SERRANO IS HER PCP IMM DELIVERED, ORIGINAL AT BEDSIDE, COPY SENT TO THE CHART CURRENT DC PLAN IS HOME WITH VS WITHOUT [facility] FAMILY TO TRANSPORT
--- NOTE | 2021-05-01 10:16 | PC.NURSE ---
Pt to dialysis at this time
[2021-05-01 12:01] LABS: Iron 126 mcg/dL (30-160); Percent Iron Saturation 61 % (15-50); Total Iron Binding Capacity 207 mcg/dL (228-428); Unsaturated Iron Binding 81 ug/dL
[2021-05-01 13:18] LABS: Ferritin 1762 ng/mL (10-250)
--- NOTE | 2021-05-01 13:33 | CONS_ITS ---
DATE OF SERVICE: 05/01/2021 REASON FOR CONSULTATION: I was asked to see the patient to assist in evaluation and management of patient's dialysis needs in the setting of coming to the hospital with shortness of breath, noted to be hyperkalemic as well. The patient also apparently had some chest discomfort on presentation. HISTORY OF PRESENT ILLNESS: In summary, she is a 65-year-old ESRD patient who had switched from incenter hemodialysis to home peritoneal dialysis about 3 weeks ago as followed by my partner, Dr. Asencio. The patient states she has been doing her dialysis at home routinely. I did check with Julia, the director of the home dialysis program and says that patient is doing a reasonably good job with the peritoneal dialysis and actually pulled over a L of fluid the day before as we have a tracking method. Nonetheless, she came in with chest pain, hyperkalemia, and shortness of breath. The patient had been on hemodialysis for many years prior to being switched to PD. PAST MEDICAL HISTORY: Notable for ESRD, diabetes, hypertension, history of AV fistula left upper extremity, which is still functional. 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 MEDICATIONS ON ADMISSION: Noted in admitting notes. Current medications on the JUN. SOCIAL HISTORY: She is a nonsmoker, nondrinker. No illicit drug use. FAMILY HISTORY: No family history of kidney disease. REVIEW OF SYSTEMS: As noted above. PHYSICAL EXAMINATION: VITAL SIGNS: Blood pressure was 170/70 with a heart rate in the 70s. HEAD: Atraumatic and normocephalic. NECK: Supple. Mucous membranes moist. LUNGS: Breath sounds bilaterally. CARDIAC: Regular rate and rhythm. ABDOMEN: Soft. EXTREMITIES: Show trace edema. She has left upper extremity AV fistula. She had a PD catheter in place. LABORATORY DATA: Hemoglobin 7.8, hematocrit 25.7, white blood cell count 9.8, platelet count 140. Sodium 138, potassium 6.7, chloride 94, bicarb 24, BUN 86, creatinine 14.6, calcium 7.7, Mag 2.8. IMPRESSION: 1. End-stage renal disease. Patient recently switched from HD to peritoneal dialysis, now admitted with episode of chest pain, shortness of breath, and hyperkalemia. 2. End-stage renal disease. We will dialyze her using her fistula and on 1K bath today. She may need extra dialysis tomorrow in the hospital versus being discharging her back to peritoneal dialysis as an outpatient. 3. Chest pain. She is getting cardiac evaluation. 4. Hyperkalemia. We will have her on 1K dialysis bath. 5. Anemia. We will give a dose of EPO and check iron stores. 6. Diabetes mellitus. SUGGESTIONS: At this time include hemodialysis with 1K bath. Check iron stores. To give her dose of EPO. Cardiac evaluation as noted. Possible HD again tomorrow. We will reassess on a daily basis. We will follow the patient with the team. MD DIPIKA Ruth/SIMONA / [id number]
--- NOTE | 2021-05-01 14:48 | PC.NURSE ---
Pt returned from dialysis at this time
[2021-05-01 15:21] LABS: Troponin-I High Sensitivity 66.5 ng/L (<3.5-17.0)
[2021-05-01] MEDS: Venlafaxine HCl ER 37.5 MG CAP.ER.24H PO (16:05)
[2021-05-01 18:00] LABS: Glucose, Whole Blood 56 mg/dL (60-115)
[2021-05-01 18:40] LABS: Glucose, Whole Blood 143 mg/dL (60-115)
[2021-05-01 20:29] LABS: Anion Gap 21 (12-20); Blood Urea Nitrogen 37 mg/dL (9-16); Calcium 8.4 mg/dL (8.4-10.2); Carbon Dioxide 23 mmol/L (22-29); Chloride 99 mmol/L (96-108); Creatinine Clr Calc Pharmacy 6.8; Estimated Glomerular Filt Rate 5; Glucose Random 123 mg/dL (60-115); Potassium 5.1 mmol/L (3.3-5.1); Sodium 138 mmol/L (135-145)
[2021-05-01 21:38] LABS: Glucose, Whole Blood 83 mg/dL (60-115)
[2021-05-01] MEDS: Gabapentin 100 MG CAPSULE 200 MG PO (22:05)
[2021-05-01] MEDS: Atorvastatin Calcium 40 MG TABLET PO (22:05)
[2021-05-01] MEDS: NIFEdipine ER 60 MG TAB.ER.24 PO (22:05)
[2021-05-02 06:14] VITALS: BP 135/62; PULSE 91; RESP 18; TEMP 36.6; O2SAT 96
[2021-05-02 07:13] VITALS: BP 126/62; PULSE 90; RESP 20; TEMP 36.9; O2SAT 90
--- NOTE | 2021-05-02 07:22 | PC.NURSE ---
Pt received from night time nanny: PT AOX4 and denies any current complaints. NSR noted and lungs clear. Pt abd soft and non-tender. Bruit and thrill noted for L forearm fistula.
[2021-05-02 07:38] LABS: Glucose, Whole Blood 144 mg/dL (60-115)
[2021-05-02 07:47] LABS: Anion Gap 20 (12-20); Blood Urea Nitrogen 45 mg/dL (9-16); Carbon Dioxide 25 mmol/L (22-29); Chloride 95 mmol/L (96-108); Creatinine Clr Calc Pharmacy 6.1; Estimated Glomerular Filt Rate 4; Glucose Random 140 mg/dL (60-115); Potassium 4.4 mmol/L (3.3-5.1); Sodium 136 mmol/L (135-145)
--- NOTE | 2021-05-02 08:23 | P.PNIM_ITS ---
Subjective Subjective Date of Service: 05/02/21 Interval History: esrd Review of Systems Shortness of breath seems to be improving, still has some pelurtic pain , reproducable Physical Exam Verdana 4l Vital Signs: Verdana 4d Verdana 4d Vital Signs: Verdana 4d Verdana 4Bd Last Vital Signs Verdana 4d Bore Mill Operator For Plastic New 4d Bore Mill Operator For Plastic New 4d Temp 98.5 F 05/02/21 07:13 Bore Mill Operator For Plastic New 4d Pulse 90 05/02/21 07:13 Bore Mill Operator For Plastic New 4d Resp 20 05/02/21 07:13 BP 126/62 05/02/21 07:13 Pulse Ox 90 L 05/02/21 07:13 BMI result Body Mass Index 27.6 Appearance: Alert.? Oriented X3.? not in distress.? ENT: Pharynx normal.? Moist mucous membranes. cvs: rrr, [id number] , no murmur res: clear to auscultation ,no rhonchii or wheezing abd: no rebound or guarding ,nt, bs present. ext pulses present , no cyanosis. neuro: axo3 , nonfocal. Objective Data Active Medications Acetaminophen (Acetaminophen 325 Mg Tablet) 650 mg PO Q6H PRN PRN Reason: Pain, Mild (Pain Scale 1-3) Last Admin: 05/01/21 01:00 Dose: 650 mg Documented by: YANNA Atorvastatin Calcium (Atorvastatin Calcium 40 Mg Tablet) 40 mg PO BEDTIME [facility] Last Admin: 05/01/21 22:05 Dose: 40 mg Documented by: ELLY Dextrose (Dextrose 50 % 25 Gm/50 Ml Syringe) 25 gm IVPUSH Q15M PRN; Protocol PRN Reason: per Hypoglycemia Standing Ord. Dextrose (Dextrose 50 % 25 Gm/50 Ml Syringe) 25 gm IVPUSH Q15M PRN; Protocol PRN Reason: per Hypoglycemia Standing Ord. Last Admin: 05/01/21 17:58 Dose: 25 gm Documented by: EZRA Comments: B/S 56 Gabapentin (Gabapentin 100 Mg Capsule) 200 mg PO BEDTIME [facility] Last Admin: 05/01/21 22:05 Dose: 200 mg Documented by: ELLY Gabapentin (Gabapentin 100 Mg Capsule) 100 mg PO DAILY [facility] Last Admin: 05/01/21 09:34 Dose: 100 mg Documented by: EZRA Glucose (Glucose Gel 15 Gm Gel..Gram.) 15 gm PO Q15M PRN; Protocol PRN Reason: per Hypoglycemia Standing Ord. Heparin Sodium (Porcine) (Heparin Sodium,Porcine 5,000 Unit/Ml Vial) 5,000 unit SUBCUT Q12H [facility] Last Admin: 05/02/21 00:16 Dose: Not Given Documented by: ELLY Non-Admin Reason: See Note Insulin Human Lispro (Insulin Lispro 100 Unit/Ml 3 Ml Vial) 0 unit SUBCUT QIDACHS [facility]; Protocol Last Admin: 05/02/21 07:14 Dose: Not Given Documented by: EZRA Non-Admin Reason: No Insulin Coverage Comments: B/S 144 Loratadine (Loratadine 10 Mg Tablet) 10 mg PO DAILY [facility] Last Admin: 05/01/21 09:35 Dose: 10 mg Documented by: EZRA Metoprolol Tartrate (Metoprolol Tartrate 25 Mg Tablet) 25 mg PO BID [facility]; Protocol Last Admin: 05/01/21 22:05 Dose: 25 mg Documented by: ELLY Nifedipine (Nifedipine Er 60 Mg Tab.Er.24) 60 mg PO BID [facility] Last Admin: 05/01/21 22:05 Dose: 60 mg Documented by: ELLY Non-Formulary Medication (Sucroferric Oxyhydroxide [Velphoro]) 500 mg PO BID@0700,1200 [facility] Ondansetron HCl (Ondansetron Hcl 4 Mg/2 Ml Vial) 4 mg IVPUSH Q8H PRN PRN Reason: Nausea and Vomiting Sodium Chloride (0.9 % Sodium Chloride Flush 3 Ml Syringe) 3 ml IVFLUSH QSHIFT [facility] Last Admin: 05/02/21 07:06 Dose: Not Given Documented by: EZRA Non-Admin Reason: Med Not Available Venlafaxine HCl (Venlafaxine Hcl Er 37.5 Mg Cap.Er.24h) 37.5 mg PO DAILY [facility] Last Admin: 05/01/21 16:05 Dose: 37.5 mg Documented by: EZRA Zolpidem Tartrate (Zolpidem Tartrate 5 Mg Tablet) 5 mg PO BEDTIME PRN PRN Reason: insomnia Labs CBC & Chem 7: 05/01/21 06:49 05/02/21 06:58 Labs: Laboratory Results - last 24 hr 05/01/21 05/01/21 05/01/21 00:31 06:49 17:52 Anion Gap Estim Creat Clear Calc Estimated GFR POC Glucose 56 L* Random Glucose Calcium Iron 126 TIBC 207 L % Saturation 61 H Unsat Iron Binding 81 Ferritin 1762 H Troponin I High Sens 66.5 H* 05/01/21 05/01/21 05/01/21 18:37 19:45 21:34 Anion Gap 21 H Estim Creat Clear Calc 6.8 Estimated GFR 5 POC Glucose 143 H 83 Random Glucose 123 H Calcium 8.4 D Iron TIBC % Saturation Unsat Iron Binding Ferritin Troponin I High Sens 05/02/21 05/02/21 06:58 07:13 Anion Gap 20 Estim Creat Clear Calc 6.1 Estimated GFR 4 POC Glucose 144 H Random Glucose 140 H Calcium 8.0 L Iron TIBC % Saturation Unsat Iron Binding Ferritin Troponin I High Sens Microbiology Microbiology Results: Microbiology 04/30/21 22:27 Blood Culture - Preliminary Blood - Venous No growth after 24 hours. 04/30/21 22:27 Blood Culture - Preliminary Blood - Venous No growth after 24 hours. Assessment and Plan (1) Hyperkalemia: Status: Acute (2) ESRD on dialysis: Status: Acute Plan 65-year-old female with past medical history of ESRD on home dialysis presents to the hospital with complaints of chest pain.? Found to have worsening kidney function as well as hyperkalemia to the chest pain 1. chest pain- less likely to be CAD, likely to be esophageal spasm versus pleuritic chest pain secondary to uremic pericarditis chest pain seems to be improved . - troponin initially 70 but no delta, elevation possibly secondary to kidney failure - EKG showed no evidence of S. AD, no ST T-wave changes, ekg similar to previous echocardiogram , v/q scan added . 2.ESRD on home dialysis ?patient reports compliance but her kidney function appears to be significantly worse with hyperkalemia ?reports missed dialysis today due the chest pain - AV fistula on left forearm present, good bruit and thrill - nephrology consulted-HD today 3.?hyperkalemia- no significant EKG changes - looking my given for hyperkalemia given dextrose/insulin , lokelma, ca gluconate. 4.hyperlipidemia - continue statin 5.hypertension - stable - hold losartan in the setting of worsening kidney function, resume nifedipine and metoprolol 6. diabetes: fs 120-140. - hold oral antihyperglycemics -will start on low-dose sliding scale insulin, diabetic diet DVT prophylaxis:? Heparin subQ Quality Stroke Does the patient have a stroke diagnosis?: No VTE Prior VTE?: No VTE Risk Level:: Medical - moderate - high VTE Device Contraindication: Treatment Not Indicated VTE Drug Contraindication: N/A - Med Ordered
[2021-05-02] MEDS: Metoprolol Tartrate 25 MG TABLET PO ×2 (08:25→21:11)
[2021-05-02] MEDS: Loratadine 10 MG TABLET PO (08:25)
[2021-05-02] MEDS: Gabapentin 100 MG CAPSULE PO (08:25)
[2021-05-02] MEDS: Venlafaxine HCl ER 37.5 MG CAP.ER.24H PO (08:25)
--- NOTE | 2021-05-02 08:26 | PC.NURSE ---
MD Peter made aware of pt's morning BP. Communication order received to hold nifedipine. Carried out.
--- NOTE | 2021-05-02 09:07 | PC.NURSE ---
Pt to dialysis at this time
[2021-05-02 13:31] VITALS: BP 142/55; PULSE 85; RESP 16; O2SAT 97
--- NOTE | 2021-05-02 13:36 | PC.NURSE ---
Pt back from dialysis at this time. Pt states pain and pt aware of pending new tests. Pt sitting up and tolerating lunch at this time.
[2021-05-02 13:37] LABS: Glucose, Whole Blood 122 mg/dL (60-115)
[2021-05-02] MEDS: Heparin Sodium,Porcine 5,000 UNIT/ML VIAL 5000 UNIT SUBCUT (14:11)
--- NOTE | 2021-05-02 14:44 | PC.NURSE ---
Pt to Nuclear Medicine at this time.
--- NOTE | 2021-05-02 15:11 | PC.NURSE ---
Pt back from nuclear med at this time
--- NOTE | 2021-05-02 15:32 | PC.NURSE ---
Pt up and out of bed with assist. Pt ambulated with steady gait for 10ft.
--- NOTE | 2021-05-02 15:41 | PC.NURSE ---
Pt reminded that pt's home med Velphoro needs to be brought in by family. Upon reminder, pt states she told her client reporting associate that she no longer wants to take that medication anymore. Pharmacist Jackie made aware.
[2021-05-02 16:17] VITALS: BP 113/44; PULSE 91; RESP 16; TEMP 36.1; O2SAT 94
[2021-05-02 16:26] LABS: Glucose, Whole Blood 273 mg/dL (60-115)
[2021-05-02] MEDS: Insulin Lispro 100 UNIT/ML 3 ML VIAL SUBCUT (18:11)
--- NOTE | 2021-05-02 18:18 | PC.NURSE ---
Respiratory therapist made aware that pt is ordered for chest PT TID and incentive spirometer q1h. RT at bedside for teaching, but pt states she will not learn until she is done with her food. RN will continue to monitor.
--- NOTE | 2021-05-02 19:26 | P.PNNP_ITS ---
Subjective Subjective Date of Service: 05/02/21 Principal diagnosis: ESRD Interval history: Chetna reji examined, events noted Physical Exam Verdana 4l Vital Signs: Verdana 4d Verdana 4d Vital Signs: Verdana 4d Verdana 4Bd Last Vital Signs Verdana 4d Pocket Maker New 4d Pocket Maker New 4d Temp 97.0 F 05/02/21 16:17 Pocket Maker New 4d Pulse 91 05/02/21 16:17 Pocket Maker New 4d Resp 16 05/02/21 16:17 BP 113/44 L 05/02/21 16:17 Pulse Ox 94 05/02/21 16:17 BMI result Body Mass Index 27.6 BS bilat RRR Abd soft, PD cath edema Objective Data Labs CBC & Chem 7: 05/01/21 06:49 05/02/21 06:58 Labs: Laboratory Results - last 24 hr 05/01/21 05/01/21 05/02/21 19:45 21:34 06:58 Sodium 138 136 Potassium 5.1 D 4.4 Chloride 99 95 L Carbon Dioxide 23 25 Anion Gap 21 H 20 BUN 37 H D 45 H Creatinine 8.20 H* 9.13 H* Estim Creat Clear Calc 6.8 6.1 Estimated GFR 5 4 POC Glucose 83 Random Glucose 123 H 140 H Calcium 8.4 D 8.0 L 05/02/21 05/02/21 05/02/21 07:13 13:23 16:22 Sodium Potassium Chloride Carbon Dioxide Anion Gap BUN Creatinine Estim Creat Clear Calc Estimated GFR POC Glucose 144 H 122 H 273 H Random Glucose Calcium Microbiology Microbiology Results: Microbiology 04/30/21 22:27 Blood - Venous Blood Culture - Preliminary No growth after 24 hours. 04/30/21 22:27 Blood - Venous Blood Culture - Preliminary No growth after 24 hours. Procedures Date of Service Date of Service: 05/02/21 Assessment & Plan Assessment and plan (1) ESRD on dialysis: Status: Acute Plan 1. ESRD: mainted onCCPD and switched to HD while inpt 2. CP: card eval 3. HyperK: resolved with HD REC: contHD while inpt, back to [facility]CPD when d/c home, card w/u asnoted Time Spent With Patient Time: Total time spent is greater than 50% in coordination of care (as documented) at patient's floor/unit and/or counseling patient: Progress Note: Quality Stroke Does the patient have a stroke diagnosis?: No
--- NOTE | 2021-05-02 19:53 | PC.NURSE ---
This RN took over patient's care at 1900, patient is alert and oriented x3, lungs clear, denies pain at this time. +bruit/thrill to fistula in left lower arm. Patient demonstrated using incentive spirometer, up to 2000 mls multiple times.
[2021-05-02 20:36] LABS: Glucose, Whole Blood 69 mg/dL (60-115)
[2021-05-02 20:53] VITALS: BP 168/75; PULSE 74; RESP 16; TEMP 36.6; O2SAT 96
[2021-05-02] MEDS: Dextrose 50 % 25 GM/50 ML SYRINGE IVPUSH (20:58)
[2021-05-02] MEDS: Atorvastatin Calcium 40 MG TABLET PO (21:10)
[2021-05-02] MEDS: NIFEdipine ER 60 MG TAB.ER.24 PO (21:10)
[2021-05-02] MEDS: Gabapentin 100 MG CAPSULE 200 MG PO (21:10)
[2021-05-02 21:29] LABS: Glucose, Whole Blood 171 mg/dL (60-115)
--- NOTE | 2021-05-02 21:44 | PC.NURSE ---
2031; poc 69, per hypoglycemia order, iv push dextrose 50% 25 gram administered, patient a&o, reports did not have much of an appetite for dinner, asked for some orange juice. Rechecked poc 171. Dr. Urbina notified via exsulin.
--- NOTE | 2021-05-02 23:28 | PC.NURSE ---
Assumed care of pt at 2300. Pt sleeping, non-labored resps noted. Attached to environmental monitoring technician, call light within reach. Awaiting inpatient bed assignment
[2021-05-03 01:40] VITALS: BP 163/78; PULSE 87; RESP 16; TEMP 36.8; O2SAT 95
[2021-05-03 05:48] LABS: Anion Gap 18 (12-20); Blood Urea Nitrogen 34 mg/dL (9-16); Calcium 8.1 mg/dL (8.4-10.2); Carbon Dioxide 23 mmol/L (22-29); Chloride 97 mmol/L (96-108); Creatinine Clr Calc Pharmacy 9.4; Estimated Glomerular Filt Rate 7; Glucose Random 163 mg/dL (60-115); Potassium 4.6 mmol/L (3.3-5.1); Sodium 133 mmol/L (135-145)
[2021-05-03 07:24] LABS: Glucose, Whole Blood 158 mg/dL (60-115)
--- NOTE | 2021-05-03 07:47 | PC.NURSE ---
Pt received from night shift manager: Pt AOX4 and denies any CP or leg cramps. Pt does state she has been having an intermittent dry cough. NSR noted and lungs diminshed. Abd soft and non-tender. L forearm fistula positive bruit and thrill noted.
[2021-05-03 07:58] VITALS: BP 128/69; PULSE 92; RESP 14; TEMP 36.8; O2SAT 94
[2021-05-03] MEDS: Gabapentin 100 MG CAPSULE PO (08:42)
[2021-05-03] MEDS: Metoprolol Tartrate 25 MG TABLET PO (08:42)
[2021-05-03] MEDS: Loratadine 10 MG TABLET PO (08:42)
[2021-05-03] MEDS: Venlafaxine HCl ER 37.5 MG CAP.ER.24H PO (08:43)
--- NOTE | 2021-05-03 09:21 | P.DS_ITS ---
DS: Providers Provider Date of Service: 05/03/21 Date of admission: 04/30/21 23:59 Primary care physician: Unknown Physician Consults: 04/30/21 23:58 Consult to Nephrology Routine Consulting Provider: [facility] Reason for consultation: worsening kidney fx Has provider been notified: No DS: Diagnosis Discharge Diagnosis (1) ESRD on dialysis: Status: Acute DS: Summary Hospital Course Hospital Course: 65-year-old female with past medical history of ESRD on home dialysis daily per patient, hypertension, depression who presents to the hospital with compaints of chest pain. she reports chest pain started this afternoon, constant, non- radiating, worst with inspiration and talking, 6/10, no relieving factors. reports previous similar episodes. denies any sob, no cough, no palpitations, no headache or change in vision, no abd pain. reports compliance with her daily HD but did not do her dialysis today due to the pain. denies any fever or chills, no n/v, no constipation. still produces some urine with any symptoms On arrival to the ED patient hemodynamically stable with no significant abnormal vitals Labs are significant for hemoglobin of 7.6, which is chronically low, pH of 7.47, potassium 5.7, bicarb of 29, creatinine of 14.49 which was 6.75 on 04/09, a shoulder high sensitivity troponin of 70 decreased to 66.5 on repeat, COVID-19 negative, chest x-ray shows no significant abnormality. EKG shows no EKG changes suggestive of hyperkalemia. Hospital course: 65-year-old female with past medical history of ESRD on home dialysis presents to the hospital with complaints of chest pain.? Found to have worsening kidney function as well as hyperkalemia to the chest pain. hospital course: Patient is hyperkalemia and pleurisy seems to be improved after hemodialysis- she received 2 hemodialysis during this admission- she was strongly advised to compliance with her dialysis sessions. Also pleurisy mak: Patient also had workup including cardiac echo: ef 45-50% and V/Q scan-normal Nephrology recommended to stop losartan since patient had significant hyperkalemia. Further management outpatient with PCP and Nephrology. Above management discussed with the patient in detail length she understand and in agreement with the above plan, time spent 50 minutes and 50% time spent on counseling. Significant findings: As above. Procedures performed: None. Treatment and response: As above. Complications: None. Time Spent with Patient Time attestation: Total time spent providing and/or coordinating discharge services: Discharge coordination time: Greater than 30 minutes Quality: Stroke Does the patient have a stroke diagnosis?: No Physical Exam Verdana 4l Vital Signs: Verdana 4d Verdana 4d Vital Signs: Verdana 4d Verdana 4Bd Last Vital Signs Verdana 4d Crab Meat Processor New 4d Crab Meat Processor New 4d Temp 98.3 F 05/03/21 07:58 Crab Meat Processor New 4d Pulse 92 05/03/21 07:58 Crab Meat Processor New 4d Resp 14 05/03/21 07:58 BP 128/69 05/03/21 07:58 Pulse Ox 94 05/03/21 07:58 BMI result Body Mass Index 27.6 Appearance: Alert.? Oriented X3.? not in distress.? Eyes: Pupils equal, round and reactive to light.? Sclera nonicteric.? ENT: Pharynx normal.? Moist mucous membranes. cvs: rrr, [id number] , no murmur res: clear to auscultation ,no rhonchii or wheezing abd: no rebound or guarding ,nt, bs present. ext pulses present , no cyanosis ,Gait well balanced well coordinated. neuro: axo3 , nonfocal. DS: Data Data Completed and Pending Completed studies during hospitalization [Text1]: Procedures Performance of Urinary Filtration, Intermittent, Less than 6 Hours Per Day (04/08/21) Labs on day of discharge: Laboratory Results - last 24 hr 05/02/21 05/02/21 05/02/21 13:23 16:22 20:32 Sodium Potassium Chloride Carbon Dioxide Anion Gap BUN Creatinine Estim Creat Clear Calc Estimated GFR POC Glucose 122 H 273 H 69 Random Glucose Calcium 05/02/21 05/03/21 05/03/21 21:23 04:12 07:19 Sodium 133 L Potassium 4.6 Chloride 97 Carbon Dioxide 23 Anion Gap 18 BUN 34 H Creatinine 6.00 H* Estim Creat Clear Calc 9.4 Estimated GFR 7 POC Glucose 171 H 158 H Random Glucose 163 H Calcium 8.1 L Preliminary micro results at discharge 04/30/21 22:27 Blood Culture - Preliminary Blood - Venous No growth after 48 hours. 04/30/21 22:27 Blood Culture - Preliminary Blood - Venous No growth after 48 hours. Additional Comments Additional comments: NM/NM pul perfusion IMPRESSION: Normal perfusion scan. No evidence to suspect any PE. echo: Conclusions: - 1. Mildly reduced LV systolic function with mild LVH with grade 2 diastolic dysfunction? 2. Moderately dilated left atrium? 3. Moderate aortic stenosis? 4.? Normal RV systolic pressure? 5.? Trivial pericardial effusion Discharge Plan Discharge Patient Disposition: Home, Self-Care Discharge Diagnosis: esrd , hyperkalemia due to missed HD Referrals: Yuval Diop MD [Physician] - 1 Week (follow up outpatiently) PhysicianCarline [Primary Care Provider] - 1 Week Discharge Medications: Continued atorvastatin 40 mg tablet 40 mg PO BEDTIME 0RF venlafaxine 37.5 mg capsule,extended release 24hr 37.5 mg PO DAILY 0RF gabapentin 100 mg capsule 100 mg PO DAILY 0RF gabapentin 100 mg Capsule 200 mg PO BEDTIME 0RF zolpidem 10 mg tablet 10 mg PO BEDTIME PRN (Reason: insomnia) 0RF loratadine 10 mg tablet 10 mg PO DAILY 0RF Velphoro 500 mg tablet,chewable 500 mg PO BID@0700,1200 0RF acetaminophen [Tylenol] 325 mg Tablet 325 mg PO QID PRN (Reason: Pain) 0RF pioglitazone 45 mg tablet 1 tab PO DAILY 0RF nifedipine 60 mg tablet extended release 60 mg PO BID 0RF metoprolol tartrate 25 mg tablet 25 mg PO BID 30 Days Qty: 60 0RF Discontinued losartan 100 mg tablet 1 tab PO DAILY 0RF Discharge Orders: Discharge Order (Routine); Ordered 05/03/21 Ordered By: Yogi Peter Diet: advance to usual diet Activity on Discharge: As tolerated Stand Alone Forms: Patient Portal Discharge page Care Plan Goals: Patient admitted for end-stage renal disease and hyperkalemia, pleuritic chest pain- probably related to missing hemodialysis and uremia. Patient got dialysis x2 and seems to be improved. in addition workup for pleuritic chest pain including echo seems fine as well as v/ Q scan is also fine. her pleuritic pain is also improved with dialysis. Nephrology recommended to stop losartan since patient had significant hyperkalemia. Further management outpatient with PCP and Nephrology. Health Concerns: as above. Plan of Treatment: As above. Assessment: As above.
--- NOTE | 2021-05-03 09:55 | MHC.CM.PN ---
Addendum entered by Lashell Chilel 05/03/21 12:08: [facility] NOTIFIED OF PTS DC VIA T/C TO [facility] ([phone]) Original Note: CM INFORMED PT WILL LIKELY DC HOME TODAY PT HAS NO SERVICES IN THE HOME AND NO NEW SERVICES TO BE ORDERED CM WILL NOTIFY [facility] TO DO POST DC HOME ASSESSMENT FAMILY TO TRANSPORT
--- NOTE | 2021-05-03 11:21 | P.PNNP_ITS ---
Subjective Subjective Date of Service: 05/03/21 Principal diagnosis: ESRD Interval history: Chetna reji examined, events noted Physical Exam Verdana 4l Vital Signs: Verdana 4d Verdana 4d Vital Signs: Verdana 4d Verdana 4Bd Last Vital Signs Verdana 4d Physician Assistant Surgery New 4d Physician Assistant Surgery New 4d Temp 98.3 F 05/03/21 07:58 Physician Assistant Surgery New 4d Pulse 92 05/03/21 07:58 Physician Assistant Surgery New 4d Resp 14 05/03/21 07:58 BP 128/69 05/03/21 07:58 Pulse Ox 94 05/03/21 07:58 BMI result Body Mass Index 27.6 Const: General: cooperative and no acute distress Orientation/consciousness: patient oriented x3 Eyes: Pupils: Equal, round and reactive pupils present Resp: Effort & Inspection: normal respiratory effort Auscultation: clear to auscultation bilaterally Cardio: Rate: regular rate Rhythm: regular rhythm GI: Other: Dialysis cath in place, no erythema, no tenderness, no warmth around it Palpati on (GI): Soft to palpation Auscultation: normal bowel sounds Skin: General skin exam: no rashes or lesions noted Neuro: General: patient oriented x3 Cranial nerves: Yes Equal, round and reactive pupils present Cognition (Neuro): normal cognition Extrem: Other: Left forearm AV fistula, bruit and thrill present General: Yes normal to inspection and Yes no pedal edema Objective Data Labs CBC & Chem 7: 05/01/21 06:49 05/03/21 04:12 Labs: Laboratory Results - last 24 hr 05/02/21 05/02/21 05/02/21 13:23 16:22 20:32 Sodium Potassium Chloride Carbon Dioxide Anion Gap BUN Creatinine Estim Creat Clear Calc Estimated GFR POC Glucose 122 H 273 H 69 Random Glucose Calcium 05/02/21 05/03/21 05/03/21 21:23 04:12 07:19 Sodium 133 L Potassium 4.6 Chloride 97 Carbon Dioxide 23 Anion Gap 18 BUN 34 H Creatinine 6.00 H* Estim Creat Clear Calc 9.4 Estimated GFR 7 POC Glucose 171 H 158 H Random Glucose 163 H Calcium 8.1 L Microbiology Microbiology Results: Microbiology 04/30/21 22:27 Blood - Venous Blood Culture - Preliminary No growth after 48 hours. 04/30/21 22:27 Blood - Venous Blood Culture - Preliminary No growth after 48 hours. Procedures Date of Service Date of Service: 05/03/21 Assessment & Plan Assessment and plan (1) ESRD on dialysis: Status: Acute Plan 1. ESRD: maintaied on CCPD and switched to HD while inpt 2. CP: card mazin 3. HyperK: resolved with HD REC: cont HD while inpt, back to CCPD when d/c home ok to d/c home from renal standpoint--avoid RASi given prone to hyperK; willincr CCPD prescription Time Spent With Patient Time: Total time spent is greater than 50% in coordination of care (as documented) at patient's floor/unit and/or counseling patient: Progress Note: Quality Stroke Does the patient have a stroke diagnosis?: No
[2021-05-03 12:25] VITALS: BP 137/59; PULSE 79; RESP 22; O2SAT 95
--- NOTE | 2021-05-03 12:54 | PC.NURSE ---
Pt D/C from Ed overflow. Pt given D/C instructions to which pt states understanding and denies any further questions. IV removed. Pt dressed independantly and wheelchaired out to ride home.
== END 2021-05-03 13:00 | disposition home or self-care (01) | DRG 683 ==
LOC: HO.ED 05-01 00:03 → HO.EDOVER 05-01 00:05
PROVIDERS: Internal Medicine Nephrology; Admitting Provider Internal Medicine; Emergency Provider Student in an Organized Health Care Education/Training Program; PCP Pediatrics; Visit Provider Internal Medicine
DX: N17.9 Acute kidney failure, unspecified (principal); I12.0 Hypertensive chronic kidney disease with stage 5 chronic kidney disease or end stage renal disease; I32 Pericarditis in diseases classified elsewhere; N18.6 End stage renal disease; E78.5 Hyperlipidemia, unspecified; K22.4 Dyskinesia of esophagus; E11.22 Type 2 diabetes mellitus with diabetic chronic kidney disease; E87.5 Hyperkalemia; Z20.822 Contact with and (suspected) exposure to COVID-19; Z91.15 Patient's noncompliance with renal dialysis; Z99.2 Dependence on renal dialysis; Z79.899 Other long term (current) drug therapy
CPT/HCPCS: 36415; 71045; 78580; 80048; 80053; 82728; 82803; 82947; 83540; 83605; 83735; 83880; 84484; 85025; 85610; 87040; 87635; 90999; 93005; 93306; 96365; 96366; 97161; 99285; A9540; J0610; J0885